=== PATIENT | male | born 1930 | race Caucasian/White ===

== ENCOUNTER 2016-07-24 13:15 | Emergency (ER) | payer MEDICARE, OTHER ==
--- NOTE | 2016-07-24 15:43 | EDM.PDOC ---
ED HISTORY OF PRESENT ILLNESS - General Chief Complaint: Genitourinary Problem Stated Complaint: UTI??? Time Seen by Provider: 07/24/16 15:24 Source: Reports: Patient, EMS notes reviewed, Family, Old records, RN notes reviewed History Limitations: Reports: No limitations - History of Present Illness INITIAL COMMENTS - FREE TEXT/NARRATIVE: 85-year-old gentleman presents emergency Department a complaint of weakness, he states he had some difficulty 3 days prior he had some pain into his neck he does have a known history of coronary artery disease he was at the grocery took 2 nitroglycerin and then walked from the car store felt lightheaded and had a near syncopal. He got home over the weekend he had a couple episodes where he felt palpitations he could not record his heart rate was going to pass. He presents today for just generalized weakness denies any nausea vomiting no shortness of breath no chest pain no other or GI symptoms - Related Data Allergies/ADRs: Allergies Allergy/AdvReac Type Severity Reaction Status Date / Time amlodipine Allergy Severe anaphylaxis Verified 09/29/13 15:55 dipyridamole Allergy Cannot Verified 09/29/13 15:56 Remember Iodinated Contrast Media - Allergy Rash Verified 10/01/13 09:19 Oral and [Iodinated Contrast Media - IV Dye] rosuvastatin calcium Allergy Muscle Verified 09/29/13 15:57 [From Crestor] Aches Home Meds: Home Meds Aspirin [Ecotrin] 81 mg PO DAILY 09/29/13 [History] Copper/Ginseng/Saw Palm/Zinc [Prostate Health Formula] 1 cap PO DAILY 09/29/13 [ History] Multivitamin with Minerals [Multiple Vitamin] 1 tab PO DAILY 09/29/13 [History] Omeprazole [Prilosec] 40 mg PO DAILY 09/29/13 [History] Clopidogrel [Plavix] 75 mg PO DAILY 07/14/14 [History] glipiZIDE [Glucotrol] 2.5 mg PO BID 07/14/14 [History] Cholecalciferol (Vitamin D3) [Vitamin D] 1 tab PO DAILY 09/10/14 [History] Nitroglycerin [IJP: Nitroglycerin] 07/24/16 [History] Past Medical History HEENT History: Reports: Cataract, Other (see below) Other HEENT History: optic neuropathy Cardiovascular History: Reports: Arrhythmia, Blood clots/VTE/DVT, CAD, [place], Pacemaker, Other (see below) Other Cardiovascular History: cardiomegaly, sinoatrial node disfunction, Respiratory History: Reports: PE, Other (see below) Other Respiratory History: pulm. valve disorder Gastrointestinal History: Reports: GERD Genitourinary History: Reports: BPH, Chronic renal insuffiency, Other (see below ) Other Genitourinary History: hx of urinary obstructions Musculoskeletal History: Reports: Back pain, chronic, Osteoarthritis Endocrine/Metabolic History: Reports: Diabetes, type II - Past Surgical History HEENT Surgical History: Reports: Cataract surgery Social & Family History - Tobacco Use Smoking Status *Q: Former Smoker Years of Tobacco use: 8 Month Tobacco Last Used: september Second Hand Smoke Exposure: No - Caffeine Use Caffeine Use: Reports: Coffee - Alcohol Use Days Per Week of Alcohol Use: 0 - Recreational Drug Use Recreational Drug Use: No ED ROS GENERAL - Review of Systems Review Of Systems: See Below Constitutional: Reports: weakness. Denies: fever, chills, diaphoresis HEENT: Reports: No symptoms Respiratory: Reports: no symptoms Cardiovascular: Reports: No symptoms GI/Abdominal: Reports: No symptoms : Reports: no symptoms Musculoskeletal: Reports: neck pain Skin: Reports: no symptoms Neurological: Reports: no symptoms ED EXAM, GENERAL - Physical Exam Exam: See Below Free Text/Narrative:: General: Male, not in any distress, alert and oriented x3 HEENT: head is atraumatic normocephalic, eyes pupils equal round reactive to light and accommodation sclera clear no conjunctivitis appreciated. Ears blocked by cerumen bilaterally. Nose no septal deviation, nares are clear, no blood present. Mouth mucosa is moist and pink no erythema or exudate noted in soft palate, tongue is midline uvula is midline, dentures in place. Neck: Supple no thyromegaly no tracheal deviation. Nodes: Cervical nodes subclavicular nodes nontender no palpable lymphadenopathy noted. Lungs: Clear with crackles in the bases bilaterally CV: Regular rate and rhythm S1 and S2 appreciated no murmurs rubs or gallops noted. Abdomen: Soft, nontender, no palpable masses or organomegaly appreciated, no distention no guarding bowel sounds are present, . Neuro: Cranial nerves II through XII grossly intact Skin: Warm and dry, intact Extremities: No lower extremity edema appreciated, Course - Vital Signs Last Recorded V/S: Last Vital Signs Temp 98.2 F 07/24/16 14:06 Pulse 102 H 07/24/16 15:46 Resp 18 07/24/16 15:06 BP 135/77 07/24/16 15:46 Pulse Ox 96 07/24/16 15:46 - Orders/Labs/Meds Orders: Active Orders 24 hr Category Date Time Status Cardiac Monitoring [RC] .As Directed Care 07/24/16 15:38 Active EKG Documentation Completion [RC] ASDIRECTED Care 07/24/16 15:39 Active Chest 2V [CR] Stat Exams 07/24/16 15:39 Taken EKG 12 Lead [EK] Stat Ther 07/24/16 15:39 Ordered Labs: Laboratory Tests 07/24/16 07/24/16 07/24/16 Range/Units 14:35 15:42 15:48 WBC 9.0 (4.5-11.0) K/uL RBC 5.10 (4.30-5.90) M/uL Hgb 15.6 H (12.0-15.0) g/dL Hct 45.5 (40.0-54.0) % MCV 89 (80-98) fL MCH 31 (27-31) pg MCHC 34 (32-36) % Plt Count 181 (150-400) K/uL Neut % (Auto) 69 H (36-66) % Lymph % (Auto) 20 L (24-44) % [place] % (Auto) 9 H (2-6) % Eos % (Auto) 2 (2-4) % Baso % (Auto) 1 (0-1) % D-Dimer, Quantitative 175 (0.0-400.0) ng/mL Sodium (140-148) mmol/L Potassium (3.6-5.2) mmol/L Chloride (100-108) mmol/L Carbon Dioxide (21-32) mmol/L Anion Gap (5.0-14.0) mmol/L BUN (7-18) mg/dL Creatinine (0.8-1.3) mg/dL Est Cr Clr Drug Dosing mL/min Estimated GFR (MDRD) (>60) Glucose (74-106) mg/dL Lactic Acid (0.4-2.0) mmol/L Calcium (8.5-10.1) mg/dL Total Bilirubin (0.2-1.0) mg/dL AST (15-37) U/L ALT (12-78) U/L Alkaline Phosphatase (46-116) U/L Troponin I (0.000-0.056) ng/mL Total Protein (6.4-8.2) g/dL Albumin (3.4-5.0) g/dL Globulin (2.3-3.5) g/dL Albumin/Globulin Ratio (1.2-2.2) Urine Color Yellow Urine Appearance Clear Urine pH 5.0 (4.5-8.0) Ur Specific [place] 1.020 (1.008-1.030) Urine Protein Negative (NEGATIVE) mg/dL Urine Glucose (UA) Normal (NEGATIVE) mg/dL Urine Ketones Negative (NEGATIVE) mg/dL Urine Occult Blood Negative (NEGATIVE) Urine Nitrite Negative (NEGAITVE) Urine Bilirubin Negative (NEGATIVE) Urine Urobilinogen Normal (NORMAL) mg/dL Ur Leukocyte Esterase Negative (NEGATIVE) Urine RBC 0-5 (0-5) Urine WBC 0-5 (0-5) Ur Epithelial Cells Moderate Amorphous Sediment Not seen Urine Bacteria Moderate Urine Mucus Many Urine Other 07/24/16 07/24/16 Range/Units 15:48 15:48 WBC (4.5-11.0) K/uL RBC (4.30-5.90) M/uL Hgb (12.0-15.0) g/dL Hct (40.0-54.0) % MCV (80-98) fL MCH (27-31) pg MCHC (32-36) % Plt Count (150-400) K/uL Neut % (Auto) (36-66) % Lymph % (Auto) (24-44) % [place] % (Auto) (2-6) % Eos % (Auto) (2-4) % Baso % (Auto) (0-1) % D-Dimer, Quantitative (0.0-400.0) ng/mL Sodium 144 (140-148) mmol/L Potassium 4.2 (3.6-5.2) mmol/L Chloride 105 (100-108) mmol/L Carbon Dioxide 29 (21-32) mmol/L Anion Gap 9.9 (5.0-14.0) mmol/L BUN 29 H D (7-18) mg/dL Creatinine 1.6 H (0.8-1.3) mg/dL Est Cr Clr Drug Dosing 38.40 mL/min Estimated GFR (MDRD) 41 L (>60) Glucose 141 H (74-106) mg/dL Lactic Acid 1.9 (0.4-2.0) mmol/L Calcium 8.2 L (8.5-10.1) mg/dL Total Bilirubin 0.4 D (0.2-1.0) mg/dL AST 21 (15-37) U/L ALT 52 (12-78) U/L Alkaline Phosphatase 52 (46-116) U/L Troponin I 0.018 (0.000-0.056) ng/mL Total Protein 6.4 (6.4-8.2) g/dL Albumin 3.3 L (3.4-5.0) g/dL Globulin 3.1 (2.3-3.5) g/dL Albumin/Globulin Ratio 1.1 L (1.2-2.2) Urine Color Urine Appearance Urine pH (4.5-8.0) Ur Specific [place] (1.008-1.030) Urine Protein (NEGATIVE) mg/dL Urine Glucose (UA) (NEGATIVE) mg/dL Urine Ketones (NEGATIVE) mg/dL Urine Occult Blood (NEGATIVE) Urine Nitrite (NEGAITVE) Urine Bilirubin (NEGATIVE) Urine Urobilinogen (NORMAL) mg/dL Ur Leukocyte Esterase (NEGATIVE) Urine RBC (0-5) Urine WBC (0-5) Ur Epithelial Cells Amorphous Sediment Urine Bacteria Urine Mucus Urine Other Departure - Departure Time of Disposition: 16:43 Disposition: Home, Self-Care 01 Condition: good Clinical Impression: Atrial flutter Qualifiers: Atrial flutter type: atypical Qualified Code(s): I48.4 - Atypical atrial flutter Forms: ED Department Discharge Additional Instructions: start metoprolol 6.25 mg twice a day followup with her primary care provider in the next 5-7 days for reevaluation, call or return to the ED with worsening of symptoms - My Orders Last 24 Hours: My Active Orders 07/24/16 15:38 Cardiac Monitoring [RC] .As Directed 07/24/16 15:39 EKG Documentation Completion [RC] ASDIRECTED Chest 2V [CR] Stat EKG 12 Lead [EK] Stat - Assessment/Plan Last 24 Hours: My Active Orders 07/24/16 15:38 Cardiac Monitoring [RC] .As Directed 07/24/16 15:39 EKG Documentation Completion [RC] ASDIRECTED Chest 2V [CR] Stat EKG 12 Lead [EK] Stat Plan: Assessment Acuity = acute Site and laterality = atrial flutter with variable conduction, inpatient with known history of coronary artery disease Etiology =unclear etiology Manifestations = palpitations Location of injury = home Lab values = creatinine elevated 1.6 consistent with the chronic renal failure stage GIII be lactic acid normal at 1.9 albumin low at 2.3 consistent hypoalbuminemia EKG demonstrates an atrial flutter variable conduction left bundle branch block, chest x-ray I did review films myself I cannot appreciate any acute process, the official read from radiology is pending Plan I did review with him his lab work and EKG results are elected to start a beta gera which he has been on in the past however it did drop his blood pressure significantly therefore we'll start a low dose and follow up with primary care in 3-5 days for reevaluation Patient was in agreement with the plan all questions were answered, they were instructed to return to the emergency department or call for worsening symptoms. This note was dictated using [employer] voice recognition software please call with any questions.
[2016-07-24 16:41] VITALS: BP 132/81
--- NOTE | 2016-07-25 08:39 | CR ---
Chest 2V HISTORY: Palpitations. COMPARISON: 09/10/2014. FINDINGS: Right-sided pacemaker. Prior median sternotomy. Stable mild cardiomegaly. No acute infiltr ates or effusions.
== END 2016-07-24 16:54 | disposition home or self-care (01) ==
LOC: JP.ED 13:15
DX: I48.4 Atypical atrial flutter (principal); I25.2 Old myocardial infarction; I25.10 Atherosclerotic heart disease of native coronary artery without angina pectoris; K21.9 Gastro-esophageal reflux disease without esophagitis; N18.9 Chronic kidney disease, unspecified; E11.9 Type 2 diabetes mellitus without complications; Z86.718 Personal history of other venous thrombosis and embolism; Z98.49 Cataract extraction status, unspecified eye; Z87.891 Personal history of nicotine dependence; Z79.82 Long term (current) use of aspirin; Z79.02 Long term (current) use of antithrombotics/antiplatelets; Z79.899 Other long term (current) drug therapy; Z88.8 Allergy status to other drugs, medicaments and biological substances; Z91.041 Radiographic dye allergy status
CPT/HCPCS: 36415; 71020; 71020-26; 80053; 81001; 83605; 84484; 85025; 85379; 93005; 93010; 99284; 99285-25

== ENCOUNTER 2016-08-18 11:50 | Emergency (ER) | payer MEDICARE, OTHER ==
[2016-08-18 15:18] VITALS: BP 154/80
--- NOTE | 2016-08-18 15:29 | EDM.PDOC ---
[id number]? EAR PAIN WELL Time Seen by Provider: 08/18/16 13:00 Source: Reports: Patient, Family History Limitations: Reports: No limitations - History of Present Illness INITIAL COMMENTS - FREE TEXT/NARRATIVE: 85-year-old male with right-sided visual problems, cerumen impaction and dyspnea at night. It started one week ago when he had his right ear washed in the clinic without success. That night he had a right-sided headache and since that time he feels like his vision is not normal in the right side. The headache is resolved. He is still having difficulty hearing. Recently had an increase in his metoprolol and at night he feels like he wakes up short of breath although the symptoms only last for a few minutes after sitting up. No chest pains, no nausea vomiting. Severity: mild Location: Reports: right Ear Associated symptoms: Reports: shortness of breath (Nocturnal dyspnea). Denies: cough, nausea/vomiting - Related Data Allergies/ADRs: Allergies Allergy/AdvReac Type Severity Reaction Status Date / Time amlodipine Allergy Severe anaphylaxis Verified 08/18/16 13:36 dipyridamole Allergy Cannot Verified 08/18/16 13:36 Remember Iodinated Contrast Media - Allergy Rash Verified 08/18/16 13:36 Oral and [Iodinated Contrast Media - IV Dye] rosuvastatin calcium Allergy Muscle Verified 08/18/16 13:36 [From Crestor] Aches Home Meds: Home Meds Aspirin [Ecotrin] 81 mg PO DAILY 09/29/13 [History] Copper/Ginseng/Saw Palm/Zinc [Prostate Health Formula] 1 cap PO DAILY 09/29/13 [ History] Multivitamin with Minerals [Multiple Vitamin] 1 tab PO DAILY 09/29/13 [History] Omeprazole [Prilosec] 40 mg PO DAILY 09/29/13 [History] Clopidogrel [Plavix] 75 mg PO DAILY 07/14/14 [History] glipiZIDE [Glucotrol] 2.5 mg PO BID 07/14/14 [History] Cholecalciferol (Vitamin D3) [Vitamin D] 1 tab PO DAILY 09/10/14 [History] Nitroglycerin [IJP: Nitroglycerin] 07/24/16 [History] Past Medical History HEENT History: Reports: Cataract, Other (see below) Other HEENT History: optic neuropathy Cardiovascular History: Reports: Arrhythmia, Blood clots/VTE/DVT, CAD, [place], Pacemaker, Other (see below) Other Cardiovascular History: cardiomegaly, sinoatrial node disfunction, Respiratory History: Reports: PE, Other (see below) Other Respiratory History: pulm. valve disorder Gastrointestinal History: Reports: GERD Genitourinary History: Reports: BPH, Chronic renal insuffiency, Other (see below ) Other Genitourinary History: hx of urinary obstructions Musculoskeletal History: Reports: Back pain, chronic, Osteoarthritis Endocrine/Metabolic History: Reports: Diabetes, type II - Past Surgical History HEENT Surgical History: Reports: Cataract surgery Social & Family History - Tobacco Use Smoking Status *Q: Former Smoker Years of Tobacco use: 8 Month Tobacco Last Used: september Second Hand Smoke Exposure: No - Caffeine Use Caffeine Use: Reports: Coffee - Alcohol Use Days Per Week of Alcohol Use: 0 - Recreational Drug Use Recreational Drug Use: No ED ROS ENT - Review of Systems Review Of Systems: See Below Constitutional: Denies: chills, malaise HEENT: Reports: Vision change (Right eye only) Respiratory: Reports: Shortness of Breath (At night while lying down) Cardiovascular: Denies: Chest pain Endocrine: Denies: fatigue GI/Abdominal: Denies: Abdominal pain, Nausea, Vomiting Skin: Reports: no symptoms Neurological: Reports: Headache (One week ago, has resolved) ED EXAM, ENT - Physical Exam Exam: See Below Exam Limited By: No limitations General Appearance: alert, no apparent distress Eye Exam: right eye: vision changes (Does have some blurriness to the vision of the right eye objectively), bilateral eye: EOMI Ears: other (Cerumen impaction of the right ear) Respiratory/Chest: no respiratory distress, lungs clear Cardiovascular: regular rate, rhythm Neurological: alert, oriented, no motor/sensory deficits (Other than his right eye vision) Skin: Warm, Dry Course - Vital Signs Last Recorded V/S: Last Vital Signs Temp 97.3 F 08/18/16 15:16 Pulse 98 08/18/16 15:16 Resp 16 08/18/16 15:16 BP 154/80 H 08/18/16 15:16 Pulse Ox 93 L 08/18/16 15:16 - Orders/Labs/Meds Orders: Active Orders 24 hr Category Date Time Status Head wo Cont [CT] Stat Exams 08/18/16 14:42 Taken - Re-Assessments/Exams Free Text/Narrative Re-Assessment/Exam: 08/19/16 07:59 Because of the intense headache and visual changes, a CT of his head was obtained. There was an unusual soft tissue abnormality commented on suggesting an MRI followup. His right ear was irrigated and the cerumen was removed in its entirety with good results, his hearing was much better. I did tell the patient that if you want to take a half of a dose of metoprolol at this time through the weekend and discuss this with his regular doctor next week it would be reasonable, I also asked him to get an eye exam early next week and then he is going to call me and we will try to set up his MRI. Departure - Departure Time of Disposition: 15:58 Disposition: Home, Self-Care 01 Condition: good Clinical Impression: Changes in vision, Impacted cerumen of right ear, Nocturnal dyspnea Instructions: Shortness of Breath, Lwgx-[id number], Earwax Buildup Referrals: Pedro Lnych MD [Primary Care Provider] - Forms: ED Department Discharge Care Plan Goals: Call me at [phone] next week evenings after Sunday with eye report. Take a half dose of metoprolol at night for the next few nights. - My Orders Last 24 Hours: My Active Orders 08/18/16 14:42 Head wo Cont [CT] Stat - Assessment/Plan Last 24 Hours: My Active Orders 08/18/16 14:42 Head wo Cont [CT] Stat
== END 2016-08-18 15:59 | disposition home or self-care (01) ==
LOC: JP.ED 11:50
DX: H61.21 Impacted cerumen, right ear (principal); H53.9 Unspecified visual disturbance; R06.00 Dyspnea, unspecified; K21.9 Gastro-esophageal reflux disease without esophagitis; E11.9 Type 2 diabetes mellitus without complications; I25.2 Old myocardial infarction; I25.10 Atherosclerotic heart disease of native coronary artery without angina pectoris; Z95.0 Presence of cardiac pacemaker; Z86.718 Personal history of other venous thrombosis and embolism; Z98.49 Cataract extraction status, unspecified eye; Z87.891 Personal history of nicotine dependence; Z79.82 Long term (current) use of aspirin; Z79.02 Long term (current) use of antithrombotics/antiplatelets; Z79.899 Other long term (current) drug therapy; Z88.8 Allergy status to other drugs, medicaments and biological substances; Z91.041 Radiographic dye allergy status
CPT/HCPCS: 69209; 70450; 99283-25; 99284-25

== ENCOUNTER 2016-08-24 21:04 | Observation (INO) | payer MEDICARE, OTHER ==
[2016-08-24] MEDS ORDERED: Furosemide 40 MG/4 ML VIAL IVPUSH ONE (22:00)
--- NOTE | 2016-08-24 22:04 | EDM.PDOC ---
ED HISTORY OF PRESENT ILLNESS - General Chief Complaint: Respiratory Problem Stated Complaint: SOB Time Seen by Provider: 08/24/16 21:30 Source: Reports: Patient, Family History Limitations: Reports: No limitations - History of Present Illness INITIAL COMMENTS - FREE TEXT/NARRATIVE: 85-year-old male who has developed increasing shortness of breath over the past 2 weeks, especially the last 2 days. His becoming intolerant of any activity at home, can't lay down, feels he's had increased lower extremity edema and can' t tolerate activity. He claims he has gained "10 pounds" in the last week, however to compare weights here at the ER he looks consistent over the past week. Has some chest tightness but no pain. Recently got started on Coumadin for atrial fibrillation. Denies any abdominal pain, nausea vomiting or fever. He is scheduled to have his pro time checked tomorrow and we are trying to get him scheduled for an MRI of his head to follow an abnormal finding on CT one week ago. When I saw him one week ago he was complaining of nighttime shortness or breath and he was going to try a half dose metoprolol at bedtime. He had an echocardiogram 3 days ago, the notes were found and showed severe ejection fraction. Severity: moderate Location, General: Reports: chest Associated Symptoms: Reports: malaise, shortness of breath, weakness. Denies: fever/chills, headaches - Related Data Allergies/ADRs: Allergies Allergy/AdvReac Type Severity Reaction Status Date / Time amlodipine Allergy Severe anaphylaxis Verified 08/24/16 21:26 dipyridamole Allergy Cannot Verified 08/24/16 21:26 Remember Iodinated Contrast Media - Allergy Rash Verified 08/24/16 21:26 Oral and [Iodinated Contrast Media - IV Dye] rosuvastatin calcium Allergy Muscle Verified 08/24/16 21:26 [From Crestor] Aches Home Meds: Home Meds Copper/Ginseng/Saw Palm/Zinc [Prostate Health Formula] 1 cap PO DAILY 09/29/13 [ History] Multivitamin with Minerals [Multiple Vitamin] 1 tab PO DAILY 09/29/13 [History] Omeprazole [Prilosec] 40 mg PO DAILY 09/29/13 [History] Clopidogrel [Plavix] 75 mg PO DAILY 07/14/14 [History] glipiZIDE [Glucotrol] 2.5 mg PO BID 07/14/14 [History] Cholecalciferol (Vitamin D3) [Vitamin D] 1 tab PO DAILY 09/10/14 [History] Nitroglycerin [IJP: Nitroglycerin] 0.4 mg PO ASDIRECTED PRN 07/24/16 [History] Cholecalciferol (Vitamin D3) [Vitamin D3] 1,000 unit PO DAILY 08/24/16 [History] Isosorbide Mononitrate [Isosorbide Mononitrate ER] 30 mg PO DAILY 08/24/16 [ History] Metoprolol Succinate/HCTZ [Metoprolol ER-Hctz 25-12.5 mg] 50 mg PO BID 08/24/16 [History] Multivitamin [Multivitamins] 1 each PO DAILY 08/24/16 [History] Warfarin [Coumadin] 5 mg PO ONETIME 08/24/16 [History] Past Medical History HEENT History: Reports: Cataract, Other (see below) Other HEENT History: optic neuropathy Cardiovascular History: Reports: Arrhythmia, Blood clots/VTE/DVT, CAD, VT, Pacemaker, Other (see below) Other Cardiovascular History: cardiomegaly, sinoatrial node disfunction, Respiratory History: Reports: PE, Other (see below) Other Respiratory History: pulm. valve disorder Gastrointestinal History: Reports: GERD Genitourinary History: Reports: BPH, Chronic renal insuffiency, Other (see below ) Other Genitourinary History: hx of urinary obstructions Musculoskeletal History: Reports: Back pain, chronic, Osteoarthritis Endocrine/Metabolic History: Reports: Diabetes, type II - Infectious Disease History Infectious Disease History: Reports: Chicken pox, Measles, Mumps, Rubella, Shingles - Past Surgical History HEENT Surgical History: Reports: Cataract surgery Social & Family History - Tobacco Use Smoking Status *Q: Never Smoker Years of Tobacco use: 8 Month Tobacco Last Used: september Second Hand Smoke Exposure: No - Caffeine Use Caffeine Use: Reports: Coffee - Alcohol Use Days Per Week of Alcohol Use: 0 - Recreational Drug Use Recreational Drug Use: No ED ROS GENERAL - Review of Systems Review Of Systems: See Below Constitutional: Denies: fever, chills Respiratory: Reports: Shortness of Breath, Wheezing, Cough Cardiovascular: Reports: Dyspnea on exertion. Denies: Chest pain Endocrine: Reports: fatigue GI/Abdominal: Denies: Abdominal pain : Reports: no symptoms Skin: Reports: no symptoms Neurological: Denies: Headache Psychiatric: Reports: No symptoms ED EXAM, GENERAL - Physical Exam Exam: See Below Exam Limited By: No limitations General Appearance: alert, mild distress (Appears to have some respiratory effort which was not present previously) Throat/Mouth: Normal inspection Respiratory/Chest: respiratory distress (Mild respiratory distress and effort, decreased breath sounds at the bases and diffuse scattered expiratory wheezes) Cardiovascular: tachycardia, irregularly irregular GI/Abdominal: soft, non tender Extremities: pedal edema (Symmetric 1+ pedal edema bilaterally) Neurological: alert, oriented Psychiatric: normal affect, normal mood Skin Exam: Warm, Dry EKG INTERPRETATION Rhythm: a-fib QRS: LBBB Comparison: no change (No change from one month ago.) Course - Vital Signs Last Recorded V/S: Last Vital Signs Temp 98.3 F 08/24/16 22:36 Pulse 110 H 08/24/16 22:36 Resp 20 08/24/16 22:36 BP 149/83 H 08/24/16 22:36 Pulse Ox 94 L 08/24/16 22:36 - Orders/Labs/Meds Orders: Active Orders 24 hr Category Date Time Status Chest 1V Frontal [CR] Stat Exams 08/24/16 21:59 Taken EKG 12 Lead [EK] Routine Ther 08/24/16 21:59 Ordered Medication Orders Albuterol/Ipratropium (Duoneb 3.0-0.5 Mg/3 Ml) 3 ml NEB QID PRN PRN Reason: Shortness Of Breath/wheezing Aspirin (Halfprin) 81 mg PO DAILY [facility] Cholecalciferol (Vitamin D3) 1,000 units PO DAILY [facility] Clopidogrel Bisulfate (Plavix) 75 mg PO DAILY [facility] Furosemide (Lasix) 40 mg IVPUSH ONETIME ONE Stop: 08/25/16 04:01 Glipizide (Glucotrol) 2.5 mg PO BID [facility] Hydrochlorothiazide (Hydrochlorothiazide) 25 mg PO BID [facility] Isosorbide Mononitrate (Imdur) 30 mg PO DAILY [facility] Metoprolol Succinate (Toprol Xl) 50 mg PO BID [facility] Multivitamins/Minerals (Prosight) 1 tab PO DAILY [facility] Nitroglycerin (Nitrostat) 0.4 mg SL Q5M PRN PRN Reason: Chest Pain Non-Formulary Medication (Omeprazole [Prilosec]) 40 mg PO DAILY [facility] Sodium Chloride (Saline Flush) 10 ml FLUSH ASDIRECTED PRN PRN Reason: Keep Vein Open Warfarin Sodium (Coumadin) 5 mg PO ONETIME [facility] Labs: Laboratory Tests 08/24/16 08/24/16 08/24/16 Range/Units 21:59 21:59 22:40 WBC 11.4 H (4.5-11.0) K/uL RBC 5.01 (4.30-5.90) M/uL Hgb 14.8 (12.0-15.0) g/dL Hct 45.4 (40.0-54.0) % MCV 91 (80-98) fL MCH 30 (27-31) pg MCHC 33 (32-36) % Plt Count 222 (150-400) K/uL Neut % (Auto) 74 H (36-66) % Lymph % (Auto) 15 L (24-44) % Treasure % (Auto) 9 H (2-6) % Eos % (Auto) 2 (2-4) % Baso % (Auto) 0 (0-1) % Sodium 145 (140-148) mmol/L Potassium 4.4 (3.6-5.2) mmol/L Chloride 106 (100-108) mmol/L Carbon Dioxide 31 (21-32) mmol/L Anion Gap 8.5 (5.0-14.0) mmol/L BUN 30 H (7-18) mg/dL Creatinine 1.6 H (0.8-1.3) mg/dL Est Cr Clr Drug Dosing 38.40 mL/min Estimated GFR (MDRD) 41 L (>60) Glucose 101 (74-106) mg/dL Calcium 8.3 L (8.5-10.1) mg/dL Total Bilirubin 0.7 D (0.2-1.0) mg/dL AST 19 (15-37) U/L ALT 44 (12-78) U/L Alkaline Phosphatase 82 (46-116) U/L Troponin I < 0.017 (0.000-0.056) ng/mL Total Protein 7.4 (6.4-8.2) g/dL Albumin 3.7 (3.4-5.0) g/dL Globulin 3.7 H (2.3-3.5) g/dL Albumin/Globulin Ratio 1.0 L (1.2-2.2) Urine Color Yellow Urine Appearance Clear Urine pH 5.0 (4.5-8.0) Ur Specific [place] 1.015 (1.008-1.030) Urine Protein Negative (NEGATIVE) mg/dL Urine Glucose (UA) Normal (NEGATIVE) mg/dL Urine Ketones Negative (NEGATIVE) mg/dL Urine Occult Blood Negative (NEGATIVE) Urine Nitrite Negative (NEGAITVE) Urine Bilirubin Negative (NEGATIVE) Urine Urobilinogen Normal (NORMAL) mg/dL Ur Leukocyte Esterase Negative (NEGATIVE) Urine RBC 0-5 (0-5) Urine WBC 0-5 (0-5) Ur Epithelial Cells Few Amorphous Sediment Not seen Urine Bacteria Few Urine Mucus Not seen Meds: Medications Generic Name Dose Route Start Last Admin Trade Name Freq PRN Reason Stop Dose Admin Albuterol/Ipratropium 3 ml 08/24/16 23:29 Duoneb 3.0-0.5 Mg/3 Ml NEB QID PRN Shortness Of Breath/wheezing Aspirin 81 mg 08/25/16 09:00 Halfprin PO DAILY [facility] Cholecalciferol 1,000 units 08/25/16 09:00 Vitamin D3 PO DAILY [facility] Clopidogrel Bisulfate 75 mg 08/25/16 09:00 Plavix PO DAILY [facility] Furosemide 40 mg 08/25/16 04:00 Lasix IVPUSH 08/25/16 04:01 ONETIME ONE Glipizide 2.5 mg 08/25/16 09:00 Glucotrol PO BID [facility] Hydrochlorothiazide 25 mg 08/25/16 09:00 Hydrochlorothiazide PO BID [facility] Isosorbide Mononitrate 30 mg 08/25/16 09:00 Imdur PO DAILY [facility] Metoprolol Succinate 50 mg 08/25/16 09:00 Toprol Xl PO BID [facility] Multivitamins/Minerals 1 tab 08/25/16 09:00 Prosight PO DAILY [facility] Nitroglycerin 0.4 mg 08/24/16 23:45 Nitrostat SL Q5M PRN Chest Pain Non-Formulary Medication 40 mg 08/25/16 09:00 Omeprazole [Prilosec] PO DAILY [facility] Sodium Chloride 10 ml 08/24/16 23:29 Saline Flush FLUSH ASDIRECTED PRN Keep Vein Open Warfarin Sodium 5 mg 08/24/16 23:45 Coumadin PO ONETIME [facility] Discontinued Medications Generic Name Dose Route Start Last Admin Trade Name Ugo PRN Reason Stop Dose Admin Albuterol/Ipratropium 3 ml 08/24/16 22:05 08/24/16 22:22 Duoneb 3.0-0.5 Mg/3 Ml NEB 08/24/16 22:06 3 ml ONETIME ONE Administration Furosemide 40 mg 08/24/16 22:00 08/24/16 22:09 Lasix IVPUSH 08/24/16 22:01 40 mg ONETIME ONE Administration - Re-Assessments/Exams Free Text/Narrative Re-Assessment/Exam: 08/24/16 23:08 EKG was done which shows an unchanged from from one month ago. He has a significant bundle branch block and appears to be in atrial fibrillation. An IV was started and he was given 40 mg of Lasix IV, a portable chest x-ray was done which confirmed bilateral pleural effusions and congestive heart failure. He was given a DuoNeb which did give him some objective improvement as well as subjective. His O2 saturation stayed at 95% with 2 L of O2, however it was difficult for him to lay down or sit up straight. His troponin returned 0. UA was negative. Hemoglobin was normal. Electrolytes were reassuring. 08/24/16 23:10 Dr. Rodriguez was called for admission, patient needs diuresis and further medical support. He'll need some medication adjustments to optimize therapy. 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
[2016-08-24] MEDS ORDERED: Albuterol/Ipratropium 3.0-0.5 MG/3 ML Neb Soln NEB ONE (22:05)
[2016-08-24] MEDS ORDERED: Albuterol/Ipratropium 3.0-0.5 MG/3 ML Neb Soln NEB PRN (23:29)
[2016-08-24] MEDS ORDERED: Sodium Chloride 0.9% 10 ML Syringe FLUSH PRN (23:29)
[2016-08-24] MEDS ORDERED: Nitroglycerin 0.4 MG Tab.SL SL PRN (23:45)
[2016-08-24] MEDS ORDERED: Warfarin 5 MG Tab PO SCH (23:45)
--- NOTE | 2016-08-25 01:49 | HP ---
CHIEF COMPLAINT: Shortness of breath. HISTORY OF PRESENT ILLNESS: An 85-year-old, recently diagnosed with atrial fibrillation because of racing heart, was started on metoprolol and warfarin. He has been getting worsening shortness of breath. Echocardiogram was obtained, which the official reading, I do not believe, is back yet, but from the tech notes, it looks like ejection fraction is around 20%. Which is a significant change from previous echocardiogram. He does, however, have a significant cardiac history with myocardial infarction in the past. He has had bypass surgery and also pacemaker. He has had increasing swelling in his legs, shortness of breath with orthopnea and he has been dealing with some head issues, they had slightly abnormal CAT scan and they are trying to get an MRI set up for him. He called the ER and came in for further evaluation and was noted to be in heart failure. I was asked to admit the patient for further evaluation and treatment. Patient states that there is some tightness in his chest, but no chest pain. PAST MEDICAL HISTORY: Coronary artery disease, previous bypass surgery, pacemaker placement, myocardial infarction in the past, recent diagnosis of atrial fibrillation with rapid ventricular response. Gastroesophageal reflux disease, BPH, peripheral vascular disease, chronic kidney disease, spinal stenosis L4-5, thrombocytopenia, type 2 diabetes mellitus. MEDICATIONS: Aspirin 81 mg daily, vitamin D, Plavix 75 mg daily, copper, ginseng, saw palmetto, multivitamins, minerals, nitroglycerin p.r.n., omeprazole 40 mg daily, glipizide 2.5 mg b.i.d., warfarin 5 mg daily. We will recheck and verify his dose based on [facility], metoprolol 50 mg b.i.d., glipizide 5 mg half a tablet b.i.d., gabapentin 100 mg t.i.d., isosorbide mononitrate 30 mg daily. ALLERGIES: AMLODIPINE, DIPYRIDAMOLE, AND IODINATED CONTRAST MATERIAL. SOCIAL HISTORY: Smoked a pack a day for 5 years. Quit in 1957. No alcohol use reported. FAMILY HISTORY: Unknown. REVIEW OF SYSTEMS: He has headaches, he has had recent vision workup with his abnormalities in his brain apparently was unremarkable, denies any upper respiratory symptoms. He has had a productive cough of greenish sputum, but he has done this for 5 years. He does have shortness of breath with orthopnea, chest tightness, but no pain. He states his abdomen has felt somewhat bloated, but having no pain there and no nausea, vomiting, diarrhea, or constipation. No urinary problems. He has been having problems with swelling in his legs. Denies any specific skin problems. No neurologic complaints reported. OBJECTIVE: VITAL SIGNS: Temperature 35.9, pulse 125, blood pressure 118/75, respirations 18, and O2 saturation 98% on room air, on 1 L it is at 94%. HEENT: Oropharynx is clear. NECK: Supple. No obvious thyromegaly, JVD, carotid bruits. LUNGS: Decreased at the bases. HEART: Irregularly irregular. ABDOMEN: Bloated, but not overly distended. No mass organomegaly palpated, nontender. EXTREMITIES: He did have pitting edema to the mid tibia bilaterally with some slight discomfort bilaterally. Skin was negative. NEURO: Cranial nerves 2-12 grossly intact. EKG shows atrial flutter with left bundle-branch block. LABORATORY DATA: White count 11.4, hemoglobin 14.8, platelets 222,000, sodium 145, potassium 4.4, chloride 106, BUN 30, creatinine 1.6. Liver functions were normal. Troponin less than 0.017. Urinalysis was negative. Chest x-ray did show fluid in the bases as well as pulmonary congestion throughout the lungs. ASSESSMENT: 1. Congestive heart failure. Shortness of breath. The patient is already given 40 mg IV Lasix in the emergency room, which we probably need to repeat. We will admit him under observation. Anticipate less than 2 nights stay. 2. Underlying coronary artery disease with previous bypass surgery and myocardial infarction and pacemaker placed in the past. 3. Recent diagnosis of atrial fibrillation, which we will continue with his beta-gera and anticoagulation. Recent abnormality on CT scan. Await MRI. Dontrell Rodriguez MD /[id number]
[2016-08-25] MEDS ORDERED: Furosemide 40 MG/4 ML VIAL IVPUSH ONE ×2 (04:00→13:00)
[2016-08-25] MEDS ORDERED: Pantoprazole 40 MG Tab.CR PO SCH (07:30)
[2016-08-25] MEDS ORDERED: Metoprolol Succinate 25 MG Tab.ER PO SCH (09:00)
[2016-08-25] MEDS ORDERED: Cholecalciferol (Vitamin D3) 1,000 Unit Tab PO SCH (09:00)
[2016-08-25] MEDS ORDERED: Hydrochlorothiazide 25 MG Tab PO SCH (09:00)
[2016-08-25] MEDS ORDERED: Beta-Carotene (Vitamin A) w/Vitamin C & E plus Minerals Tab PO SCH (09:00)
--- NOTE | 2016-08-25 10:01 | CR ---
Chest 1V Frontal HISTORY: Dyspnea COMPARISON: 07/24/2016. FINDINGS: Right-sided pacemaker. Mild cardiomegaly. Prior median sternotomy. Mild congestive change with small effusions. No dense infiltrate. Impression: CHF.
[2016-08-25] MEDS: OMEPRAZOLE 40MG (PTOM) PO SCH (11:20)
[2016-08-25] MEDS: GLIPIZIDE 5 MG PO SCH ×2 (11:21→16:53)
[2016-08-25] MEDS: CLOPIDOGREL 75 MG PO SCH (11:21)
[2016-08-25] MEDS: ISOSORBIDE MONONITRATE 30 MG PO SCH (11:23)
[2016-08-25] MEDS: Multivitamins with Iron/Calcium/Folic Acid/Minerals Tab PO SCH (11:24)
[2016-08-25] MEDS: Aspirin 81 MG Tab.EC PO SCH (11:24)
--- NOTE | 2016-08-25 12:10 | PCM.PN ---
- General Info Date of Service: 08/25/16 Functional Status: Reports: tolerating diet, ambulating - Review of Systems General: Reports: Weakness. Denies: Fever Pulmonary: Reports: shortness of breath Systems Review Comment:: No acute events since the time of admission. Shortness of breath has improved significantly and he is off supplemental oxygen as of this morning. No complaints of chest pain or chest tightness. Lower extremity edema has improved but not resolved. He does still feel short of breath with activity. No fevers. Kidney function stable. - Patient Data Vitals - most recent: Last Vital Signs Temp 36.4 C 08/25/16 10:33 Pulse 87 08/25/16 10:33 Resp 16 08/25/16 10:33 BP 129/72 08/25/16 10:33 Pulse Ox 94 L 08/25/16 10:33 Weight - most recent: 103.374 kg I&O - last 24 hours: Intake & Output 08/24/16 08/25/16 08/25/16 22:59 06:59 14:59 Intake Total 240 Output Total 2150 550 Balance -1910 -550 Lab Results last 24 hrs: Laboratory Results - last 24 hr 08/25/16 08/25/16 08/25/16 Range/Units 05:11 05:11 05:11 WBC 10.4 (4.5-11.0) K/uL RBC 4.85 (4.30-5.90) M/uL Hgb 14.2 (12.0-15.0) g/dL Hct 43.8 (40.0-54.0) % MCV 90 (80-98) fL MCH 29 (27-31) pg MCHC 32 (32-36) % Plt Count 190 (150-400) K/uL PT 21.7 H (9.5-12.0) sec INR 2.00 H (0.80-1.20) Sodium 145 (140-148) mmol/L Potassium 4.0 (3.6-5.2) mmol/L Chloride 106 (100-108) mmol/L Carbon Dioxide 32 (21-32) mmol/L Anion Gap 6.6 (5.0-14.0) mmol/L BUN 31 H (7-18) mg/dL Creatinine 1.6 H (0.8-1.3) mg/dL Est Cr Clr Drug Dosing 38.40 mL/min Estimated GFR (MDRD) 41 L (>60) Glucose 116 H (74-106) mg/dL Calcium 8.3 L (8.5-10.1) mg/dL Med Orders - Current: Current Medications Albuterol/Ipratropium (Duoneb 3.0-0.5 Mg/3 Ml) 3 ml NEB QID PRN PRN Reason: Shortness Of Breath/wheezing Aspirin (Halfprin) 81 mg PO DAILY [facility] Last Admin: 08/25/16 11:24 Dose: Not Given Cholecalciferol (Vitamin D3) 1,000 units PO DAILY [facility] Last Admin: 08/25/16 11:25 Dose: 1,000 units Clopidogrel Bisulfate (Plavix) 75 mg PO DAILY [facility] Last Admin: 08/25/16 11:21 Dose: 75 mg Glipizide (Glucotrol) 2.5 mg PO BIDAC [facility] Last Admin: 08/25/16 11:21 Dose: 2.5 mg Isosorbide Mononitrate (Imdur) 30 mg PO DAILY [facility] Last Admin: 08/25/16 11:23 Dose: 30 mg Multivitamins/Minerals (Thera M Plus) 1 tab PO DAILY [facility] Last Admin: 08/25/16 11:24 Dose: 1 tab Nitroglycerin (Nitrostat) 0.4 mg SL Q5M PRN PRN Reason: Chest Pain Omeprazole 40mg ( (Ptom)) 0 each PO DAILY@0730 [facility] Last Admin: 08/25/16 11:20 Dose: 1 each Sodium Chloride (Saline Flush) 10 ml FLUSH ASDIRECTED PRN PRN Reason: Keep Vein Open Warfarin Sodium (Coumadin) 5 mg PO ONETIME [facility] Discontinued Medications Albuterol/Ipratropium (Duoneb 3.0-0.5 Mg/3 Ml) 3 ml NEB ONETIME ONE Stop: 08/24/16 22:06 Last Admin: 08/24/16 22:22 Dose: 3 ml Furosemide (Lasix) 40 mg IVPUSH ONETIME ONE Stop: 08/24/16 22:01 Last Admin: 08/24/16 22:09 Dose: 40 mg Furosemide (Lasix) 40 mg IVPUSH ONETIME ONE Stop: 08/25/16 04:01 Last Admin: 08/25/16 05:09 Dose: 40 mg - Exam Quality Assessment: No: supplemental oxygen General: alert, oriented, cooperative, no acute distress Neck: supple Lungs: Clear to auscultation, Normal respiratory effort Cardiovascular: Regular Rhythm, Tachycardia. No: Murmurs Abdomen: soft, no distension Extremities: no cyanosis, edema (trace ankle edema) Skin: warm, dry Psy/Mental Status: alert, normal affect - Problem List Review Problem List Initiated/Reviewed/Updated: Yes - My Orders Last 24 Hours: My Active Orders 08/25/16 12:05 Furosemide [Lasix] 40 mg IVPUSH ONETIME ONE Metoprolol Succinate [Toprol XL] 25 mg PO ONETIME ONE 08/25/16 13:00 Warfarin [Coumadin] 10 mg PO DAILY@1300 08/26/16 05:00 BASIC METABOLIC PANEL,BMP [CHEM] Timed INR,PT,PROTHROMBIN TIME [COAG] Timed 08/26/16 09:00 Furosemide [Lasix] 40 mg PO DAILY Metoprolol Succinate [Toprol XL] 25 mg PO DAILY - Plan Plan:: Assessment and plan - Acute systolic congestive heart failure - no obvious trigger for the decline in cardiac functional status. Ejection fraction noted earlier this week to be in the mid-20 range with most recent comparison being normal just over 2 years ago. Responding the to diuresis. He is tachycardic as discussed below but I suspect this is related to beta gera deficiency. -Additional diuresis this afternoon -Close monitoring of intake and output -Restart beta gera -Anticipate transition to oral diuretics tomorrow Atrial fibrillation with rapid ventricular response - Probably more of a beta gera deficiency type issue no tachycardia could be mediating some of his decreased systolic function. Hemodynamically he is stable. He is chronically anticoagulated. -Continue beta gera -continue anticoagulation Coronary artery disease - history of CABG. No active symptoms. -Continue medical management Stage III chronic kidney disease - level is near baseline at this time. -Repeat labs in the morning Maintenance issues - - DVT prophylaxis - warfarin - GI prophylaxis - PPI - Nutrition - low sodium diet - Busch catheter - not indicated Disposition - anticipate discharge home after the hospital stay Sam Kenney M.D.
[2016-08-25] MEDS ORDERED: Metoprolol Succinate 25 MG Tab.ER PO ONE (13:00)
[2016-08-25] MEDS ORDERED: Warfarin 5 MG (PTOM) PO SCH (13:00)
[2016-08-25] MEDS ORDERED: Magnesium Hydroxide 400 MG/5 ML Susp 30 ML Cup PO ONE (19:48)
[2016-08-26 07:09] VITALS: BP 114/85
[2016-08-26] MEDS: GLIPIZIDE 5 MG PO SCH (07:27)
[2016-08-26] MEDS: OMEPRAZOLE 40MG (PTOM) PO SCH (07:28)
[2016-08-26] MEDS: Aspirin 81 MG Tab.EC PO SCH ×2 (08:10→08:26)
[2016-08-26] MEDS: ISOSORBIDE MONONITRATE 30 MG PO SCH (08:10)
[2016-08-26] MEDS: CLOPIDOGREL 75 MG PO SCH (08:11)
[2016-08-26] MEDS: Multivitamins with Iron/Calcium/Folic Acid/Minerals Tab PO SCH (08:11)
[2016-08-26] MEDS ORDERED: Metoprolol Succinate 25 MG Tab.ER PO SCH (09:00)
[2016-08-26] MEDS ORDERED: Furosemide 40 MG Tab PO SCH (09:00)
--- NOTE | 2016-08-26 11:33 | PCM.DCSUM1 ---
Discharge Summary - Hospital Course Brief History: 85-year-old male with history of coronary artery disease and atrial fibrillation who presented with worsening shortness of breath and lower extremity edema and was admitted for management of congestive heart failure - Discharge Data Discharge Date: 08/26/16 Discharge Disposition: Home, Self-Care 01 Condition: Good - Discharge Diagnosis/Problem(s) (1) Systolic CHF with reduced left ventricular function, NYHA class 2 SNOMED Code(s): 380327039, [id number], 737995817 ICD Code: I50.20 - UNSPECIFIED SYSTOLIC (CONGESTIVE) HEART FAILURE Status: Acute (2) Atrial fibrillation with rapid ventricular response SNOMED Code(s): 852096275306898 ICD Code: I48.91 - UNSPECIFIED ATRIAL FIBRILLATION Status: Acute (3) CAD (coronary artery disease), [place] coronary artery SNOMED Code(s): 9989980744636 ICD Code: I25.10 - ATHSCL HEART DISEASE OF [place] CORONARY ARTERY W/O ANG PCTRS Status: Acute Qualifiers: [place] vs. transplanted heart: [place] heart Associated angina: without angina Qualified Code(s): I25.10 - Atherosclerotic heart disease of [place] coronary artery without angina pectoris (4) Stage III chronic kidney disease SNOMED Code(s): 220287584 ICD Code: N18.3 - CHRONIC KIDNEY DISEASE, STAGE 3 (MODERATE) Status: Acute - Patient Summary/Data Hospital Course: Fredrick presented to the emergency room with progressive shortness of breath and increasing lower extremity edema. Workup in the emergency room was consistent with congestive heart failure based on examination, x-ray imaging and laboratory testing. He did have a recent echocardiogram that showed a decline in his systolic function of the left ventricle down to 20-25%. He was also noted to be in atrial fibrillation with a rapid ventricular response. He was provided with IV diuretics and admitted to the hospital. During the first day of hospitalization he showed progressive improvement in his lower extremity edema and respiratory status. Kidney function remained stable at stage III chronic kidney disease with the diuresis. His additional improvements throughout the second day of hospitalization. On the day of discharge his lower extremity edema has essentially resolved. He feels like his functional status has returned to baseline. He no longer has shortness of breath. Volume status based on examination appears to have normalized. His heart rate has normalized with restarting his beta gera which was recently switched to the long-acting version of metoprolol. Blood pressures have been in the normal range with systolic pressures in the 110 range. Heart rate has been in the 70s and 80s. He did report some dizziness which I suspect is medication related. He reports an increase in the dizziness after recently restarting his isosorbide so this was discontinued. He has not had recent difficulty with chest pain or significant dyspnea on exertion. The exact cause for the decline in his left ventricular function is not entirely clear. He is on appropriate medical management at this time and clinically and functionally is doing well. I believe that he is safe for outpatient management at this point. We did start him on a low-dose of furosemide to help manage his fluid. This may need some additional titration as an outpatient. He will be scheduled for followup within one week to ensure that his volume status remains appropriate and symptoms remain well-controlled. - Patient Instructions Diet: Heart Healthy Diet Activity: As Tolerated Driving: May Drive Today Showering/Bathing: May Shower Notify Provider of: Fever, Increased Pain, Nausea and/or Vomiting Other/Special Instructions: 1. You were in the hospital for management of congestive heart failure ( too much fluid for your heart ). We have used a combination of IV medications and pills to help reduce the fluid with good success. I would recommend that you continue to take a water pill called the furosemide (Lasix) once daily in the morning to help manage the extra fluid. Please continue to take the metoprolol as previously prescribed. You should be taking the metoprolol succinate, the long-acting version, rather than the old prescription that you had for metoprolol tartrate. 2. Regarding the dizziness, this may be caused by your medications with the isosorbide having a high potential to cause dizziness. I would recommend that you stop taking this medication. Please watch carefully to see if you start having difficulty with chest tightness or pain while you are exerting yourself. 3. Please seek medical attention if you develop fever greater than 101, have sudden onset of significant shortness of breath, significant tightness or pain in your chest or you have rapid reaccumulation of the swelling in your legs. 4. Please followup with Dr. Lynch this week to make sure that you continue to improve. I would also recommend that she followup with the Coumadin clinic this week. You should be taking 5 mg of Coumadin each day after hospital discharge. - Discharge Plan Prescriptions/Med Rec: Furosemide [Lasix] 20 mg PO DAILY #30 tablet Metoprolol Succinate 25 mg PO DAILY #30 tab.er.24h Home Medications: Home Meds Copper/Ginseng/Saw Palm/Zinc [Prostate Health Formula] 1 cap PO DAILY 09/29/13 [ History] Multivitamin with Minerals [Multiple Vitamin] 1 tab PO DAILY 09/29/13 [History] Omeprazole [Prilosec] 40 mg PO DAILY 09/29/13 [History] Clopidogrel [Plavix] 75 mg PO DAILY 07/14/14 [History] glipiZIDE [Glucotrol] 2.5 mg PO BID 07/14/14 [History] Nitroglycerin [IJP: Nitroglycerin] 0.4 mg PO ASDIRECTED PRN 07/24/16 [History] Cholecalciferol (Vitamin D3) [Vitamin D3] 1,000 unit PO DAILY 08/24/16 [History] Furosemide [Lasix] 20 mg PO DAILY #30 tablet 08/26/16 [Rx] Metoprolol Succinate 25 mg PO DAILY #30 tab.er.24h 08/26/16 [Rx] Metoprolol Succinate/HCTZ [Metoprolol ER-Hctz 25-12.5 mg] 1 each PO DAILY [History] Warfarin [Coumadin] 5 mg PO DAILY #0 08/26/16 [Rx] Patient Handouts: Furosemide tablets, Heart Failure Referrals: Pedro Lynch MD [Primary Care Provider] - (f/u in one week - followup hospital stay for congestive heart failure and medication adjustments) - Discharge Summary/Plan Comment DC Time >30 min.: No (25) - Patient Data Vitals - Most Recent: Last Vital Signs Temp 35.4 C 08/26/16 07:00 Pulse 70 08/26/16 08:12 Resp 18 08/26/16 07:00 BP 114/85 08/26/16 08:12 Pulse Ox 96 08/26/16 07:00 Weight - Most Recent: 101.559 kg I&O - Last 24 hours: Intake & Output 08/25/16 08/26/16 08/26/16 22:59 06:59 14:59 Intake Total 300 Balance 300 Lab Results - Last 24 hrs: Laboratory Results - last 24 hr 08/26/16 08/26/16 Range/Units 05:24 05:24 PT 27.4 H (9.5-12.0) sec INR 2.51 H (0.80-1.20) Sodium 147 (140-148) mmol/L Potassium 4.5 (3.6-5.2) mmol/L Chloride 106 (100-108) mmol/L Carbon Dioxide 38 H (21-32) mmol/L Anion Gap 7.5 (5.0-14.0) mmol/L BUN 34 H (7-18) mg/dL Creatinine 1.7 H (0.8-1.3) mg/dL Est Cr Clr Drug Dosing 36.14 mL/min Estimated GFR (MDRD) 39 L (>60) Glucose 120 H (74-106) mg/dL Calcium 8.5 (8.5-10.1) mg/dL Med Orders - Current: Current Medications Albuterol/Ipratropium (Duoneb 3.0-0.5 Mg/3 Ml) 3 ml NEB QID PRN PRN Reason: Shortness Of Breath/wheezing Aspirin (Halfprin) 81 mg PO DAILY [facility] Last Admin: 08/26/16 08:26 Dose: Not Given Cholecalciferol (Vitamin D3) 1,000 units PO DAILY [facility] Last Admin: 08/25/16 11:25 Dose: 1,000 units Clopidogrel Bisulfate (Plavix) 75 mg PO DAILY [facility] Last Admin: 08/26/16 08:11 Dose: 75 mg Furosemide (Lasix) 40 mg PO DAILY [facility] Last Admin: 08/26/16 08:11 Dose: 40 mg Glipizide (Glucotrol) 2.5 mg PO BIDAC [facility] Last Admin: 08/26/16 07:27 Dose: 2.5 mg Isosorbide Mononitrate (Imdur) 30 mg PO DAILY [facility] Last Admin: 08/26/16 08:10 Dose: 30 mg Metoprolol Succinate (Toprol Xl) 25 mg PO DAILY [facility] Last Admin: 08/26/16 08:12 Dose: 25 mg Multivitamins/Minerals (Thera M Plus) 1 tab PO DAILY [facility] Last Admin: 08/26/16 08:11 Dose: 1 tab Nitroglycerin (Nitrostat) 0.4 mg SL Q5M PRN PRN Reason: Chest Pain Omeprazole 40mg ( (Ptom)) 0 each PO DAILY@0730 [facility] Last Admin: 08/26/16 07:28 Dose: 1 each Sodium Chloride (Saline Flush) 10 ml FLUSH ASDIRECTED PRN PRN Reason: Keep Vein Open Discontinued Medications Albuterol/Ipratropium (Duoneb 3.0-0.5 Mg/3 Ml) 3 ml NEB ONETIME ONE Stop: 08/24/16 22:06 Last Admin: 08/24/16 22:22 Dose: 3 ml Furosemide (Lasix) 40 mg IVPUSH ONETIME ONE Stop: 08/24/16 22:01 Last Admin: 08/24/16 22:09 Dose: 40 mg Furosemide (Lasix) 40 mg IVPUSH ONETIME ONE Stop: 08/25/16 04:01 Last Admin: 08/25/16 05:09 Dose: 40 mg Furosemide (Lasix) 40 mg IVPUSH ONETIME ONE Stop: 08/25/16 13:01 Last Admin: 08/25/16 13:10 Dose: 40 mg Magnesium Hydroxide (Milk Of Magnesia) 30 ml PO ONETIME ONE Stop: 08/25/16 19:49 Last Admin: 08/25/16 19:58 Dose: 30 ml Metoprolol Succinate (Toprol Xl) 25 mg PO ONETIME ONE Stop: 08/25/16 13:01 Last Admin: 08/25/16 13:12 Dose: 25 mg Warfarin Sodium (Coumadin) 10 mg PO DAILY@1300 [facility] Stop: 08/25/16 13:01 Last Admin: 08/25/16 13:09 Dose: 10 mg *Q Meaningful Use (DIS) - VTE *Q VTE Criteria *Q: - Stroke *Q Stroke Criteria *Q: - AMI *Q AMI Criteria *Q:
== END 2016-08-26 12:25 | disposition home or self-care (01) ==
LOC: JP.ED 21:04 → JP.MS 23:29
PROVIDERS: ADMIT Family Medicine; ATTEND Internal Medicine
DX: I50.23 Acute on chronic systolic (congestive) heart failure (principal); I48.91 Unspecified atrial fibrillation; Z79.01 Long term (current) use of anticoagulants; I25.810 Atherosclerosis of coronary artery bypass graft(s) without angina pectoris; Z95.0 Presence of cardiac pacemaker; I25.2 Old myocardial infarction; K21.9 Gastro-esophageal reflux disease without esophagitis; N40.0 Benign prostatic hyperplasia without lower urinary tract symptoms; I73.9 Peripheral vascular disease, unspecified; N18.3 Chronic kidney disease, stage 3 (moderate); M48.06 Spinal stenosis, lumbar region; E11.9 Type 2 diabetes mellitus without complications; D69.6 Thrombocytopenia, unspecified; Z79.82 Long term (current) use of aspirin; Z79.899 Other long term (current) drug therapy; Z79.84 Long term (current) use of oral hypoglycemic drugs; Z91.041 Radiographic dye allergy status; Z88.8 Allergy status to other drugs, medicaments and biological substances; Z87.891 Personal history of nicotine dependence
CPT/HCPCS: 36415; 71010; 80048; 80053; 81001; 84484; 85025; 85027; 85610; 93005; 94640; 96374; 96376; 99285; A9270; G0378; J1940; J7620; 93010; 99217; 99225

== ENCOUNTER 2016-09-03 07:27 | Inpatient (IN) | payer MEDICARE, OTHER ==
[2016-09-03] MEDS ORDERED: Sodium Chloride 0.9% 10 ML Syringe FLUSH PRN ×2 (08:23→10:34)
[2016-09-03] MEDS ORDERED: Furosemide 40 MG/4 ML VIAL IVPUSH ONE (08:23)
--- NOTE | 2016-09-03 08:24 | EDM.PDOC ---
ED HISTORY OF PRESENT ILLNESS - General Chief Complaint: Respiratory Problem Stated Complaint: SHORTNESS OF BREATH Time Seen by Provider: 09/03/16 08:24 Source: Reports: Patient, Family History Limitations: Reports: No limitations - History of Present Illness INITIAL COMMENTS - FREE TEXT/NARRATIVE: Pt has had increased sob in the last 4-5 days. He has swelling in his ankles and his weight is up 8-10 lbs. Timing/Duration: Reports: Getting worse Severity: moderate Location, General: Reports: chest, lower extremity, left, lower extremity, right Associated Symptoms: Reports: shortness of breath, other (pt has not had chest pain during this time. ) - Related Data Allergies/ADRs: Allergies Allergy/AdvReac Type Severity Reaction Status Date / Time amlodipine Allergy Severe anaphylaxis Verified 09/03/16 07:49 dipyridamole Allergy Cannot Verified 09/03/16 07:49 Remember Iodinated Contrast Media - Allergy Rash Verified 09/03/16 07:49 Oral and [Iodinated Contrast Media - IV Dye] rosuvastatin calcium AdvReac Muscle Verified 09/03/16 07:49 [From Crestor] Aches Home Meds: Home Meds Multivitamin with Minerals [Multiple Vitamin] 1 tab PO DAILY 09/29/13 [History] Omeprazole [Prilosec] 40 mg PO DAILY 09/29/13 [History] Clopidogrel [Plavix] 75 mg PO DAILY 07/14/14 [History] glipiZIDE [Glucotrol] 2.5 mg PO BID 07/14/14 [History] Nitroglycerin [IJP: Nitroglycerin] 0.4 mg PO ASDIRECTED PRN 07/24/16 [History] Furosemide [Lasix] 20 mg PO DAILY #30 tablet 08/26/16 [Rx] Warfarin [Coumadin] 5 mg PO DAILY #0 08/26/16 [Rx] Metoprolol Succinate 25 mg PO BID 09/03/16 [History] Past Medical History HEENT History: Reports: Cataract, Other (see below) Other HEENT History: optic neuropathy Cardiovascular History: Reports: Arrhythmia, Blood clots/VTE/DVT, CAD, Heart Failure, [place], Pacemaker, Other (see below) Other Cardiovascular History: cardiomegaly, sinoatrial node disfunction, Respiratory History: Reports: PE Other Respiratory History: pulm. valve disorder Gastrointestinal History: Reports: GERD Genitourinary History: Reports: BPH, Chronic renal insuffiency, Other (see below ) Other Genitourinary History: hx of urinary obstructions Musculoskeletal History: Reports: Back pain, chronic, Osteoarthritis Endocrine/Metabolic History: Reports: Diabetes, type II - Infectious Disease History Infectious Disease History: Reports: Chicken pox, Measles, Mumps, Rubella, Shingles - Past Surgical History HEENT Surgical History: Reports: Cataract surgery Cardiovascular Surgical History: Reports: Pacer Social & Family History - Family History Cardiac: Reports: [place] - Tobacco Use Smoking Status *Q: Never Smoker Years of Tobacco use: 8 Packs/Tins Daily: 0.5 Used Tobacco, but Quit: Yes Month Tobacco Last Used: september Second Hand Smoke Exposure: No - Caffeine Use Caffeine Use: Reports: Coffee - Alcohol Use Days Per Week of Alcohol Use: 0 - Recreational Drug Use Recreational Drug Use: No ED ROS GENERAL - Review of Systems Review Of Systems: See Below Constitutional: Reports: weakness, fatigue, other (pt is not resting well at nite. ) HEENT: Reports: No symptoms Respiratory: Reports: Shortness of Breath, Cough Cardiovascular: Reports: Other (pt has a history of atrial fib. ) Endocrine: Reports: no symptoms GI/Abdominal: Reports: No symptoms : Reports: no symptoms Musculoskeletal: Reports: no symptoms Skin: Reports: no symptoms ED EXAM, GENERAL - Physical Exam Exam: See Below Free Text/Narrative:: Pt arrived with increased sob and notbeing able to sleep in bed. He has been sleeping upright in a chair. He has gained 8-10 lbs. Exam Limited By: No limitations General Appearance: alert, moderate distress Ears: normal TMs Nose: normal inspection Throat/Mouth: Normal inspection Head: atraumatic Neck: other ( neck veins are prominent) Respiratory/Chest: decreased breath sounds, crackles, rales Cardiovascular: irregularly irregular, other ( Pt has a long history of atrial fib. He is on coumadin. ) GI/Abdominal: soft, non tender (Male) Exam: Deferred Rectal (Males) Exam: Deferred Back Exam: normal inspection Extremities: pedal edema, other (Pt has bilateral swelling of both legs-- plus 2 pitting edema. ) Neurological: alert, oriented, normal cognition Psychiatric: anxious Course - Vital Signs Last Recorded V/S: Last Vital Signs Temp 36.5 C 09/03/16 07:46 Pulse 118 H 04/09/17 07:46 Resp 17 09/03/16 07:46 BP 123/80 09/03/16 08:38 Pulse Ox 88 L 09/03/16 07:46 - Orders/Labs/Meds Orders: Active Orders 24 hr Category Date Time Status Chest 2V [CR] Stat Exams 09/03/16 08:15 Taken UA W/MICROSCOPIC [URIN] Urgent Lab 09/03/16 08:15 Uncollected Sodium Chloride 0.9% [Saline Flush] Med 09/03/16 08:23 Active 10 ml FLUSH ASDIRECTED PRN Saline Lock Insert [OM.PC] Routine Oth 09/03/16 08:23 Ordered Medication Orders Sodium Chloride (Saline Flush) 10 ml FLUSH ASDIRECTED PRN PRN Reason: Keep Vein Open Last Admin: 09/03/16 08:39 Dose: 10 ml Labs: Laboratory Tests 09/03/16 09/03/16 09/03/16 Range/Units 08:29 08:29 08:29 WBC 11.3 H (4.5-11.0) K/uL RBC 4.94 (4.30-5.90) M/uL Hgb 14.4 (12.0-15.0) g/dL Hct 44.5 (40.0-54.0) % MCV 90 (80-98) fL MCH 29 (27-31) pg MCHC 32 (32-36) % Plt Count 199 (150-400) K/uL Neut % (Auto) 76 H (36-66) % Lymph % (Auto) 12 L (24-44) % [place] % (Auto) 10 H (2-6) % Eos % (Auto) 2 (2-4) % Baso % (Auto) 0 (0-1) % PT 27.5 H (9.5-12.0) sec INR 2.52 H (0.80-1.20) Sodium 140 (140-148) mmol/L Potassium 4.5 (3.6-5.2) mmol/L Chloride 102 (100-108) mmol/L Carbon Dioxide 32 (21-32) mmol/L Anion Gap 5.7 (5.0-14.0) mmol/L BUN 38 H (7-18) mg/dL Creatinine 1.6 H (0.8-1.3) mg/dL Est Cr Clr Drug Dosing 38.40 mL/min Estimated GFR (MDRD) 41 L (>60) Glucose 121 H (74-106) mg/dL Calcium 8.2 L (8.5-10.1) mg/dL Total Bilirubin 1.2 H D (0.2-1.0) mg/dL AST 22 (15-37) U/L ALT 45 (12-78) U/L Alkaline Phosphatase 75 (46-116) U/L Troponin I (0.000-0.056) ng/mL Ots-V-Nbmteetwwjv Pept 3116 H (5-450) pg/mL Total Protein 7.1 (6.4-8.2) g/dL Albumin 3.6 (3.4-5.0) g/dL Globulin 3.5 (2.3-3.5) g/dL Albumin/Globulin Ratio 1.0 L (1.2-2.2) 09/03/16 Range/Units 08:29 WBC (4.5-11.0) K/uL RBC (4.30-5.90) M/uL Hgb (12.0-15.0) g/dL Hct (40.0-54.0) % MCV (80-98) fL MCH (27-31) pg MCHC (32-36) % Plt Count (150-400) K/uL Neut % (Auto) (36-66) % Lymph % (Auto) (24-44) % [place] % (Auto) (2-6) % Eos % (Auto) (2-4) % Baso % (Auto) (0-1) % PT (9.5-12.0) sec INR (0.80-1.20) Sodium (140-148) mmol/L Potassium (3.6-5.2) mmol/L Chloride (100-108) mmol/L Carbon Dioxide (21-32) mmol/L Anion Gap (5.0-14.0) mmol/L BUN (7-18) mg/dL Creatinine (0.8-1.3) mg/dL Est Cr Clr Drug Dosing mL/min Estimated GFR (MDRD) (>60) Glucose (74-106) mg/dL Calcium (8.5-10.1) mg/dL Total Bilirubin (0.2-1.0) mg/dL AST (15-37) U/L ALT (12-78) U/L Alkaline Phosphatase (46-116) U/L Troponin I < 0.017 (0.000-0.056) ng/mL Wky-S-Zfojphfctal Pept (5-450) pg/mL Total Protein (6.4-8.2) g/dL Albumin (3.4-5.0) g/dL Globulin (2.3-3.5) g/dL Albumin/Globulin Ratio (1.2-2.2) Meds: Medications Generic Name Dose Route Start Last Admin Trade Name Freq PRN Reason Stop Dose Admin Sodium Chloride 10 ml 09/03/16 08:23 09/03/16 08:39 Saline Flush FLUSH 10 ml ASDIRECTED PRN Administration Keep Vein Open Discontinued Medications Generic Name Dose Route Start Last Admin Trade Name Freq PRN Reason Stop Dose Admin Furosemide 60 mg 09/03/16 08:23 09/03/16 08:38 Lasix IVPUSH 09/03/16 08:24 60 mg ONETIME ONE Administration - Re-Assessments/Exams Free Text/Narrative Re-Assessment/Exam: 09/03/16 09:13 bnp is elvated. His weight is up about 10 lbs. He has no chest pain. His creatnine is borderline at 1.6. His hest xray shows efusions and considerable congestion, Departure - Departure Time of Disposition: 09:14 Disposition: Admitted As Inpatient 68 Condition: fair Clinical Impression: Low O2 saturation CHF (congestive heart failure) Qualifiers: Congestive heart failure type: systolic Congestive heart failure chronicity: acute on chronic Qualified Code(s): I50.23 - Acute on chronic systolic ( congestive) heart failure Forms: ED Department Discharge Care Plan Goals: admit to Dr shine. - My Orders Last 24 Hours: My Active Orders 09/03/16 08:15 Chest 2V [CR] Stat UA W/MICROSCOPIC [URIN] Urgent 09/03/16 08:23 Sodium Chloride 0.9% [Saline Flush] 10 ml FLUSH ASDIRECTED PRN Saline Lock Insert [OM.PC] Routine - Assessment/Plan Last 24 Hours: My Active Orders 09/03/16 08:15 Chest 2V [CR] Stat UA W/MICROSCOPIC [URIN] Urgent 09/03/16 08:23 Sodium Chloride 0.9% [Saline Flush] 10 ml FLUSH ASDIRECTED PRN Saline Lock Insert [OM.PC] Routine
[2016-09-03] MEDS ORDERED: 50% Dextrose in Water 50 ML Syringe IV PRN (10:34)
[2016-09-03] MEDS ORDERED: Glucose Gel 15 GM in 37.5 GM Tube PO PRN (10:34)
[2016-09-03] MEDS ORDERED: oxyCODONE 5 MG Tab PO PRN (10:34)
[2016-09-03] MEDS ORDERED: Lisinopril 5 MG Tab PO SCH (10:34)
[2016-09-03] MEDS ORDERED: Polyethylene Glycol 3350 Powder 17 GM Packet PO PRN (10:34)
[2016-09-03] MEDS ORDERED: Ondansetron 4 MG/2 ML SDV IV PRN (10:34)
[2016-09-03] MEDS ORDERED: Docusate Sodium 100 MG Cap PO PRN (10:34)
[2016-09-03] MEDS ORDERED: Albuterol 0.083% 2.5 MG/3 ML Neb Soln NEB PRN (10:34)
[2016-09-03] MEDS ORDERED: Nitroglycerin 0.4 MG Tab.SL SL PRN (10:34)
[2016-09-03] MEDS ORDERED: Magnesium Hydroxide 400 MG/5 ML Susp 30 ML Cup PO PRN (10:34)
--- NOTE | 2016-09-03 12:33 | PCM.HP ---
H&P History of Present Illness - General Date of Service: 09/03/16 Admit Problem/Dx: Admission Diagnosis/Problem Admission Diagnosis/Problem Congestive heart failure Source of Information: Patient, Family, Old records, Provider, RN notes reviewed History Limitations: Reports: No limitations - History of Present Illness Initial Comments - Free Text/Narative: This patient is an 85-year-old gentleman who has a known history of congestive heart failure. He was hospitalized at this facility because of increased weakness and shortness of breath last week and was discharged to home approximately 6 days ago. Since discharge has developed increasing shortness of breath against the point where he is not able to sleep at night and also his developed increased peripheral edema. Recent echocardiogram has shown severe decrease in left ventricular function and he also has underlying chronic kidney disease stage III. He readily admits that he has not been following a strict 2 g sodium diet. Abdomen Pain Score (Numeric/FACES): 0 - Related Data Allergies/Adverse Reactions: Allergies Allergy/AdvReac Type Severity Reaction Status Date / Time amlodipine Allergy Severe anaphylaxis Verified 09/03/16 07:49 dipyridamole Allergy Cannot Verified 09/03/16 07:49 Remember Iodinated Contrast Media - Allergy Rash Verified 09/03/16 07:49 Oral and [Iodinated Contrast Media - IV Dye] rosuvastatin calcium AdvReac Muscle Verified 09/03/16 07:49 [From Crestor] Aches Home Medications: Home Meds Multivitamin with Minerals [Multiple Vitamin] 1 tab PO DAILY 09/29/13 [History] Omeprazole [Prilosec] 40 mg PO DAILY 09/29/13 [History] Clopidogrel [Plavix] 75 mg PO DAILY 07/14/14 [History] glipiZIDE [Glucotrol] 2.5 mg PO BID 07/14/14 [History] Nitroglycerin [IJP: Nitroglycerin] 0.4 mg PO ASDIRECTED PRN 07/24/16 [History] Furosemide [Lasix] 20 mg PO DAILY #30 tablet 08/26/16 [Rx] Warfarin [Coumadin] 5 mg PO DAILY #0 08/26/16 [Rx] Metoprolol Succinate 25 mg PO BID 09/03/16 [History] Past Medical History HEENT History: Reports: Cataract, Other (see below) Other HEENT History: optic neuropathy Cardiovascular History: Reports: Arrhythmia, Blood clots/VTE/DVT, CAD, Heart Failure, VA, Pacemaker, Other (see below) Other Cardiovascular History: cardiomegaly, sinoatrial node disfunction, Respiratory History: Reports: PE Other Respiratory History: pulm. valve disorder Gastrointestinal History: Reports: GERD Genitourinary History: Reports: BPH, Chronic renal insuffiency, Other (see below ) Other Genitourinary History: hx of urinary obstructions Musculoskeletal History: Reports: Back pain, chronic, Osteoarthritis Endocrine/Metabolic History: Reports: Diabetes, type II - Infectious Disease History Infectious Disease History: Reports: Chicken pox, Measles, Mumps, Rubella, Shingles - Past Surgical History HEENT Surgical History: Reports: Cataract surgery Cardiovascular Surgical History: Reports: Pacer Respiratory Surgical History: Reports: None Social & Family History - Family History Cardiac: Reports: VA - Tobacco Use Smoking Status *Q: Former Smoker Years of Tobacco use: 10 Packs/Tins Daily: 0.5 Used Tobacco, but Quit: Yes Month Tobacco Last Used: 04/1958 Tobacco Use Comment: pt quite 09/1957 Second Hand Smoke Exposure: No - Caffeine Use Caffeine Use: Reports: Coffee, Tea - Alcohol Use Days Per Week of Alcohol Use: 0 - Recreational Drug Use Recreational Drug Use: No H&P Review of Systems - Review of Systems: Review Of Systems: See Below General: Reports: weakness, decreased appetite. Denies: fever, chills, diaphoresis HEENT: Reports: no symptoms Pulmonary: Reports: Shortness of Breath. Denies: Wheezing, Pleuritic Chest Pain , Cough, Sputum, Hemoptysis Cardiovascular: Reports: dyspnea on exertion, orthopnea, PND, edema. Denies: chest pain, palpitations, lightheadedness, syncope Gastrointestinal: Reports: No symptoms Genitourinary: Reports: no symptoms Musculoskeletal: Reports: no symptoms Skin: Reports: no symptoms Psychiatric: Reports: no symptoms Neurological: Reports: No Symptoms Hematologic/Lymphatic: Reports: no symptoms Immunologic: Reports: no symptoms Exam - Exam Exam: See Below - Vital Signs Vital Signs: Last Vital Signs Temp 98.1 F 09/03/16 11:20 Pulse 117 H 09/03/16 11:20 Resp 18 09/03/16 11:20 BP 132/74 09/03/16 11:20 Pulse Ox 96 09/03/16 11:20 Weight: 227 lb - Exam Quality Assessment: supplemental oxygen, DVT prophylaxis General: alert, oriented, cooperative, mild distress HEENT: Conjunctiva clear, Hearing intact, Mucosa moist & pink, Nares patent, Normal nasal septum, Posterior pharynx clear, Pupils equal, Pupils reactive Neck: supple, trachea midline, +2 carotid pulse wo bruit Lungs: Normal respiratory effort, Decreased breath sounds, Rales. No: Crackles , Rhonchi, Rub, Stridor, Wheezing Cardiovascular: regular rate, normal S1, normal S2, irregular rhythm, systolic murmur. No: bradycardia, tachycardia, diastolic murmur Abdomen: normal bowel sounds, soft Back Exam: normal inspection, full range of motion, NT Extremities: edema Skin: warm, dry, intact Neurological: cranial nerves intact, strength equal bilateral, normal speech, normal tone, sensation intact. No: focal deficit Neuro Extensive - Mental Status: alert, oriented x3, normal mood/affect, normal cognition, memory intact - Patient Data Result Diagrams: 09/03/16 08:29 09/03/16 08:29 *Q Meaningful Use (ADM) - VTE *Q VTE Criteria *Q: VTE Pharmacological Contraindications *Q: High INR Value - VTE Risk Assess *Q Each Risk Factor Represents 1 Point: Swollen Legs, Current, Obesity (BMI greater than 30), Congestive Heart Failure, Less than 1 Month Total Score 1 Point Risk Factors: 3 Each Risk Factor Represents 2 Points: None Total Score 2 Point Risk Factors: 0 Each Risk Factor Represents 3 Points: Age 75 Years or Greater Total Score 3 Point Risk Factors: 3 Each Risk Factor Represents 5 Points: None Total Score 5 Point Risk Factors: 0 Venous Thromboembolism Risk Factor Score *Q: 6 - Stroke *Q Stroke Criteria *Q: - AMI *Q AMI Criteria *Q: Problem List Initiated/Reviewed/Updated: Yes Orders Last 24hrs: Active Orders 24 hr Category Date Time Status Patient Status [ADT] Routine ADT 09/03/16 10:34 Active Blood Glucose Check, Bedside [RC] QIDACANDBED Care 09/03/16 10:34 Active Communication Order [RC] ASDIRECTED Care 09/03/16 10:34 Active Diabetes Education [RC] Click to Edit Care 09/03/16 10:34 Active Height and Weight [RC] DAILY Care 09/03/16 10:34 Active Intake and Output [RC] QSHIFT Care 09/03/16 10:34 Active Notify Provider Vital Signs [RC] ASDIRECTED Care 09/03/16 10:34 Active Notify Provider [RC] PRN Care 09/03/16 10:34 Active Oxygen Therapy [RC] PRN Care 09/03/16 10:34 Active RT Aerosol Therapy [RC] ASDIRECTED Care 09/03/16 10:34 Active Up ad Kathy [RC] ASDIRECTED Care 09/03/16 10:34 Active VTE/DVT Education [RC] Per Unit Routine Care 09/03/16 10:34 Active Vital Signs [RC] Q4H Care 09/03/16 10:34 Active PT Evaluation and Treatment [CONS] Routine Cons 09/03/16 10:34 Active 2 Gram Sodium Diet [DIET] Diet 09/03/16 Lunch Active Consistent Carbohydrate Diet [DIET] Diet 09/03/16 Lunch Active BASIC METABOLIC PANEL,BMP [CHEM] AM Lab 09/04/16 05:11 Ordered CBC WITH AUTO DIFF [HEME] AM Lab 09/04/16 05:11 Ordered GLUCOSE POC LAB TO COLLECT [POC] QIDACANDBED Lab 09/03/16 16:30 Ordered GLUCOSE POC LAB TO COLLECT [POC] QIDACANDBED Lab 09/03/16 21:00 Ordered GLUCOSE POC LAB TO COLLECT [POC] QIDACANDBED Lab 09/04/16 07:30 Ordered GLUCOSE POC LAB TO COLLECT [POC] QIDACANDBED Lab 09/04/16 11:30 Ordered GLUCOSE POC LAB TO COLLECT [POC] QIDACANDBED Lab 09/04/16 16:30 Ordered GLUCOSE POC LAB TO COLLECT [POC] QIDACANDBED Lab 09/04/16 21:00 Ordered GLUCOSE POC LAB TO COLLECT [POC] QIDACANDBED Lab 09/05/16 07:30 Ordered GLUCOSE POC LAB TO COLLECT [POC] QIDACANDBED Lab 09/05/16 11:30 Ordered GLUCOSE POC LAB TO COLLECT [POC] QIDACANDBED Lab 09/05/16 16:30 Ordered GLUCOSE POC LAB TO COLLECT [POC] QIDACANDBED Lab 09/05/16 21:00 Ordered GLUCOSE POC LAB TO COLLECT [POC] QIDACANDBED Lab 09/06/16 07:30 Ordered GLUCOSE POC LAB TO COLLECT [POC] QIDACANDBED Lab 09/06/16 11:30 Ordered GLUCOSE POC LAB TO COLLECT [POC] QIDACANDBED Lab 09/06/16 16:30 Ordered GLUCOSE POC LAB TO COLLECT [POC] QIDACANDBED Lab 09/06/16 21:00 Ordered GLUCOSE POC LAB TO COLLECT [POC] QIDACANDBED Lab 09/07/16 07:30 Ordered GLUCOSE POC LAB TO COLLECT [POC] QIDACANDBED Lab 09/07/16 11:30 Ordered GLUCOSE POC LAB TO COLLECT [POC] QIDACANDBED Lab 09/07/16 16:30 Ordered GLUCOSE POC LAB TO COLLECT [POC] QIDACANDBED Lab 09/07/16 21:00 Ordered GLUCOSE POC LAB TO COLLECT [POC] QIDACANDBED Lab 09/08/16 07:30 Ordered GLUCOSE POC LAB TO COLLECT [POC] QIDACANDBED Lab 09/08/16 11:30 Ordered GLUCOSE POC LAB TO COLLECT [POC] QIDACANDBED Lab 09/08/16 16:30 Ordered GLUCOSE POC LAB TO COLLECT [POC] QIDACANDBED Lab 09/08/16 21:00 Ordered GLUCOSE POC LAB TO COLLECT [POC] QIDACANDBED Lab 09/09/16 07:30 Ordered GLUCOSE POC LAB TO COLLECT [POC] QIDACANDBED Lab 09/09/16 11:30 Ordered GLUCOSE POC LAB TO COLLECT [POC] QIDACANDBED Lab 09/09/16 16:30 Ordered GLUCOSE POC LAB TO COLLECT [POC] QIDACANDBED Lab 09/09/16 21:00 Ordered GLUCOSE POC LAB TO COLLECT [POC] QIDACANDBED Lab 09/10/16 07:30 Ordered GLUCOSE POC LAB TO COLLECT [POC] QIDACANDBED Lab 09/10/16 11:30 Ordered GLUCOSE POC LAB TO COLLECT [POC] QIDACANDBED Lab 09/10/16 16:30 Ordered GLUCOSE POC LAB TO COLLECT [POC] QIDACANDBED Lab 09/10/16 21:00 Ordered GLUCOSE POC LAB TO COLLECT [POC] QIDACANDBED Lab 09/11/16 07:30 Ordered GLUCOSE POC LAB TO COLLECT [POC] QIDACANDBED Lab 09/11/16 11:30 Ordered GLUCOSE POC LAB TO COLLECT [POC] QIDACANDBED Lab 09/11/16 16:30 Ordered GLUCOSE POC LAB TO COLLECT [POC] QIDACANDBED Lab 09/11/16 21:00 Ordered GLUCOSE POC LAB TO COLLECT [POC] QIDACANDBED Lab 09/12/16 07:30 Ordered GLUCOSE POC LAB TO COLLECT [POC] QIDACANDBED Lab 09/12/16 11:30 Ordered GLUCOSE POC LAB TO COLLECT [POC] QIDACANDBED Lab 09/12/16 16:30 Ordered GLUCOSE POC LAB TO COLLECT [POC] QIDACANDBED Lab 09/12/16 21:00 Ordered GLUCOSE POC LAB TO COLLECT [POC] QIDACANDBED Lab 09/13/16 07:30 Ordered GLUCOSE POC LAB TO COLLECT [POC] QIDACANDBED Lab 09/13/16 11:30 Ordered GLUCOSE POC LAB TO COLLECT [POC] QIDACANDBED Lab 09/13/16 16:30 Ordered GLUCOSE POC LAB TO COLLECT [POC] QIDACANDBED Lab 09/13/16 21:00 Ordered GLUCOSE POC LAB TO COLLECT [POC] QIDACANDBED Lab 09/14/16 07:30 Ordered INR,PT,PROTHROMBIN TIME [COAG] AM Lab 09/04/16 05:11 Ordered MAGNESIUM [CHEM] AM Lab 09/04/16 05:11 Ordered Acetaminophen [Tylenol] Med 09/03/16 10:34 Active 650 mg PO Q4H PRN Albuterol [Proventil Neb Soln] Med 09/03/16 10:34 Active 2.5 mg NEB Q4H PRN Dextrose 50% in Water Med 09/03/16 10:34 Active 50 ml IV ONETIME PRN Dextrose [Glutose 15] Med 09/03/16 10:34 Active 15 gm PO ONETIME PRN Docusate Sodium [Colace] Med 09/03/16 10:34 Active 100 mg PO BID PRN Furosemide [Lasix] Med 09/03/16 16:00 Active 40 mg IVPUSH Q8H Insulin Aspart [NovoLOG] Med 09/03/16 10:34 Active See Protocol SUBCUT ASDIRECTED Lisinopril [Prinivil] Med 09/03/16 10:34 Active 5 mg PO DAILY Magnesium Hydroxide [Milk of Magnesia] Med 09/03/16 10:34 Active 30 ml PO Q12H PRN Ondansetron [Zofran] Med 09/03/16 10:34 Active 4 mg IV Q4H PRN Polyethylene Glycol 3350 [MiraLAX] Med 09/03/16 10:34 Active 17 gm PO DAILY PRN Sodium Chloride 0.9% [Saline Flush] Med 09/03/16 10:34 Active 10 ml FLUSH ASDIRECTED PRN oxyCODONE Med 09/03/16 10:34 Active 5 mg PO Q4H PRN Saline Lock Insert [OM.PC] Routine Oth 09/03/16 10:34 Ordered VTE Pharmacological Contraindications [AST] Per Unit Oth 09/03/16 10:34 Ordered Routine Resuscitation Status Routine Resus Stat 09/03/16 10:10 Ordered Medication Orders Acetaminophen (Tylenol) 650 mg PO Q4H PRN PRN Reason: Pain (Mild 1-3)/fever Albuterol (Proventil Neb Soln) 2.5 mg NEB Q4H PRN PRN Reason: Shortness Of Breath/wheezing Clopidogrel Bisulfate (Plavix) 75 mg PO DAILY [facility] Dextrose (Glutose 15) 15 gm PO ONETIME PRN PRN Reason: Hypoglycemia Dextrose/Water (Dextrose 50% In Water) 50 ml IV ONETIME PRN PRN Reason: Hypoglycemia Docusate Sodium (Colace) 100 mg PO BID PRN PRN Reason: Constipation Furosemide (Lasix) 40 mg IVPUSH Q8H [facility] Insulin Aspart (Novolog) 0 unit SUBCUT ASDIRECTED [facility] PRN Reason: Protocol Lisinopril (Prinivil) 5 mg PO DAILY [facility] Magnesium Hydroxide (Milk Of Magnesia) 30 ml PO Q12H PRN PRN Reason: Constipation Metoprolol Succinate (Toprol Xl) 25 mg PO BID [facility] Nitroglycerin (Nitrostat) 0.4 mg SL ASDIRECTED PRN PRN Reason: Chest Pain Ondansetron HCl (Zofran) 4 mg IV Q4H PRN PRN Reason: Nausea/Vomiting Oxycodone HCl (Oxycodone) 5 mg PO Q4H PRN PRN Reason: Pain (moderate 4-6) Pantoprazole Sodium (Protonix) 40 mg PO ACBREAKFAST [facility] Polyethylene Glycol (Miralax) 17 gm PO DAILY PRN PRN Reason: Constipation Sodium Chloride (Saline Flush) 10 ml FLUSH ASDIRECTED PRN PRN Reason: Keep Vein Open Warfarin Sodium (Coumadin) 5 mg PO DAILY@1300 [facility] Assessment/Plan Comment:: ASSESSMENT AND PLAN CONGESTIVE HEART FAILURE-this most recent admission for decompensated heart failure, now requires readmission for similar symptoms. Recent echocardiogram has shown severely decreased left ventricular function. He has known underlying atrial fibrillation as well as chronic kidney disease stage III. He has not been following a strict 2 g sodium diet, but does report that he is been taking all of his medications. -2 g sodium diet -Furosemide 40 mg IV every 8 hours -Closely monitor intake and output -Continue metoprolol 25 mg by mouth twice a day -Initiate DISHA inhibitor therapy with lisinopril 5 mg by mouth daily -Consider addition of spironolactone to current medical regimen -Consider outpatient cardiology appointment to discuss possible defibrillator placement CHRONIC KIDNEY DISEASE STAGE III -Closely monitor urine output and renal function TYPE 2 DIABETES MELLITUS -4 times a day glucometers -Hold glipizide -Low-dose sliding scale NovoLog ATRIAL FIBRILLATION-controlled ventricular response, on long-term oral anticoagulation with warfarin -Continue outpatient dosing of warfarin -Repeat INR in a.m. MAINTENANCE ISSUES -DVT prophylaxis; current therapy with warfarin should provide adequate DVT prophylaxis -GI prophylaxis; continue outpatient PPI therapy -Busch catheter; not indicated -Nutrition; 2 g sodium consistent carb diet -Nicotine dependence; not required CODE STATUS-FULL CODE ADMISSION STATUS-patient will be admitted to inpatient status, expect at least a 2 night hospital stay for evaluation and management of problems as outlined above. At the time of this admission I do not reasonably expected evaluation and management of this problem will require more than a 96 hour hospital stay. DISPOSITION-anticipate discharge to home after the hospital stay. PRIMARY CARE PROVIDER-Dr. Lynch
[2016-09-03] MEDS: Clopidogrel 75 MG Tab PO SCH (13:15)
[2016-09-03] MEDS: Warfarin 5 MG Tab PO SCH (13:15)
[2016-09-03] MEDS: Metoprolol Succinate 25 MG Tab.ER PO SCH ×2 (13:53→22:11)
[2016-09-03] MEDS: Furosemide 40 MG/4 ML VIAL IVPUSH SCH (16:08)
[2016-09-03] MEDS: Acetaminophen 325 MG Tab PO PRN (19:31)
[2016-09-04] MEDS: Furosemide 40 MG/4 ML VIAL IVPUSH SCH ×2 (00:08→08:11)
[2016-09-04] MEDS: Acetaminophen 325 MG Tab PO PRN ×2 (00:13→21:33)
[2016-09-04] MEDS: Pantoprazole 40 MG Tab.CR PO SCH (08:10)
[2016-09-04] MEDS: Clopidogrel 75 MG Tab PO SCH (08:14)
[2016-09-04] MEDS: Metoprolol Succinate 25 MG Tab.ER PO SCH ×2 (08:41→21:33)
--- NOTE | 2016-09-04 09:02 | PCM.PN ---
- General Info Date of Service: 09/04/16 Functional Status: Reports: pain controlled, tolerating diet - Review of Systems General: Reports: Weakness Pulmonary: Reports: shortness of breath Cardiovascular: Reports: Edema. Denies: Orthopnea Gastrointestinal: Reports: Abdominal pain Systems Review Comment:: No acute events overnight. Orthopnea and shortness of breath seemed to have improved overnight. He does continue to require a small quantity of supplemental oxygen. He's not having any fevers. Lower tremor the edema has been improving. No chest pain. Blood pressure on the low side of normal this morning. - Patient Data Vitals - most recent: Last Vital Signs Temp 35.6 C 09/04/16 08:23 Pulse 79 09/04/16 08:41 Resp 16 09/04/16 08:23 BP 99/49 L 09/04/16 08:41 Pulse Ox 93 L 09/04/16 08:23 Weight - most recent: 102.228 kg I&O - last 24 hours: Intake & Output 09/03/16 09/04/16 09/04/16 22:59 06:59 14:59 Intake Total 240 490 400 Output Total 375 700 550 Balance -135 -210 -150 Lab Results last 24 hrs: Laboratory Results - last 24 hr 09/04/16 09/04/16 09/04/16 Range/Units 05:39 05:39 05:39 WBC 8.9 (4.5-11.0) K/uL RBC 4.69 (4.30-5.90) M/uL Hgb 13.5 (12.0-15.0) g/dL Hct 42.4 (40.0-54.0) % MCV 90 (80-98) fL MCH 29 (27-31) pg MCHC 32 (32-36) % Plt Count 173 (150-400) K/uL Neut % (Auto) 70 H (36-66) % Lymph % (Auto) 16 L (24-44) % Mobile % (Auto) 12 H (2-6) % Eos % (Auto) 3 (2-4) % Baso % (Auto) 1 (0-1) % PT 29.4 H (9.5-12.0) sec INR 2.69 H (0.80-1.20) Sodium 141 (140-148) mmol/L Potassium 3.8 (3.6-5.2) mmol/L Chloride 103 (100-108) mmol/L Carbon Dioxide 33 H (21-32) mmol/L Anion Gap 8.8 (5.0-14.0) mmol/L BUN 48 H (7-18) mg/dL Creatinine 1.8 H (0.8-1.3) mg/dL Est Cr Clr Drug Dosing 34.13 mL/min Estimated GFR (MDRD) 36 L (>60) Glucose 111 H (74-106) mg/dL Calcium 8.0 L (8.5-10.1) mg/dL Magnesium 1.9 (1.8-2.4) mg/dL Med Orders - Current: Current Medications Acetaminophen (Tylenol) 650 mg PO Q4H PRN PRN Reason: Pain (Mild 1-3)/fever Last Admin: 09/04/16 00:13 Dose: 650 mg Albuterol (Proventil Neb Soln) 2.5 mg NEB Q4H PRN PRN Reason: Shortness Of Breath/wheezing Clopidogrel Bisulfate (Plavix) 75 mg PO DAILY [facility] Last Admin: 09/04/16 08:14 Dose: 75 mg Dextrose (Glutose 15) 15 gm PO ONETIME PRN PRN Reason: Hypoglycemia Dextrose/Water (Dextrose 50% In Water) 50 ml IV ONETIME PRN PRN Reason: Hypoglycemia Docusate Sodium (Colace) 100 mg PO BID PRN PRN Reason: Constipation Insulin Aspart (Novolog) 0 unit SUBCUT ASDIRECTED [facility] PRN Reason: Protocol Magnesium Hydroxide (Milk Of Magnesia) 30 ml PO Q12H PRN PRN Reason: Constipation Metoprolol Succinate (Toprol Xl) 25 mg PO BID [facility] Last Admin: 09/04/16 08:41 Dose: 25 mg Nitroglycerin (Nitrostat) 0.4 mg SL ASDIRECTED PRN PRN Reason: Chest Pain Ondansetron HCl (Zofran) 4 mg IV Q4H PRN PRN Reason: Nausea/Vomiting Oxycodone HCl (Oxycodone) 5 mg PO Q4H PRN PRN Reason: Pain (moderate 4-6) Pantoprazole Sodium (Protonix) 40 mg PO ACBREAKFAST [facility] Last Admin: 09/04/16 08:10 Dose: 40 mg Polyethylene Glycol (Miralax) 17 gm PO DAILY PRN PRN Reason: Constipation Sodium Chloride (Saline Flush) 10 ml FLUSH ASDIRECTED PRN PRN Reason: Keep Vein Open Warfarin Sodium (Coumadin) 5 mg PO DAILY@1300 [facility] Last Admin: 09/03/16 13:15 Dose: 5 mg Discontinued Medications Furosemide (Lasix) 60 mg IVPUSH ONETIME ONE Stop: 09/03/16 08:24 Last Admin: 09/03/16 08:38 Dose: 60 mg Furosemide (Lasix) 40 mg IVPUSH Q8H [facility] Last Admin: 09/04/16 08:11 Dose: 40 mg Lisinopril (Prinivil) 5 mg PO DAILY [facility] Last Admin: 09/03/16 13:16 Dose: 5 mg Sodium Chloride (Saline Flush) 10 ml FLUSH ASDIRECTED PRN PRN Reason: Keep Vein Open Last Admin: 09/03/16 08:39 Dose: 10 ml - Exam Quality Assessment: supplemental oxygen. No: urine catheter General: alert, oriented, cooperative, no acute distress Neck: supple, JVD Lungs: Normal respiratory effort, Crackles (rare at bases, R>L) Cardiovascular: Regular Rate, Irregular Rhythm Abdomen: soft, no distension Extremities: no cyanosis, edema (mild pitting bilateral ankle edema) Skin: warm, dry Psy/Mental Status: alert, normal affect - Problem List Review Problem List Initiated/Reviewed/Updated: Yes - My Orders Last 24 Hours: My Active Orders 09/04/16 08:59 Discontinue Telemetry Monitoring [Cardiac Monitoring Discontinue] [RC] Click to Edit 09/04/16 16:00 Furosemide [Lasix] 40 mg IVPUSH ONETIME ONE 09/05/16 05:00 BASIC METABOLIC PANEL,BMP [CHEM] Timed INR,PT,PROTHROMBIN TIME [COAG] Timed 09/05/16 09:00 Furosemide [Lasix] 40 mg IVPUSH DAILY - Plan Plan:: ASSESSMENT AND PLAN ACUTE ON CHRONIC SYSTOLIC CONGESTIVE HEART FAILURE - recent echocardiogram has shown severely decreased left ventricular function. He has known underlying atrial fibrillation as well as chronic kidney disease stage III. clinically improving with diuresis her blood pressure on the low side of normal and creatinine has bumped slightly since admission. -2 g sodium diet -Furosemide 40 mg IV twice daily -Closely monitor intake and output -Continue metoprolol 25 mg by mouth twice a day -Discontinue DISHA inhibitor with rising creatinine and low blood pressure -Consider addition of spironolactone to current medical regimen -Consider outpatient cardiology appointment to discuss possible defibrillator placement CHRONIC KIDNEY DISEASE STAGE III - renal function stable to slightly worse since admission. -Closely monitor urine output and renal function TYPE 2 DIABETES MELLITUS - sugars well-controlled. -4 times a day glucometers -Hold glipizide -Low-dose sliding scale NovoLog ATRIAL FIBRILLATION - controlled ventricular response, on long-term oral anticoagulation with warfarin -Continue outpatient dosing of warfarin -Repeat INR in a.m. MAINTENANCE ISSUES -DVT prophylaxis; current therapy with warfarin should provide adequate DVT prophylaxis -GI prophylaxis; continue outpatient PPI therapy -Busch catheter; not indicated -Nutrition; 2 g sodium consistent carb diet DISPOSITION - anticipate discharge to home after the hospital stay. Sam Kenney M.D.
--- NOTE | 2016-09-04 09:16 | CR ---
Chest 2V INDICATION: sob FINDINGS: Comparison 08/24/2016. Sternotomy. Right-sided pacemaker in place. Stable cardiomegaly. Sli ght improvement of pulmonary venous hypertension and small bilateral pleural effusions. Findings rem ain consistent CHF.
[2016-09-04] MEDS: Warfarin 5 MG Tab PO SCH (13:52)
[2016-09-04] MEDS ORDERED: Furosemide 40 MG/4 ML VIAL IVPUSH ONE (16:00)
[2016-09-04] MEDS: Insulin Aspart 100 Units/ML 3 ML Pen SUBCUT SCH ×2 (16:40→21:35)
[2016-09-05] MEDS: Pantoprazole 40 MG Tab.CR PO SCH (07:45)
[2016-09-05] MEDS: Insulin Aspart 100 Units/ML 3 ML Pen SUBCUT SCH ×3 (08:47→18:08)
[2016-09-05] MEDS ORDERED: Furosemide 40 MG/4 ML VIAL IVPUSH SCH (09:00)
[2016-09-05] MEDS: Clopidogrel 75 MG Tab PO SCH (09:02)
[2016-09-05] MEDS: Metoprolol Succinate 25 MG Tab.ER PO SCH ×2 (09:02→21:18)
[2016-09-05] MEDS ORDERED: Bumetanide 1 MG/4 ML MDV IVPUSH ONE (10:00)
--- NOTE | 2016-09-05 10:07 | PCM.PN ---
- General Info Date of Service: 09/05/16 Functional Status: Reports: pain controlled, tolerating diet - Review of Systems General: Denies: Fever HEENT: Reports: visual changes Pulmonary: Reports: shortness of breath Cardiovascular: Reports: Orthopnea, Edema Systems Review Comment:: no acute events overnight. Orthopnea has improved but not completely resolved. Lower extremity edema is essentially stable compared to yesterday. Still feels short of breath and not much better than yesterday. Some difficulty with mild right eye visual changes that improve when he is able to fully open his eyelid. No complaints of headache. Two diarrhea stools yesterday but none today. No abdominal pain today. - Patient Data Vitals - most recent: Last Vital Signs Temp 35.4 C 09/05/16 07:11 Pulse 101 H 09/05/16 09:02 Resp 16 09/05/16 07:11 BP 135/52 L 09/05/16 09:02 Pulse Ox 100 09/05/16 07:11 Weight - most recent: 102.623 kg I&O - last 24 hours: Intake & Output 09/04/16 09/05/16 09/05/16 22:59 06:59 14:59 Intake Total 540 200 118 Output Total 500 400 140 Balance 40 -200 -22 Lab Results last 24 hrs: Laboratory Results - last 24 hr 09/05/16 09/05/16 Range/Units 04:50 04:50 PT 30.4 H (9.5-12.0) sec INR 2.78 H (0.80-1.20) Sodium 143 (140-148) mmol/L Potassium 4.0 (3.6-5.2) mmol/L Chloride 104 (100-108) mmol/L Carbon Dioxide 35 H (21-32) mmol/L Anion Gap 8.0 (5.0-14.0) mmol/L BUN 49 H (7-18) mg/dL Creatinine 1.7 H (0.8-1.3) mg/dL Est Cr Clr Drug Dosing 38.28 mL/min Estimated GFR (MDRD) 39 L (>60) Glucose 141 H (74-106) mg/dL Calcium 8.2 L (8.5-10.1) mg/dL Med Orders - Current: Current Medications Acetaminophen (Tylenol) 650 mg PO Q4H PRN PRN Reason: Pain (Mild 1-3)/fever Last Admin: 09/04/16 21:33 Dose: 650 mg Albuterol (Proventil Neb Soln) 2.5 mg NEB Q4H PRN PRN Reason: Shortness Of Breath/wheezing Clopidogrel Bisulfate (Plavix) 75 mg PO DAILY [facility] Last Admin: 09/05/16 09:02 Dose: 75 mg Dextrose (Glutose 15) 15 gm PO ONETIME PRN PRN Reason: Hypoglycemia Dextrose/Water (Dextrose 50% In Water) 50 ml IV ONETIME PRN PRN Reason: Hypoglycemia Docusate Sodium (Colace) 100 mg PO BID PRN PRN Reason: Constipation Insulin Aspart (Novolog) 0 unit SUBCUT ASDIRECTED [facility] PRN Reason: Protocol Last Admin: 09/05/16 08:47 Dose: 1 units Magnesium Hydroxide (Milk Of Magnesia) 30 ml PO Q12H PRN PRN Reason: Constipation Metoprolol Succinate (Toprol Xl) 25 mg PO BID [facility] Last Admin: 09/05/16 09:02 Dose: 25 mg Nitroglycerin (Nitrostat) 0.4 mg SL ASDIRECTED PRN PRN Reason: Chest Pain Ondansetron HCl (Zofran) 4 mg IV Q4H PRN PRN Reason: Nausea/Vomiting Oxycodone HCl (Oxycodone) 5 mg PO Q4H PRN PRN Reason: Pain (moderate 4-6) Pantoprazole Sodium (Protonix) 40 mg PO ACBREAKFAST [facility] Last Admin: 09/05/16 07:45 Dose: 40 mg Polyethylene Glycol (Miralax) 17 gm PO DAILY PRN PRN Reason: Constipation Sodium Chloride (Saline Flush) 10 ml FLUSH ASDIRECTED PRN PRN Reason: Keep Vein Open Warfarin Sodium (Coumadin) 5 mg PO DAILY@1300 [facility] Last Admin: 09/04/16 13:52 Dose: 5 mg Discontinued Medications Bumetanide (Bumex) 2 mg IVPUSH ONETIME ONE Stop: 09/05/16 10:01 Furosemide (Lasix) 60 mg IVPUSH ONETIME ONE Stop: 09/03/16 08:24 Last Admin: 09/03/16 08:38 Dose: 60 mg Furosemide (Lasix) 40 mg IVPUSH Q8H [facility] Last Admin: 09/04/16 08:11 Dose: 40 mg Furosemide (Lasix) 40 mg IVPUSH ONETIME ONE Stop: 09/04/16 16:01 Last Admin: 09/04/16 16:26 Dose: 40 mg Furosemide (Lasix) 40 mg IVPUSH DAILY [facility] Lisinopril (Prinivil) 5 mg PO DAILY [facility] Last Admin: 09/03/16 13:16 Dose: 5 mg Sodium Chloride (Saline Flush) 10 ml FLUSH ASDIRECTED PRN PRN Reason: Keep Vein Open Last Admin: 09/03/16 08:39 Dose: 10 ml - Exam Quality Assessment: supplemental oxygen General: alert, oriented, cooperative, no acute distress Neck: supple Lungs: Rales (both bases, left > right ) Cardiovascular: Irregular Rhythm, Tachycardia Abdomen: soft, no distension Extremities: no cyanosis, edema (pitting edema of both lower legs to mid goyal) Skin: warm, dry Neurological: no new focal deficit, other (very mild ptosis of right eye. no visual field deficits. left pupil slightly larger than right but both react to light equally ) Psy/Mental Status: alert, normal affect - Problem List Review Problem List Initiated/Reviewed/Updated: Yes - My Orders Last 24 Hours: My Active Orders 09/06/16 05:00 BASIC METABOLIC PANEL,BMP [CHEM] Timed INR,PT,PROTHROMBIN TIME [COAG] Timed - Plan Plan:: ASSESSMENT AND PLAN ACUTE ON CHRONIC SYSTOLIC CONGESTIVE HEART FAILURE - recent echocardiogram has shown severely decreased left ventricular function. He has known underlying atrial fibrillation as well as chronic kidney disease stage III. not much improvement from yesterday currently did back off on his diuresis due to rising creatinine level. Clinically he feels a little bit better. he still has a fair amount of edema and JVD as well as some crackles in his lungs. -2 g sodium diet -bumetanide 2 mg times one and reassess -Closely monitor intake and output -Continue metoprolol 25 mg by mouth twice a day -Discontinue DISHA inhibitor with rising creatinine and low blood pressure -Consider addition of spironolactone to current medical regimen -Consider outpatient cardiology appointment to discuss possible defibrillator placement CHRONIC KIDNEY DISEASE STAGE III - renal function stable. -Closely monitor urine output and renal function TYPE 2 DIABETES MELLITUS - sugars well-controlled. -4 times a day glucometers -restart glipizide -Low-dose sliding scale NovoLog CHRONIC ATRIAL FIBRILLATION - controlled ventricular response, on long-term oral anticoagulation with warfarin -Continue outpatient dosing of warfarin -Repeat INR in a.m. SOFT TISSUE THICKENING OF SELLA - abnormal CT finding discussed with Dr. Huynh at [facility] today. Could B. calcified aneurysm versus craniopharyngioma versus asymmetric pituitary adenoma/tumor. He has a pacemaker so we cannot complete an MRI. His kidney function is low enough that it is not safe to use IV contrast. Planning to workup for pituitary abnormality and monitor symptoms. Clinically his only symptom at this time is mild ptosis and his neurological examination is normal. he would be a very poor surgical candidate even if that was indicated. -TSH, ACTH, prolactin in the morning -Monitor symptoms, outpatient followup MAINTENANCE ISSUES -DVT prophylaxis; current therapy with warfarin should provide adequate DVT prophylaxis -GI prophylaxis; continue outpatient PPI therapy -Busch catheter; not indicated -Nutrition; 2 g sodium consistent carb diet DISPOSITION - anticipate discharge to home after the hospital stay. Sam Kenney M.D.
[2016-09-05] MEDS: Warfarin 5 MG Tab PO SCH (13:29)
[2016-09-05] MEDS: Acetaminophen 325 MG Tab PO PRN ×2 (13:30→21:18)
[2016-09-05] MEDS: glipiZIDE 5 MG Tab PO SCH (18:08)
[2016-09-06] MEDS: glipiZIDE 5 MG Tab PO SCH ×3 (08:11→16:44)
[2016-09-06] MEDS: Pantoprazole 40 MG Tab.CR PO SCH (08:11)
[2016-09-06] MEDS: Bumetanide 1 MG/4 ML MDV IVPUSH SCH (09:57)
[2016-09-06] MEDS: Clopidogrel 75 MG Tab PO SCH (09:58)
[2016-09-06] MEDS: Metoprolol Succinate 25 MG Tab.ER PO SCH ×2 (09:58→20:58)
--- NOTE | 2016-09-06 10:10 | PCM.PN ---
- General Info Date of Service: 09/06/16 Functional Status: Reports: pain controlled, tolerating diet, ambulating - Review of Systems Pulmonary: Reports: shortness of breath Cardiovascular: Reports: Orthopnea. Denies: Chest Pain Systems Review Comment:: No acute events overnight. Pt reports he did not sleep well due to congestion. No orthopnea. No shortness of breath. Feeling a bit better today. No cough or chest pain. Edema slowly improving. No headaches or vision issues. No fevers. - Patient Data Vitals - most recent: Last Vital Signs Temp 35.9 C 09/06/16 07:46 Pulse 97 09/06/16 09:58 Resp 18 09/06/16 07:46 BP 136/82 09/06/16 09:58 Pulse Ox 90 L 09/06/16 03:00 Weight - most recent: 102.17 kg I&O - last 24 hours: Intake & Output 09/05/16 09/06/16 09/06/16 22:59 06:59 14:59 Intake Total 240 480 Output Total 1300 300 Balance -1060 180 Lab Results last 24 hrs: Laboratory Results - last 24 hr 09/06/16 09/06/16 Range/Units 05:00 05:00 PT 28.1 H (9.5-12.0) sec INR 2.57 H (0.80-1.20) Sodium 147 (140-148) mmol/L Potassium 3.7 (3.6-5.2) mmol/L Chloride 106 (100-108) mmol/L Carbon Dioxide 33 H (21-32) mmol/L Anion Gap 11.7 (5.0-14.0) mmol/L BUN 44 H (7-18) mg/dL Creatinine 1.6 H (0.8-1.3) mg/dL Est Cr Clr Drug Dosing 40.67 mL/min Estimated GFR (MDRD) 41 L (>60) Glucose 139 H (74-106) mg/dL Calcium 8.2 L (8.5-10.1) mg/dL TSH, Ultra Sensitive 2.591 (0.358-3.740) uIU/mL Med Orders - Current: Current Medications Acetaminophen (Tylenol) 650 mg PO Q4H PRN PRN Reason: Pain (Mild 1-3)/fever Last Admin: 09/05/16 21:18 Dose: 650 mg Albuterol (Proventil Neb Soln) 2.5 mg NEB Q4H PRN PRN Reason: Shortness Of Breath/wheezing Bumetanide (Bumex) 2 mg IVPUSH DAILY [facility] Last Admin: 09/06/16 09:57 Dose: 2 mg Clopidogrel Bisulfate (Plavix) 75 mg PO DAILY [facility] Last Admin: 09/06/16 09:58 Dose: 75 mg Dextrose (Glutose 15) 15 gm PO ONETIME PRN PRN Reason: Hypoglycemia Dextrose/Water (Dextrose 50% In Water) 50 ml IV ONETIME PRN PRN Reason: Hypoglycemia Docusate Sodium (Colace) 100 mg PO BID PRN PRN Reason: Constipation [facility] Last Admin: 09/06/16 10:00 Dose: Not Given Insulin Aspart (Novolog) 0 unit SUBCUT ASDIRECTED [facility] PRN Reason: Protocol Last Admin: 09/05/16 18:08 Dose: 1 units Magnesium Hydroxide (Milk Of Magnesia) 30 ml PO Q12H PRN PRN Reason: Constipation Metoprolol Succinate (Toprol Xl) 25 mg PO BID [facility] Last Admin: 09/06/16 09:58 Dose: 25 mg Nitroglycerin (Nitrostat) 0.4 mg SL ASDIRECTED PRN PRN Reason: Chest Pain Ondansetron HCl (Zofran) 4 mg IV Q4H PRN PRN Reason: Nausea/Vomiting Oxycodone HCl (Oxycodone) 5 mg PO Q4H PRN PRN Reason: Pain (moderate 4-6) Pantoprazole Sodium (Protonix) 40 mg PO ACBREAKFAST [facility] Last Admin: 09/06/16 08:11 Dose: 40 mg Polyethylene Glycol (Miralax) 17 gm PO DAILY PRN PRN Reason: Constipation Sodium Chloride (Saline Flush) 10 ml FLUSH ASDIRECTED PRN PRN Reason: Keep Vein Open Warfarin Sodium (Coumadin) 5 mg PO DAILY@1300 [facility] Last Admin: 09/05/16 13:29 Dose: 5 mg Discontinued Medications Bumetanide (Bumex) 2 mg IVPUSH ONETIME ONE Stop: 09/05/16 10:01 Last Admin: 09/05/16 11:47 Dose: 2 mg Furosemide (Lasix) 60 mg IVPUSH ONETIME ONE Stop: 09/03/16 08:24 Last Admin: 09/03/16 08:38 Dose: 60 mg Furosemide (Lasix) 40 mg IVPUSH Q8H [facility] Last Admin: 09/04/16 08:11 Dose: 40 mg Furosemide (Lasix) 40 mg IVPUSH ONETIME ONE Stop: 09/04/16 16:01 Last Admin: 09/04/16 16:26 Dose: 40 mg Furosemide (Lasix) 40 mg IVPUSH DAILY [facility] Last Admin: 09/05/16 10:14 Dose: Not Given Glipizide (Glucotrol) 5 mg PO BIDAC [facility] Last Admin: 09/06/16 08:11 Dose: 5 mg Lisinopril (Prinivil) 5 mg PO DAILY [facility] Last Admin: 09/03/16 13:16 Dose: 5 mg Sodium Chloride (Saline Flush) 10 ml FLUSH ASDIRECTED PRN PRN Reason: Keep Vein Open Last Admin: 09/03/16 08:39 Dose: 10 ml - Exam Quality Assessment: No: supplemental oxygen General: alert, oriented, cooperative, no acute distress Neck: supple Lungs: Clear to auscultation, Normal respiratory effort, Crackles (rare at both bases). No: Wheezing Cardiovascular: Regular Rate, Irregular Rhythm, Murmurs Abdomen: soft, no distension Extremities: no cyanosis, edema (mild bilateral pitting edema of both ankles) Skin: warm, dry Psy/Mental Status: alert, normal affect - Problem List Review Problem List Initiated/Reviewed/Updated: Yes - My Orders Last 24 Hours: My Active Orders 09/06/16 05:00 ACTH [REF] Timed PROLACTIN [REF] Timed 09/06/16 09:00 Bumetanide [Bumex] 2 mg IVPUSH DAILY 09/06/16 09:30 glipiZIDE [Glucotrol] 2.5 mg PO BIDAC 09/06/16 10:08 Potassium Chloride [Klor-Con M20] 40 meq PO ONETIME ONE 09/07/16 05:00 BASIC METABOLIC PANEL,BMP [CHEM] Timed INR,PT,PROTHROMBIN TIME [COAG] Timed - Plan Plan:: ASSESSMENT AND PLAN ACUTE ON CHRONIC SYSTOLIC CONGESTIVE HEART FAILURE - recent echocardiogram has shown severely decreased left ventricular function complicated by chronic kidney disease and chronic atrial fibrillation. Good response to be midnight yesterday. Edema is improving as are his symptoms of shortness of breath and orthopnea. Kidney function tolerating diuresis so far. -2 g sodium diet -bumetanide 2 mg this morning and reassess after lunch -Closely monitor intake and output -Continue metoprolol 25 mg by mouth twice a day -Did not tolerate DISHA inhibitor because of low blood pressure -Consider addition of spironolactone to current medical regimen -Consider outpatient cardiology appointment to discuss possible defibrillator placement CHRONIC KIDNEY DISEASE STAGE III - renal function stable despite diuresis. -Closely monitor urine output and renal function TYPE 2 DIABETES MELLITUS - sugars well-controlled. -4 times a day glucometers -Continue glipizide -Low-dose sliding scale NovoLog CHRONIC ATRIAL FIBRILLATION - controlled ventricular response, on long-term oral anticoagulation with warfarin -Continue outpatient dosing of warfarin -Repeat INR in a.m. SOFT TISSUE THICKENING OF SELLA - abnormal CT finding discussed with Dr. Huynh at [facility] in [place] today. Could B. calcified aneurysm versus craniopharyngioma versus asymmetric pituitary adenoma/tumor. He has a pacemaker so we cannot complete an MRI. His kidney function is low enough that it is not safe to use IV contrast. Planning to workup for pituitary abnormality and monitor symptoms. Clinically his only symptom at this time is mild ptosis and his neurological examination is normal. He would be a very poor surgical candidate even if that was indicated. -ACTH, prolactin levels are pending -Monitor symptoms, outpatient followup MAINTENANCE ISSUES -DVT prophylaxis; current therapy with warfarin should provide adequate DVT prophylaxis -GI prophylaxis; continue outpatient PPI therapy -Busch catheter; not indicated -Nutrition; 2 g sodium consistent carb diet DISPOSITION - anticipate discharge to home after the hospital stay, hopefully in the next day or 2 Sam Kenney M.D.
[2016-09-06] MEDS ORDERED: Potassium Chloride 20 MEQ Tab.ER PO ONE (10:30)
[2016-09-06] MEDS: Warfarin 5 MG Tab PO SCH (13:46)
[2016-09-06] MEDS ORDERED: Bumetanide 1 MG/4 ML MDV IVPUSH ONE (16:28)
[2016-09-06] MEDS: Acetaminophen 325 MG Tab PO PRN (20:59)
[2016-09-07] MEDS: glipiZIDE 5 MG Tab PO SCH ×2 (07:43→18:03)
[2016-09-07] MEDS: Pantoprazole 40 MG Tab.CR PO SCH (07:43)
[2016-09-07] MEDS: Metoprolol Succinate 25 MG Tab.ER PO SCH ×2 (09:14→20:40)
[2016-09-07] MEDS: Clopidogrel 75 MG Tab PO SCH (09:14)
[2016-09-07] MEDS ORDERED: Bumetanide 1 MG Tab PO ONE (10:45)
[2016-09-07] MEDS ORDERED: Warfarin 5 MG Tab PO SCH (13:00)
[2016-09-07] MEDS: Warfarin 2.5 MG Tab PO SCH (13:42)
--- NOTE | 2016-09-07 13:55 | PCM.PN ---
- General Info Date of Service: 09/07/16 Functional Status: Reports: pain controlled, tolerating diet, ambulating - Review of Systems General: Reports: Weakness HEENT: Denies: headaches Cardiovascular: Reports: Orthopnea Systems Review Comment:: No acute events overnight. Good response to diuresis again yesterday. Edema continues to improve. Still has some orthopnea but this has improved as well. No complaints of chest pain or headache. Appetite has been good. He has not required supplemental oxygen. He has been up and walking around. Kidney function has remained stable. - Patient Data Vitals - most recent: Last Vital Signs Temp 36.3 C 09/07/16 11:11 Pulse 112 H 09/07/16 11:11 Resp 16 09/07/16 11:11 BP 111/59 L 09/07/16 11:11 Pulse Ox 95 09/07/16 11:11 Weight - most recent: 99.79 kg I&O - last 24 hours: Intake & Output 09/06/16 09/07/16 09/07/16 22:59 06:59 14:59 Intake Total 300 360 Output Total 1050 200 250 Balance -750 -200 110 Lab Results last 24 hrs: Laboratory Results - last 24 hr 09/06/16 09/07/16 09/07/16 Range/Units 16:32 05:00 05:00 PT 32.5 H (9.5-12.0) sec INR 2.96 H (0.80-1.20) Sodium 150 H (140-148) mmol/L Potassium 3.8 (3.6-5.2) mmol/L Chloride 108 (100-108) mmol/L Carbon Dioxide 36 H (21-32) mmol/L Anion Gap 9.8 (5.0-14.0) mmol/L BUN 38 H (7-18) mg/dL Creatinine 1.5 H (0.8-1.3) mg/dL Est Cr Clr Drug Dosing 43.38 mL/min Estimated GFR (MDRD) 45 L (>60) Glucose 111 H (74-106) mg/dL Calcium 8.1 L (8.5-10.1) mg/dL Urine Color Yellow Urine Appearance Clear Urine pH 6.5 (4.5-8.0) Ur Specific Gooding 1.010 (1.008-1.030) Urine Protein Negative (NEGATIVE) mg/dL Urine Glucose (UA) Normal (NEGATIVE) mg/dL Urine Ketones Negative (NEGATIVE) mg/dL Urine Occult Blood Negative (NEGATIVE) Urine Nitrite Negative (NEGAITVE) Urine Bilirubin Negative (NEGATIVE) Urine Urobilinogen Normal (NORMAL) mg/dL Ur Leukocyte Esterase Negative (NEGATIVE) Urine RBC 0-5 (0-5) Urine WBC Not seen (0-5) Ur Epithelial Cells Not seen Amorphous Sediment Not seen Urine Bacteria Not seen Urine Mucus Not seen Med Orders - Current: Current Medications Acetaminophen (Tylenol) 650 mg PO Q4H PRN PRN Reason: Pain (Mild 1-3)/fever Last Admin: 09/06/16 20:59 Dose: 650 mg Albuterol (Proventil Neb Soln) 2.5 mg NEB Q4H PRN PRN Reason: Shortness Of Breath/wheezing Clopidogrel Bisulfate (Plavix) 75 mg PO DAILY [facility] Last Admin: 09/07/16 09:14 Dose: 75 mg Dextrose (Glutose 15) 15 gm PO ONETIME PRN PRN Reason: Hypoglycemia Dextrose/Water (Dextrose 50% In Water) 50 ml IV ONETIME PRN PRN Reason: Hypoglycemia Docusate Sodium (Colace) 100 mg PO BID PRN PRN Reason: Constipation Glipizide (Glucotrol) 2.5 mg PO BIDAC [facility]S [facility]CLUDE 234 BEDS AT [facility] Last Admin: 09/07/16 07:43 Dose: 2.5 mg Insulin Aspart (Novolog) 0 unit SUBCUT ASDIRECTED [facility] 234 BEDS [facility] PRN Reason: Protocol Last Admin: 09/05/16 18:08 Dose: 1 units Magnesium Hydroxide (Milk Of Magnesia) 30 ml PO Q12H PRN PRN Reason: Constipation Metoprolol Succinate (Toprol Xl) 25 mg PO BID [facility] 234 B[facility]S AT [facility] Last Admin: 09/07/16 09:14 Dose: 25 mg Nitroglycerin (Nitrostat) 0.4 mg SL ASDIRECTED PRN PRN Reason: Chest Pain Ondansetron HCl (Zofran) 4 mg IV Q4H PRN PRN Reason: Nausea/Vomiting Oxycodone HCl (Oxycodone) 5 mg PO Q4H PRN PRN Reason: Pain (moderate 4-6) Pantoprazole Sodium (Protonix) 40 mg PO ACBREAKFAST [facility]S [facility] Last Admin: 09/07/16 07:43 Dose: 40 mg Polyethylene Glycol (Miralax) 17 gm PO DAILY PRN PRN Reason: Constipation Sodium Chloride (Saline Flush) 10 ml FLUSH ASDIRECTED PRN PRN Reason: Keep Vein Open Warfarin Sodium (Coumadin) 2.5 mg PO DAILY@1300 [facility] 234 BEDS [facility] Last Admin: 09/07/16 13:42 Dose: 2.5 mg Discontinued Medications Bumetanide (Bumex) 2 mg IVPUSH ONETIME ONE Stop: 09/05/16 10:01 Last Admin: 09/05/16 11:47 Dose: 2 mg Bumetanide (Bumex) 2 mg IVPUSH DAILY [facility] 234 BEDS AT [facility] Last Admin: 09/06/16 09:57 Dose: 2 mg Bumetanide (Bumex) 2 mg IVPUSH ONETIME ONE Stop: 09/06/16 16:29 Last Admin: 09/06/16 16:44 Dose: 2 mg Bumetanide (Bumex) 2 mg PO ONETIME ONE Stop: 09/07/16 10:46 Last Admin: 09/07/16 11:05 Dose: 2 mg Furosemide (Lasix) 60 mg IVPUSH ONETIME ONE Stop: 09/03/16 08:24 Last Admin: 09/03/16 08:38 Dose: 60 mg Furosemide (Lasix) 40 mg IVPUSH Q8H [facility]S [facility]CLUDE 234 BEDS AT [facility] Last Admin: 09/04/16 08:11 Dose: 40 mg Furosemide (Lasix) 40 mg IVPUSH ONETIME ONE Stop: 09/04/16 16:01 Last Admin: 09/04/16 16:26 Dose: 40 mg Furosemide (Lasix) 40 mg IVPUSH DAILY [facility] 234 BEDS AT [facility] Last Admin: 09/05/16 10:14 Dose: Not Given [facility] Last Admin: 09/06/16 08:11 Dose: 5 mg Lisinopril (Prinivil) 5 mg PO DAILY [facility] 234 B[facility]S [facility] Last Admin: 09/03/16 13:16 Dose: 5 mg Potassium Chloride (Klor-Con M20) 40 meq PO ONETIME ONE Stop: 09/06/16 10:31 Last Admin: 09/06/16 12:09 Dose: 40 meq Sodium Chloride (Saline Flush) 10 ml FLUSH ASDIRECTED PRN PRN Reason: Keep Vein Open Last Admin: 09/03/16 08:39 Dose: 10 ml Warfarin Sodium (Coumadin) 5 mg PO DAILY@1300 [facility] Last Admin: 09/06/16 13:46 Dose: 5 mg - Exam Quality Assessment: No: supplemental oxygen General: alert, oriented, cooperative, no acute distress Neck: supple Lungs: Clear to auscultation, Normal respiratory effort. No: Rales, Wheezing Cardiovascular: Regular Rate, Irregular Rhythm, Murmurs Abdomen: soft, no distension Extremities: no cyanosis, edema (mild pitting edema of both ankles) Skin: warm, dry Psy/Mental Status: alert, normal affect - Problem List Review Problem List Initiated/Reviewed/Updated: Yes - My Orders Last 24 Hours: My Active Orders 09/07/16 13:00 Warfarin [Coumadin] 2.5 mg PO DAILY@1300 09/07/16 17:00 GLUCOSE POC LAB TO COLLECT [POC] BIDAC 09/08/16 05:00 BASIC METABOLIC PANEL,BMP [CHEM] Timed INR,PT,PROTHROMBIN TIME [COAG] Timed 09/08/16 08:00 GLUCOSE POC LAB TO COLLECT [POC] BIDAC 09/08/16 17:00 GLUCOSE POC LAB TO COLLECT [POC] BIDAC 09/09/16 08:00 GLUCOSE POC LAB TO COLLECT [POC] BIDAC 09/09/16 17:00 GLUCOSE POC LAB TO COLLECT [POC] BIDAC 09/10/16 08:00 GLUCOSE POC LAB TO COLLECT [POC] BIDAC 09/10/16 17:00 GLUCOSE POC LAB TO COLLECT [POC] BIDAC 09/11/16 08:00 GLUCOSE POC LAB TO COLLECT [POC] BIDAC 09/11/16 17:00 GLUCOSE POC LAB TO COLLECT [POC] BIDAC 09/12/16 08:00 GLUCOSE POC LAB TO COLLECT [POC] BIDAC - Plan Plan:: ASSESSMENT AND PLAN ACUTE ON CHRONIC SYSTOLIC CONGESTIVE HEART FAILURE - recent echocardiogram has shown severely decreased left ventricular function complicated by chronic kidney disease and chronic atrial fibrillation. Good response to diuresis yesterday. Edema and symptoms continue to improve. His IV has infiltrated so we will give him a trial of oral medications today. -2 g sodium diet -bumetanide 2 mg this morning and reassess after lunch -Closely monitor intake and output -Continue metoprolol 25 mg by mouth twice a day -Did not tolerate DISHA inhibitor because of low blood pressure -Consider addition of spironolactone to current medical regimen -Consider outpatient cardiology appointment to discuss possible defibrillator placement CHRONIC KIDNEY DISEASE STAGE III - renal function stable despite diuresis. -Closely monitor urine output and renal function TYPE 2 DIABETES MELLITUS - sugars well-controlled. -2 times a day glucometers -Continue glipizide -Low-dose sliding scale NovoLog CHRONIC ATRIAL FIBRILLATION - controlled ventricular response, on long-term oral anticoagulation with warfarin -Continue warfarin with slight dose decrease today -Repeat INR in a.m. SOFT TISSUE THICKENING OF SELLA - abnormal CT finding discussed with Dr. Huynh at [facility] today. Could B. calcified aneurysm versus craniopharyngioma versus asymmetric pituitary adenoma/tumor. He has a pacemaker so we cannot complete an MRI. His kidney function is low enough that it is not safe to use IV contrast. Planning to workup for pituitary abnormality and monitor symptoms. Clinically his only symptom at this time is mild ptosis and his neurological examination is normal. He would be a very poor surgical candidate even if that was indicated. -ACTH, prolactin levels are pending -Monitor symptoms, outpatient followup MAINTENANCE ISSUES -DVT prophylaxis; current therapy with warfarin should provide adequate DVT prophylaxis -GI prophylaxis; continue outpatient PPI therapy -Busch catheter; not indicated -Nutrition; 2 g sodium consistent carb diet DISPOSITION - anticipate discharge to home after the hospital stay, hopefully in the next day or 2 Sam Kenney M.D.
[2016-09-07] MEDS: Bumetanide 1 MG/4 ML MDV IVPUSH SCH (16:42)
[2016-09-07] MEDS: Acetaminophen 325 MG Tab PO PRN (22:42)
[2016-09-08] MEDS: glipiZIDE 5 MG Tab PO SCH ×2 (07:56→16:57)
[2016-09-08] MEDS: Pantoprazole 40 MG Tab.CR PO SCH (07:56)
[2016-09-08] MEDS: Metoprolol Succinate 25 MG Tab.ER PO SCH ×2 (08:00→21:12)
[2016-09-08] MEDS: Clopidogrel 75 MG Tab PO SCH (08:00)
[2016-09-08] MEDS: Bumetanide 1 MG Tab PO SCH ×2 (09:38→14:44)
--- NOTE | 2016-09-08 11:24 | PCM.PN ---
- General Info Date of Service: 09/08/16 Functional Status: Reports: pain controlled, tolerating diet, ambulating - Review of Systems Cardiovascular: Reports: Orthopnea Neurological: Denies: Headache Systems Review Comment:: no acute events overnight. He was mildly hypoxic last night and required supplemental oxygen during the night. Edema continues to improve but has not resolved. He only has mild orthopnea that essentially resolved with supplemental oxygen. No complaints of chest pain or cough. In general he's feeling better. Good diuresis yesterday but his weight is stable today. - Patient Data Vitals - most recent: Last Vital Signs Temp 35.8 C 09/08/16 07:52 Pulse 88 09/08/16 08:00 Resp 18 09/08/16 07:52 BP 123/66 09/08/16 08:00 Pulse Ox 97 09/08/16 07:52 Weight - most recent: 100.062 kg I&O - last 24 hours: Intake & Output 09/07/16 09/08/16 09/08/16 22:59 06:59 14:59 Intake Total 1120 Output Total 1500 150 300 Balance -380 -150 -300 Lab Results last 24 hrs: Laboratory Results - last 24 hr 09/06/16 09/08/16 09/08/16 Range/Units 05:00 04:45 04:45 PT 31.5 H (9.5-12.0) sec INR 2.88 H (0.80-1.20) Sodium 151 H (140-148) mmol/L Potassium 4.4 (3.6-5.2) mmol/L Chloride 109 H (100-108) mmol/L Carbon Dioxide 37 H (21-32) mmol/L Anion Gap 9.4 (5.0-14.0) mmol/L BUN 40 H (7-18) mg/dL Creatinine 1.7 H (0.8-1.3) mg/dL Est Cr Clr Drug Dosing 38.28 mL/min Estimated GFR (MDRD) 39 L (>60) Glucose 103 (74-106) mg/dL Calcium 8.4 L (8.5-10.1) mg/dL Prolactin 13.8 (4.0-15.2) ng/mL ACTH 35 (0-46) pg/mL Med Orders - Current: Current Medications Acetaminophen (Tylenol) 650 mg PO Q4H PRN PRN Reason: Pain (Mild 1-3)/fever Last Admin: 09/07/16 22:42 Dose: 650 mg Albuterol (Proventil Neb Soln) 2.5 mg NEB Q4H PRN PRN Reason: Shortness Of Breath/wheezing Bumetanide (Bumex) 2 mg PO BIDDIURETIC [facility] Last Admin: 09/08/16 09:38 Dose: 2 mg Clopidogrel Bisulfate (Plavix) 75 mg PO DAILY [facility] Last Admin: 09/08/16 08:00 Dose: 75 mg Dextrose (Glutose 15) 15 gm PO ONETIME PRN PRN Reason: Hypoglycemia Dextrose/Water (Dextrose 50% In Water) 50 ml IV ONETIME PRN PRN Reason: Hypoglycemia Docusate Sodium (Colace) 100 mg PO BID PRN PRN Reason: Constipation Glipizide (Glucotrol) 2.5 mg PO BIDAC [facility] Last Admin: 09/08/16 07:56 Dose: 2.5 mg Insulin Aspart (Novolog) 0 unit SUBCUT ASDIRECTED [facility] PRN Reason: Protocol Last Admin: 09/05/16 18:08 Dose: 1 units Magnesium Hydroxide (Milk Of Magnesia) 30 ml PO Q12H PRN PRN Reason: Constipation Metoprolol Succinate (Toprol Xl) 25 mg PO BID [facility] Last Admin: 09/08/16 08:00 Dose: 25 mg Nitroglycerin (Nitrostat) 0.4 mg SL ASDIRECTED PRN PRN Reason: Chest Pain Ondansetron HCl (Zofran) 4 mg IV Q4H PRN PRN Reason: Nausea/Vomiting Oxycodone HCl (Oxycodone) 5 mg PO Q4H PRN PRN Reason: Pain (moderate 4-6) Pantoprazole Sodium (Protonix) 40 mg PO ACBREAKFAST [facility] Last Admin: 09/08/16 07:56 Dose: 40 mg Polyethylene Glycol (Miralax) 17 gm PO DAILY PRN PRN Reason: Constipation Sodium Chloride (Saline Flush) 10 ml FLUSH ASDIRECTED PRN PRN Reason: Keep Vein Open Warfarin Sodium (Coumadin) 2.5 mg PO DAILY@1300 [facility] Last Admin: 09/07/16 13:42 Dose: 2.5 mg Discontinued Medications Bumetanide (Bumex) 2 mg IVPUSH ONETIME ONE Stop: 09/05/16 10:01 Last Admin: 09/05/16 11:47 Dose: 2 mg Bumetanide (Bumex) 2 mg IVPUSH DAILY [facility] Last Admin: 09/07/16 16:42 Dose: Not Given Bumetanide (Bumex) 2 mg IVPUSH ONETIME ONE Stop: 09/06/16 16:29 Last Admin: 09/06/16 16:44 Dose: 2 mg Bumetanide (Bumex) 2 mg PO ONETIME ONE Stop: 09/07/16 10:46 Last Admin: 09/07/16 11:05 Dose: 2 mg Furosemide (Lasix) 60 mg IVPUSH ONETIME ONE Stop: 09/03/16 08:24 Last Admin: 09/03/16 08:38 Dose: 60 mg Furosemide (Lasix) 40 mg IVPUSH Q8H [facility] Last Admin: 09/04/16 08:11 Dose: 40 mg Furosemide (Lasix) 40 mg IVPUSH ONETIME ONE Stop: 09/04/16 16:01 Last Admin: 09/04/16 16:26 Dose: 40 mg Furosemide (Lasix) 40 mg IVPUSH DAILY [facility] Last Admin: 09/05/16 10:14 Dose: Not Given Glipizide (Glucotrol) 5 mg PO BIDAC [facility] Last Admin: 09/06/16 08:11 Dose: 5 mg Lisinopril (Prinivil) 5 mg PO DAILY [facility] Last Admin: 09/03/16 13:16 Dose: 5 mg Potassium Chloride (Klor-Con M20) 40 meq PO ONETIME ONE Stop: 09/06/16 10:31 Last Admin: 09/06/16 12:09 Dose: 40 meq Sodium Chloride (Saline Flush) 10 ml FLUSH ASDIRECTED PRN PRN Reason: Keep Vein Open Last Admin: 09/03/16 08:39 Dose: 10 ml Warfarin Sodium (Coumadin) 5 mg PO DAILY@1300 [facility] Last Admin: 09/06/16 13:46 Dose: 5 mg - Exam Quality Assessment: No: supplemental oxygen General: alert, oriented, cooperative, no acute distress Neck: supple Lungs: Clear to auscultation, Normal respiratory effort. No: Wheezing Cardiovascular: Regular Rate, Irregular Rhythm. No: Murmurs Abdomen: bowel sounds present, soft, no distension Extremities: no cyanosis, edema (mild bilateral ankle edema) Skin: warm, dry Psy/Mental Status: alert, normal affect - Problem List Review Problem List Initiated/Reviewed/Updated: Yes - My Orders Last 24 Hours: My Active Orders 09/07/16 13:00 Warfarin [Coumadin] 2.5 mg PO DAILY@1300 09/08/16 08:00 Bumetanide [Bumex] 2 mg PO BIDDIURETIC 09/08/16 17:00 GLUCOSE POC LAB TO COLLECT [POC] BIDAC 09/09/16 05:00 BASIC METABOLIC PANEL,BMP [CHEM] Timed INR,PT,PROTHROMBIN TIME [COAG] Timed 09/09/16 08:00 GLUCOSE POC LAB TO COLLECT [POC] BIDAC 09/09/16 17:00 GLUCOSE POC LAB TO COLLECT [POC] BIDAC 09/10/16 08:00 GLUCOSE POC LAB TO COLLECT [POC] BIDAC 09/10/16 17:00 GLUCOSE POC LAB TO COLLECT [POC] BIDAC 09/11/16 08:00 GLUCOSE POC LAB TO COLLECT [POC] BIDAC 09/11/16 17:00 GLUCOSE POC LAB TO COLLECT [POC] BIDAC 09/12/16 08:00 GLUCOSE POC LAB TO COLLECT [POC] BIDAC - Plan Plan:: ASSESSMENT AND PLAN ACUTE ON CHRONIC SYSTOLIC CONGESTIVE HEART FAILURE - recent echocardiogram has shown severely decreased left ventricular function complicated by chronic kidney disease and chronic atrial fibrillation. he continues to respond well to diuresis with stable kidney function. I think we're reaching the end of his acute diuresis and should be able to back off after today. He does have some hypoxia at night. blood pressures have been stable. -2 g sodium diet -bumetanide 2 mg BIDD -Closely monitor intake and output -Continue metoprolol 25 mg by mouth twice a day -Did not tolerate DISHA inhibitor because of low blood pressure -Consider outpatient cardiology appointment to discuss possible defibrillator placement CHRONIC KIDNEY DISEASE STAGE III - renal function stable throat his current diuresis. -Closely monitor urine output and renal function TYPE 2 DIABETES MELLITUS - sugars well-controlled. -2 times a day glucometers -Continue glipizide -Low-dose sliding scale NovoLog CHRONIC ATRIAL FIBRILLATION - controlled ventricular response, on long-term oral anticoagulation with warfarin -Continue warfarin with slight dose decrease today -Repeat INR in a.m. SOFT TISSUE THICKENING OF SELLA - abnormal CT finding discussed with Dr. Huynh at [facility] today. Could B. calcified aneurysm versus craniopharyngioma versus asymmetric pituitary adenoma/tumor. He has a pacemaker so we cannot complete an MRI. His kidney function is low enough that it is not safe to use IV contrast. Planning to workup for pituitary abnormality and monitor symptoms. Clinically his only symptom at this time is mild ptosis and his neurological examination is normal. He would be a very poor surgical candidate even if that was indicated. -ACTH, prolactin levels are normal -Monitor symptoms, outpatient followup MAINTENANCE ISSUES -DVT prophylaxis; current therapy with warfarin should provide adequate DVT prophylaxis -GI prophylaxis; continue outpatient PPI therapy -Busch catheter; not indicated -Nutrition; 2 g sodium consistent carb diet DISPOSITION - anticipate discharge to home after the hospital stay, hopefully tomorrow Sam Kenney M.D.
[2016-09-08] MEDS: Warfarin 2.5 MG Tab PO SCH (13:41)
[2016-09-08] MEDS: Acetaminophen 325 MG Tab PO PRN (21:11)
[2016-09-09] MEDS: Clopidogrel 75 MG Tab PO SCH (08:01)
[2016-09-09] MEDS: Pantoprazole 40 MG Tab.CR PO SCH (08:01)
[2016-09-09] MEDS: glipiZIDE 5 MG Tab PO SCH (08:02)
[2016-09-09] MEDS: Bumetanide 1 MG Tab PO SCH (08:03)
[2016-09-09] MEDS: Metoprolol Succinate 25 MG Tab.ER PO SCH (08:03)
[2016-09-09 08:04] VITALS: BP 129/73
--- NOTE | 2016-09-09 10:23 | PCM.DCSUM1 ---
Discharge Summary - Hospital Course Brief History: 85-year-old gentleman with history of NYHA class 2/3 systolic congestive heart failure, chronic atrial fibrillation and stage III chronic kidney disease who presented with worsening edema and shortness of breath and was admitted for management of decompensated congestive heart failure. - Discharge Data Discharge Date: 09/09/16 Discharge Disposition: Home, Self-Care 01 Condition: Good - Discharge Diagnosis/Problem(s) (1) Systolic CHF with reduced left ventricular function, NYHA class 2 SNOMED Code(s): 232020684, 911429731, 730522915 ICD Code: I50.20 - UNSPECIFIED SYSTOLIC (CONGESTIVE) HEART FAILURE Status: Acute (2) Chronic atrial fibrillation SNOMED Code(s): 733204184 ICD Code: I48.2 - CHRONIC ATRIAL FIBRILLATION Status: Chronic (3) Stage III chronic kidney disease SNOMED Code(s): 857868424 ICD Code: N18.3 - CHRONIC KIDNEY DISEASE, STAGE 3 (MODERATE) Status: Chronic (4) CAD (coronary artery disease), [place] coronary artery SNOMED Code(s): 4878223593865 ICD Code: I25.10 - ATHSCL HEART DISEASE OF [place] CORONARY ARTERY W/O ANG PCTRS Status: Chronic Qualifiers: [place] vs. transplanted heart: [place] heart Associated angina: without angina Qualified Code(s): I25.10 - Atherosclerotic heart disease of [place] coronary artery without angina pectoris - Patient Summary/Data Consults: Consultations 09/03/16 10:34 PT Evaluation and Treatment [CONS] Routine Please Evaluate and Treat. PT Reason for Consult: Strengthening This query below is only for informational purposes and is not editable. Hospital Course: Fredrick presented to the emergency room on September 03 with progressive lower extremity edema and increasing shortness of breath and orthopnea. Workup in the emergency room was suggestive of acute decompensated systolic congestive heart failure complicated by chronic atrial fibrillation and chronic kidney disease. He was given IV diuretics and admitted to the hospital for further management. He was started on lisinopril in the emergency room to help reduce the afterload but unfortunately his blood pressures were too low the following morning to continue to use this medication. over the next 2 days we did not have much improvement in the way of diuresis and bumped his creatinine slightly despite not getting much fluid off. Symptomatically he did not feel much better with the small diuresis using furosemide. I elected to transition him to bumetanide. Initially utilizing the intravenous route we had good success with diuresis. We were only able to diuresis twice daily given borderline low blood pressures throughout much of the hospital stay. He did have slow but steady improvement in his respiratory symptoms with decreasing shortness of breath as well as decreasing lower extremity edema. He also noted a decrease in his abdominal fullness with diuresis. We have been able to have a net negative fluid balance of approximately 1 L each day for much of the week. He is unable to walk almost the entire length of the hospital and back without significant shortness of breath. His kidney function has remained relatively stable with a creatinine level bouncing between 1.5 and 1.7. His rate control has been acceptable with heart rates in the 80-100 range and his rhythm has been atrial fibrillation the entire time. Warfarin dosing has been stable and INRs have been in the 2-3 range. At this point I believe he is safe for outpatient management. The plan is for discharge to home with the patient taking 2 mg of Bumex each morning. He was advised to weigh himself each day and if his weight rises he should take a second dose. He may benefit from a referral to the congestive heart failure clinic and would definitely benefit from close followup with his primary care physician. Also of note, we did qualify him for home oxygen. He had an episode greater than 5 minutes in length with his oxygen saturations at 88% or below. These were documented the night before hospital discharge. I think that he would benefit from 2 L per minute of supplemental oxygen use while he was sleeping. This should help give his heart a chance to rest with improved oxygenation at nighttime. Also of note during hospital stay we had some discussions about the abnormal head CT noted from a couple weeks ago. In particular, he has a thickening of the right side of the sella. I did call over and talk to Dr. Huynh, the neurosurgeon at [facility]. He reviewed the images and the case with me. He felt that most likely this is either a calcified aneurysm or potentially a craniopharyngioma. Also in the differential was an atypical pituitary tumor. We did check thyroid, ACTH as well as prolactin levels and these were all acceptable. He does not have much in the way of symptoms from this thickening/mass. We cannot do a CT scan with contrast because of his suboptimal kidney function and we cannot complete an MRI because of his pacemaker. This thickening/mass is a tumor that needs surgery is an extremely poor surgical candidate and likely would not survive that type of surgery. Because he has minimal symptoms at this point we decided that we would monitor the situation and if he has additional symptoms a repeat CT scan could be considered. He thinks that he has had some mild difficulties with his right eye for some time and this is likely a chronic issue rather than an acute finding. - Patient Instructions Diet: Low Sodium Activity: As Tolerated Driving: May Drive Today Showering/Bathing: May Shower Notify Provider of: Fever, Increased Pain, Nausea and/or Vomiting Other/Special Instructions: 1. You were in the hospital for management of acute systolic congestive heart failure. We have used a combination of IV and by mouth medications to help get rid of extra fluid. -Take bumetanide 2 mg once daily in the morning. This is a water pill that while continue to balance your fluid intake and output. -Please weigh yourself each day - if your weight rises by 2 pounds in one day or 3 pounds over 2 days you should take an extra dose of your bumetanide. If you have rapid progression of swelling or shortness of breath please contact your primary care provider or seek treatment in the emergency room. -Try to limit your sodium to 2000 mg each day. 2. During your hospital stay we discussed the area of thickening near your pituitary gland deep inside your brain. I suspect that this is either a calcified aneurysm or possibly a very slow-growing tumor called a craniopharyngioma. Unfortunately we are not able to workup this abnormality further because a CT scan with IV contrast could damage your kidneys and we cannot complete an MRI because of your pacemaker. As long as you do not have further symptoms we do not need to do anything at this time. Sudden onset of visual difficulties may prompt additional discussion with a neurosurgeon. 3. I recommend that you decrease your dose of warfarin to 2.5 mg daily and followup with the Coumadin clinic this week to have your level rechecked. 4. Please seek medical attention if you develop fever greater than 101, sudden onset of shortness of breath. Rapid worsening of your lower extremity edema or chest pain. 5. You did qualify for home oxygen and this will be set up through [facility]. They will be delivering the oxygen to you this afternoon. You should use 2 L per minute while you're sleeping at night. - Discharge Plan Prescriptions/Med Rec: Bumetanide [Bumex] 2 mg PO DAILY #30 tablet Potassium Chloride [Klor-Con M20] 20 meq PO DAILY #30 tab.er Warfarin [Coumadin] 2.5 mg PO DAILY #15 tablet Home Medications: Home Meds Multivitamin with Minerals [Multiple Vitamin] 1 tab PO DAILY 09/29/13 [History] Omeprazole [Prilosec] 40 mg PO DAILY 09/29/13 [History] Clopidogrel [Plavix] 75 mg PO DAILY 07/14/14 [History] glipiZIDE [Glucotrol] 2.5 mg PO BID 07/14/14 [History] Nitroglycerin [IJP: Nitroglycerin] 0.4 mg PO ASDIRECTED PRN 07/24/16 [History] Metoprolol Succinate 25 mg PO BID 09/03/16 [History] Bumetanide [Bumex] 2 mg PO DAILY #30 tablet 09/09/16 [Rx] Potassium Chloride [Klor-Con M20] 20 meq PO DAILY #30 tab.er 09/09/16 [Rx] Warfarin [Coumadin] 2.5 mg PO DAILY #15 tablet 09/09/16 [Rx] Patient Handouts: Low-Sodium Eating Plan, Bumetanide tablets, Heart Failure Referrals: Pedro Lynch MD [Primary Care Provider] - (1 week - followup hospital stay for congestive heart failure) - Discharge Summary/Plan Comment DC Time >30 min.: Yes (40 - complex d/c with home O2) - Patient Data Vitals - Most Recent: Last Vital Signs Temp 35.3 C 09/09/16 07:00 Pulse 96 09/09/16 08:03 Resp 16 09/09/16 07:00 BP 129/73 09/09/16 08:03 Pulse Ox 96 09/09/16 07:00 Weight - Most Recent: 99.745 kg I&O - Last 24 hours: Intake & Output 09/08/16 09/09/16 09/09/16 22:59 06:59 14:59 Intake Total 640 240 Output Total 975 500 350 Balance -335 -260 -350 Lab Results - Last 24 hrs: Laboratory Results - last 24 hr 09/09/16 09/09/16 Range/Units 05:30 05:30 PT 28.6 H (9.5-12.0) sec INR 2.62 H (0.80-1.20) Sodium 149 H (140-148) mmol/L Potassium 3.5 L (3.6-5.2) mmol/L Chloride 107 (100-108) mmol/L Carbon Dioxide 36 H (21-32) mmol/L Anion Gap 9.5 (5.0-14.0) mmol/L BUN 42 H (7-18) mg/dL Creatinine 1.8 H (0.8-1.3) mg/dL Est Cr Clr Drug Dosing 36.15 mL/min Estimated GFR (MDRD) 36 L (>60) Glucose 104 (74-106) mg/dL Calcium 8.0 L (8.5-10.1) mg/dL Med Orders - Current: Current Medications Acetaminophen (Tylenol) 650 mg PO Q4H PRN PRN Reason: Pain (Mild 1-3)/fever Last Admin: 09/08/16 21:11 Dose: 650 mg Albuterol (Proventil Neb Soln) 2.5 mg NEB Q4H PRN PRN Reason: Shortness Of Breath/wheezing Bumetanide (Bumex) 2 mg PO BIDDIURETIC [facility] Last Admin: 09/09/16 08:03 Dose: 2 mg Clopidogrel Bisulfate (Plavix) 75 mg PO DAILY [facility] Last Admin: 09/09/16 08:01 Dose: 75 mg Dextrose (Glutose 15) 15 gm PO ONETIME PRN PRN Reason: Hypoglycemia Dextrose/Water (Dextrose 50% In Water) 50 ml IV ONETIME PRN PRN Reason: Hypoglycemia Docusate Sodium (Colace) 100 mg PO BID PRN PRN Reason: Constipation Glipizide (Glucotrol) 2.5 mg PO BIDAC [facility] Last Admin: 09/09/16 08:02 Dose: 2.5 mg Insulin Aspart (Novolog) 0 unit SUBCUT ASDIRECTED [facility] PRN Reason: Protocol Last Admin: 09/05/16 18:08 Dose: 1 units Magnesium Hydroxide (Milk Of Magnesia) 30 ml PO Q12H PRN PRN Reason: Constipation Metoprolol Succinate (Toprol Xl) 25 mg PO BID [facility] Last Admin: 09/09/16 08:03 Dose: 25 mg Nitroglycerin (Nitrostat) 0.4 mg SL ASDIRECTED PRN PRN Reason: Chest Pain Ondansetron HCl (Zofran) 4 mg IV Q4H PRN PRN Reason: Nausea/Vomiting Oxycodone HCl (Oxycodone) 5 mg PO Q4H PRN PRN Reason: Pain (moderate 4-6) Pantoprazole Sodium (Protonix) 40 mg PO ACBREAKFAST [facility] Last Admin: 09/09/16 08:01 Dose: 40 mg Polyethylene Glycol (Miralax) 17 gm PO DAILY PRN PRN Reason: Constipation Sodium Chloride (Saline Flush) 10 ml FLUSH ASDIRECTED PRN PRN Reason: Keep Vein Open Warfarin Sodium (Coumadin) 2.5 mg PO DAILY@1300 [facility] Last Admin: 09/08/16 13:41 Dose: 2.5 mg Discontinued Medications Bumetanide (Bumex) 2 mg IVPUSH ONETIME ONE Stop: 09/05/16 10:01 Last Admin: 09/05/16 11:47 Dose: 2 mg Bumetanide (Bumex) 2 mg IVPUSH DAILY [facility] Last Admin: 09/07/16 16:42 Dose: Not Given Bumetanide (Bumex) 2 mg IVPUSH ONETIME ONE Stop: 09/06/16 16:29 Last Admin: 09/06/16 16:44 Dose: 2 mg Bumetanide (Bumex) 2 mg PO ONETIME ONE Stop: 09/07/16 10:46 Last Admin: 09/07/16 11:05 Dose: 2 mg Furosemide (Lasix) 60 mg IVPUSH ONETIME ONE Stop: 09/03/16 08:24 Last Admin: 09/03/16 08:38 Dose: 60 mg Furosemide (Lasix) 40 mg IVPUSH Q8H [facility] Last Admin: 09/04/16 08:11 Dose: 40 mg Furosemide (Lasix) 40 mg IVPUSH ONETIME ONE Stop: 09/04/16 16:01 Last Admin: 09/04/16 16:26 Dose: 40 mg Furosemide (Lasix) 40 mg IVPUSH DAILY [facility] Last Admin: 09/05/16 10:14 Dose: Not Given [facility]) [facility] Last Admin: 09/06/16 08:11 Dose: 5 mg Lisinopril (Prinivil) 5 mg PO DAILY [facility] Last Admin: 09/03/16 13:16 Dose: 5 mg Potassium Chloride (Klor-Con M20) 40 meq PO ONETIME ONE Stop: 09/06/16 10:31 Last Admin: 09/06/16 12:09 Dose: 40 meq Sodium Chloride (Saline Flush) 10 ml FLUSH ASDIRECTED PRN PRN Reason: Keep Vein Open Last Admin: 09/03/16 08:39 Dose: 10 ml Warfarin Sodium (Coumadin) 5 mg PO DAILY@1300 [facility] Last Admin: 09/06/16 13:46 Dose: 5 mg *Q Meaningful Use (DIS) - VTE *Q VTE Criteria *Q: VTE Pharmacological Contraindications *Q: High INR Value - Stroke *Q Stroke Criteria *Q: - AMI *Q AMI Criteria *Q:
== END 2016-09-09 12:40 | disposition home or self-care (01) | DRG 293 ==
LOC: JP.ED 07:27 → JP.2SS 10:08
PROVIDERS: ADMIT Hospitalist; ATTEND Internal Medicine
DX: I50.23 Acute on chronic systolic (congestive) heart failure (principal); I48.2 Chronic atrial fibrillation; N18.3 Chronic kidney disease, stage 3 (moderate); I25.10 Atherosclerotic heart disease of native coronary artery without angina pectoris; K21.9 Gastro-esophageal reflux disease without esophagitis; Z79.01 Long term (current) use of anticoagulants; Z86.718 Personal history of other venous thrombosis and embolism; I25.2 Old myocardial infarction; Z95.0 Presence of cardiac pacemaker; M19.90 Unspecified osteoarthritis, unspecified site; M54.9 Dorsalgia, unspecified; G89.29 Other chronic pain; N40.0 Benign prostatic hyperplasia without lower urinary tract symptoms; Z87.891 Personal history of nicotine dependence; R09.02 Hypoxemia
CPT/HCPCS: 36415; 71020 ×2; 80053; 81001; 83880; 84484; 85025; 85610; 96374; 99285 ×2; J1940; J7050; 80048; 82024; 82962; 83735; 84146; 84443; 94762; 97110-GP; 97116-GP; 97162-GP; 97530-GP; A9270-GY; S0171

== ENCOUNTER 2016-10-10 14:01 | Emergency (ER) | payer MEDICARE, OTHER ==
[2016-10-10] MEDS ORDERED: Furosemide 40 MG/4 ML VIAL IM ONE (16:30)
--- NOTE | 2016-10-10 16:33 | EDM.PDOC ---
[id number] [id number] Time Seen by Provider: 10/10/16 14:55 Source of Information: Reports: Patient, Family History Limitations: Reports: No Limitations - History of Present Illness INITIAL COMMENTS - FREE TEXT/NARRATIVE: Pt states he does not feel well. He is slightly sob. He has had pain in the rt ankle area and this is persistent today. He thinks this is gout. Onset: Gradual Duration: Day(s):, Other ( worse today. ) Location: Reports: Chest, Generalized Associated Symptoms: Reports: Cough, Other ( pt coughed up bood. ) - Related Data Allergies Allergy/AdvReac Type Severity Reaction Status Date / Time amlodipine Allergy Severe anaphylaxis Verified 09/03/16 07:49 dipyridamole Allergy Cannot Verified 09/03/16 07:49 Remember Iodinated Contrast Media - Allergy Rash Verified 09/03/16 07:49 Oral and [Iodinated Contrast Media - IV Dye] rosuvastatin calcium AdvReac Muscle Verified 09/03/16 07:49 [From Crestor] Aches Home Meds: Home Meds Multivitamin with Minerals [Multiple Vitamin] 1 tab PO DAILY 09/29/13 [History] Omeprazole [Prilosec] 40 mg PO DAILY 09/29/13 [History] Clopidogrel [Plavix] 75 mg PO DAILY 07/14/14 [History] glipiZIDE [Glucotrol] 2.5 mg PO BID 07/14/14 [History] Nitroglycerin [IJP: Nitroglycerin] 0.4 mg PO ASDIRECTED PRN 07/24/16 [History] Metoprolol Succinate 75 mg PO ACBREAKFAST 09/03/16 [History] Warfarin [Coumadin] 2.5 mg PO DAILY #15 tablet 09/09/16 [Rx] Bumetanide [Bumex] 0.5 mg PO BID 10/10/16 [History] Past Medical History HEENT History: Reports: Cataract, Other (See Below) Other HEENT History: optic neuropathy Cardiovascular History: Reports: Arrhythmia, Blood Clots/VTE/DVT, CAD, Heart Failure, [place], Pacemaker, Other (See Below) Other Cardiovascular History: cardiomegaly, sinoatrial node disfunction, Respiratory History: Reports: PE Other Respiratory History: pulm. valve disorder Gastrointestinal History: Reports: GERD Genitourinary History: Reports: BPH, Chronic Renal Insuffiency, Other (See Below ) Other Genitourinary History: hx of urinary obstructions Musculoskeletal History: Reports: Back Pain, Chronic, Osteoarthritis Endocrine/Metabolic History: Reports: Diabetes, Type II - Infectious Disease History Infectious Disease History: Reports: Chicken Pox, Measles, Mumps, Rubella, Shingles - Past Surgical History HEENT Surgical History: Reports: Cataract Surgery Respiratory Surgical History: Reports: None Social & Family History - Family History Cardiac: Reports: [place] - Tobacco Use Smoking Status *Q: Never Smoker Years of Tobacco use: 10 Packs/Tins Daily: 0.5 Used Tobacco, but Quit: Yes Month Tobacco Last Used: 04/1958 Second Hand Smoke Exposure: No - Caffeine Use Caffeine Use: Reports: Coffee, Tea - Alcohol Use Days Per Week of Alcohol Use: 0 - Recreational Drug Use Recreational Drug Use: No ED ROS GENERAL - Review of Systems Review Of Systems: See Below Constitutional: Reports: No Symptoms HEENT: Reports: No Symptoms Respiratory: Reports: Shortness of Breath, Hemoptysis Cardiovascular: Reports: No Symptoms Endocrine: Reports: No Symptoms GI/Abdominal: Reports: No Symptoms : Reports: No Symptoms Musculoskeletal: Reports: No Symptoms ED EXAM, GENERAL - Physical Exam Exam: See Below Free Text/Narrative:: pt has not felt well and has had some rt ankle pain. That was severe yesterday but is better today, The ankle is still red and is somewhat hot. Exam Limited By: No Limitations General Appearance: Alert, Anxious, Mild Distress Ears: Normal External Exam Nose: Normal Inspection Throat/Mouth: Normal Inspection Head: Atraumatic Neck: Normal Inspection Respiratory/Chest: No Respiratory Distress Cardiovascular: Regular Rate, Rhythm, Other (pt is wearing a life vest) GI/Abdominal: Soft, No Mass (Male) Exam: Normal Inspection Rectal (Males) Exam: Normal Exam Extremities: Normal Inspection Neurological: Alert, Oriented, Normal Cognition Psychiatric: Anxious Course - Vital Signs Last Recorded V/S: Last Vital Signs Temp 37.0 C 10/10/16 17:52 Pulse 116 H 10/10/16 17:52 Resp 14 10/10/16 17:52 BP 126/71 10/10/16 17:52 Pulse Ox 96 10/10/16 17:52 - Orders/Labs/Meds Labs: Laboratory Tests 05/16/17 05/16/17 05/16/17 Range/Units 15:10 15:10 15:57 WBC 17.2 H (4.5-11.0) K/uL RBC 5.11 (4.30-5.90) M/uL Hgb 14.7 (12.0-15.0) g/dL Hct 45.1 (40.0-54.0) % MCV 88 (80-98) fL MCH 29 (27-31) pg MCHC 33 (32-36) % Plt Count 174 (150-400) K/uL Neut % (Auto) 82 H (36-66) % Lymph % (Auto) 8 L (24-44) % [place] % (Auto) 9 H (2-6) % Eos % (Auto) 1 L (2-4) % Baso % (Auto) 0 (0-1) % Sodium 140 (140-148) mmol/L Potassium 3.9 (3.6-5.2) mmol/L Chloride 98 L (100-108) mmol/L Carbon Dioxide 36 H (21-32) mmol/L Anion Gap 9.9 (5.0-14.0) mmol/L BUN 33 H (7-18) mg/dL Creatinine 1.9 H (0.8-1.3) mg/dL Est Cr Clr Drug Dosing 31.77 mL/min Estimated GFR (MDRD) 34 L (>60) Glucose 137 H (74-106) mg/dL Uric Acid (3.5-7.2) mg/dL Calcium 8.3 L (8.5-10.1) mg/dL Total Bilirubin 1.4 H (0.2-1.0) mg/dL AST 21 (15-37) U/L ALT 39 (12-78) U/L Alkaline Phosphatase 85 (46-116) U/L [id number]-[id number] Pept 8573 H (5-450) pg/mL Total Protein 7.3 (6.4-8.2) g/dL Albumin 3.2 L (3.4-5.0) g/dL Globulin 4.1 H (2.3-3.5) g/dL Albumin/Globulin Ratio 0.8 L (1.2-2.2) Urine Color [place] Urine Appearance Clear Urine pH 6.0 (4.5-8.0) Ur Specific [place] 1.010 (1.008-1.030) Urine Protein Negative (NEGATIVE) mg/dL Urine Glucose (UA) Normal (NEGATIVE) mg/dL Urine Ketones Negative (NEGATIVE) mg/dL Urine Occult Blood Moderate (NEGATIVE) Urine Nitrite Negative (NEGAITVE) Urine Bilirubin Negative (NEGATIVE) Urine Urobilinogen Normal (NORMAL) mg/dL Ur Leukocyte Esterase Negative (NEGATIVE) Urine RBC 0-5 (0-5) Urine WBC 0-5 (0-5) Ur Epithelial Cells Moderate Amorphous Sediment Few Urine Bacteria Rare Urine Mucus Few Urine Other See note 10/10/16 Range/Units 16:04 WBC (4.5-11.0) K/uL RBC (4.30-5.90) M/uL Hgb (12.0-15.0) g/dL Hct (40.0-54.0) % MCV (80-98) fL MCH (27-31) pg MCHC (32-36) % Plt Count (150-400) K/uL Neut % (Auto) (36-66) % Lymph % (Auto) (24-44) % [place] % (Auto) (2-6) % Eos % (Auto) (2-4) % Baso % (Auto) (0-1) % Sodium (140-148) mmol/L Potassium (3.6-5.2) mmol/L Chloride (100-108) mmol/L Carbon Dioxide (21-32) mmol/L Anion Gap (5.0-14.0) mmol/L BUN (7-18) mg/dL Creatinine (0.8-1.3) mg/dL Est Cr Clr Drug Dosing mL/min Estimated GFR (MDRD) (>60) Glucose (74-106) mg/dL Uric Acid 9.6 H (3.5-7.2) mg/dL Calcium (8.5-10.1) mg/dL Total Bilirubin (0.2-1.0) mg/dL AST (15-37) U/L ALT (12-78) U/L Alkaline Phosphatase (46-116) U/L Cks-O-Veiffshgbdd Pept (5-450) pg/mL Total Protein (6.4-8.2) g/dL Albumin (3.4-5.0) g/dL Globulin (2.3-3.5) g/dL Albumin/Globulin Ratio (1.2-2.2) Urine Color Urine Appearance Urine pH (4.5-8.0) Ur Specific [place] (1.008-1.030) Urine Protein (NEGATIVE) mg/dL Urine Glucose (UA) (NEGATIVE) mg/dL Urine Ketones (NEGATIVE) mg/dL Urine Occult Blood (NEGATIVE) Urine Nitrite (NEGAITVE) Urine Bilirubin (NEGATIVE) Urine Urobilinogen (NORMAL) mg/dL Ur Leukocyte Esterase (NEGATIVE) Urine RBC (0-5) Urine WBC (0-5) Ur Epithelial Cells Amorphous Sediment Urine Bacteria Urine Mucus Urine Other Meds: Medications Discontinued Medications Generic Name Dose Route Start Last Admin Trade Name Bertramq PRN Reason Stop Dose Admin Furosemide 60 mg 10/10/16 16:30 10/10/16 16:58 Lasix IM 10/10/16 16:31 60 mg ONETIME ONE Administration - Re-Assessments/Exams Free Text/Narrative Re-Assessment/Exam: 10/10/16 16:35 uric acid is high and because he has to use the diuretics he may need a med to keep the uric acid down. 10/10/16 17:31 pt had a INR greater than 4 and this was rechecked today and it was down to 3.36. Pt has slight sob but this has not been real high., He has a hot red ankle that is quite tender, He does have a history of gout. His uric acid is 9.6. He has a fair amount of swelling in the ankle. His wbc is elevated a17, ooo. His chest xray did not reveal acute changes. He did have a high bnp. He was given lasix 60mg im. to unload him ome. He had a recent decrease in his bumex to 1 mg twice daily. His creatnine is 1.5. Departure - Departure Time of Disposition: 17:36 Disposition: Home, Self-Care 01 Condition: fair Clinical Impression: Cellulitis of right ankle, Gout of right ankle, Fluid overload - Discharge Information Instructions: Cellulitis, Adult, Gout, [id number], Edema Referrals: Pedro Lynch MD [Primary Care Provider] - Forms: ED Department Discharge Care Plan Goals: appt sunday with Dr Lynch or his assistant to the director, cont meds the same, predisone 10mg daily for the next 5 days. Keflex 500mg tid for 1 week.
[2016-10-10 17:11] VITALS: BP 126/71
--- NOTE | 2016-10-11 08:43 | CR ---
Chest 2V HISTORY: sob COMPARISON: 09/03/2016 FINDINGS: Mild cardiomegaly is stable. Old median sternotomy changes are noted. Atherosclerotic aort a is redemonstrated. Right-sided pacemaker is redemonstrated. Atrial and ventricular lead wires appe ar intact and stable. No acute infiltrate is identified. Pleural fluid and mild interstitial edema s een on the prior exam have resolved. Remainder the chest is stable. IMPRESSION: Mild cardiomegaly without evidence for decompensation. Mild interstitial edema and pleur al fluid seen on the prior exam have resolved. Stable pacemaker and lead wires. Old median sternotom y changes. No other acute chest abnormality or significant interval change is identified.
== END 2016-10-10 18:34 | disposition home or self-care (01) ==
LOC: JP.ED 14:01
DX: L03.115 Cellulitis of right lower limb (principal); M10.9 Gout, unspecified; E87.70 Fluid overload, unspecified; I50.9 Heart failure, unspecified; E11.22 Type 2 diabetes mellitus with diabetic chronic kidney disease; N18.9 Chronic kidney disease, unspecified; I25.10 Atherosclerotic heart disease of native coronary artery without angina pectoris; I25.2 Old myocardial infarction; K21.9 Gastro-esophageal reflux disease without esophagitis; M19.90 Unspecified osteoarthritis, unspecified site; Z88.8 Allergy status to other drugs, medicaments and biological substances; Z79.01 Long term (current) use of anticoagulants; Z79.899 Other long term (current) drug therapy; Z98.49 Cataract extraction status, unspecified eye; Z91.041 Radiographic dye allergy status
CPT/HCPCS: 36415; 71020; 80053; 81001; 83880; 84550; 85025; 96372; 99284; J1940

== ENCOUNTER 2016-11-02 17:07 | Inpatient (IN) | payer MEDICARE, OTHER ==
[2016-11-02] MEDS ORDERED: Acetaminophen 325 MG Tab PO ONE (18:17)
--- NOTE | 2016-11-02 18:18 | EDM.PDOC ---
ED HPI GENERAL MEDICAL PROBLEM - General Chief Complaint: General Stated Complaint: DIZZY SHAKING Time Seen by Provider: 11/02/16 18:14 Source of Information: Reports: Patient, Family History Limitations: Reports: No Limitations - History of Present Illness INITIAL COMMENTS - FREE TEXT/NARRATIVE: pt took a nap and he woke up with shaking chills. He has not had a cough or specific symptoms. He has no burning when he passes his urine. Onset: Sudden Duration: Hour(s): Associated Symptoms: Reports: Fever/Chills, Malaise, Other (pt has no known tick exposure. ) denies Pain Score (Numeric/FACES): 0 - Related Data Allergies Allergy/AdvReac Type Severity Reaction Status Date / Time amlodipine Allergy Severe anaphylaxis Verified 11/02/16 17:24 dipyridamole Allergy Cannot Verified 11/02/16 17:24 Remember Iodinated Contrast Media - Allergy Rash Verified 11/02/16 17:24 Oral and [Iodinated Contrast Media - IV Dye] rosuvastatin calcium AdvReac Muscle Verified 11/02/16 17:24 [From Crestor] Aches Home Meds: Home Meds Multivitamin with Minerals [Multiple Vitamin] 1 tab PO DAILY 09/29/13 [History] Omeprazole [Prilosec] 40 mg PO DAILY 09/29/13 [History] Clopidogrel [Plavix] 75 mg PO DAILY 07/14/14 [History] glipiZIDE [Glucotrol] 2.5 mg PO BID 07/14/14 [History] Nitroglycerin [IJP: Nitroglycerin] 0.4 mg PO ASDIRECTED PRN 07/24/16 [History] Metoprolol Succinate 75 mg PO ACBREAKFAST 09/03/16 [History] Warfarin [Coumadin] 2.5 mg PO DAILY #15 tablet 09/09/16 [Rx] Bumetanide [Bumex] 0.5 mg PO BID 10/10/16 [History] Past Medical History HEENT History: Reports: Cataract, Other (See Below) Other HEENT History: optic neuropathy Cardiovascular History: Reports: Afib, Arrhythmia, Blood Clots/VTE/DVT, CAD, Heart Failure, [place], Pacemaker, Stents, Other (See Below) Other Cardiovascular History: cardiomegaly, sinoatrial node disfunction, wearing "lifevest"past 6 weeks. Planning to replace pacer with pacer/defib end of November Respiratory History: Reports: PE Other Respiratory History: pulm. valve disorder Gastrointestinal History: Reports: GERD Genitourinary History: Reports: BPH, Chronic Renal Insuffiency, Other (See Below ) Other Genitourinary History: hx of urinary obstructions Musculoskeletal History: Reports: Back Pain, Chronic, Osteoarthritis Endocrine/Metabolic History: Reports: Diabetes, Type II - Infectious Disease History Infectious Disease History: Reports: Chicken Pox, Measles, Mumps, Rubella, Shingles - Past Surgical History HEENT Surgical History: Reports: Cataract Surgery Cardiovascular Surgical History: Reports: Cardiac Ablation, Coronary Artery Stent Respiratory Surgical History: Reports: None GI Surgical History: Reports: None Social & Family History - Family History Cardiac: Reports: [place] - Tobacco Use Smoking Status *Q: Never Smoker Years of Tobacco use: 10 Packs/Tins Daily: 0.5 Used Tobacco, but Quit: Yes Month Tobacco Last Used: 04/1958 Second Hand Smoke Exposure: No - Caffeine Use Caffeine Use: Reports: Coffee, Tea - Alcohol Use Days Per Week of Alcohol Use: 0 - Recreational Drug Use Recreational Drug Use: No ED ROS GENERAL - Review of Systems Review Of Systems: See Below Constitutional: Reports: Fever, Chills, Malaise, Weakness HEENT: Reports: No Symptoms Respiratory: Reports: No Symptoms Cardiovascular: Reports: No Symptoms Endocrine: Reports: No Symptoms GI/Abdominal: Reports: No Symptoms : Reports: No Symptoms Musculoskeletal: Reports: Other ( chills and muscle pain. ) ED EXAM, GENERAL - Physical Exam Exam: See Below Free Text/Narrative:: pt arrived with shaking chills and a high fever. He states this started very suddenly. Exam Limited By: No Limitations General Appearance: Alert, Anxious, Mild Distress Ears: Normal TMs Nose: Normal Inspection Throat/Mouth: Normal Inspection Head: Atraumatic Neck: Normal Inspection Respiratory/Chest: No Respiratory Distress, Other (pt feels like his breathing has been doing good. ) Cardiovascular: Irregularly Irregular, Other ( pt has a history of chronic a fib. ) GI/Abdominal: Soft, Non-Tender (Male) Exam: Deferred Rectal (Males) Exam: Deferred Back Exam: Normal Inspection Extremities: Other (no sig edema in the ankles. ) Neurological: Alert, Oriented, Normal Cognition Psychiatric: Normal Affect Course - Vital Signs Last Recorded V/S: Last Vital Signs Temp 38.2 C H 11/02/16 18:40 Pulse 85 11/02/16 17:22 Resp 16 11/02/16 18:40 BP 135/63 11/02/16 18:40 Pulse Ox 92 L 11/02/16 18:40 - Orders/Labs/Meds Orders: Active Orders 24 hr Category Date Time Status Chest 1V Frontal [CR] Stat Exams 11/02/16 18:13 Taken AMYLASE [CHEM] Urgent Lab 11/02/16 19:03 Ordered CULTURE BLOOD [BC] Urgent Lab 11/02/16 06:05 Received CULTURE BLOOD [BC] Urgent Lab 11/02/16 06:10 Received CULTURE URINE [RM] Stat Lab 11/02/16 19:16 Uncollected LACTIC ACID [CHEM] Stat Lab 11/02/16 19:03 Ordered LIPASE [CHEM] Urgent Lab 11/02/16 19:03 Ordered Sodium Chloride 0.9% [Normal Saline] 1,000 ml Med 11/02/16 18:15 Active IV ASDIRECTED Blood Culture x2 Reflex Set [OM.PC] Urgent Oth 11/02/16 18:06 Ordered Medication Orders Sodium Chloride (Normal Saline) 1,000 mls @ 100 mls/hr IV ASDIRECTED DURGA Last Admin: 11/02/16 18:49 Dose: 100 mls/hr Labs: Laboratory Tests 11/02/16 11/02/16 11/02/16 Range/Units 06:05 06:05 18:20 WBC 13.4 H (4.5-11.0) K/uL RBC 4.68 (4.30-5.90) M/uL Hgb 13.5 (12.0-15.0) g/dL Hct 41.1 (40.0-54.0) % MCV 88 (80-98) fL MCH 29 (27-31) pg MCHC 33 (32-36) % Plt Count 127 L (150-400) K/uL Neut % (Auto) 91 H (36-66) % Lymph % (Auto) 3 L (24-44) % [place] % (Auto) 5 (2-6) % Eos % (Auto) 1 L (2-4) % Baso % (Auto) 0 (0-1) % PT 18.9 H (9.5-12.0) sec INR 1.73 H (0.80-1.20) Sodium 138 L (140-148) mmol/L Potassium 3.4 L (3.6-5.2) mmol/L Chloride 101 (100-108) mmol/L Carbon Dioxide 31 (21-32) mmol/L Anion Gap 9.4 (5.0-14.0) mmol/L BUN 30 H (7-18) mg/dL Creatinine 1.8 H (0.8-1.3) mg/dL Est Cr Clr Drug Dosing TNP Estimated GFR (MDRD) 36 L (>60) Glucose 162 H (74-106) mg/dL Calcium 8.1 L (8.5-10.1) mg/dL Total Bilirubin 0.8 (0.2-1.0) mg/dL AST 23 (15-37) U/L ALT 35 (12-78) U/L Alkaline Phosphatase 85 (46-116) U/L Total Protein 6.3 L (6.4-8.2) g/dL Albumin 3.0 L (3.4-5.0) g/dL Globulin 3.3 (2.3-3.5) g/dL Albumin/Globulin Ratio 0.9 L (1.2-2.2) Urine Color Urine Appearance Urine pH (4.5-8.0) Ur Specific [place] (1.008-1.030) Urine Protein (NEGATIVE) mg/dL Urine Glucose (UA) (NEGATIVE) mg/dL Urine Ketones (NEGATIVE) mg/dL Urine Occult Blood (NEGATIVE) Urine Nitrite (NEGAITVE) Urine Bilirubin (NEGATIVE) Urine Urobilinogen (NORMAL) mg/dL Ur Leukocyte Esterase (NEGATIVE) Urine RBC (0-5) Urine WBC (0-5) Ur Epithelial Cells Amorphous Sediment Urine Bacteria Urine Mucus 11/02/16 Range/Units 19:06 WBC (4.5-11.0) K/uL RBC (4.30-5.90) M/uL Hgb (12.0-15.0) g/dL Hct (40.0-54.0) % MCV (80-98) fL MCH (27-31) pg MCHC (32-36) % Plt Count (150-400) K/uL Neut % (Auto) (36-66) % Lymph % (Auto) (24-44) % [place] % (Auto) (2-6) % Eos % (Auto) (2-4) % Baso % (Auto) (0-1) % PT (9.5-12.0) sec INR (0.80-1.20) Sodium (140-148) mmol/L Potassium (3.6-5.2) mmol/L Chloride (100-108) mmol/L Carbon Dioxide (21-32) mmol/L Anion Gap (5.0-14.0) mmol/L BUN (7-18) mg/dL Creatinine (0.8-1.3) mg/dL Est Cr Clr Drug Dosing Estimated GFR (MDRD) (>60) Glucose (74-106) mg/dL Calcium (8.5-10.1) mg/dL Total Bilirubin (0.2-1.0) mg/dL AST (15-37) U/L ALT (12-78) U/L Alkaline Phosphatase (46-116) U/L Total Protein (6.4-8.2) g/dL Albumin (3.4-5.0) g/dL Globulin (2.3-3.5) g/dL Albumin/Globulin Ratio (1.2-2.2) Urine Color Yellow Urine Appearance Cloudy Urine pH 5.0 (4.5-8.0) Ur Specific [place] 1.015 (1.008-1.030) Urine Protein Trace (NEGATIVE) mg/dL Urine Glucose (UA) Normal (NEGATIVE) mg/dL Urine Ketones Negative (NEGATIVE) mg/dL Urine Occult Blood Large (NEGATIVE) Urine Nitrite Negative (NEGAITVE) Urine Bilirubin Negative (NEGATIVE) Urine Urobilinogen Normal (NORMAL) mg/dL Ur Leukocyte Esterase Large (NEGATIVE) Urine RBC 5-10 H (0-5) Urine WBC 10-20 H (0-5) Ur Epithelial Cells Few Amorphous Sediment Not seen Urine Bacteria Many Urine Mucus Few Meds: Medications Generic Name Dose Route Start Last Admin Trade Name Freq PRN Reason Stop Dose Admin Sodium Chloride 1,000 mls @ 100 mls/hr 11/02/16 18:15 11/02/16 18:49 Normal Saline IV 100 mls/hr ASDIRECTED DURGA Administration Discontinued Medications Generic Name Dose Route Start Last Admin Trade Name Freq PRN Reason Stop Dose Admin Acetaminophen 650 mg 11/02/16 18:17 11/02/16 18:40 Tylenol PO 11/02/16 18:18 650 mg NOW ONE Administration - Re-Assessments/Exams Free Text/Narrative Re-Assessment/Exam: 11/02/16 19:22 wbc is elevated. His urine looks quite infected. Departure - Departure Time of Disposition: 19:23 Disposition: Admitted As Inpatient 68 Condition: fair Clinical Impression: UTI (urinary tract infection), Sepsis - Discharge Information Forms: ED Department Discharge Care Plan Goals: admit to [facility]. - My Orders Last 24 Hours: My Active Orders 11/02/16 06:05 CULTURE BLOOD [BC] Urgent 11/02/16 06:10 CULTURE BLOOD [BC] Urgent 11/02/16 18:06 Blood Culture x2 Reflex Set [OM.PC] Urgent 11/02/16 18:13 Chest 1V Frontal [CR] Stat 11/02/16 18:15 Sodium Chloride 0.9% [Normal Saline] 1,000 ml IV ASDIRECTED 11/02/16 19:16 CULTURE URINE [RM] Stat - Assessment/Plan Last 24 Hours: My Active Orders 11/02/16 06:05 CULTURE BLOOD [BC] Urgent 11/02/16 06:10 CULTURE BLOOD [BC] Urgent 11/02/16 18:06 Blood Culture x2 Reflex Set [OM.PC] Urgent 11/02/16 18:13 Chest 1V Frontal [CR] Stat 11/02/16 18:15 Sodium Chloride 0.9% [Normal Saline] 1,000 ml IV ASDIRECTED 11/02/16 19:16 CULTURE URINE [RM] Stat
[2016-11-02] MEDS: Sodium Chloride 0.9% 1,000 ML IV SCH (18:49)
[2016-11-02] MEDS ORDERED: cefTRIAXone 1 GM in Sodium Chloride 0.9% 50 ML IV ONE (19:29)
--- NOTE | 2016-11-02 20:14 | PCM.HP ---
H&P History of Present Illness - General Date of Service: 11/02/16 Admit Problem/Dx: Admission Diagnosis/Problem Admission Diagnosis/Problem Urosepsis Source of Information: Patient, Provider, RN Notes Reviewed History Limitations: Reports: No Limitations - History of Present Illness Initial Comments - Free Text/Narative: Urosepsis; this is a 86 year old male present to ER with concerns of sudden onset of fever, shaking chills, body ache after waking up from afternoon nap. He reports felt tired all day. Yesterday was doing well. denies any chest pain, shortness of breath, abdominal pain, rash, nausea, vomiting or diarrhea, no other family members are ill. Onset of Symptoms: Reports: Today, Sudden Duration of Symptoms: Reports: Hour(s): Location: Reports: Generalized Quality: Reports: Same as Previous Episode (past hx of urosepsis) Severity: Severe Improves with: Reports: Medication (tylenol 650mg po given for fever.) Worsens with: Reports: None Associated Symptoms: Reports: Fever/Chills denies Pain Score (Numeric/FACES): 0 - Related Data Allergies/Adverse Reactions: Allergies Allergy/AdvReac Type Severity Reaction Status Date / Time amlodipine Allergy Severe anaphylaxis Verified 11/02/16 17:24 dipyridamole Allergy Cannot Verified 11/02/16 17:24 Remember Iodinated Contrast Media - Allergy Rash Verified 11/02/16 17:24 Oral and [Iodinated Contrast Media - IV Dye] rosuvastatin calcium AdvReac Muscle Verified 11/02/16 17:24 [From Crestor] Aches Home Medications: Home Meds Multivitamin with Minerals [Multiple Vitamin] 1 tab PO DAILY 09/29/13 [History] Omeprazole [Prilosec] 40 mg PO DAILY 09/29/13 [History] Clopidogrel [Plavix] 75 mg PO DAILY 07/14/14 [History] glipiZIDE [Glucotrol] 2.5 mg PO BID 07/14/14 [History] Nitroglycerin [IJP: Nitroglycerin] 0.4 mg PO ASDIRECTED PRN 07/24/16 [History] Metoprolol Succinate 75 mg PO ACBREAKFAST 09/03/16 [History] Warfarin [Coumadin] 2.5 mg PO DAILY #15 tablet 09/09/16 [Rx] Bumetanide [Bumex] 0.5 mg PO BID 10/10/16 [History] Past Medical History HEENT History: Reports: Cataract, Other (See Below) Other HEENT History: optic neuropathy Cardiovascular History: Reports: Afib, Arrhythmia, Blood Clots/VTE/DVT, CAD, Heart Failure, DC, Pacemaker, Stents, Other (See Below) Other Cardiovascular History: cardiomegaly, sinoatrial node disfunction, wearing "lifevest"past 6 weeks. Planning to replace pacer with pacer/defib end of November Respiratory History: Reports: PE Other Respiratory History: pulm. valve disorder Gastrointestinal History: Reports: GERD Genitourinary History: Reports: BPH, Chronic Renal Insuffiency, Other (See Below ) Other Genitourinary History: hx of urinary obstructions Musculoskeletal History: Reports: Back Pain, Chronic, Osteoarthritis Endocrine/Metabolic History: Reports: Diabetes, Type II - Infectious Disease History Infectious Disease History: Reports: Chicken Pox, Measles, Mumps, Rubella, Shingles - Past Surgical History HEENT Surgical History: Reports: Cataract Surgery Cardiovascular Surgical History: Reports: Cardiac Ablation, Coronary Artery Stent Respiratory Surgical History: Reports: None GI Surgical History: Reports: None Social & Family History - Family History Cardiac: Reports: DC - Tobacco Use Smoking Status *Q: Never Smoker Years of Tobacco use: 10 Packs/Tins Daily: 0.5 Used Tobacco, but Quit: Yes Month Tobacco Last Used: 04/1958 Second Hand Smoke Exposure: No - Caffeine Use Caffeine Use: Reports: Coffee, Tea - Alcohol Use Days Per Week of Alcohol Use: 0 - Recreational Drug Use Recreational Drug Use: No - Living Situation & Occupation Living situation: Reports: , with Family Occupation: Retired (lives with his , [address] [place], [place].) H&P Review of Systems - Review of Systems: Review Of Systems: See Below General: Reports: Fever, Chills, Fatigue HEENT: Reports: No Symptoms Pulmonary: Reports: No Symptoms Cardiovascular: Reports: No Symptoms Gastrointestinal: Reports: No Symptoms Genitourinary: Reports: No Symptoms Musculoskeletal: Reports: No Symptoms Skin: Reports: No Symptoms Psychiatric: Reports: No Symptoms Neurological: Reports: No Symptoms Hematologic/Lymphatic: Reports: No Symptoms Immunologic: Reports: No Symptoms Exam - Exam Exam: See Below - Vital Signs Vital Signs: Last Vital Signs Temp 38.0 C 11/02/16 19:46 Pulse 69 11/02/16 19:46 Resp 18 11/02/16 19:46 BP 117/48 L 11/02/16 19:46 Pulse Ox 95 11/02/16 19:46 Weight: 95.254 kg - Exam General: Alert, Oriented, 4 HEENT: PERRLA, Hearing Intact, Mucosa Moist & [place], Nares Patent, Normal Nasal Septum, Posterior Pharynx Clear, Conjunctiva Clear, EOMI, EACs Clear, TMs Clear Neck: Supple, Trachea Midline, 2 Lungs: Clear to Auscultation, Normal Respiratory Effort Cardiovascular: Regular Rate, Regular Rhythm, Other (Life vest noted, internal pacemaker noted to right upper chest) Abdomen: Normal Bowel Sounds, Soft (Male) Exam: Normal Inspection Rectal (Males) Exam: Deferred Back Exam: Normal Inspection, Full Range of Motion Extremities: Normal Inspection Skin: Warm, Dry, Intact - Patient Data Lab Results last 24 hrs: Laboratory Results - last 24 hr 11/02/16 11/02/16 11/02/16 Range/Units 06:05 06:05 18:20 WBC 13.4 H (4.5-11.0) K/uL RBC 4.68 (4.30-5.90) M/uL Hgb 13.5 (12.0-15.0) g/dL Hct 41.1 (40.0-54.0) % MCV 88 (80-98) fL MCH 29 (27-31) pg MCHC 33 (32-36) % Plt Count 127 L (150-400) K/uL Neut % (Auto) 91 H (36-66) % Lymph % (Auto) 3 L (24-44) % [place] % (Auto) 5 (2-6) % Eos % (Auto) 1 L (2-4) % Baso % (Auto) 0 (0-1) % PT 18.9 H (9.5-12.0) sec INR 1.73 H (0.80-1.20) Sodium 138 L (140-148) mmol/L Potassium 3.4 L (3.6-5.2) mmol/L Chloride 101 (100-108) mmol/L Carbon Dioxide 31 (21-32) mmol/L Anion Gap 9.4 (5.0-14.0) mmol/L BUN 30 H (7-18) mg/dL Creatinine 1.8 H (0.8-1.3) mg/dL Est Cr Clr Drug Dosing TNP Estimated GFR (MDRD) 36 L (>60) Glucose 162 H (74-106) mg/dL Lactic Acid (0.4-2.0) mmol/L Calcium 8.1 L (8.5-10.1) mg/dL Total Bilirubin 0.8 (0.2-1.0) mg/dL AST 23 (15-37) U/L ALT 35 (12-78) U/L Alkaline Phosphatase 85 (46-116) U/L Total Protein 6.3 L (6.4-8.2) g/dL Albumin 3.0 L (3.4-5.0) g/dL Globulin 3.3 (2.3-3.5) g/dL Albumin/Globulin Ratio 0.9 L (1.2-2.2) Amylase (25-115) U/L Lipase (73-393) U/L Urine Color Urine Appearance Urine pH (4.5-8.0) Ur Specific [place] (1.008-1.030) Urine Protein (NEGATIVE) mg/dL Urine Glucose (UA) (NEGATIVE) mg/dL Urine Ketones (NEGATIVE) mg/dL Urine Occult Blood (NEGATIVE) Urine Nitrite (NEGAITVE) Urine Bilirubin (NEGATIVE) Urine Urobilinogen (NORMAL) mg/dL Ur Leukocyte Esterase (NEGATIVE) Urine RBC (0-5) Urine WBC (0-5) Ur Epithelial Cells Amorphous Sediment Urine Bacteria Urine Mucus 11/02/16 11/02/16 11/02/16 Range/Units 19:03 19:03 19:06 WBC (4.5-11.0) K/uL RBC (4.30-5.90) M/uL Hgb (12.0-15.0) g/dL Hct (40.0-54.0) % MCV (80-98) fL MCH (27-31) pg MCHC (32-36) % Plt Count (150-400) K/uL Neut % (Auto) (36-66) % Lymph % (Auto) (24-44) % [place] % (Auto) (2-6) % Eos % (Auto) (2-4) % Baso % (Auto) (0-1) % PT (9.5-12.0) sec INR (0.80-1.20) Sodium (140-148) mmol/L Potassium (3.6-5.2) mmol/L Chloride (100-108) mmol/L Carbon Dioxide (21-32) mmol/L Anion Gap (5.0-14.0) mmol/L BUN (7-18) mg/dL Creatinine (0.8-1.3) mg/dL Est Cr Clr Drug Dosing Estimated GFR (MDRD) (>60) Glucose (74-106) mg/dL Lactic Acid 4.2 H (0.4-2.0) mmol/L Calcium (8.5-10.1) mg/dL Total Bilirubin (0.2-1.0) mg/dL AST (15-37) U/L ALT (12-78) U/L Alkaline Phosphatase (46-116) U/L Total Protein (6.4-8.2) g/dL Albumin (3.4-5.0) g/dL Globulin (2.3-3.5) g/dL Albumin/Globulin Ratio (1.2-2.2) Amylase 43 (25-115) U/L Lipase 103 (73-393) U/L Urine Color Yellow Urine Appearance Cloudy Urine pH 5.0 (4.5-8.0) Ur Specific [place] 1.015 (1.008-1.030) Urine Protein Trace (NEGATIVE) mg/dL Urine Glucose (UA) Normal (NEGATIVE) mg/dL Urine Ketones Negative (NEGATIVE) mg/dL Urine Occult Blood Large (NEGATIVE) Urine Nitrite Negative (NEGAITVE) Urine Bilirubin Negative (NEGATIVE) Urine Urobilinogen Normal (NORMAL) mg/dL Ur Leukocyte Esterase Large (NEGATIVE) Urine RBC 5-10 H (0-5) Urine WBC 10-20 H (0-5) Ur Epithelial Cells Few Amorphous Sediment Not seen Urine Bacteria Many Urine Mucus Few Result Diagrams: 11/02/16 06:05 11/02/16 06:05 *Q Meaningful Use (ADM) - VTE *Q VTE Criteria *Q: - Stroke *Q Stroke Criteria *Q: - AMI *Q AMI Criteria *Q: - Problem List (1) Sepsis SNOMED Code(s): 83402440 ICD Code: A41.9 - SEPSIS, UNSPECIFIED ORGANISM Status: Acute Priority: High Current Visit: Yes Qualifiers: Sepsis type: sepsis due to unspecified organism Qualified Code(s): A41.9 - Sepsis, unspecified organism (2) Chronic kidney disease SNOMED Code(s): 853603138 ICD Code: N18.9 - CHRONIC KIDNEY DISEASE, UNSPECIFIED Status: Acute Priority: High Current Visit: Yes Qualifiers: Chronic kidney disease stage: stage 3 (moderate) Qualified Code(s): N18.3 - Chronic kidney disease, stage 3 (moderate) (3) Diabetes type 2, controlled SNOMED Code(s): 93944249 ICD Code: E11.9 - TYPE 2 DIABETES MELLITUS WITHOUT COMPLICATIONS Status: Acute Priority: High Current Visit: Yes Qualifiers: Diabetes mellitus complication status: with unspecified complications Diabetes mellitus shelter insulin use: without last sorter use Qualified Code( s): E11.8 - Type 2 diabetes mellitus with unspecified complications (4) CHF (congestive heart failure) SNOMED Code(s): 84632393 ICD Code: I50.9 - HEART FAILURE, UNSPECIFIED Status: Acute Priority: High Current Visit: No Qualifiers: Congestive heart failure type: systolic Congestive heart failure chronicity : chronic Qualified Code(s): I50.22 - Chronic systolic (congestive) heart failure (5) Atrial fibrillation SNOMED Code(s): 40770893 ICD Code: I48.91 - UNSPECIFIED ATRIAL FIBRILLATION Status: Acute Current Visit: Yes Qualifiers: Atrial fibrillation type: chronic Qualified Code(s): I48.2 - Chronic atrial fibrillation Problem List Initiated/Reviewed/Updated: Yes Orders Last 24hrs: Active Orders 24 hr Category Date Time Status Patient Status Manage Transfer [TRANSFER] Routine ADT 11/02/16 20:00 Ordered Cardiac Monitoring [RC] .As Directed Care 11/02/16 20:00 Ordered Chest 1V Frontal [CR] Stat Exams 11/02/16 18:13 Taken CULTURE BLOOD [BC] Urgent Lab 11/02/16 06:05 Received CULTURE BLOOD [BC] Urgent Lab 11/02/16 06:10 Received CULTURE URINE [RM] Stat Lab 11/02/16 19:18 Received Sodium Chloride 0.9% [Normal Saline] 1,000 ml Med 11/02/16 18:15 Active IV ASDIRECTED Blood Culture x2 Reflex Set [OM.PC] Urgent Oth 11/02/16 18:06 Ordered Resuscitation Status Routine Resus Stat 11/02/16 20:01 Ordered Medication Orders Sodium Chloride (Normal Saline) 1,000 mls @ 100 mls/hr IV ASDIRECTED [facility] Last Admin: 11/02/16 18:49 Dose: 100 mls/hr Assessment/Plan Comment:: ASSESSMENT AND PLAN: Urosepis This is a 86 year old male presents to ER with his family, he reports was feeling fatigue, laid down for a nap this afternoon, woke up with fever, shaking chills, body aches. Had fever of 103. denies any recent illness, no family member are ill. denies chest pain, shortness of breath. In ER had chest xray which did not show any infiltrate, Labs elevated WBC and lactic acid, urine positive WBC, blood, bacteria plan; admit to hospital for further care. Urosepsis -blood cultures x 2 pending -IV antibiotic; Rocephin 1 gram IV every 24 hours, first dose given in ER -IV fluids; Normal Saline at 75 ml per hour/ -repeat CBC.BMP and Lactic acid in am Congestive heart failure; chronic -2 gram sodium diet -bumex 0.5mg po bid -monitor I and O Chronic kidney disease stage III -closely monitor urine output and renal function Diabetes type 2 -PCOC blood glucose before meal and hs -Glipizide 2.5 mg po bid (hold) -low dose sliding scale Novolog Atrial Fibrillation; controlled ventricular response -last sorter oral anticoagulation with warfarin. -continue warfarin 5mg po daily -INR order in am Noctural dyspnea -Oxygen 2 liter per NC while sleeping at night. Maintenance issues -DVT prophylaxis; current therapy with warfarin -GI Prophylaxis; continue PPI therapy, Prilosec 40mg daily -Busch catheter; not indicated -Nutrition; 2 g sodium , consistent carb diet -Nicotine dependence; not required Code Status; FULL CODE ADMISSION STATUS: Patient will be admitted to inpatient status, expect at least a 2 night hospital stay for evaluation and management of problems as outlined above. At the time of this admission, I do not reasonably expect evaluation and management of this problem will require more than a 96 hour hospital stay. DISPOSITION: Anticipate discharge to home after the hospital stay. PRIMARY CARE PROVIDER: Dr. Lynhc Hospitalist: Dr. Kenney.
[2016-11-02] MEDS ORDERED: Acetaminophen 325 MG Tab PO PRN (21:17)
[2016-11-02] MEDS ORDERED: Docusate Sodium 100 MG Cap PO PRN (21:17)
[2016-11-02] MEDS ORDERED: Ondansetron 4 MG Tab.DIS PO PRN (21:17)
[2016-11-02] MEDS ORDERED: Insulin Aspart 100 Units/ML 3 ML Pen SUBCUT SCH (21:17)
[2016-11-02] MEDS ORDERED: LORazepam 2 MG/ML MDV IV PRN (21:17)
[2016-11-02] MEDS ORDERED: Morphine 2 MG/ML Syringe IVPUSH PRN (21:17)
[2016-11-02] MEDS ORDERED: oxyCODONE 5 MG Tab PO PRN (21:17)
[2016-11-02] MEDS ORDERED: Nitroglycerin 0.4 MG Tab.SL SL PRN (21:17)
[2016-11-02] MEDS ORDERED: Sodium Chloride 0.9% 1,000 ML IV SCH (21:17)
[2016-11-02] MEDS ORDERED: Ondansetron 4 MG/2 ML SDV IV PRN (21:17)
[2016-11-02] MEDS ORDERED: Albuterol 0.083% 2.5 MG/3 ML Neb Soln NEB PRN (21:17)
[2016-11-02] MEDS ORDERED: Warfarin 2.5 MG Tab PO ONE (21:45)
[2016-11-02] MEDS: Bumetanide 1 MG Tab PO SCH (21:58)
[2016-11-03] MEDS: Sodium Chloride 0.9% 1,000 ML IV SCH (03:47)
[2016-11-03] MEDS ORDERED: Nitroglycerin 0.4 MG Tab.SL SL PRN (07:37)
[2016-11-03] MEDS: Metoprolol Succinate 25 MG Tab.ER PO SCH (08:43)
[2016-11-03] MEDS: Pantoprazole 40 MG Tab.CR PO SCH (08:43)
[2016-11-03] MEDS: Clopidogrel 75 MG Tab PO SCH (08:44)
[2016-11-03] MEDS: Bumetanide 1 MG Tab PO SCH ×2 (08:44→13:02)
[2016-11-03] MEDS: Multivitamins with Iron/Calcium/Folic Acid/Minerals Tab PO SCH (08:44)
--- NOTE | 2016-11-03 09:49 | CR ---
Portable chest There is mild cardiac enlargement. The vascular structures are within normal limits. There are no in filtrates or effusions. There is a cardiac pacemaker on the right with 2 intact leads. Impression: 1. No acute findings.
--- NOTE | 2016-11-03 11:02 | PCM.PN ---
- General Info Date of Service: 11/03/16 Functional Status: Reports: pain controlled, tolerating diet, ambulating - Review of Systems General: Reports: Fever, Weakness Pulmonary: Denies: shortness of breath Gastrointestinal: Denies: Abdominal pain Systems Review Comment:: No acute event since the time of admission. He continues to be weak and fatigued. He has not had fevers overnight. Blood sugars have been acceptable. Appetite is okay. No evidence for congestive heart failure. Urine culture is pending at this time. - Patient Data Vitals - most recent: Last Vital Signs Temp 35.6 C 11/03/16 08:41 Pulse 62 11/03/16 08:43 Resp 16 11/03/16 08:41 BP 124/65 11/03/16 08:43 Pulse Ox 96 11/03/16 08:41 Weight - most recent: 99.798 kg I&O - last 24 hours: Intake & Output 11/02/16 11/03/16 11/03/16 22:59 06:59 14:59 Intake Total 1307 240 Output Total 550 150 Balance 757 90 Lab Results last 24 hrs: Laboratory Results - last 24 hr 11/03/16 11/03/16 11/03/16 Range/Units 05:38 05:38 05:38 WBC 13.5 H (4.5-11.0) K/uL RBC 4.29 L (4.30-5.90) M/uL Hgb 12.3 (12.0-15.0) g/dL Hct 38.1 L (40.0-54.0) % MCV 89 (80-98) fL MCH 29 (27-31) pg MCHC 32 (32-36) % Plt Count 125 L (150-400) K/uL Neut % (Auto) 78 H (36-66) % Lymph % (Auto) 12 L (24-44) % [place] % (Auto) 9 H (2-6) % Eos % (Auto) 2 (2-4) % Baso % (Auto) 0 (0-1) % PT 18.1 H (9.5-12.0) sec INR 1.66 H (0.80-1.20) Sodium 142 (140-148) mmol/L Potassium 3.4 L (3.6-5.2) mmol/L Chloride 105 (100-108) mmol/L Carbon Dioxide 32 (21-32) mmol/L Anion Gap 8.4 (5.0-14.0) mmol/L BUN 28 H (7-18) mg/dL Creatinine 1.5 H (0.8-1.3) mg/dL Est Cr Clr Drug Dosing 40.24 mL/min Estimated GFR (MDRD) 45 L (>60) Glucose 145 H (74-106) mg/dL Calcium 8.0 L (8.5-10.1) mg/dL Med Orders - Current: Current Medications Acetaminophen (Tylenol) 650 mg PO Q4H PRN PRN Reason: Pain (Mild 1-3)/fever Albuterol (Proventil Neb Soln) 2.5 mg NEB Q4H PRN PRN Reason: Shortness Of Breath/wheezing Bumetanide (Bumex) 0.5 mg PO BIDDIURETIC [facility] Last Admin: 11/03/16 08:44 Dose: 0.5 mg Clopidogrel Bisulfate (Plavix) 75 mg PO DAILY [facility] Last Admin: 11/03/16 08:44 Dose: 75 mg Docusate Sodium (Colace) 100 mg PO BID PRN PRN Reason: Constipation Ceftriaxone Sodium 1 gm/ (Sodium Chloride) 50 mls @ 100 mls/hr IV Q24H [facility] Insulin Aspart (Novolog) 0 unit SUBCUT ASDIRECTED [facility] PRN Reason: Protocol Lorazepam (Ativan) 1 mg IV Q6H PRN PRN Reason: Nausea/Vomiting Metoprolol Succinate (Toprol Xl) 75 mg PO ACBREAKFAST [facility] Last Admin: 11/03/16 08:43 Dose: 75 mg Morphine Sulfate (Morphine) 2 mg IVPUSH Q2H PRN PRN Reason: Pain (severe 7-10) Multivitamins/Minerals (Thera M Plus) 1 tab PO DAILY [facility] Last Admin: 11/03/16 08:44 Dose: 1 tab Nitroglycerin (Nitrostat) 0.4 mg SL Q5M PRN PRN Reason: Chest Pain Ondansetron HCl (Zofran Odt) 4 mg PO Q6H PRN PRN Reason: Nausea able to take PO Ondansetron HCl (Zofran) 4 mg IV Q4H PRN PRN Reason: Nausea/Vomiting Oxycodone HCl (Oxycodone) 5 mg PO Q4H PRN PRN Reason: Pain (moderate 4-6) Pantoprazole Sodium (Protonix) 40 mg PO ACBREAKFAST [facility] Last Admin: 11/03/16 08:43 Dose: 40 mg Potassium Chloride (Klor-Con M20) 40 meq PO ONETIME ONE Stop: 11/03/16 11:00 Warfarin Sodium (Coumadin) 5 mg PO ONETIME ONE Stop: 11/03/16 13:01 Warfarin Sodium (Coumadin) 2.5 mg PO SuWeFr@1300 [facility] Warfarin Sodium (Coumadin) 5 mg PO MoTuThSa@1300 [facility] Discontinued Medications Acetaminophen (Tylenol) 650 mg PO NOW ONE Stop: 11/02/16 18:18 Last Admin: 11/02/16 18:40 Dose: 650 mg Sodium Chloride (Normal Saline) 1,000 mls @ 100 mls/hr IV ASDIRECTED [facility] Last Admin: 11/03/16 03:47 Dose: 100 mls/hr Ceftriaxone Sodium 1 gm/ (Sodium Chloride) 50 mls @ 100 mls/hr IV ONETIME ONE Stop: 11/02/16 19:58 Last Admin: 11/02/16 19:50 Dose: 100 mls/hr Sodium Chloride (Normal Saline) 1,000 mls @ 75 mls/hr IV ASDIRECTED [facility] Nitroglycerin (Nitrostat) 0.4 mg SL ASDIRECTED PRN PRN Reason: Chest Pain Warfarin Sodium (Coumadin) 2.5 mg PO NOW ONE Stop: 11/02/16 21:46 Last Admin: 11/02/16 21:57 Dose: 2.5 mg Warfarin Sodium (Coumadin Sliding Scale) 0 each PO 1300 [facility] - Exam Quality Assessment: No: supplemental oxygen General: alert, oriented, cooperative, no acute distress HEENT: Pupils equal Neck: supple Lungs: Clear to auscultation, Normal respiratory effort Cardiovascular: Regular Rate, Regular Rhythm Abdomen: soft, no tenderness, no distension Extremities: no edema, no cyanosis Skin: warm, dry Psy/Mental Status: alert, normal affect - Problem List Review Problem List Initiated/Reviewed/Updated: Yes - My Orders Last 24 Hours: My Active Orders 11/03/16 10:59 Potassium Chloride [Klor-Con M20] 40 meq PO ONETIME ONE 11/03/16 11:00 Discontinue Telemetry Monitoring [Cardiac Monitoring Discontinue] [RC] Click to Edit 11/03/16 13:00 Warfarin [Coumadin] 5 mg PO ONETIME ONE 11/04/16 05:00 BASIC METABOLIC PANEL,BMP [CHEM] Timed CBC W/O DIFF,HEMOGRAM [HEME] Timed (1) INR,PT,PROTHROMBIN TIME [COAG] Timed 11/04/16 13:00 Warfarin [Coumadin] 5 mg PO MoTuThSa@1300 11/05/16 13:00 Warfarin [Coumadin] 2.5 mg PO SuWeFr@1300 - Plan Plan:: ASSESSMENT AND PLAN: Acute cystitis with sepsis - vital signs have been stable. Lactic acid was elevated at the time of admission. Clinically improving but still remains weak. -blood cultures x 2 pending -Continue ceftriaxone -Saline lock IV -Follow-up cultures Congestive heart failure; chronic - stable with no evidence for decompensation at this time. -2 gram sodium diet -Continue medical management -monitor I and O Chronic kidney disease stage III - kidney function stable at this time. -closely monitor urine output and renal function Diabetes type 2 - blood sugars have been acceptable. -Glipizide 2.5 mg po bid Atrial Fibrillation; controlled ventricular response - rate is stable at this time. Tolerating anticoagulation. 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 -continue warfarin per home dosing with exception of 5 mg dose today -INR daily Noctural dyspnea -Oxygen 2 liter per NC while sleeping at night. Maintenance issues -DVT prophylaxis; current therapy with warfarin -GI Prophylaxis; continue PPI therapy, Prilosec 40mg daily -Busch catheter; not indicated -Nutrition; 2 g sodium , consistent carb diet DISPOSITION: Anticipate discharge to home after the hospital stay. Sam Kenney M.D.
[2016-11-03] MEDS ORDERED: Potassium Chloride 20 MEQ Tab.ER PO ONE (12:00)
[2016-11-03] MEDS ORDERED: Warfarin Sliding Scale PO SCH (13:00)
[2016-11-03] MEDS ORDERED: Warfarin 5 MG Tab PO ONE (13:00)
[2016-11-03] MEDS: glipiZIDE 5 MG Tab PO SCH (17:50)
[2016-11-03] MEDS ORDERED: cefTRIAXone 1 GM in Sodium Chloride 0.9% 50 ML IV SCH (20:15)
[2016-11-04] MEDS: Metoprolol Succinate 25 MG Tab.ER PO SCH (07:57)
[2016-11-04] MEDS: Pantoprazole 40 MG Tab.CR PO SCH (07:57)
[2016-11-04] MEDS: glipiZIDE 5 MG Tab PO SCH (07:57)
[2016-11-04] MEDS: Clopidogrel 75 MG Tab PO SCH ×2 (07:58→10:27)
[2016-11-04] MEDS: Multivitamins with Iron/Calcium/Folic Acid/Minerals Tab PO SCH ×2 (07:58→10:28)
[2016-11-04] MEDS: Bumetanide 1 MG Tab PO SCH (07:58)
--- NOTE | 2016-11-04 11:32 | PCM.DCSUM1 ---
Discharge Summary - Hospital Course Brief History: 86-year-old male with history of ischemic cardiomyopathy, stage III kidney disease and diabetes who presented with shaking chills and was admitted for management of acute cystitis and sepsis. - Discharge Data Discharge Date: 11/04/16 Discharge Disposition: Home, Self-Care 01 Condition: Stable - Discharge Diagnosis/Problem(s) (1) Acute cystitis with positive culture SNOMED Code(s): 861483582 ICD Code: N30.00 - ACUTE CYSTITIS WITHOUT HEMATURIA Status: Acute (2) Sepsis SNOMED Code(s): 52212551 ICD Code: A41.9 - SEPSIS, UNSPECIFIED ORGANISM Status: Acute Priority: High Qualifiers: Sepsis type: Escherichia coli Qualified Code(s): A41.51 - Sepsis due to Escherichia coli [E. coli] (3) Diabetes type 2, controlled SNOMED Code(s): 86980739 ICD Code: E11.9 - TYPE 2 DIABETES MELLITUS WITHOUT COMPLICATIONS Status: Chronic Priority: High Qualifiers: Diabetes mellitus complication status: with unspecified complications Diabetes mellitus long chain beamer insulin use: without long chain beamer use Qualified Code( s): E11.8 - Type 2 diabetes mellitus with unspecified complications (4) Systolic CHF with reduced left ventricular function, NYHA class 2 SNOMED Code(s): 765052450, 069900886, 639304849 ICD Code: I50.20 - UNSPECIFIED SYSTOLIC (CONGESTIVE) HEART FAILURE Status: Acute (5) Stage III chronic kidney disease SNOMED Code(s): 441944661 ICD Code: N18.3 - CHRONIC KIDNEY DISEASE, STAGE 3 (MODERATE) Status: Chronic - Patient Summary/Data Consults: Consultations 11/02/16 21:17 Consult to Spiritual Care [CONS] Routine Special Instructions: daily prayers OT Evaluation and Treatment [CONS] Routine Please Evaluate and Treat. OT Reason for Consult: Discharge Planning This query below is only for informational purposes and is not editable. Hospital Course: Fredrick presented to the emergency room with fever and shaking chills. Workup in the emergency room suggested acute cystitis with sepsis. Evidence for sepsis included an elevated lactic acid level with a high fever. Vital signs were relatively stable though he is on beta blockers that could blunt his tachycardic response. He was started on IV antibiotics and fluids and admitted to the hospital for further management. Over the next 48 hours he did have significant clinical improvement. He has been afebrile for more than 24 hours. Vital signs have all been stable. He does not have abdominal pain. He does have some residual urinary frequency but this is improving. Clinically he is doing well with a good appetite and he has been up and walking around. His urine culture did return with a pansensitive Escherichia coli. I believe he is safe for outpatient management at this time. The patient is comfortable going home with oral antibiotics at this time as well. He'll be discharged home with the plan to continue Keflex for 1 additional week. He has not had any positive blood cultures. He will be discharged home with his family today. - Patient Instructions Diet: Heart Healthy Diet Activity: As Tolerated Driving: May Drive Today Showering/Bathing: May Shower Notify Provider of: Fever, Increased Pain, Nausea and/or Vomiting Other/Special Instructions: 1. You were in the hospital for management of acute cystitis with mild sepsis. This infection has been improving with current antibiotic treatment. The urine culture did grow out Escherichia coli which was sensitive to all of the antibiotics we tested. I recommend 15 additional doses of cephalexin (Keflex) 500 mg taken twice daily with food. Your first dose is due tonight. 2. Please continue your usual home medications as previously prescribed. 3. I would recommend that you have your INR checked next week because sometimes the antibiotics raise your INR levels slightly. 4. Please seek medical attention if you develop fever greater than 101, have return of the shaking chills, you develop severe abdominal pain or severe diarrhea. - Discharge Plan Prescriptions/Med Rec: Cephalexin 500 mg PO BID #15 capsule Home Medications: Home Meds Multivitamin with Minerals [Multiple Vitamin] 1 tab PO DAILY 09/29/13 [History] Omeprazole [Prilosec] 40 mg PO DAILY 09/29/13 [History] Clopidogrel [Plavix] 75 mg PO DAILY 07/14/14 [History] glipiZIDE [Glucotrol] 2.5 mg PO BID 07/14/14 [History] Nitroglycerin [IJP: Nitroglycerin] 0.4 mg PO ASDIRECTED PRN 07/24/16 [History] Metoprolol Succinate 75 mg PO ACBREAKFAST 09/03/16 [History] Warfarin [Coumadin] 2.5 mg PO DAILY #15 tablet 09/09/16 [Rx] Bumetanide [Bumex] 0.5 mg PO BID 10/10/16 [History] Cephalexin 500 mg PO BID #15 capsule 11/04/16 [Rx] Patient Handouts: Cephalexin tablets or capsules, Urinary Tract Infection, Adult Referrals: Pedro Lynch MD [Primary Care Provider] - (followup visit scheduled next week - please bring along her discharge packet because this will have all the lab values that we obtained during the hospital stay) - Discharge Summary/Plan Comment DC Time >30 min.: No (25) - Patient Data Vitals - Most Recent: Last Vital Signs Temp 35.6 C 11/04/16 07:31 Pulse 65 11/04/16 07:57 Resp 20 11/04/16 07:31 BP 138/68 11/04/16 07:57 Pulse Ox 97 11/04/16 07:31 Weight - Most Recent: 99.798 kg I&O - Last 24 hours: Intake & Output 11/03/16 11/04/16 11/04/16 22:59 06:59 14:59 Intake Total 50 240 1050 Output Total 1250 250 350 Balance -1200 -10 700 Lab Results - Last 24 hrs: Laboratory Results - last 24 hr 11/04/16 11/04/16 11/04/16 Range/Units 05:00 06:05 06:05 WBC 9.3 (4.5-11.0) K/uL RBC 4.41 (4.30-5.90) M/uL Hgb 12.7 (12.0-15.0) g/dL Hct 39.5 L (40.0-54.0) % MCV 90 (80-98) fL MCH 29 (27-31) pg MCHC 32 (32-36) % Plt Count 127 L (150-400) K/uL PT 15.9 H (9.5-12.0) sec INR 1.46 H (0.80-1.20) Sodium 145 (140-148) mmol/L Potassium 3.9 (3.6-5.2) mmol/L Chloride 106 (100-108) mmol/L Carbon Dioxide 33 H (21-32) mmol/L Anion Gap 9.9 (5.0-14.0) mmol/L BUN 21 H (7-18) mg/dL Creatinine 1.3 (0.8-1.3) mg/dL Est Cr Clr Drug Dosing 46.49 mL/min Estimated GFR (MDRD) 53 L (>60) Glucose 110 H (74-106) mg/dL Calcium 8.0 L (8.5-10.1) mg/dL Med Orders - Current: Current Medications Acetaminophen (Tylenol) 650 mg PO Q4H PRN PRN Reason: Pain (Mild 1-3)/fever Last Admin: 11/03/16 20:27 Dose: 650 mg Albuterol (Proventil Neb Soln) 2.5 mg NEB Q4H PRN PRN Reason: Shortness Of Breath/wheezing Bumetanide (Bumex) 0.5 mg PO BIDDIURETIC [facility] Last Admin: 11/04/16 07:58 Dose: 0.5 mg Clopidogrel Bisulfate (Plavix) 75 mg PO DAILY [facility] Last Admin: 11/04/16 10:27 Dose: Not Given Docusate Sodium (Colace) 100 mg PO BID PRN PRN Reason: Constipation Glipizide (Glucotrol) 2.5 mg PO BIDAC [facility] Last Admin: 11/04/16 07:57 Dose: 2.5 mg Ceftriaxone Sodium 1 gm/ (Sodium Chloride) 50 mls @ 100 mls/hr IV Q24H [facility] Last Admin: 11/03/16 20:26 Dose: 100 mls/hr Lorazepam (Ativan) 1 mg IV Q6H PRN PRN Reason: Nausea/Vomiting Metoprolol Succinate (Toprol Xl) 75 mg PO ACBREAKFAST [facility] Last Admin: 11/04/16 07:57 Dose: 75 mg Morphine Sulfate (Morphine) 2 mg IVPUSH Q2H PRN PRN Reason: Pain (severe 7-10) Multivitamins/Minerals (Thera M Plus) 1 tab PO DAILY [facility] Last Admin: 11/04/16 10:28 Dose: Not Given Nitroglycerin (Nitrostat) 0.4 mg SL Q5M PRN PRN Reason: Chest Pain Ondansetron HCl (Zofran Odt) 4 mg PO Q6H PRN PRN Reason: Nausea able to take PO Ondansetron HCl (Zofran) 4 mg IV Q4H PRN PRN Reason: Nausea/Vomiting Oxycodone HCl (Oxycodone) 5 mg PO Q4H PRN PRN Reason: Pain (moderate 4-6) Pantoprazole Sodium (Protonix) 40 mg PO ACBREAKFAST [facility] Last Admin: 11/04/16 07:57 Dose: 40 mg Warfarin Sodium (Coumadin) 7.5 mg PO ONETIME ONE Stop: 11/04/16 13:01 Discontinued Medications Acetaminophen (Tylenol) 650 mg PO NOW ONE Stop: 11/02/16 18:18 Last Admin: 11/02/16 18:40 Dose: 650 mg Sodium Chloride (Normal Saline) 1,000 mls @ 100 mls/hr IV ASDIRECTED [facility] Last Admin: 11/03/16 03:47 Dose: 100 mls/hr Ceftriaxone Sodium 1 gm/ (Sodium Chloride) 50 mls @ 100 mls/hr IV ONETIME ONE Stop: 11/02/16 19:58 Last Admin: 11/02/16 19:50 Dose: 100 mls/hr Sodium Chloride (Normal Saline) 1,000 mls @ 75 mls/hr IV ASDIRECTED [facility] Insulin Aspart (Novolog) 0 unit SUBCUT ASDIRECTED [facility] PRN Reason: Protocol Nitroglycerin (Nitrostat) 0.4 mg SL ASDIRECTED PRN PRN Reason: Chest Pain Potassium Chloride (Klor-Con M20) 40 meq PO ONETIME ONE Stop: 11/03/16 12:01 Last Admin: 11/03/16 13:03 Dose: 40 meq Warfarin Sodium (Coumadin) 2.5 mg PO NOW ONE Stop: 11/02/16 21:46 Last Admin: 11/02/16 21:57 Dose: 2.5 mg Warfarin Sodium (Coumadin Sliding Scale) 0 each PO 1300 [facility] Warfarin Sodium (Coumadin) 5 mg PO ONETIME ONE Stop: 11/03/16 13:01 Last Admin: 11/03/16 13:03 Dose: 5 mg Warfarin Sodium (Coumadin) 2.5 mg PO SuWeFr@1300 [facility] Warfarin Sodium (Coumadin) 5 mg PO MoTuThSa@1300 [place] *Q Meaningful Use (DIS) - VTE *Q VTE Criteria *Q: - Stroke *Q Stroke Criteria *Q: - AMI *Q AMI Criteria *Q:
[2016-11-04] MEDS ORDERED: Warfarin 2.5 MG Tab PO ONE (13:00)
[2016-11-04] MEDS ORDERED: Warfarin 5 MG Tab PO SCH (13:00)
[2016-11-04 13:05] VITALS: BP 129/64
[2016-11-05] MEDS ORDERED: Warfarin 2.5 MG Tab PO SCH (13:00)
== END 2016-11-04 13:30 | disposition home or self-care (01) | DRG 872 ==
LOC: JP.ED 17:07 → JP.MS 20:00 → UNDOADMIN 20:00 → JP.MS 21:17 → UNDODISIN 11-04 13:30
PROVIDERS: ADMIT Internal Medicine; ATTEND Internal Medicine
DX: A41.9 Sepsis, unspecified organism (principal); N30.90 Cystitis, unspecified without hematuria; I50.22 Chronic systolic (congestive) heart failure; N30.00 Acute cystitis without hematuria; E11.40 Type 2 diabetes mellitus with diabetic neuropathy, unspecified; I48.2 Chronic atrial fibrillation; Z79.01 Long term (current) use of anticoagulants; Z86.718 Personal history of other venous thrombosis and embolism; I25.10 Atherosclerotic heart disease of native coronary artery without angina pectoris; Z86.711 Personal history of pulmonary embolism; I25.5 Ischemic cardiomyopathy; Z87.891 Personal history of nicotine dependence; R53.1 Weakness; R50.9 Fever, unspecified; N18.3 Chronic kidney disease, stage 3 (moderate); R74.0 Nonspecific elevation of levels of transaminase and lactic acid dehydrogenase [LDH]; B96.20 Unspecified Escherichia coli [E. coli] as the cause of diseases classified elsewhere; K21.9 Gastro-esophageal reflux disease without esophagitis; I25.2 Old myocardial infarction; Z95.0 Presence of cardiac pacemaker; Z95.5 Presence of coronary angioplasty implant and graft; M19.90 Unspecified osteoarthritis, unspecified site; Z91.041 Radiographic dye allergy status; Z88.8 Allergy status to other drugs, medicaments and biological substances
CPT/HCPCS: 36415; 71010 ×2; 80053; 81001; 82150; 83605; 83690; 85025; 85610; 87040 ×2; 87086; 87088; 87186; 96361; 96365; 99285; A9270; J0696; J7040; J7050; 80048; 82962; 85027; 97165-GO; 99284

== ENCOUNTER 2017-03-12 12:30 | Emergency (ER) | payer MEDICARE, OTHER ==
[2017-03-12 12:51] VITALS: BP 142/90
--- NOTE | 2017-03-12 13:21 | EDM.PDOC ---
ED HPI GENERAL MEDICAL PROBLEM - General Chief Complaint: Genitourinary Problem Stated Complaint: URINARY FREQUENCY,BURNING Time Seen by Provider: 03/12/17 13:00 Source of Information: Reports: Patient, Family History Limitations: Reports: No Limitations - History of Present Illness INITIAL COMMENTS - FREE TEXT/NARRATIVE: 86-year-old male who has had problems with urinary tract infections in the past , has developed dysuria and increased urinary frequency along with some mild to moderate incontinence over the past 48-72 hours. No fever or chills, no nausea or vomiting, denies back pain. Onset: Gradual (Over the past 3 days) - Related Data Allergies Allergy/AdvReac Type Severity Reaction Status Date / Time amlodipine Allergy Severe anaphylaxis Verified 03/12/17 12:51 dipyridamole Allergy Cannot Verified 03/12/17 12:51 Remember Iodinated Contrast- Oral and Allergy Rash Verified 03/12/17 12:51 IV Dye [Iodinated Contrast Media - IV Dye] rosuvastatin calcium AdvReac Muscle Verified 03/12/17 12:51 [From Crestor] Aches Home Meds: Home Meds Multivitamin with Minerals [Multiple Vitamin] 1 tab PO DAILY 09/29/13 [History] Omeprazole [Prilosec] 40 mg PO DAILY 09/29/13 [History] Clopidogrel [Plavix] 75 mg PO DAILY 07/14/14 [History] glipiZIDE [Glucotrol] 2.5 mg PO BID 07/14/14 [History] Nitroglycerin [IJP: Nitroglycerin] 0.4 mg PO ASDIRECTED PRN 07/24/16 [History] Metoprolol Succinate 50 mg PO ACBREAKFAST 09/03/16 [History] Warfarin [Coumadin] 2.5 mg PO DAILY #15 tablet 09/09/16 [Rx] Bumetanide [Bumex] 0.5 mg PO BID 10/10/16 [History] Past Medical History HEENT History: Reports: Cataract, Other (See Below) Other HEENT History: optic neuropathy Cardiovascular History: Reports: Afib, Arrhythmia, Blood Clots/VTE/DVT, CAD, Heart Failure, [place], Pacemaker, Stents, Other (See Below) Other Cardiovascular History: cardiomegaly, sinoatrial node disfunction. Respiratory History: Reports: PE Other Respiratory History: pulm. valve disorder Gastrointestinal History: Reports: GERD Genitourinary History: Reports: BPH, Chronic Renal Insuffiency, UTI, Recurrent Other Genitourinary History: hx of urinary obstructions Musculoskeletal History: Reports: Back Pain, Chronic, Osteoarthritis Neurological History: Reports: CVA Endocrine/Metabolic History: Reports: Diabetes, Type II - Infectious Disease History Infectious Disease History: Reports: Chicken Pox, Measles, Mumps, Rubella, Shingles - Past Surgical History HEENT Surgical History: Reports: Cataract Surgery Cardiovascular Surgical History: Reports: Cardiac Ablation, Coronary Artery Stent Social & Family History - Family History Cardiac: Reports: OK - Tobacco Use Smoking Status *Q: Never Smoker Years of Tobacco use: 10 Packs/Tins Daily: 0.5 Used Tobacco, but Quit: Yes Month Tobacco Last Used: 04/1958 Second Hand Smoke Exposure: No - Caffeine Use Caffeine Use: Reports: Coffee - Alcohol Use Days Per Week of Alcohol Use: 0 - Recreational Drug Use Recreational Drug Use: No - Living Situation & Occupation Living situation: Reports: , with Family Occupation: Retired (lives with his , [address] [place], [place] ED ROS GENERAL - Review of Systems Review Of Systems: See Below Constitutional: Denies: Fever, Chills Respiratory: Denies: Shortness of Breath Cardiovascular: Denies: Chest Pain GI/Abdominal: Denies: Abdominal Pain, Nausea, Vomiting Neurological: Denies: Dizziness, Headache Psychiatric: Reports: No Symptoms ED EXAM, RENAL/ - Physical Exam Exam: See Below Exam Limited By: No Limitations General Appearance: Alert, No Apparent Distress Respiratory/Chest: No Respiratory Distress GI/Abdominal: Normal Bowel Sounds, Soft, Non-Tender, Other (Abdomen is soft, no bladder distention) Neurological: Alert, Oriented Course - Vital Signs Last Recorded V/S: Last Vital Signs Temp 95.9 F 03/12/17 12:48 Pulse 80 03/12/17 12:48 Resp 14 03/12/17 12:48 BP 142/90 H 03/12/17 12:48 Pulse Ox 98 03/12/17 12:48 - Orders/Labs/Meds Orders: Active Orders 24 hr Category Date Time Status CULTURE URINE [RM] Stat Lab 03/12/17 13:12 Received Labs: Laboratory Tests 03/12/17 Range/Units 12:45 Urine Color Yellow Urine Appearance Cloudy Urine pH 6.0 (4.5-8.0) Ur Specific [place] 1.010 (1.008-1.030) Urine Protein Negative (NEGATIVE) mg/dL Urine Glucose (UA) Normal (NEGATIVE) mg/dL Urine Ketones Negative (NEGATIVE) mg/dL Urine Occult Blood Trace (NEGATIVE) Urine Nitrite Negative (NEGAITVE) Urine Bilirubin Negative (NEGATIVE) Urine Urobilinogen Normal (NORMAL) mg/dL Ur Leukocyte Esterase Large (NEGATIVE) Urine RBC 0-5 (0-5) Urine WBC 10-20 H (0-5) Ur Epithelial Cells Not seen Amorphous Sediment Not seen Urine Bacteria Moderate Urine Mucus Not seen - Re-Assessments/Exams Free Text/Narrative Re-Assessment/Exam: 03/12/17 13:20 UA was obtained that showed 10-20 WBCs and moderate bacteria. A urine culture was initiated. His culture from his urine from October of this year when he had a UTI was reviewed, it was Escherichia coli sensitive to all antibiotics. He responded to cephalexin at that time, that will be repeated at 500 mg 3 times a day. He will return if not improving satisfactorily over the course of the next several days. He can always return sooner if worsening. Departure - Departure Time of Disposition: 13:32 Disposition: Home, Self-Care 01 Condition: Good Clinical Impression: UTI, Urinary tract infectious disease UTI (urinary tract infection) Qualifiers: Urinary tract infection type: acute cystitis Hematuria presence: without hematuria Qualified Code(s): N30.00 - Acute cystitis without hematuria - Discharge Information Instructions: Urinary Tract Infection, Adult, [id number] Referrals: Pedro Lynch MD [Primary Care Provider] - Forms: ED Department Discharge Care Plan Goals: Take antibiotic 3 times a day for 5 days as prescribed. Increase activity as tolerated, return anytime if worsening or concerns. Consider rechecking in 2-3 days if not improving satisfactorily. - My Orders Last 24 Hours: My Active Orders 03/12/17 13:12 CULTURE URINE [RM] Stat - Assessment/Plan Last 24 Hours: My Active Orders 03/12/17 13:12 CULTURE URINE [RM] Stat
== END 2017-03-12 13:32 | disposition home or self-care (01) ==
LOC: JP.ED 12:30
DX: N30.00 Acute cystitis without hematuria (principal); E11.22 Type 2 diabetes mellitus with diabetic chronic kidney disease; N18.9 Chronic kidney disease, unspecified; Z87.891 Personal history of nicotine dependence; I48.91 Unspecified atrial fibrillation; I50.9 Heart failure, unspecified; Z79.899 Other long term (current) drug therapy; Z88.8 Allergy status to other drugs, medicaments and biological substances; Z91.041 Radiographic dye allergy status; Z79.84 Long term (current) use of oral hypoglycemic drugs; Z79.01 Long term (current) use of anticoagulants
CPT/HCPCS: 81001; 87086; 87088; 87186; 99283; 99284

== ENCOUNTER 2017-08-09 13:49 | Emergency (ER) | payer MEDICARE, OTHER ==
[2017-08-09 14:01] VITALS: BP 177/71
--- NOTE | 2017-08-09 14:27 | EDM.PDOC ---
ED HPI GENERAL MEDICAL PROBLEM - General Chief Complaint: Genitourinary Problem Stated Complaint: UTI SYMPTOMS Time Seen by Provider: 08/09/17 14:19 Source of Information: Reports: Patient, Family, Old Records, RN Notes Reviewed History Limitations: Reports: No Limitations - History of Present Illness INITIAL COMMENTS - FREE TEXT/NARRATIVE: 86-year-old gentleman presents emergency department today with complaint of shortness of breath, he states he's been getting progressively worse over the last 3 days he noticed he's very short of breath with exertion he states it feels like a urinary tract infection and last year. He does admit to urinary frequency - Related Data Allergies Allergy/AdvReac Type Severity Reaction Status Date / Time amlodipine Allergy Severe anaphylaxis Verified 08/09/17 14:01 dipyridamole Allergy Cannot Verified 08/09/17 14:01 Remember Iodinated Contrast- Oral and Allergy Rash Verified 08/09/17 14:01 IV Dye [Iodinated Contrast Media - IV Dye] rosuvastatin calcium AdvReac Muscle Verified 08/09/17 14:01 [From Crestor] Aches Home Meds: Home Meds Multivitamin with Minerals [Multiple Vitamin] 1 tab PO DAILY 09/29/13 [History] Omeprazole [Prilosec] 40 mg PO DAILY 09/29/13 [History] Clopidogrel [Plavix] 75 mg PO DAILY 07/14/14 [History] glipiZIDE [Glucotrol] 2.5 mg PO BID 07/14/14 [History] Nitroglycerin [IJP: Nitroglycerin] 0.4 mg PO ASDIRECTED PRN 07/24/16 [History] Metoprolol Succinate 50 mg PO ACBREAKFAST 09/03/16 [History] Bumetanide [Bumex] 2 mg PO DAILY 10/10/16 [History] Aspirin [Aspirin] 81 mg PO DAILY 08/09/17 [History] Bumetanide [Bumetanide] 1 mg PO DAILY 08/09/17 [History] Warfarin [Coumadin] 5 mg PO DAILY 08/09/17 [History] Past Medical History HEENT History: Reports: Cataract, Other (See Below) Other HEENT History: optic neuropathy Cardiovascular History: Reports: Afib, Arrhythmia, Blood Clots/VTE/DVT, CAD, Heart Failure, [place], Pacemaker, Stents, Other (See Below) Other Cardiovascular History: cardiomegaly, sinoatrial node disfunction. Respiratory History: Reports: PE Other Respiratory History: pulm. valve disorder Gastrointestinal History: Reports: GERD Genitourinary History: Reports: BPH, Chronic Renal Insuffiency, UTI, Recurrent Other Genitourinary History: hx of urinary obstructions Musculoskeletal History: Reports: Back Pain, Chronic, Osteoarthritis Neurological History: Reports: CVA Endocrine/Metabolic History: Reports: Diabetes, Type II - Infectious Disease History Infectious Disease History: Reports: Chicken Pox, Measles, Mumps, Rubella, Shingles - Past Surgical History HEENT Surgical History: Reports: Cataract Surgery Cardiovascular Surgical History: Reports: Cardiac Ablation, Coronary Artery Stent Social & Family History - Family History Cardiac: Reports: [place] - Tobacco Use Smoking Status *Q: Never Smoker Years of Tobacco use: 10 Packs/Tins Daily: 0.5 Used Tobacco, but Quit: Yes Month/Year Tobacco Last Used: 04/1958 Second Hand Smoke Exposure: No - Caffeine Use Caffeine Use: Reports: Coffee - Alcohol Use Days Per Week of Alcohol Use: 0 - Recreational Drug Use Recreational Drug Use: No - Living Situation & Occupation Living situation: Reports: , with Family Occupation: Retired (lives with his , [address] [place] of [place], [place].) ED ROS GENERAL - Review of Systems Review Of Systems: See Below Constitutional: Reports: Fever (Feverish), Weakness HEENT: Reports: No Symptoms Respiratory: Reports: Shortness of Breath Cardiovascular: Reports: Dyspnea on Exertion. Denies: Chest Pain GI/Abdominal: Reports: No Symptoms : Reports: Frequency Musculoskeletal: Reports: No Symptoms Skin: Reports: No Symptoms ED EXAM, GENERAL - Physical Exam Exam: See Below Exam Limited By: No Limitations General Appearance: Alert, WD/WN, No Apparent Distress Head: Atraumatic, Normocephalic Neck: Normal Inspection, Supple, Non-Tender, Full Range of Motion Respiratory/Chest: No Respiratory Distress, Lungs Clear, Normal Breath Sounds, No Accessory Muscle Use Cardiovascular: Regular Rate, Rhythm, No Murmur GI/Abdominal: Soft, Non-Tender Back Exam: Normal Inspection, Full Range of Motion. No: CVA Tenderness (R), CVA Tenderness (L) Course - Vital Signs Last Recorded V/S: Last Vital Signs Temp 94.5 F L 08/09/17 13:59 Pulse 81 08/09/17 13:59 Resp 22 H 08/09/17 13:59 BP 177/71 H 08/09/17 13:59 Pulse Ox 95 08/09/17 13:59 - Orders/Labs/Meds Orders: Active Orders 24 hr Category Date Time Status Cardiac Monitoring [RC] .As Directed Care 08/09/17 14:24 Active EKG Documentation Completion [RC] ASDIRECTED Care 08/09/17 14:24 Active Chest 2V [CR] Stat Exams 08/09/17 14:24 Taken CULTURE URINE [RM] Urgent Lab 08/09/17 15:18 Ordered EKG 12 Lead [EK] Stat Ther 08/09/17 14:24 Ordered Labs: Laboratory Tests 08/09/17 08/09/17 08/09/17 Range/Units 13:53 14:23 14:23 WBC 8.5 (4.5-11.0) K/uL RBC 4.78 (4.30-5.90) M/uL Hgb 14.2 (12.0-15.0) g/dL Hct 43.3 (40.0-54.0) % MCV 91 (80-98) fL MCH 30 (27-31) pg MCHC 33 (32-36) % Plt Count 185 (150-400) K/uL Neut % (Auto) 70 H (36-66) % Lymph % (Auto) 17 L (24-44) % [place] % (Auto) 9 H (2-6) % Eos % (Auto) 3 (2-4) % Baso % (Auto) 1 (0-1) % Sodium 145 (140-148) mmol/L Potassium 4.0 (3.6-5.2) mmol/L Chloride 106 (100-108) mmol/L Carbon Dioxide 29 (21-32) mmol/L Anion Gap 9.7 (5.0-14.0) mmol/L BUN 29 H (7-18) mg/dL Creatinine 1.9 H (0.8-1.3) mg/dL Est Cr Clr Drug Dosing 31.77 mL/min Estimated GFR (MDRD) 34 L (>60) Glucose 158 H (74-106) mg/dL Lactic Acid (0.4-2.0) mmol/L Calcium 8.1 L (8.5-10.1) mg/dL Total Bilirubin 0.4 (0.2-1.0) mg/dL AST 32 (15-37) U/L ALT 60 (12-78) U/L Alkaline Phosphatase 92 (46-116) U/L Troponin I < 0.017 (0.000-0.056) ng/mL NT-Pro-B Natriuret Pep 579 H (5-450) pg/mL Total Protein 6.9 (6.4-8.2) g/dL Albumin 3.5 (3.4-5.0) g/dL Globulin 3.4 (2.3-3.5) g/dL Albumin/Globulin Ratio 1.0 L (1.2-2.2) Urine Color Yellow Urine Appearance Slightly cloudy Urine pH 5.0 (4.5-8.0) Ur Specific [place] 1.010 (1.008-1.030) Urine Protein Negative (NEGATIVE) mg/dL Urine Glucose (UA) Normal (NEGATIVE) mg/dL Urine Ketones Negative (NEGATIVE) mg/dL Urine Occult Blood Moderate (NEGATIVE) Urine Nitrite Negative (NEGAITVE) Urine Bilirubin Negative (NEGATIVE) Urine Urobilinogen Normal (NORMAL) mg/dL Ur Leukocyte Esterase Negative (NEGATIVE) Urine RBC 5-10 H (0-5) Urine WBC Not seen (0-5) Ur Epithelial Cells Few Amorphous Sediment Rare Urine Bacteria Not seen Urine Mucus Moderate Urine Other See note 08/09/17 Range/Units 14:23 WBC (4.5-11.0) K/uL RBC (4.30-5.90) M/uL Hgb (12.0-15.0) g/dL Hct (40.0-54.0) % MCV (80-98) fL MCH (27-31) pg MCHC (32-36) % Plt Count (150-400) K/uL Neut % (Auto) (36-66) % Lymph % (Auto) (24-44) % [place] % (Auto) (2-6) % Eos % (Auto) (2-4) % Baso % (Auto) (0-1) % Sodium (140-148) mmol/L Potassium (3.6-5.2) mmol/L Chloride (100-108) mmol/L Carbon Dioxide (21-32) mmol/L Anion Gap (5.0-14.0) mmol/L BUN (7-18) mg/dL Creatinine (0.8-1.3) mg/dL Est Cr Clr Drug Dosing mL/min Estimated GFR (MDRD) (>60) Glucose (74-106) mg/dL Lactic Acid 2.4 H (0.4-2.0) mmol/L Calcium (8.5-10.1) mg/dL Total Bilirubin (0.2-1.0) mg/dL AST (15-37) U/L ALT (12-78) U/L Alkaline Phosphatase (46-116) U/L Troponin I (0.000-0.056) ng/mL NT-Pro-B Natriuret Pep (5-450) pg/mL Total Protein (6.4-8.2) g/dL Albumin (3.4-5.0) g/dL Globulin (2.3-3.5) g/dL Albumin/Globulin Ratio (1.2-2.2) Urine Color Urine Appearance Urine pH (4.5-8.0) Ur Specific [place] (1.008-1.030) Urine Protein (NEGATIVE) mg/dL Urine Glucose (UA) (NEGATIVE) mg/dL Urine Ketones (NEGATIVE) mg/dL Urine Occult Blood (NEGATIVE) Urine Nitrite (NEGAITVE) Urine Bilirubin (NEGATIVE) Urine Urobilinogen (NORMAL) mg/dL Ur Leukocyte Esterase (NEGATIVE) Urine RBC (0-5) Urine WBC (0-5) Ur Epithelial Cells Amorphous Sediment Urine Bacteria Urine Mucus Urine Other Departure - Departure Time of Disposition: 15:29 Disposition: Home, Self-Care 01 Condition: Fair Clinical Impression: Frequency of urination - Discharge Information Referrals: Pedro Lynch MD [Primary Care Provider] - Forms: ED Department Discharge Additional Instructions: Start antibiotics please keep your follow-up appointment with your primary care provider, the urine culture should be available in 4-5 days - My Orders Last 24 Hours: My Active Orders 08/09/17 14:24 Cardiac Monitoring [RC] .As Directed EKG Documentation Completion [RC] ASDIRECTED Chest 2V [CR] Stat EKG 12 Lead [EK] Stat 08/09/17 15:18 CULTURE URINE [RM] Urgent - Assessment/Plan Last 24 Hours: My Active Orders 08/09/17 14:24 Cardiac Monitoring [RC] .As Directed EKG Documentation Completion [RC] ASDIRECTED Chest 2V [CR] Stat EKG 12 Lead [EK] Stat 08/09/17 15:18 CULTURE URINE [RM] Urgent Plan: Assessment Acuity = acute Site and laterality = fatigue and urinary frequency Etiology = unclear etiology Manifestations = none Location of injury = Home Lab values = CBC unremarkable creatinine elevated 1.9 consistent chronic renal failure stage G IIIB lactic acid slightly elevated at 2.4 BNP slightly elevated at 579 probably related to chronic heart failure troponin was negative urinalysis reveals 5-10 rbc's consists with hematuria, chest x-ray I did review films myself I cannot appreciate any acute process, the official read from radiology is pending, EKG demonstrates ST depressions chest leads V4 through V6 sinus rhythm T wave inversions 12 V45 and 6 Plan I did review lab work chest x-ray EKG results with him because he complains of urinary tract symptomology states this feels similar to urinary tract symptoms placed him on Bactrim DS 1 tab by mouth twice a day 10 days he does have a follow-up appointment with his primary care provider in 5 days culture is pending This note was dictated using [employer] voice recognition software please call with any questions on syntax or jackie.
--- NOTE | 2017-08-10 08:51 | CR ---
Chest 2V HISTORY: Shortness of breath. COMPARISON: 11/02/2016 FINDINGS: Right-sided pacemaker. Prior median sternotomy. Cardiac size is stable. No acute congestive change or infiltrate seen. No effusions. Impression: Stable chest no acute pulmonary disease.
== END 2017-08-09 15:41 | disposition home or self-care (01) ==
LOC: JP.ED 13:49
DX: R35.0 Frequency of micturition (principal); E11.22 Type 2 diabetes mellitus with diabetic chronic kidney disease; N18.9 Chronic kidney disease, unspecified; I50.9 Heart failure, unspecified; Z88.8 Allergy status to other drugs, medicaments and biological substances; Z91.041 Radiographic dye allergy status; Z79.899 Other long term (current) drug therapy; Z79.82 Long term (current) use of aspirin; Z79.01 Long term (current) use of anticoagulants; Z87.891 Personal history of nicotine dependence
CPT/HCPCS: 36415; 71046; 71046-26; 80053; 81001; 83605; 83880; 84484; 85025; 87086; 93005; 99284-25

== ENCOUNTER 2018-06-14 14:38 | Emergency (ER) | payer MEDICARE, OTHER ==
[2018-06-14 15:12] VITALS: BP 146/76
--- NOTE | 2018-06-14 15:46 | EDM.PDOC ---
<Marla Antonio N - Last Filed: 06/14/18 15:38> ED HPI GENERAL MEDICAL PROBLEM - General Chief Complaint: Genitourinary Problem Stated Complaint: POSSIBLE UTI Time Seen by Provider: 06/14/18 16:00 - History of Present Illness INITIAL COMMENTS - FREE TEXT/NARRATIVE: Zachary is an 87-year-old male who presents to the ER with complaints of urinary incontinence, frequency, urgency, weakness, and fatigue for the past 2 days. He has had multiple UTIs in the past, and was hospitalized on one occasion with urosepsis. Denies hematuria, nausea, vomiting, fevers, chills, or abdominal pain. Patient is alert, oriented x3, and converses appropriately. - Related Data Allergies Allergy/AdvReac Type Severity Reaction Status Date / Time amlodipine Allergy Severe anaphylaxis Verified 06/14/18 15:13 dipyridamole Allergy Cannot Verified 06/14/18 15:13 Remember Iodinated Contrast- Oral and Allergy Rash Verified 06/14/18 15:13 IV Dye [Iodinated Contrast Media - IV Dye] rosuvastatin calcium AdvReac Muscle Verified 06/14/18 15:13 [From Crestor] Aches Home Meds: Home Meds Multivitamin with Minerals [Multiple Vitamin] 1 tab PO DAILY 09/29/13 [History] Omeprazole [Prilosec] 40 mg PO DAILY 09/29/13 [History] Clopidogrel [Plavix] 75 mg PO DAILY 07/14/14 [History] glipiZIDE [Glucotrol] 2.5 mg PO BID 07/14/14 [History] Nitroglycerin [IJP: Nitroglycerin] 0.4 mg PO ASDIRECTED PRN 07/24/16 [History] Metoprolol Succinate 50 mg PO ACBREAKFAST 09/03/16 [History] Bumetanide [Bumex] 2 mg PO DAILY 10/10/16 [History] Aspirin 81 mg PO DAILY 08/09/17 [History] Bumetanide 1 mg PO DAILY 08/09/17 [History] Warfarin [Coumadin] 5 mg PO DAILY 08/09/17 [History] Sulfamethoxazole/Trimethoprim [Bactrim Ds Tablet] 1 each PO BID #10 tablet 06/14 [Rx] Past Medical History HEENT History: Reports: Cataract, Other (See Below) Other HEENT History: optic neuropathy Cardiovascular History: Reports: Afib, Arrhythmia, Blood Clots/VTE/DVT, CAD, Heart Failure, [place], Pacemaker, Stents, Other (See Below) Other Cardiovascular History: cardiomegaly, sinoatrial node disfunction. Respiratory History: Reports: PE Other Respiratory History: pulm. valve disorder Gastrointestinal History: Reports: GERD Genitourinary History: Reports: BPH, Chronic Renal Insuffiency, UTI, Recurrent Other Genitourinary History: hx of urinary obstructions Musculoskeletal History: Reports: Back Pain, Chronic, Osteoarthritis Neurological History: Reports: CVA Endocrine/Metabolic History: Reports: Diabetes, Type II - Infectious Disease History Infectious Disease History: Reports: Chicken Pox, Measles, Mumps - Past Surgical History HEENT Surgical History: Reports: Cataract Surgery Cardiovascular Surgical History: Reports: Cardiac Ablation, Coronary Artery Stent Social & Family History - Family History Cardiac: Reports: [place] - Tobacco Use Smoking Status *Q: Never Smoker - Caffeine Use Caffeine Use: Reports: Coffee - Living Situation & Occupation Living situation: Reports: , with Family Occupation: Retired (lives with his , [address] miles [place] of [place], [place].) ED ROS GENERAL - Review of Systems Review Of Systems: See Below Constitutional: Reports: Weakness, Fatigue. Denies: Fever, Chills, Malaise, Decreased Appetite HEENT: Reports: No Symptoms Respiratory: Reports: No Symptoms Cardiovascular: Reports: No Symptoms Endocrine: Reports: Fatigue GI/Abdominal: Reports: No Symptoms. Denies: Abdominal Pain, Constipation, Diarrhea, Nausea, Vomiting : Reports: Dysuria, Frequency, Incontinence, Urgency. Denies: Flank Pain, Hematuria Musculoskeletal: Reports: No Symptoms Neurological: Reports: Weakness. Denies: Confusion Psychiatric: Reports: No Symptoms ED EXAM, RENAL/ - Physical Exam Exam Limited By: No Limitations General Appearance: Alert, WD/WN, No Apparent Distress Respiratory/Chest: No Respiratory Distress, Crackles (Fine crackles lower lobes bilaterally) Cardiovascular: Regular Rate, Rhythm, No Edema, Systolic Murmur. No: Gallop/S3 , Gallop/S4 GI/Abdominal: Normal Bowel Sounds (Semi-firm), Non-Tender, No Mass (Male) Exam: Deferred Rectal (Males) Exam: Deferred Neurological: Alert, Oriented, Normal Cognition, No Motor/Sensory Deficits Psychiatric: Normal Mood Course - Vital Signs Last Recorded V/S: Last Vital Signs Temp 95.6 F 06/14/18 15:17 Pulse 84 06/14/18 15:17 Resp 11 L 06/14/18 15:17 BP 146/76 H 06/14/18 15:17 Pulse Ox 96 06/14/18 15:17 - Orders/Labs/Meds Orders: Active Orders 24 hr Category Date Time Status CULTURE URINE [RM] Urgent Lab 06/14/18 15:37 Received Labs: Laboratory Tests 06/14/18 06/14/18 06/14/18 Range/Units 14:40 15:37 15:37 WBC 11.4 H (4.5-11.0) K/uL RBC 5.18 (4.30-5.90) M/uL Hgb 14.8 (12.0-15.0) g/dL Hct 45.7 (40.0-54.0) % MCV 88 (80-98) fL MCH 29 (27-31) pg MCHC 32 (32-36) % Plt Count 172 (150-400) K/uL Neut % (Auto) 75 H (36-66) % Lymph % (Auto) 14 L (24-44) % [place] % (Auto) 9 H (2-6) % Eos % (Auto) 2 (2-4) % Baso % (Auto) 0 (0-1) % Sodium 142 (140-148) mmol/L Potassium 4.3 (3.6-5.2) mmol/L Chloride 102 (100-108) mmol/L Carbon Dioxide 31 (21-32) mmol/L Anion Gap 9.0 (5.0-14.0) mmol/L BUN 37 H (7-18) mg/dL Creatinine 1.9 H (0.8-1.3) mg/dL Est Cr Clr Drug Dosing 31.20 mL/min Estimated GFR (MDRD) 34 L (>60) Glucose 172 H (74-106) mg/dL Lactic Acid (0.4-2.0) mmol/L Calcium 8.9 (8.5-10.1) mg/dL Urine Color Yellow Urine Appearance Turbid Urine pH 5.0 (4.5-8.0) Ur Specific [place] 1.015 (1.008-1.030) Urine Protein 30 H (NEGATIVE) mg/dL Urine Glucose (UA) 50 H (NEGATIVE) mg/dL Urine Ketones Negative (NEGATIVE) mg/dL Urine Occult Blood Large (NEGATIVE) Urine Nitrite Positive H (NEGAITVE) Urine Bilirubin Negative (NEGATIVE) Urine Urobilinogen Normal (NORMAL) mg/dL Ur Leukocyte Esterase Large (NEGATIVE) Urine RBC 5-10 H (0-5) Urine WBC Packed H (0-5) Ur Epithelial Cells Rare Amorphous Sediment Not seen Urine Bacteria Rare Urine Mucus Not seen 06/14/18 Range/Units 15:37 WBC (4.5-11.0) K/uL RBC (4.30-5.90) M/uL Hgb (12.0-15.0) g/dL Hct (40.0-54.0) % MCV (80-98) fL MCH (27-31) pg MCHC (32-36) % Plt Count (150-400) K/uL Neut % (Auto) (36-66) % Lymph % (Auto) (24-44) % [place] % (Auto) (2-6) % Eos % (Auto) (2-4) % Baso % (Auto) (0-1) % Sodium (140-148) mmol/L Potassium (3.6-5.2) mmol/L Chloride (100-108) mmol/L Carbon Dioxide (21-32) mmol/L Anion Gap (5.0-14.0) mmol/L BUN (7-18) mg/dL Creatinine (0.8-1.3) mg/dL Est Cr Clr Drug Dosing mL/min Estimated GFR (MDRD) (>60) Glucose (74-106) mg/dL Lactic Acid 1.9 (0.4-2.0) mmol/L Calcium (8.5-10.1) mg/dL Urine Color Urine Appearance Urine pH (4.5-8.0) Ur Specific [place] (1.008-1.030) Urine Protein (NEGATIVE) mg/dL Urine Glucose (UA) (NEGATIVE) mg/dL Urine Ketones (NEGATIVE) mg/dL Urine Occult Blood (NEGATIVE) Urine Nitrite (NEGAITVE) Urine Bilirubin (NEGATIVE) Urine Urobilinogen (NORMAL) mg/dL Ur Leukocyte Esterase (NEGATIVE) Urine RBC (0-5) Urine WBC (0-5) Ur Epithelial Cells Amorphous Sediment Urine Bacteria Urine Mucus Departure - Departure Disposition: Home, Self-Care 01 Clinical Impression: UTI, Urinary tract infectious disease - Discharge Information Prescriptions: Sulfamethoxazole/Trimethoprim [Bactrim Ds Tablet] 1 each PO BID #10 tablet Referrals: Pedro Lynch MD [Primary Care Provider] - Forms: ED Department Discharge Additional Instructions: Take full course of antibiotics, Please followup with your primary care provider in 3-5 days if not better, please call return to the emergency department with worsening of symptoms. - My Orders Last 24 Hours: My Active Orders 06/14/18 15:37 CULTURE URINE [RM] Urgent - Assessment/Plan Last 24 Hours: My Active Orders 06/14/18 15:37 CULTURE URINE [RM] Urgent <OfficerGreyson - Last Filed: 06/14/18 16:38> ED HPI GENERAL MEDICAL PROBLEM - General Source of Information: Reports: Patient, Family, RN Notes Reviewed History Limitations: Reports: No Limitations ED EXAM, RENAL/ - Physical Exam Exam: See Below Text/Narrative:: Agree with exam below Departure - Departure Time of Disposition: 16:38 Condition: Fair - Assessment/Plan Plan: Assessment Acuity = acute Site and laterality = urinary tract infection Etiology = probable bacterial cause Manifestations = dysuria Location of injury = Home Lab values = CBC unremarkable, creatinine elevated 1.9 consistent chronic renal failure stage G IIIB, urinalysis positive for nitrates, 5-10 rbc's consistent hematuria and packed WBCs consistent pyuria cultures pending Plan Elected treat empirically with Bactrim DS 1 tab by mouth twice a day 10 days him follow-up with primary care in 3-5 days if no improvement This note was dictated using [email or web address] voice recognition software please call with any questions on syntax or grammar. Cachorro Fischer Dr. was personally available for consultation in the ED. I have reviewed the chart and agree with the documentation as recorded by the [employer] student, including the assessment, treatment plan and disposition. Cachorro Fischer Dr. personally saw and examined the patient. I have reviewed and agree with the [employer] student's findings.
== END 2018-06-14 16:58 | disposition home or self-care (01) ==
LOC: JP.ED 14:38
DX: N39.0 Urinary tract infection, site not specified (principal); Z88.8 Allergy status to other drugs, medicaments and biological substances; Z91.041 Radiographic dye allergy status; Z79.82 Long term (current) use of aspirin; Z79.899 Other long term (current) drug therapy
CPT/HCPCS: 36415; 80048; 81001; 83605; 85025; 87086; 99284

== ENCOUNTER 2018-10-02 18:24 | Emergency (ER) | payer MEDICARE, OTHER ==
[2018-10-02 19:01] VITALS: BP 125/63
--- NOTE | 2018-10-02 20:39 | EDM.PDOC ---
ED HPI GENERAL MEDICAL PROBLEM - General Chief Complaint: General Stated Complaint: DIZZY WHEN STANDING UP Time Seen by Provider: 10/02/18 19:10 Source of Information: Reports: Patient History Limitations: Reports: No Limitations - History of Present Illness INITIAL COMMENTS - FREE TEXT/NARRATIVE: 88-year-old male brought in by family because of increasing unsteadiness when walking, lightheaded feelings when standing and concerned about his blood pressure. Over the past several months he's had increased episodes of unsteadiness with standing and walking but it's much worse over the past 1-2 weeks. He has chronic back pain but no other new pains, he has some shortness of breath with activity but no chest pain, significant palpitations, weight loss , his diet is normal and he has no urinary symptoms. Denies peripheral edema. He has a walker and cane but does not use them. He has appointments coming up with cardiology, his primary provider and nephrology. Onset: Unknown/Unsure (Symptoms have been ongoing for months, seemed to be worsening steadily) Associated Symptoms: Reports: Shortness of Breath (Some shortness of breath with activity), Weakness. Denies: Confusion, Chest Pain, Cough, Diaphoresis, Loss of Appetite, Nausea/Vomiting - Related Data Allergies Allergy/AdvReac Type Severity Reaction Status Date / Time amlodipine Allergy Severe anaphylaxis Verified 10/02/18 19:00 dipyridamole Allergy Cannot Verified 10/02/18 19:00 Remember Iodinated Contrast- Oral and Allergy Rash Verified 10/02/18 19:00 IV Dye [Iodinated Contrast Media - IV Dye] rosuvastatin calcium AdvReac Muscle Verified 10/02/18 19:00 [From Crestor] Aches Home Meds: Home Meds Multivitamin with Minerals [Multiple Vitamin] 1 tab PO DAILY 09/29/13 [History] Omeprazole [Prilosec] 40 mg PO DAILY 09/29/13 [History] glipiZIDE [Glucotrol] 2.5 mg PO BID 07/14/14 [History] Nitroglycerin [IJP: Nitroglycerin] 0.4 mg PO ASDIRECTED PRN 07/24/16 [History] Metoprolol Succinate 25 mg PO ACBREAKFAST 09/03/16 [History] Bumetanide [Bumex] 2 mg PO DAILY 10/10/16 [History] Aspirin 81 mg PO DAILY 08/09/17 [History] Bumetanide 1 mg PO DAILY 08/09/17 [History] Warfarin [Coumadin] 5 mg PO DAILY 08/09/17 [History] Past Medical History HEENT History: Reports: Cataract, Impaired Vision, Other (See Below) Other HEENT History: optic neuropathy Cardiovascular History: Reports: Afib, Arrhythmia, Blood Clots/VTE/DVT, CAD, Heart Failure, HI, Pacemaker, Stents, Other (See Below) Other Cardiovascular History: cardiomegaly, sinoatrial node disfunction. Respiratory History: Reports: PE Other Respiratory History: pulm. valve disorder Gastrointestinal History: Reports: GERD Genitourinary History: Reports: BPH, Chronic Renal Insuffiency, UTI, Recurrent Other Genitourinary History: hx of urinary obstructions Musculoskeletal History: Reports: Back Pain, Chronic, Osteoarthritis Neurological History: Reports: CVA Psychiatric History: Reports: Anxiety Endocrine/Metabolic History: Reports: Diabetes, Type II Hematologic History: Reports: Blood Transfusion(s) - Infectious Disease History Infectious Disease History: Reports: Chicken Pox, Measles, Mumps - Past Surgical History HEENT Surgical History: Reports: Cataract Surgery Cardiovascular Surgical History: Reports: Cardiac Ablation, Coronary Artery Stent Respiratory Surgical History: Reports: None GI Surgical History: Reports: None Male Surgical History: Reports: None Neurological Surgical History: Reports: None Musculoskeletal Surgical History: Reports: None Social & Family History - Family History Cardiac: Reports: HI - Tobacco Use Smoking Status *Q: Never Smoker Second Hand Smoke Exposure: No - Caffeine Use Caffeine Use: Reports: Coffee - Recreational Drug Use Recreational Drug Use: No - Living Situation & Occupation Living situation: Reports: , with Family Occupation: Retired (lives with his , [address] [place] of [place], [place].) ED ROS GENERAL - Review of Systems Review Of Systems: See Below Constitutional: Reports: Malaise. Denies: Fever, Chills, Decreased Appetite HEENT: Reports: No Symptoms Respiratory: Reports: Shortness of Breath. Denies: Cough Cardiovascular: Denies: Chest Pain (With activity), Palpitations GI/Abdominal: Denies: Abdominal Pain, Nausea, Vomiting Musculoskeletal: Reports: Back Pain (Chronic) Skin: Reports: No Symptoms Neurological: Reports: Tremors, Weakness, Gait Disturbance ED EXAM, GENERAL - Physical Exam Exam: See Below Free Text/Narrative:: Orthostatic blood pressures were obtained which were generally normal, there was some drop in diastolic pressure with standing Exam Limited By: No Limitations General Appearance: Alert, No Apparent Distress Throat/Mouth: Normal Inspection Head: Atraumatic Respiratory/Chest: No Respiratory Distress, Lungs Clear Cardiovascular: Regular Rate, Rhythm GI/Abdominal: Soft, Non-Tender Extremities: Normal Inspection. No: Pedal Edema Neurological: Alert, Oriented, No Motor/Sensory Deficits, Other (Romberg was negative although the patient was unsteady with standing with significant tremor ) Psychiatric: Normal Affect, Normal Mood Course - Vital Signs Last Recorded V/S: Last Vital Signs Temp 95.8 F 10/02/18 19:03 Pulse 77 10/02/18 19:03 Resp 20 10/02/18 19:03 BP 125/63 10/02/18 19:03 Pulse Ox 96 10/02/18 19:03 - Orders/Labs/Meds Labs: Laboratory Tests 10/02/18 10/02/18 10/02/18 Range/Units 19:30 19:30 19:58 WBC 11.0 (4.5-11.0) K/uL RBC 5.30 (4.30-5.90) M/uL Hgb 15.2 H (12.0-15.0) g/dL Hct 48.1 (40.0-54.0) % MCV 91 (80-98) fL MCH 29 (27-31) pg MCHC 32 (32-36) % Plt Count 205 (150-400) K/uL Neut % (Auto) 69 H (36-66) % Lymph % (Auto) 19 L (24-44) % [place] % (Auto) 9 H (2-6) % Eos % (Auto) 3 (2-4) % Baso % (Auto) 0 (0-1) % Sodium 144 (140-148) mmol/L Potassium 4.1 (3.6-5.2) mmol/L Chloride 102 (100-108) mmol/L Carbon Dioxide 32 (21-32) mmol/L Anion Gap 10.3 (5.0-14.0) mmol/L BUN 30 H (7-18) mg/dL Creatinine 1.7 H (0.8-1.3) mg/dL Est Cr Clr Drug Dosing 34.24 mL/min Estimated GFR (MDRD) 38 L (>60) Glucose 159 H (74-106) mg/dL Calcium 9.3 (8.5-10.1) mg/dL Total Bilirubin 0.4 (0.2-1.0) mg/dL AST 38 H (15-37) U/L ALT 69 (12-78) U/L Alkaline Phosphatase 103 (46-116) U/L Total Protein 7.7 (6.4-8.2) g/dL Albumin 3.6 (3.4-5.0) g/dL Globulin 4.1 H (2.3-3.5) g/dL Albumin/Globulin Ratio 0.9 L (1.2-2.2) TSH, Ultra Sensitive 3.058 (0.358-3.740) uIU/mL Urine Color Yellow Urine Appearance Clear Urine pH 5.0 (4.5-8.0) Ur Specific [place] 1.020 (1.008-1.030) Urine Protein Negative (NEGATIVE) mg/dL Urine Glucose (UA) Normal (NEGATIVE) mg/dL Urine Ketones Negative (NEGATIVE) mg/dL Urine Occult Blood Negative (NEGATIVE) Urine Nitrite Negative (NEGAITVE) Urine Bilirubin Negative (NEGATIVE) Urine Urobilinogen Normal (NORMAL) mg/dL Ur Leukocyte Esterase Negative (NEGATIVE) Urine RBC Not seen (0-5) Urine WBC 0-5 (0-5) Ur Epithelial Cells Few Amorphous Sediment Not seen Urine Bacteria Few Urine Mucus Moderate Urine Other - Re-Assessments/Exams Free Text/Narrative Re-Assessment/Exam: 10/02/18 23:05 CBC, CMP and TSH were obtained which were all reassuring. His kidney function is stable with past 2-3 years levels. UA was clear of infection. We discussed his medications at length, I think it would be reasonable to decrease his Bumex to 1 mg twice daily instead of 2 mg in the morning. He is only taking 25 mg of extended release metoprolol daily, I don't think a reduction will give much benefit. He'll try to decrease Bumex for the next few weeks while awaiting his appointments and return if worsening despite the change in medication. Departure - Departure Time of Disposition: 20:49 Disposition: Home, Self-Care 01 Clinical Impression: Syncope, near - Discharge Information Instructions: Near-Syncope Referrals: Leadbetter,Pedro, MD [Primary Care Provider] - Forms: ED Department Discharge Care Plan Goals: Try one half dose of Bumex in the morning for the next several days to see if it helps her symptoms. Recheck with cardiology and nephrology as scheduled. Return anytime if worsening or you develop concerns.
== END 2018-10-02 20:49 | disposition home or self-care (01) ==
LOC: JP.ED 18:24
DX: R55 Syncope and collapse (principal); I48.91 Unspecified atrial fibrillation; E11.22 Type 2 diabetes mellitus with diabetic chronic kidney disease; N28.9 Disorder of kidney and ureter, unspecified; I50.9 Heart failure, unspecified; I25.10 Atherosclerotic heart disease of native coronary artery without angina pectoris; K21.9 Gastro-esophageal reflux disease without esophagitis; I25.2 Old myocardial infarction; Z79.01 Long term (current) use of anticoagulants; Z79.899 Other long term (current) drug therapy; Z88.8 Allergy status to other drugs, medicaments and biological substances; Z91.041 Radiographic dye allergy status
CPT/HCPCS: 36415; 80053; 81001; 84443; 85025; 99284

== ENCOUNTER 2018-11-29 14:41 | Inpatient (IN) | payer MEDICARE, OTHER ==
--- NOTE | 2018-11-29 17:19 | EDM.PDOC ---
ED HPI GENERAL MEDICAL PROBLEM - General Chief Complaint: General Stated Complaint: MEDICAL VIA [facility] Time Seen by Provider: 11/29/18 16:07 Source of Information: Reports: Patient History Limitations: Reports: No Limitations - History of Present Illness INITIAL COMMENTS - FREE TEXT/NARRATIVE: 88 yo male presents to the ER via EMS with c/o weakness. Over the last 5 days has been feeling very weak was seen in UC 3 days ago dx cellulitis of left elbow and had bursa drained started on antibiotics. since Sunday he has been unable to get out of bed independently. afebrile. he does have HX of CKD and heart failure. denies SOB. present today with his and son Bilateral Foot Pain Score (Numeric/FACES): 10 - Related Data Allergies Allergy/AdvReac Type Severity Reaction Status Date / Time amlodipine Allergy Severe anaphylaxis Verified 11/29/18 16:48 dipyridamole Allergy Cannot Verified 11/29/18 16:48 Remember Iodinated Contrast- Oral and Allergy Rash Verified 11/29/18 16:48 IV Dye [Iodinated Contrast Media - IV Dye] rosuvastatin calcium AdvReac Muscle Verified 11/29/18 16:48 [From Crestor] Aches Home Meds: Home Meds Multivitamin with Minerals [Multiple Vitamin] 1 tab PO DAILY 09/29/13 [History] Omeprazole [Prilosec] 40 mg PO DAILY 09/29/13 [History] glipiZIDE [Glucotrol] 2.5 mg PO BID 07/14/14 [History] Nitroglycerin [IJP: Nitroglycerin] 0.4 mg PO ASDIRECTED PRN 07/24/16 [History] Metoprolol Succinate 25 mg PO ACBREAKFAST 09/03/16 [History] Bumetanide [Bumex] 2 mg PO DAILY 10/10/16 [History] Aspirin 81 mg PO DAILY 08/09/17 [History] Bumetanide 1 mg PO DAILY 08/09/17 [History] Warfarin [Coumadin] 5 mg PO DAILY 08/09/17 [History] Past Medical History HEENT History: Reports: Cataract, Impaired Vision, Other (See Below) Other HEENT History: optic neuropathy Cardiovascular History: Reports: Afib, Arrhythmia, Blood Clots/VTE/DVT, CAD, Heart Failure, VT, Pacemaker, Stents, Other (See Below) Other Cardiovascular History: cardiomegaly, sinoatrial node disfunction. Respiratory History: Reports: PE Other Respiratory History: pulm. valve disorder Gastrointestinal History: Reports: GERD Genitourinary History: Reports: BPH, Chronic Renal Insuffiency, UTI, Recurrent Other Genitourinary History: hx of urinary obstructions Musculoskeletal History: Reports: Back Pain, Chronic, Osteoarthritis Neurological History: Reports: CVA Psychiatric History: Reports: Anxiety Endocrine/Metabolic History: Reports: Diabetes, Type II Hematologic History: Reports: Blood Transfusion(s) - Infectious Disease History Infectious Disease History: Reports: Chicken Pox, Measles, Mumps - Past Surgical History HEENT Surgical History: Reports: Cataract Surgery Cardiovascular Surgical History: Reports: Cardiac Ablation, Coronary Artery Stent Social & Family History - Family History Cardiac: Reports: VT - Tobacco Use Smoking Status *Q: Never Smoker - Caffeine Use Caffeine Use: Reports: Coffee - Recreational Drug Use Recreational Drug Use: No - Living Situation & Occupation Living situation: Reports: , with Family Occupation: Retired (lives with his , [address] [place] of [place], [place].) ED ROS GENERAL - Review of Systems Review Of Systems: See Below Constitutional: Reports: Malaise, Fatigue. Denies: Fever, Chills Respiratory: Denies: Shortness of Breath, Wheezing Cardiovascular: Denies: Chest Pain GI/Abdominal: Reports: Distension. Denies: Abdominal Pain ED EXAM, GENERAL - Physical Exam Exam: See Below Exam Limited By: No Limitations General Appearance: Alert, WD/WN, No Apparent Distress Head: Atraumatic, Normocephalic Respiratory/Chest: No Respiratory Distress, Lungs Clear, Normal Breath Sounds, No Accessory Muscle Use, Chest Non-Tender, Decreased Breath Sounds Cardiovascular: Regular Rate, Rhythm, Systolic Murmur, Other (2+ edema right foot and nonpitting to bilateral hands) Course - Vital Signs Last Recorded V/S: Last Vital Signs Temp 36.7 C 11/29/18 16:44 Pulse 74 11/29/18 17:06 Resp 24 H 11/29/18 16:44 BP 148/63 H 11/29/18 17:06 Pulse Ox 97 11/29/18 17:06 - Orders/Labs/Meds Labs: Laboratory Tests 11/29/18 11/29/18 11/29/18 Range/Units 16:40 16:50 16:53 WBC 13.4 H (4.5-11.0) K/uL RBC 4.96 (4.30-5.90) M/uL Hgb 14.1 (12.0-15.0) g/dL Hct 43.3 (40.0-54.0) % MCV 87 (80-98) fL MCH 28 (27-31) pg MCHC 33 (32-36) % Plt Count 159 (150-400) K/uL Neut % (Auto) 79 H (36-66) % Lymph % (Auto) 10 L (24-44) % [place] % (Auto) 11 H (2-6) % Eos % (Auto) 1 L (2-4) % Baso % (Auto) 0 (0-1) % PT (9.5-12.0) sec INR (0.80-1.20) Sodium (140-148) mmol/L Potassium (3.6-5.2) mmol/L Chloride (100-108) mmol/L Carbon Dioxide (21-32) mmol/L Anion Gap (5.0-14.0) mmol/L BUN (7-18) mg/dL Creatinine (0.8-1.3) mg/dL Est Cr Clr Drug Dosing mL/min Estimated GFR (MDRD) (>60) Glucose (74-106) mg/dL Lactic Acid 1.7 (0.4-2.0) mmol/L Calcium (8.5-10.1) mg/dL Total Bilirubin (0.2-1.0) mg/dL AST (15-37) U/L ALT (12-78) U/L Alkaline Phosphatase (46-116) U/L NT-Pro-B Natriuret Pep (5-450) pg/mL Total Protein (6.4-8.2) g/dL Albumin (3.4-5.0) g/dL Globulin (2.3-3.5) g/dL Albumin/Globulin Ratio (1.2-2.2) Urine Color Yellow Urine Appearance Slightly cloudy Urine pH 5.0 (4.5-8.0) Ur Specific [place] 1.020 (1.008-1.030) Urine Protein Trace (NEGATIVE) mg/dL Urine Glucose (UA) Normal (NEGATIVE) mg/dL Urine Ketones Negative (NEGATIVE) mg/dL Urine Occult Blood Large (NEGATIVE) Urine Nitrite Negative (NEGAITVE) Urine Bilirubin Negative (NEGATIVE) Urine Urobilinogen Normal (NORMAL) mg/dL Ur Leukocyte Esterase Negative (NEGATIVE) Urine RBC 10-20 H (0-5) Urine WBC 0-5 (0-5) Ur Epithelial Cells Few Amorphous Sediment Not seen Urine Bacteria Few Urine Mucus Few Urine Other 11/29/18 11/29/18 Range/Units 16:53 17:04 WBC (4.5-11.0) K/uL RBC (4.30-5.90) M/uL Hgb (12.0-15.0) g/dL Hct (40.0-54.0) % MCV (80-98) fL MCH (27-31) pg MCHC (32-36) % Plt Count (150-400) K/uL Neut % (Auto) (36-66) % Lymph % (Auto) (24-44) % [place] % (Auto) (2-6) % Eos % (Auto) (2-4) % Baso % (Auto) (0-1) % PT 27.8 H (9.5-12.0) sec INR 2.67 H D (0.80-1.20) Sodium 140 (140-148) mmol/L Potassium 3.7 (3.6-5.2) mmol/L Chloride 100 (100-108) mmol/L Carbon Dioxide 30 (21-32) mmol/L Anion Gap 10.0 (5.0-14.0) mmol/L BUN 27 H (7-18) mg/dL Creatinine 1.7 H (0.8-1.3) mg/dL Est Cr Clr Drug Dosing 34.24 mL/min Estimated GFR (MDRD) 38 L (>60) Glucose 107 H (74-106) mg/dL Lactic Acid (0.4-2.0) mmol/L Calcium 8.5 (8.5-10.1) mg/dL Total Bilirubin 0.9 D (0.2-1.0) mg/dL AST 24 (15-37) U/L ALT 46 (12-78) U/L Alkaline Phosphatase 80 (46-116) U/L NT-Pro-B Natriuret Pep 2834 H (5-450) pg/mL Total Protein 7.1 (6.4-8.2) g/dL Albumin 3.0 L (3.4-5.0) g/dL Globulin 4.1 H (2.3-3.5) g/dL Albumin/Globulin Ratio 0.7 L (1.2-2.2) Urine Color Urine Appearance Urine pH (4.5-8.0) Ur Specific [place] (1.008-1.030) Urine Protein (NEGATIVE) mg/dL Urine Glucose (UA) (NEGATIVE) mg/dL Urine Ketones (NEGATIVE) mg/dL Urine Occult Blood (NEGATIVE) Urine Nitrite (NEGAITVE) Urine Bilirubin (NEGATIVE) Urine Urobilinogen (NORMAL) mg/dL Ur Leukocyte Esterase (NEGATIVE) Urine RBC (0-5) Urine WBC (0-5) Ur Epithelial Cells Amorphous Sediment Urine Bacteria Urine Mucus Urine Other Meds: Medications Discontinued Medications Generic Name Dose Route Start Last Admin Trade Name Freq PRN Reason Stop Dose Admin Furosemide 40 mg 11/29/18 17:54 Lasix IVPUSH 11/29/18 17:55 ONETIME ONE - Re-Assessments/Exams Free Text/Narrative Re-Assessment/Exam: 11/29/18 18:12 pt will be admitted general medical, Dr. Kenney accepted pt Departure - Departure Time of Disposition: 18:13 Disposition: Admitted As Inpatient 66 Condition: Good Clinical Impression: CHF (congestive heart failure) Qualifiers: Qualified Code(s): I50.22 - Chronic systolic (congestive) heart failure - Discharge Information *PRESCRIPTION DRUG MONITORING PROGRAM REVIEWED*: Not Applicable *COPY OF PRESCRIPTION DRUG MONITORING REPORT IN PATIENT EDIL: Not Applicable Referrals: PCP,None [Primary Care Provider] - Forms: ED Department Discharge
[2018-11-29] MEDS ORDERED: Furosemide 40 MG/4 ML VIAL IVPUSH ONE (17:54)
--- NOTE | 2018-11-29 18:59 | PCM.HP ---
H&P History of Present Illness - General Date of Service: 11/29/18 Admit Problem/Dx: Admission Diagnosis/Problem Admission Diagnosis/Problem Inflammatory polyarthropathy Source of Information: Patient, Family, Provider History Limitations: Reports: No Limitations - History of Present Illness Initial Comments - Free Text/Narative: CC: I'm so fricken weak I can't sit up HPI: Fredrick presents to the emergency room today with concerns about weakness. 2 days ago he was taking a bath and he was so weak that she could not get out of the bathtub. He was seen later that day in the walk-in clinic because of concerns of left elbow pain and swelling. He reports they drained a small amount of fluid and started him on Augmentin for possible cellulitis/bursitis. his elbow remains tender to touch and still has some swelling and warmth as well as mild redness. He reports 3 days of moderately severe pain which is sharp with a persistent achy component in the right knee. pain is worse trying to put any weight on it. He hasn't taken anything at home to make it feel better. He has chronic pain in the right knee but this is dramatically different. The knee has also been swollen and warm to touch. He did not have a fall or injury to the knee. He is not aware of any fevers or chills at home. He does feel like he gets winded a little bit quicker than usual. He does have orthopnea but it is not different than usual. No lower extremity edema. He does not check his weight regularly. No complaints of cough. He does report an episode of chest pain a couple weeks ago but has not had any since then. He also reports swelling, warmth and pain in the right dorsum of the hand and wrist. Workup in the emergency room revealed polyarthritis with the right knee, right wrist and left elbow involved. Uric acid level is greater than 10. I don't find any strong evidence for infection other than possibly a localized infection in the left elbow with bursitis the most likely diagnosis. Kidney function is stable. No evidence for heart failure exacerbation. He is extremely weak and unable to bear any weight at this time. He will be admitted for further management. Bilateral Foot Pain Score (Numeric/FACES): 10 - Related Data Allergies/Adverse Reactions: Allergies Allergy/AdvReac Type Severity Reaction Status Date / Time amlodipine Allergy Severe anaphylaxis Verified 11/29/18 16:48 dipyridamole Allergy Cannot Verified 11/29/18 16:48 Remember Iodinated Contrast- Oral and Allergy Rash Verified 11/29/18 16:48 IV Dye [Iodinated Contrast Media - IV Dye] rosuvastatin calcium AdvReac Muscle Verified 11/29/18 16:48 [From Crestor] Aches Home Medications: Home Meds Multivitamin with Minerals [Multiple Vitamin] 1 tab PO DAILY 09/29/13 [History] Omeprazole [Prilosec] 40 mg PO DAILY PRN 09/29/13 [History] glipiZIDE [Glucotrol] 2.5 mg PO BIDAC 07/14/14 [History] Nitroglycerin [IJP: Nitroglycerin] 0.4 mg PO ASDIRECTED PRN 07/24/16 [History] Bumetanide [Bumex] 2 mg PO DAILY 10/10/16 [History] Warfarin [Coumadin] 2.5 mg PO DAILY 08/09/17 [History] Past Medical History HEENT History: Reports: Cataract, Impaired Vision, Other (See Below) Other HEENT History: optic neuropathy Cardiovascular History: Reports: Afib, Arrhythmia, Blood Clots/VTE/DVT, CAD, Heart Failure, [place], Pacemaker, Stents, Other (See Below) Other Cardiovascular History: cardiomegaly, sinoatrial node disfunction. Respiratory History: Reports: PE Other Respiratory History: pulm. valve disorder Gastrointestinal History: Reports: GERD Genitourinary History: Reports: BPH, Chronic Renal Insuffiency, UTI, Recurrent Other Genitourinary History: hx of urinary obstructions Musculoskeletal History: Reports: Back Pain, Chronic, Osteoarthritis Neurological History: Reports: CVA Psychiatric History: Reports: Anxiety Endocrine/Metabolic History: Reports: Diabetes, Type II Hematologic History: Reports: Blood Transfusion(s) - Infectious Disease History Infectious Disease History: Reports: Chicken Pox, Measles, Mumps - Past Surgical History HEENT Surgical History: Reports: Cataract Surgery Cardiovascular Surgical History: Reports: Cardiac Ablation, Coronary Artery Stent Social & Family History - Family History Cardiac: Reports: IN - Tobacco Use Smoking Status *Q: Never Smoker - Caffeine Use Caffeine Use: Reports: Coffee - Alcohol Use Alcohol Use History: No - Recreational Drug Use Recreational Drug Use: No - Living Situation & Occupation Living situation: Reports: , with Family Occupation: Retired (lives with his , [address] [place], [place].) H&P Review of Systems - Review of Systems: Review Of Systems: See Below Free Text/Narrative: A complete 12 point review of systems was obtained. Pertinent positives and negatives are noted in the history of present illness. All other systems were reviewed and were negative except as noted. Exam - Exam Exam: See Below - Vital Signs Vital Signs: Last Vital Signs Temp 36.7 C 11/29/18 16:44 Pulse 74 11/29/18 17:06 Resp 24 H 11/29/18 16:44 BP 148/63 H 11/29/18 17:06 Pulse Ox 97 11/29/18 17:06 Weight: 220 kg - Exam Quality Assessment: No: Supplemental Oxygen General: Alert, Oriented, Cooperative. No: Mild Distress HEENT: Conjunctiva Clear, Mucosa Moist & [place]. No: Scleral Icterus Neck: Supple, Trachea Midline. No: Lymphadenopathy Lungs: Clear to Auscultation, Normal Respiratory Effort Cardiovascular: Regular Rate, Irregular Rhythm, Systolic Murmur GI/Abdominal Exam: Normal Bowel Sounds, Soft, Non-Tender, No Distention Extremities: No Pedal Edema, Joint Swelling (Right knee and left elbow), Increased Warmth (right knee, right hand luanne over MCP's and left elbow. ) Peripheral Pulses: 2+: Dorsalis Pedis (L), Dorsalis Pedis (R) Skin: Warm, Dry. No: Rash Neuro Extensive - Mental Status: Alert, Oriented x3, Nl Response to Commands Neuro Extensive - Motor, Sensory, Reflexes: No: Dysarthria, Abnormal Motor, Tremor Psychiatric: Alert, Normal Affect - Patient Data Lab Results Last 24 hrs: Laboratory Results - last 24 hr 11/29/18 11/29/18 11/29/18 Range/Units 16:40 16:50 16:53 WBC 13.4 H (4.5-11.0) K/uL RBC 4.96 (4.30-5.90) M/uL Hgb 14.1 (12.0-15.0) g/dL Hct 43.3 (40.0-54.0) % MCV 87 (80-98) fL MCH 28 (27-31) pg MCHC 33 (32-36) % Plt Count 159 (150-400) K/uL Neut % (Auto) 79 H (36-66) % Lymph % (Auto) 10 L (24-44) % [place] % (Auto) 11 H (2-6) % Eos % (Auto) 1 L (2-4) % Baso % (Auto) 0 (0-1) % PT (9.5-12.0) sec INR (0.80-1.20) Sodium (140-148) mmol/L Potassium (3.6-5.2) mmol/L Chloride (100-108) mmol/L Carbon Dioxide (21-32) mmol/L Anion Gap (5.0-14.0) mmol/L BUN (7-18) mg/dL Creatinine (0.8-1.3) mg/dL Est Cr Clr Drug Dosing mL/min Estimated GFR (MDRD) (>60) Glucose (74-106) mg/dL Lactic Acid 1.7 (0.4-2.0) mmol/L Calcium (8.5-10.1) mg/dL Total Bilirubin (0.2-1.0) mg/dL AST (15-37) U/L ALT (12-78) U/L Alkaline Phosphatase (46-116) U/L NT-Pro-B Natriuret Pep (5-450) pg/mL Total Protein (6.4-8.2) g/dL Albumin (3.4-5.0) g/dL Globulin (2.3-3.5) g/dL Albumin/Globulin Ratio (1.2-2.2) Urine Color Yellow Urine Appearance Slightly cloudy Urine pH 5.0 (4.5-8.0) Ur Specific [place] 1.020 (1.008-1.030) Urine Protein Trace (NEGATIVE) mg/dL Urine Glucose (UA) Normal (NEGATIVE) mg/dL Urine Ketones Negative (NEGATIVE) mg/dL Urine Occult Blood Large (NEGATIVE) Urine Nitrite Negative (NEGAITVE) Urine Bilirubin Negative (NEGATIVE) Urine Urobilinogen Normal (NORMAL) mg/dL Ur Leukocyte Esterase Negative (NEGATIVE) Urine RBC 10-20 H (0-5) Urine WBC 0-5 (0-5) Ur Epithelial Cells Few Amorphous Sediment Not seen Urine Bacteria Few Urine Mucus Few Urine Other 11/29/18 11/29/18 Range/Units 16:53 17:04 WBC (4.5-11.0) K/uL RBC (4.30-5.90) M/uL Hgb (12.0-15.0) g/dL Hct (40.0-54.0) % MCV (80-98) fL MCH (27-31) pg MCHC (32-36) % Plt Count (150-400) K/uL Neut % (Auto) (36-66) % Lymph % (Auto) (24-44) % [place] % (Auto) (2-6) % Eos % (Auto) (2-4) % Baso % (Auto) (0-1) % PT 27.8 H (9.5-12.0) sec INR 2.67 H D (0.80-1.20) Sodium 140 (140-148) mmol/L Potassium 3.7 (3.6-5.2) mmol/L Chloride 100 (100-108) mmol/L Carbon Dioxide 30 (21-32) mmol/L Anion Gap 10.0 (5.0-14.0) mmol/L BUN 27 H (7-18) mg/dL Creatinine 1.7 H (0.8-1.3) mg/dL Est Cr Clr Drug Dosing 34.24 mL/min Estimated GFR (MDRD) 38 L (>60) Glucose 107 H (74-106) mg/dL Lactic Acid (0.4-2.0) mmol/L Calcium 8.5 (8.5-10.1) mg/dL Total Bilirubin 0.9 D (0.2-1.0) mg/dL AST 24 (15-37) U/L ALT 46 (12-78) U/L Alkaline Phosphatase 80 (46-116) U/L NT-Pro-B Natriuret Pep 2834 H (5-450) pg/mL Total Protein 7.1 (6.4-8.2) g/dL Albumin 3.0 L (3.4-5.0) g/dL Globulin 4.1 H (2.3-3.5) g/dL Albumin/Globulin Ratio 0.7 L (1.2-2.2) Urine Color Urine Appearance Urine pH (4.5-8.0) Ur Specific [place] (1.008-1.030) Urine Protein (NEGATIVE) mg/dL Urine Glucose (UA) (NEGATIVE) mg/dL Urine Ketones (NEGATIVE) mg/dL Urine Occult Blood (NEGATIVE) Urine Nitrite (NEGAITVE) Urine Bilirubin (NEGATIVE) Urine Urobilinogen (NORMAL) mg/dL Ur Leukocyte Esterase (NEGATIVE) Urine RBC (0-5) Urine WBC (0-5) Ur Epithelial Cells Amorphous Sediment Urine Bacteria Urine Mucus Urine Other Result Diagrams: 11/29/18 16:53 11/29/18 16:53 Imaging Impressions Last 24 hrs: CXR - images personally reviewed - lungs are clear with no mass, infiltrate or effusion. Heart size is normal. Evidence for previous sternotomy and pacemaker. Right knee x-ray - images personally reviewed - there is severe medial compartment arthritis as well as a moderate joint effusion. No evidence for fracture or dislocation. *Q Meaningful Use (ADM) - VTE Risk Assess *Q Each Risk Factor Represents 1 Point: Obesity ( BMI > 25 kg/m2), Congestive heart failure (CHF) Total Score 1 Point Risk Factors: 2 Each Risk Factor Represents 2 Points: None Total Score 2 Point Risk Factors: 0 Each Risk Factor Represents 3 Points: Age 75 Years or Greater, History of DVT/PE Total Score 3 Point Risk Factors: 6 Each Risk Factor Represents 5 Points: None Total Score 5 Point Risk Factors: 0 Venous Thromboembolism Risk Factor Score *Q: 8 - Problem List (1) Inflammatory polyarthropathy SNOMED Code(s): 087850197 ICD Code: M06.4 - INFLAMMATORY POLYARTHROPATHY Status: Acute Current Visit: Yes (2) Generalized weakness SNOMED Code(s): 40972725 ICD Code: R53.1 - WEAKNESS Status: Acute Current Visit: Yes (3) Diabetes type 2, controlled SNOMED Code(s): 88474780, 812237174 ICD Code: E11.9 - TYPE 2 DIABETES MELLITUS WITHOUT COMPLICATIONS Status: Chronic Priority: High Current Visit: No Qualifiers: Diabetes mellitus [facility] insulin use: without long term care phlebotomist use Diabetes mellitus complication status: with unspecified complications Qualified Code(s) : E11.8 - Type 2 diabetes mellitus with unspecified complications (4) Systolic CHF with reduced left ventricular function, NYHA class 2 SNOMED Code(s): 939710418, 625456088, 016752512 ICD Code: I50.20 - UNSPECIFIED SYSTOLIC (CONGESTIVE) HEART FAILURE Status: Chronic Current Visit: No (5) Stage III chronic kidney disease SNOMED Code(s): 379778983 ICD Code: N18.3 - CHRONIC KIDNEY DISEASE, STAGE 3 (MODERATE) Status: Chronic Current Visit: No Problem List Initiated/Reviewed/Updated: Yes Orders Last 24hrs: Active Orders 24 hr Category Date Time Status Patient Status Manage Transfer [TRANSFER] Routine ADT 11/29/18 18:42 Ordered Chest 1V Frontal [CR] Stat Exams 11/29/18 18:34 Ordered Knee 3V Rt [CR] Stat Exams 11/29/18 18:34 Ordered PROCALCITONIN [CHEM] Stat Lab 11/29/18 18:34 Ordered URIC ACID [CHEM] Stat Lab 11/29/18 18:34 Ordered Resuscitation Status Routine Resus Stat 11/29/18 18:46 Ordered Assessment/Plan Comment:: ASSESSMENT AND PLAN - Inflammatory polyarthropathy, suspect gout - no history of gout but uric acid level is greater than 10.left elbow, right wrist and right knee are involved at this time. With his chronic kidney disease he is not a great candidate for nonsteroidal drugs. -Prednisone 20 mg daily 3 days -consider allopurinol once flare has resolved -Physical therapy for strengthening tomorrow Possible left elbow bursitis - vision test swelling, warmth and some erythema and did have recent aspiration of bursa fluid. Cultures pending at this time. -Cefazolin -Follow-up cultures Chronic systolic congestive heart failure - appears well compensated at this time. He is no longer on a beta gera because of hypotension and dizziness. -Consider restarting diuretic in the morning Chronic atrial fibrillation - rate control is excellent at this time. He is chronically anticoagulated. -Hold warfarin and repeat INR in the morning Type 2 diabetes mellitus - blood sugar normal at this time. He is on twice daily oral medications. -Hold oral medications -Low-dose sliding scale insulin if needed -A1c in the morning Stage IIIb chronic kidney disease - creatinine near baseline at this time. Maintenance issues - - DVT prophylaxis - warfarin - GI prophylaxis - not indicated - Nutrition - low sodium - Busch catheter - not indicated CODE STATUS - full code Admission justification - This patient will be admitted for inpatient services and is medically appropriate meeting medical necessity for inpatient admission as outlined in my documentation. I reasonably expect the patient will require inpatient services that span a period time over 2 midnights. I reasonably expect this patient to be discharged or transferred within 96 hours [facility]. Disposition - I would anticipate discharge home versus possibly the halfway after the hospital stay Primary care physician - Dr. Syed Kenney M.D.
[2018-11-29] MEDS ORDERED: predniSONE 20 MG Tab PO ONE (19:21)
[2018-11-29] MEDS ORDERED: Albuterol 0.083% 2.5 MG/3 ML Neb Soln NEB PRN (19:21)
[2018-11-29] MEDS ORDERED: Ondansetron 4 MG/2 ML SDV IV PRN (19:21)
[2018-11-29] MEDS ORDERED: Magnesium Hydroxide 400 MG/5 ML Susp 30 ML Cup PO PRN (19:21)
[2018-11-29] MEDS ORDERED: Acetaminophen 325 MG Tab PO PRN (19:21)
[2018-11-29] MEDS ORDERED: Ondansetron 4 MG Tab.DIS PO PRN (19:21)
[2018-11-29] MEDS ORDERED: oxyCODONE 5 MG Tab PO PRN (19:21)
--- NOTE | 2018-11-29 19:39 | CRLCR ---
INDICATION: Shortness of breath TECHNIQUE: Chest 1 view. COMPARISON: None FINDINGS: Cardiovascular and mediastinum: Heart size and vasculature are normal in caliber and appearance. Mediastinum is within normal limits. Sternotomy wires and right-sided transvenous pacer device. Lungs and pleural space: Lungs are clear. No sign of infiltrate or mass. No sign of pleural effusion. No pneumothorax. Bones and soft tissues: No significant findings. IMPRESSION: Unremarkable chest. Dictated by Dontrell Paredes MD @ 11/29/2018 7:38:11 PM Dictated by: Dontrell Paredes MD @ 11/29/2018 19:38:17 (Electronically Signed)
[2018-11-29] MEDS: ceFAZolin 1 GM in Sodium Chloride 0.9% 50 ML IV SCH (20:57)
[2018-11-29] MEDS: Melatonin 3 MG Tab PO SCH (21:05)
[2018-11-29] MEDS: Lactobacillus Rhamnosus GG (Probiotic) Cap PO SCH (21:05)
[2018-11-29] MEDS: Insulin Lispro 100 Unit/ML 3 ML KwikPen SUBCUT SCH (21:06)
[2018-11-30] MEDS: ceFAZolin 1 GM in Sodium Chloride 0.9% 50 ML IV SCH (03:02)
[2018-11-30] MEDS: Insulin Lispro 100 Unit/ML 3 ML KwikPen SUBCUT SCH ×4 (08:13→21:25)
[2018-11-30] MEDS: predniSONE 20 MG Tab PO SCH (08:25)
[2018-11-30] MEDS: Bumetanide 1 MG Tab PO SCH (09:36)
[2018-11-30] MEDS: Lactobacillus Rhamnosus GG (Probiotic) Cap PO SCH ×2 (09:36→20:28)
[2018-11-30] MEDS: ceFAZolin 1 GM in Premix Bag 1 BAG IV SCH ×2 (11:27→20:27)
--- NOTE | 2018-11-30 12:02 | PCM.PN ---
- General Info Date of Service: 11/30/18 Subjective Update: There were no acute events overnight. Patient reports he did not sleep very well. Right hand and right knee pain have improved. Right hand and right knee swelling have improved. Left elbow swelling and warmth have improved but the outlook for non-bursa remains tender. It is not as swollen as yesterday. Right foot swelling and tenderness are stable to slightly improved compared to yesterday. Blood sugars have risen moderately with the steroids. Kidney function is stable. He remains extremely weak and required heavy assistance from 2 people to get from the bed to the chair. Functional Status: Reports: Pain Controlled, Tolerating Diet - Review of Systems General: Reports: Weakness Musculoskeletal: Reports: Foot Pain, Joint Pain - Patient Data Vitals - Most Recent: Last Vital Signs Temp 35.3 C 11/30/18 10:32 Pulse 63 11/30/18 10:32 Resp 16 11/30/18 10:32 BP 120/44 L 11/30/18 10:32 Pulse Ox 95 11/30/18 10:32 Weight - Most Recent: 99.564 kg I&O - Last 24 Hours: Intake & Output 11/29/18 11/30/18 11/30/18 22:59 06:59 14:59 Intake Total 240 550 350 Output Total 150 75 Balance 90 475 350 Lab Results Last 24 Hours: Laboratory Results - last 24 hr 11/29/18 11/29/18 11/29/18 Range/Units 16:40 16:50 16:53 WBC 13.4 H (4.5-11.0) K/uL RBC 4.96 (4.30-5.90) M/uL Hgb 14.1 (12.0-15.0) g/dL Hct 43.3 (40.0-54.0) % MCV 87 (80-98) fL MCH 28 (27-31) pg MCHC 33 (32-36) % Plt Count 159 (150-400) K/uL Neut % (Auto) 79 H (36-66) % Lymph % (Auto) 10 L (24-44) % [facility] % (Auto) 11 H (2-6) % Eos % (Auto) 1 L (2-4) % Baso % (Auto) 0 (0-1) % PT (9.5-12.0) sec INR (0.80-1.20) Sodium (140-148) mmol/L Potassium (3.6-5.2) mmol/L Chloride (100-108) mmol/L Carbon Dioxide (21-32) mmol/L Anion Gap (5.0-14.0) mmol/L BUN (7-18) mg/dL Creatinine (0.8-1.3) mg/dL Est Cr Clr Drug Dosing mL/min Estimated GFR (MDRD) (>60) Glucose (74-106) mg/dL Lactic Acid 1.7 (0.4-2.0) mmol/L Uric Acid (3.5-7.2) mg/dL Calcium (8.5-10.1) mg/dL Total Bilirubin (0.2-1.0) mg/dL AST (15-37) U/L ALT (12-78) U/L Alkaline Phosphatase (46-116) U/L NT-Pro-B Natriuret Pep (5-450) pg/mL Total Protein (6.4-8.2) g/dL Albumin (3.4-5.0) g/dL Globulin (2.3-3.5) g/dL Albumin/Globulin Ratio (1.2-2.2) Procalcitonin ng/mL Urine Color Yellow Urine Appearance Slightly cloudy Urine pH 5.0 (4.5-8.0) Ur Specific Hanson 1.020 (1.008-1.030) Urine Protein Trace (NEGATIVE) mg/dL Urine Glucose (UA) Normal (NEGATIVE) mg/dL Urine Ketones Negative (NEGATIVE) mg/dL Urine Occult Blood Large (NEGATIVE) Urine Nitrite Negative (NEGAITVE) Urine Bilirubin Negative (NEGATIVE) Urine Urobilinogen Normal (NORMAL) mg/dL Ur Leukocyte Esterase Negative (NEGATIVE) Urine RBC 10-20 H (0-5) Urine WBC 0-5 (0-5) Ur Epithelial Cells Few Amorphous Sediment Not seen Urine Bacteria Few Urine Mucus Few Urine Other 11/29/18 11/29/18 11/29/18 Range/Units 16:53 17:04 18:34 WBC (4.5-11.0) K/uL RBC (4.30-5.90) M/uL Hgb (12.0-15.0) g/dL Hct (40.0-54.0) % MCV (80-98) fL MCH (27-31) pg MCHC (32-36) % Plt Count (150-400) K/uL Neut % (Auto) (36-66) % Lymph % (Auto) (24-44) % [facility] % (Auto) (2-6) % Eos % (Auto) (2-4) % Baso % (Auto) (0-1) % PT 27.8 H (9.5-12.0) sec INR 2.67 H D (0.80-1.20) Sodium 140 (140-148) mmol/L Potassium 3.7 (3.6-5.2) mmol/L Chloride 100 (100-108) mmol/L Carbon Dioxide 30 (21-32) mmol/L Anion Gap 10.0 (5.0-14.0) mmol/L BUN 27 H (7-18) mg/dL Creatinine 1.7 H (0.8-1.3) mg/dL Est Cr Clr Drug Dosing 34.24 mL/min Estimated GFR (MDRD) 38 L (>60) Glucose 107 H (74-106) mg/dL Lactic Acid (0.4-2.0) mmol/L Uric Acid 10.5 H (3.5-7.2) mg/dL Calcium 8.5 (8.5-10.1) mg/dL Total Bilirubin 0.9 D (0.2-1.0) mg/dL AST 24 (15-37) U/L ALT 46 (12-78) U/L Alkaline Phosphatase 80 (46-116) U/L NT-Pro-B Natriuret Pep 2834 H (5-450) pg/mL Total Protein 7.1 (6.4-8.2) g/dL Albumin 3.0 L (3.4-5.0) g/dL Globulin 4.1 H (2.3-3.5) g/dL Albumin/Globulin Ratio 0.7 L (1.2-2.2) Procalcitonin 0.25 ng/mL Urine Color Urine Appearance Urine pH (4.5-8.0) Ur Specific Hanson (1.008-1.030) Urine Protein (NEGATIVE) mg/dL Urine Glucose (UA) (NEGATIVE) mg/dL Urine Ketones (NEGATIVE) mg/dL Urine Occult Blood (NEGATIVE) Urine Nitrite (NEGAITVE) Urine Bilirubin (NEGATIVE) Urine Urobilinogen (NORMAL) mg/dL Ur Leukocyte Esterase (NEGATIVE) Urine RBC (0-5) Urine WBC (0-5) Ur Epithelial Cells Amorphous Sediment Urine Bacteria Urine Mucus Urine Other 11/30/18 11/30/18 11/30/18 Range/Units 05:04 05:04 05:04 WBC 12.9 H (4.5-11.0) K/uL RBC 4.49 (4.30-5.90) M/uL Hgb 12.8 (12.0-15.0) g/dL Hct 39.5 L (40.0-54.0) % MCV 88 (80-98) fL MCH 29 (27-31) pg MCHC 32 (32-36) % Plt Count 151 (150-400) K/uL Neut % (Auto) (36-66) % Lymph % (Auto) (24-44) % [facility] % (Auto) (2-6) % Eos % (Auto) (2-4) % Baso % (Auto) (0-1) % PT 29.0 H (9.5-12.0) sec INR 2.79 H (0.80-1.20) Sodium 139 L (140-148) mmol/L Potassium 4.0 (3.6-5.2) mmol/L Chloride 102 (100-108) mmol/L Carbon Dioxide 28 (21-32) mmol/L Anion Gap 13.0 (5.0-14.0) mmol/L BUN 30 H (7-18) mg/dL Creatinine 1.7 H (0.8-1.3) mg/dL Est Cr Clr Drug Dosing 34.24 mL/min Estimated GFR (MDRD) 38 L (>60) Glucose 222 H (74-106) mg/dL Lactic Acid (0.4-2.0) mmol/L Uric Acid (3.5-7.2) mg/dL Calcium 8.2 L (8.5-10.1) mg/dL Total Bilirubin (0.2-1.0) mg/dL AST (15-37) U/L ALT (12-78) U/L Alkaline Phosphatase (46-116) U/L NT-Pro-B Natriuret Pep (5-450) pg/mL Total Protein (6.4-8.2) g/dL Albumin (3.4-5.0) g/dL Globulin (2.3-3.5) g/dL Albumin/Globulin Ratio (1.2-2.2) Procalcitonin ng/mL Urine Color Urine Appearance Urine pH (4.5-8.0) Ur Specific Hanson (1.008-1.030) Urine Protein (NEGATIVE) mg/dL Urine Glucose (UA) (NEGATIVE) mg/dL Urine Ketones (NEGATIVE) mg/dL Urine Occult Blood (NEGATIVE) Urine Nitrite (NEGAITVE) Urine Bilirubin (NEGATIVE) Urine Urobilinogen (NORMAL) mg/dL Ur Leukocyte Esterase (NEGATIVE) Urine RBC (0-5) Urine WBC (0-5) Ur Epithelial Cells Amorphous Sediment Urine Bacteria Urine Mucus Urine Other Med Orders - Current: Current Medications Acetaminophen (Tylenol) 650 mg PO Q4H PRN PRN Reason: Pain (Mild 1-3)/fever Last Admin: 11/30/18 08:24 Dose: 650 mg Albuterol (Proventil Neb Soln) 2.5 mg NEB Q4H PRN PRN Reason: Shortness Of Breath/wheezing Bumetanide (Bumex) 2 mg PO DAILY [facility] Last Admin: 11/30/18 09:36 Dose: 2 mg Cefazolin Sodium/Dextrose 1 gm (/ Premix) 50 mls @ 100 mls/hr IV Q8H [facility] Last Admin: 11/30/18 11:27 Dose: 100 mls/hr Insulin Human Lispro (Humalog) 0 unit SUBCUT QIDACANDBED [facility]; Protocol Last Admin: 11/30/18 11:29 Dose: 4 units Lactobacillus Rhamnosus (Culturelle) 1 cap PO BID [facility] Last Admin: 11/30/18 09:36 Dose: 1 cap Magnesium Hydroxide (Milk Of Magnesia) 30 ml PO Q12H PRN PRN Reason: Constipation Melatonin (Melatonin) 9 mg PO BEDTIME [facility] Last Admin: 11/29/18 21:05 Dose: 9 mg Ondansetron HCl (Zofran Odt) 4 mg PO Q6H PRN PRN Reason: Nausea able to take PO Ondansetron HCl (Zofran) 4 mg IV Q6H PRN PRN Reason: Nausea/Vomiting Oxycodone HCl (Oxycodone) 5 mg PO Q4H PRN PRN Reason: Pain Last Admin: 11/29/18 23:42 Dose: 5 mg Prednisone (Prednisone) 20 mg PO WITHBREAKFAST DURGA Stop: 12/01/18 08:01 Last Admin: 11/30/18 08:25 Dose: 20 mg Senna/Docusate Sodium (Senna Plus) 1 tab PO BID PRN PRN Reason: Constipation Last Admin: 11/30/18 08:42 Dose: 1 tab Discontinued Medications Furosemide (Lasix) 40 mg IVPUSH ONETIME ONE Stop: 11/29/18 17:55 Last Admin: 11/29/18 19:30 Dose: Not Given Cefazolin Sodium 1 gm/ Sodium (Chloride) 50 mls @ 200 mls/hr IV Q8H DURGA Last Admin: 11/30/18 03:02 Dose: 200 mls/hr Prednisone (Prednisone) 20 mg PO ONETIME ONE Stop: 11/29/18 19:22 Last Admin: 11/29/18 20:18 Dose: 20 mg - Exam Quality Assessment: No: Supplemental Oxygen General: Alert, Oriented, Cooperative, No Acute Distress Lungs: Normal Respiratory Effort GI/Abdominal Exam: Soft, No Distention Extremities: Pedal Edema, Increased Warmth (right foot, right knee, right hand, left elbow) Skin: Warm, Dry Psy/Mental Status: Alert, Normal Affect - Problem List & Annotations (1) 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 SNOMED Code(s): 172094183049575 Code(s): M10.39 - GOUT DUE TO RENAL IMPAIRMENT, MULTIPLE SITES Status: Acute Current Visit: Yes Qualifiers: Chronicity: acute Qualified Code(s): M10.39 - Gout due to renal impairment , multiple sites (2) Inflammatory polyarthropathy SNOMED Code(s): 371018937 Code(s): M06.4 - INFLAMMATORY POLYARTHROPATHY Status: Acute Current Visit : Yes (3) Generalized weakness SNOMED Code(s): 56581799 Code(s): R53.1 - WEAKNESS Status: Acute Current Visit: Yes (4) Diabetes type 2, controlled SNOMED Code(s): 00992380, 467865094 Code(s): E11.9 - TYPE 2 DIABETES MELLITUS WITHOUT COMPLICATIONS Status: Chronic Priority: High Current Visit: No Qualifiers: Diabetes mellitus long-term insulin use: without long-term use Diabetes mellitus complication status: with unspecified complications Qualified Code(s) : E11.8 - Type 2 diabetes mellitus with unspecified complications (5) Systolic CHF with reduced left ventricular function, NYHA class 2 SNOMED Code(s): 573097690, 857475792, 337030340 Code(s): I50.20 - UNSPECIFIED SYSTOLIC (CONGESTIVE) HEART FAILURE Status: Chronic Current Visit: No (6) Stage III chronic kidney disease SNOMED Code(s): 362767800 Code(s): N18.3 - CHRONIC KIDNEY DISEASE, STAGE 3 (MODERATE) Status: Chronic Current Visit: No - Problem List Review Problem List Initiated/Reviewed/Updated: Yes - My Orders Last 24 Hours: My Active Orders 11/29/18 18:34 Knee 3V Rt [CR] Stat 11/29/18 18:46 Resuscitation Status Routine 11/29/18 19:21 Patient Status [ADT] Routine Bedrest Bedside Commode [RC] ASDIRECTED Communication Order [RC] PRN Communication Order [RC] PRN Diabetes Education [RC] Click to Edit Height and Weight [RC] DAILY Intake and Output [RC] QSHIFT Notify Provider Vital Signs [RC] ASDIRECTED Notify Provider [RC] PRN Oxygen Therapy [RC] PRN RT Aerosol Therapy [RC] ASDIRECTED Up With Assistance [RC] ASDIRECTED VTE/DVT Education [RC] Per Unit Routine Vital Signs [RC] Q4H Acetaminophen [Tylenol] 650 mg PO Q4H PRN Albuterol [Proventil Neb Soln] 2.5 mg NEB Q4H PRN Docusate Sodium/Sennosides [Senna Plus] 1 tab PO BID PRN Magnesium Hydroxide [Milk of Magnesia] 30 ml PO Q12H PRN Ondansetron [Zofran ODT] 4 mg PO Q6H PRN Ondansetron [Zofran] 4 mg IV Q6H PRN oxyCODONE 5 mg PO Q4H PRN 11/29/18 20:00 Insulin Lispro [HumaLOG] See Protocol SUBCUT QIDACANDBED 11/29/18 21:00 Lactobacillus Rhamnosus GG [Culturelle] 1 cap PO BID Melatonin 9 mg PO BEDTIME 11/30/18 07:00 PT Evaluation and Treatment [CONS] Routine 11/30/18 08:00 predniSONE 20 mg PO WITHBREAKFAST 11/30/18 09:00 Bumetanide [Bumex] 2 mg PO DAILY 11/30/18 12:00 Sodium Chloride 0.9% [Normal Saline] 1,000 ml IV ASDIRECTED ceFAZolin [Ancef] 1 gm Premix Bag 1 bag IV Q8H 11/30/18 16:30 GLUCOSE POC LAB TO COLLECT [POC] QIDACANDBED glipiZIDE [Glucotrol] 2.5 mg PO BIDAC 11/30/18 21:00 GLUCOSE POC LAB TO COLLECT [POC] QIDACANDBED 12/01/18 05:00 BASIC METABOLIC PANEL,BMP [CHEM] Timed CBC W/O DIFF,HEMOGRAM [HEME] Timed (1) INR,PT,PROTHROMBIN TIME [COAG] Timed 12/01/18 05:11 GLYCOSYLATED HEMOGLOBIN,HGBA1C [CHEM] AM URIC ACID [CHEM] AM 12/01/18 07:30 GLUCOSE POC LAB TO COLLECT [POC] QIDACANDBED 12/01/18 11:30 GLUCOSE POC LAB TO COLLECT [POC] QIDACANDBED 12/01/18 16:30 GLUCOSE POC LAB TO COLLECT [POC] QIDACANDBED 12/01/18 21:00 GLUCOSE POC LAB TO COLLECT [POC] QIDACANDBED 12/02/18 07:30 GLUCOSE POC LAB TO COLLECT [POC] QIDACANDBED 12/02/18 11:30 GLUCOSE POC LAB TO COLLECT [POC] QIDACANDBED 12/02/18 16:30 GLUCOSE POC LAB TO COLLECT [POC] QIDACANDBED 12/02/18 21:00 GLUCOSE POC LAB TO COLLECT [POC] QIDACANDBED 12/03/18 07:30 GLUCOSE POC LAB TO COLLECT [POC] QIDACANDBED 12/03/18 11:30 GLUCOSE POC LAB TO COLLECT [POC] QIDACANDBED 12/03/18 16:30 GLUCOSE POC LAB TO COLLECT [POC] QIDACANDBED 12/03/18 21:00 GLUCOSE POC LAB TO COLLECT [POC] QIDACANDBED 12/04/18 07:30 GLUCOSE POC LAB TO COLLECT [POC] QIDACANDBED 12/04/18 11:30 GLUCOSE POC LAB TO COLLECT [POC] QIDACANDBED 12/04/18 16:30 GLUCOSE POC LAB TO COLLECT [POC] QIDACANDBED 12/04/18 21:00 GLUCOSE POC LAB TO COLLECT [POC] QIDACANDBED 12/05/18 07:30 GLUCOSE POC LAB TO COLLECT [POC] QIDACANDBED - Plan Plan:: ASSESSMENT AND PLAN - 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 Multiple sites involved including left elbow, right wrist, right knee and right foot. Clinically doing better today but still has a fair amount of pain, warmth and swelling in the involved joints. He remains extremely weak. -Gentle fluids through the day today -Prednisone 20 mg daily 5 days -consider allopurinol once flare has resolved -Physical therapy for strengthening Possible left elbow bursitis - swelling, warmth and some erythema and did have recent aspiration of bursa fluid. Cultures from clinic were pending. Seems a little better today. -Cefazolin today with transition to cephalexin tomorrow -Follow-up cultures Chronic systolic congestive heart failure - appears well compensated at this time. He is no longer on a beta gera because of hypotension and dizziness. -Continue diuretic Chronic atrial fibrillation - rate control is excellent at this time. He is chronically anticoagulated and his INR is therapeutic. -Hold warfarin and repeat INR in the morning Type 2 diabetes mellitus - blood sugar have risen with initiation of steroids. -Restart home medication -Low-dose sliding scale insulin if needed -A1c in the morning Stage IIIb chronic kidney disease - creatinine near baseline at this time. Maintenance issues - - DVT prophylaxis - warfarin - GI prophylaxis - not indicated - Nutrition - low sodium Disposition - I would anticipate discharge home versus more likely the group home for subacute rehabilitation after the hospital stay Primary care physician - Dr. Syed Kenney M.D.
[2018-11-30] MEDS: Sodium Chloride 0.9% 1,000 ML IV SCH (16:29)
[2018-11-30] MEDS: glipiZIDE 5 MG Tab PO SCH (16:32)
[2018-11-30] MEDS: traMADol 50 MG Tab PO PRN (16:54)
[2018-11-30] MEDS: Melatonin 3 MG Tab PO SCH (20:28)
--- NOTE | 2018-12-01 01:22 | CRLCR ---
Indication: Pain and swelling Technique: Frontal and oblique views of the right knee. A true lateral view was not obtained. Comparison: July 14, 2014 Findings: No acute fracture or subluxation. Degenerative changes in the medial compartment have progressed. The patellofemoral compartment is difficult to assess due to patient positioning. Minimal degenerative changes in the lateral compartment. There is chondrocalcinosis. No suspicious osseous lesion. No significant effusion. Impression: Interval increase in degenerative changes in the medial compartment. Chondrocalcinosis. Dictated by Linnea Llanes MD @ Dec 01 2018 1:18AM Signed by Dr. Linnea Llanes @ Dec 01 2018 1:20AM
[2018-12-01] MEDS: ceFAZolin 1 GM in Premix Bag 1 BAG IV SCH (03:58)
[2018-12-01] MEDS: Sodium Chloride 0.9% 1,000 ML IV SCH (06:09)
[2018-12-01] MEDS: Insulin Lispro 100 Unit/ML 3 ML KwikPen SUBCUT SCH ×4 (09:18→21:24)
[2018-12-01] MEDS: glipiZIDE 5 MG Tab PO SCH ×2 (09:19→17:06)
[2018-12-01] MEDS: predniSONE 20 MG Tab PO SCH (09:19)
[2018-12-01] MEDS: Bumetanide 1 MG Tab PO SCH (09:19)
[2018-12-01] MEDS: Lactobacillus Rhamnosus GG (Probiotic) Cap PO SCH ×2 (09:20→21:26)
[2018-12-01] MEDS ORDERED: Potassium Chloride 20 MEQ Tab.ER PO ONE (09:30)
[2018-12-01] MEDS ORDERED: Colchicine 0.6 MG Tab PO ONE ×2 (10:00→11:00)
--- NOTE | 2018-12-01 10:05 | PCM.PN ---
- General Info Date of Service: 12/01/18 Subjective Update: There were no acute events overnight. Strength is a little better today and he was able to shuffle from the bed to the chair. Joint pain including left elbow, right wrist, right knee and right foot are better today. Swelling and warmth of all of these joints has improved since yesterday. Kidney function is a little better today. No complaints of shortness of breath or abdominal pain. Warfarin level is therapeutic. Functional Status: Reports: Pain Controlled, Tolerating Diet - Review of Systems General: Reports: Weakness Musculoskeletal: Reports: Joint Pain - Patient Data Vitals - Most Recent: Last Vital Signs Temp 35.5 C 12/01/18 09:15 Pulse 6 L 12/01/18 09:15 Resp 16 12/01/18 09:15 BP 147/59 H 12/01/18 09:15 Pulse Ox 95 12/01/18 09:15 Weight - Most Recent: 99.564 kg I&O - Last 24 Hours: Intake & Output 11/30/18 12/01/18 12/01/18 22:59 06:59 14:59 Intake Total 110 1208 Balance 110 1208 Lab Results Last 24 Hours: Laboratory Results - last 24 hr 12/01/18 12/01/18 12/01/18 Range/Units 04:30 04:30 04:30 WBC 12.0 H (4.5-11.0) K/uL RBC 4.31 (4.30-5.90) M/uL Hgb 12.3 (12.0-15.0) g/dL Hct 38.1 L (40.0-54.0) % MCV 88 (80-98) fL MCH 29 (27-31) pg MCHC 32 (32-36) % Plt Count 165 (150-400) K/uL PT 26.1 H (9.5-12.0) sec INR 2.50 H (0.80-1.20) Sodium 141 (140-148) mmol/L Potassium 3.5 L (3.6-5.2) mmol/L Chloride 104 (100-108) mmol/L Carbon Dioxide 29 (21-32) mmol/L Anion Gap 11.5 (5.0-14.0) mmol/L BUN 32 H (7-18) mg/dL Creatinine 1.5 H (0.8-1.3) mg/dL Est Cr Clr Drug Dosing 38.80 mL/min Estimated GFR (MDRD) 44 L (>60) Glucose 120 H (74-106) mg/dL Uric Acid (3.5-7.2) mg/dL Calcium 7.9 L (8.5-10.1) mg/dL 12/01/18 Range/Units 04:30 WBC (4.5-11.0) K/uL RBC (4.30-5.90) M/uL Hgb (12.0-15.0) g/dL Hct (40.0-54.0) % MCV (80-98) fL MCH (27-31) pg MCHC (32-36) % Plt Count (150-400) K/uL PT (9.5-12.0) sec INR (0.80-1.20) Sodium (140-148) mmol/L Potassium (3.6-5.2) mmol/L Chloride (100-108) mmol/L Carbon Dioxide (21-32) mmol/L Anion Gap (5.0-14.0) mmol/L BUN (7-18) mg/dL Creatinine (0.8-1.3) mg/dL Est Cr Clr Drug Dosing mL/min Estimated GFR (MDRD) (>60) Glucose (74-106) mg/dL Uric Acid 8.8 H (3.5-7.2) mg/dL Calcium (8.5-10.1) mg/dL Med Orders - Current: Current Medications Acetaminophen (Tylenol) 650 mg PO Q4H PRN PRN Reason: Pain (Mild 1-3)/fever Last Admin: 11/30/18 08:24 Dose: 650 mg Albuterol (Proventil Neb Soln) 2.5 mg NEB Q4H PRN PRN Reason: Shortness Of Breath/wheezing Bumetanide (Bumex) 2 mg PO DAILY [facility] Last Admin: 12/01/18 09:19 Dose: 2 mg Colchicine (Colcrys) 0.6 mg PO ONETIME ONE Stop: 12/01/18 11:01 Glipizide (Glucotrol) 2.5 mg PO BIDAC [facility] Last Admin: 12/01/18 09:19 Dose: 2.5 mg Cefazolin Sodium/Dextrose 1 gm (/ Premix) 50 mls @ 100 mls/hr IV Q8H [facility] Last Admin: 12/01/18 03:58 Dose: 100 mls/hr Sodium Chloride (Normal Saline) 1,000 mls @ 75 mls/hr IV ASDIRECTED [facility] Last Admin: 12/01/18 06:09 Dose: 75 mls/hr Insulin Human Lispro (Humalog) 0 unit SUBCUT QIDACANDBED [facility]; Protocol Last Admin: 12/01/18 09:18 Dose: Not Given Lactobacillus Rhamnosus (Culturelle) 1 cap PO BID [facility] Last Admin: 12/01/18 09:20 Dose: 1 cap Magnesium Hydroxide (Milk Of Magnesia) 30 ml PO Q12H PRN PRN Reason: Constipation Melatonin (Melatonin) 9 mg PO BEDTIME [facility] Last Admin: 11/30/18 20:28 Dose: 9 mg Ondansetron HCl (Zofran Odt) 4 mg PO Q6H PRN PRN Reason: Nausea able to take PO Ondansetron HCl (Zofran) 4 mg IV Q6H PRN PRN Reason: Nausea/Vomiting Prednisone (Prednisone) 20 mg PO WITHBREAKFAST [facility] Stop: 12/03/18 08:01 Last Admin: 12/01/18 09:19 Dose: 20 mg Senna/Docusate Sodium (Senna Plus) 1 tab PO BID PRN PRN Reason: Constipation Last Admin: 11/30/18 08:42 Dose: 1 tab Tramadol HCl (Ultram) 50 mg PO Q6H PRN PRN Reason: Pain Last Admin: 11/30/18 16:54 Dose: 50 mg Discontinued Medications Colchicine (Colcrys) 1.2 mg PO ONETIME ONE Stop: 12/01/18 10:01 Last Admin: 12/01/18 09:39 Dose: 1.2 mg Furosemide (Lasix) 40 mg IVPUSH ONETIME ONE Stop: 11/29/18 17:55 Last Admin: 11/29/18 19:30 Dose: Not Given Cefazolin Sodium 1 gm/ Sodium (Chloride) 50 mls @ 200 mls/hr IV Q8H [facility] Last Admin: 11/30/18 03:02 Dose: 200 mls/hr Oxycodone HCl (Oxycodone) 5 mg PO Q4H PRN PRN Reason: Pain Last Admin: 11/29/18 23:42 Dose: 5 mg Potassium Chloride (Klor-Con M20) 40 meq PO ONETIME ONE Stop: 12/01/18 09:31 Last Admin: 12/01/18 09:38 Dose: 40 meq Prednisone (Prednisone) 20 mg PO ONETIME ONE Stop: 11/29/18 19:22 Last Admin: 11/29/18 20:18 Dose: 20 mg - Exam Quality Assessment: No: Supplemental Oxygen General: Alert, Oriented, Cooperative, No Acute Distress Lungs: Normal Respiratory Effort GI/Abdominal Exam: Soft, No Distention Extremities: Pedal Edema, Other (moderate right foot swelling, mild right knee swelling, no right wrist swelling, minimal left elbow swelling. No warmth of any of the joints). 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 SNOMED Code(s): 724008591982699 Code(s): M10.39 - GOUT DUE TO RENAL IMPAIRMENT, MULTIPLE SITES Status: Acute Current Visit: Yes Qualifiers: Chronicity: acute Qualified Code(s): M10.39 - Gout due to renal impairment , multiple sites (2) Inflammatory polyarthropathy SNOMED Code(s): 702392490 Code(s): M06.4 - INFLAMMATORY POLYARTHROPATHY Status: Acute Current Visit : Yes (3) Generalized weakness SNOMED Code(s): 09744848 Code(s): R53.1 - WEAKNESS Status: Acute Current Visit: Yes (4) Diabetes type 2, controlled SNOMED Code(s): 37552258, 578780423 Code(s): E11.9 - TYPE 2 DIABETES MELLITUS WITHOUT COMPLICATIONS Status: Chronic Priority: High Current Visit: No Qualifiers: Diabetes mellitus care home insulin use: without care home use Diabetes mellitus complication status: with unspecified complications Qualified Code(s) : E11.8 - Type 2 diabetes mellitus with unspecified complications (5) Systolic CHF with reduced left ventricular function, NYHA class 2 SNOMED Code(s): 656303645, 313959730, 937971284 Code(s): I50.20 - UNSPECIFIED SYSTOLIC (CONGESTIVE) HEART FAILURE Status: Chronic Current Visit: No (6) Stage III chronic kidney disease SNOMED Code(s): 260343562 Code(s): N18.3 - CHRONIC KIDNEY DISEASE, STAGE 3 (MODERATE) Status: Chronic Current Visit: No - Problem List Review Problem List Initiated/Reviewed/Updated: Yes - My Orders Last 24 Hours: My Active Orders 11/30/18 12:00 Sodium Chloride 0.9% [Normal Saline] 1,000 ml IV ASDIRECTED ceFAZolin [Ancef] 1 gm Premix Bag 1 bag IV Q8H 11/30/18 16:30 glipiZIDE [Glucotrol] 2.5 mg PO BIDAC 11/30/18 16:44 traMADol [Ultram] 50 mg PO Q6H PRN 12/01/18 04:30 GLYCOSYLATED HEMOGLOBIN,HGBA1C [CHEM] AM 12/01/18 07:09 Accu Check [Blood Glucose Check, Bedside] [RC] QIDACANDBED 12/01/18 11:00 Colchicine [Colcrys] 0.6 mg PO ONETIME ONE 12/01/18 11:30 GLUCOSE POC LAB TO COLLECT [POC] QIDACANDBED 12/01/18 13:00 Warfarin [Coumadin] 2.5 mg PO DAILY@1300 12/01/18 16:30 GLUCOSE POC LAB TO COLLECT [POC] QIDACANDBED 12/01/18 21:00 GLUCOSE POC LAB TO COLLECT [POC] QIDACANDBED 12/02/18 05:00 BASIC METABOLIC PANEL,BMP [CHEM] Timed INR,PT,PROTHROMBIN TIME [COAG] Timed 12/02/18 07:30 GLUCOSE POC LAB TO COLLECT [POC] QIDACANDBED 12/02/18 11:30 GLUCOSE POC LAB TO COLLECT [POC] QIDACANDBED 12/02/18 16:30 GLUCOSE POC LAB TO COLLECT [POC] QIDACANDBED 12/02/18 21:00 GLUCOSE POC LAB TO COLLECT [POC] QIDACANDBED 12/03/18 07:30 GLUCOSE POC LAB TO COLLECT [POC] QIDACANDBED 12/03/18 11:30 GLUCOSE POC LAB TO COLLECT [POC] QIDACANDBED 12/03/18 16:30 GLUCOSE POC LAB TO COLLECT [POC] QIDACANDBED 12/03/18 21:00 GLUCOSE POC LAB TO COLLECT [POC] QIDACANDBED 12/04/18 07:30 GLUCOSE POC LAB TO COLLECT [POC] QIDACANDBED 12/04/18 11:30 GLUCOSE POC LAB TO COLLECT [POC] QIDACANDBED 12/04/18 16:30 GLUCOSE POC LAB TO COLLECT [POC] QIDACANDBED 12/04/18 21:00 GLUCOSE POC LAB TO COLLECT [POC] QIDACANDBED 12/05/18 07:30 GLUCOSE POC LAB TO COLLECT [POC] QIDACANDBED - Plan Plan:: ASSESSMENT AND PLAN - 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 Multiple sites involved including left elbow, right wrist, right knee and right foot. Ongoing clinical improvement but uric acid remain significantly elevated. Patient remains very weak but is a little stronger today. -Saline lock IV -Colchicine 1.2 mg 1 and then 0.6 mg one hour later -Prednisone 20 mg daily 5 days -consider allopurinol once flare has resolved -Physical therapy for strengthening Possible left elbow bursitis - swelling, warmth and some erythema and did have recent aspiration of bursa fluid. Swelling in the elbow probably related to gout rather than infection. Pro-calcitonin level was very low. -Discontinue antibiotics -Follow-up cultures Chronic systolic congestive heart failure - appears well compensated at this time. He is no longer on a beta gera because of hypotension and dizziness. -Continue diuretic Chronic atrial fibrillation - rate control is excellent at this time. He is chronically anticoagulated and his INR is therapeutic. -Restart warfarin today and recheck INR in the morning Type 2 diabetes mellitus - blood sugars well-controlled at this time. -Continue home medication -Low-dose sliding scale insulin if needed Stage IIIb chronic kidney disease - creatinine stable and at baseline. Maintenance issues - - DVT prophylaxis - warfarin - GI prophylaxis - not indicated - Nutrition - low sodium Disposition - I would anticipate discharge to the [facility] for subacute rehabilitation after the hospital stay Primary care physician - Dr. Syed Kenney M.D.
[2018-12-01] MEDS: traMADol 50 MG Tab PO PRN (10:26)
[2018-12-01] MEDS: Warfarin 2.5 MG Tab PO SCH (14:15)
[2018-12-01] MEDS: Melatonin 3 MG Tab PO SCH (21:27)
[2018-12-02] MEDS: Lactobacillus Rhamnosus GG (Probiotic) Cap PO SCH ×3 (08:22→22:29)
[2018-12-02] MEDS: Bumetanide 1 MG Tab PO SCH (08:22)
[2018-12-02] MEDS: glipiZIDE 5 MG Tab PO SCH ×2 (08:22→16:57)
[2018-12-02] MEDS: predniSONE 20 MG Tab PO SCH (08:25)
[2018-12-02] MEDS: Insulin Lispro 100 Unit/ML 3 ML KwikPen SUBCUT SCH ×4 (08:26→22:25)
[2018-12-02 08:54] LABS: HEMOGLOBIN A1C 6.8 % (4.5-6.2)
--- NOTE | 2018-12-02 10:40 | PCM.PN ---
- General Info Date of Service: 12/02/18 Subjective Update: Mr. Dalal has been stable since yesterday and noted further improvement in his knee elbow and wrist pain. He remains very weak and unable to stand or ambulate without the assistance of 2. Functional Status: Reports: Pain Controlled, Tolerating Diet, Urinating - Review of Systems General: Reports: Weakness. Denies: Fever, Chills Pulmonary: Reports: No Symptoms Cardiovascular: Reports: No Symptoms Gastrointestinal: Reports: No Symptoms - Patient Data Vitals - Most Recent: Last Vital Signs Temp 95.7 F 12/02/18 07:29 Pulse 61 12/02/18 07:29 Resp 18 12/02/18 07:29 BP 135/55 L 12/02/18 07:29 Pulse Ox 94 L 12/02/18 07:29 Weight - Most Recent: 219 lb 8.017 oz I&O - Last 24 Hours: Intake & Output 12/01/18 12/02/18 12/02/18 22:59 06:59 14:59 Intake Total 1233 500 Balance 1233 500 Lab Results Last 24 Hours: Laboratory Results - last 24 hr 12/01/18 12/02/18 12/02/18 Range/Units 04:30 04:52 04:52 PT 21.4 H (9.5-12.0) sec INR 2.06 H (0.80-1.20) Sodium 140 (140-148) mmol/L Potassium 5.3 H (3.6-5.2) mmol/L Chloride 105 (100-108) mmol/L Carbon Dioxide 27 (21-32) mmol/L Anion Gap 13.3 (5.0-14.0) mmol/L BUN 34 H (7-18) mg/dL Creatinine 1.2 (0.8-1.3) mg/dL Est Cr Clr Drug Dosing 48.50 mL/min Estimated GFR (MDRD) 57 L (>60) Glucose 103 (74-106) mg/dL Hemoglobin A1c 6.8 H (4.5-6.2) % Calcium 8.5 (8.5-10.1) mg/dL Med Orders - Current: Current Medications Acetaminophen (Tylenol) 650 mg PO Q4H PRN PRN Reason: Pain (Mild 1-3)/fever Last Admin: 11/30/18 08:24 Dose: 650 mg Albuterol (Proventil Neb Soln) 2.5 mg NEB Q4H PRN PRN Reason: Shortness Of Breath/wheezing Bumetanide (Bumex) 2 mg PO DAILY [facility] Last Admin: 12/02/18 08:22 Dose: 2 mg [facility] Last Admin: 12/02/18 08:22 Dose: 2.5 mg Insulin Human Lispro (Humalog) 0 unit SUBCUT QIDACANDBED [facility]; Protocol Last Admin: 12/02/18 08:26 Dose: Not Given Lactobacillus Rhamnosus (Culturelle) 1 cap PO BID [facility] Last Admin: 12/02/18 08:22 Dose: 1 cap Magnesium Hydroxide (Milk Of Magnesia) 30 ml PO Q12H PRN PRN Reason: Constipation Last Admin: 12/01/18 10:24 Dose: 30 ml Melatonin (Melatonin) 9 mg PO BEDTIME [facility] Last Admin: 12/01/18 21:27 Dose: 9 mg Ondansetron HCl (Zofran Odt) 4 mg PO Q6H PRN PRN Reason: Nausea able to take PO Ondansetron HCl (Zofran) 4 mg IV Q6H PRN PRN Reason: Nausea/Vomiting Prednisone (Prednisone) 20 mg PO WITHBREAKFAST [facility] Stop: 12/03/18 08:01 Last Admin: 12/02/18 08:25 Dose: 20 mg Senna/Docusate Sodium (Senna Plus) 1 tab PO BID PRN PRN Reason: Constipation Last Admin: 11/30/18 08:42 Dose: 1 tab Tramadol HCl (Ultram) 50 mg PO Q6H PRN PRN Reason: Pain Last Admin: 12/01/18 10:26 Dose: 50 mg Warfarin Sodium (Coumadin) 2.5 mg PO DAILY@1300 [facility] Last Admin: 12/01/18 14:15 Dose: 2.5 mg Discontinued Medications Colchicine (Colcrys) 1.2 mg PO ONETIME ONE Stop: 12/01/18 10:01 Last Admin: 12/01/18 09:39 Dose: 1.2 mg Colchicine (Colcrys) 0.6 mg PO ONETIME ONE Stop: 12/01/18 11:01 Last Admin: 12/01/18 12:00 Dose: 0.6 mg Furosemide (Lasix) 40 mg IVPUSH ONETIME ONE Stop: 11/29/18 17:55 Last Admin: 11/29/18 19:30 Dose: Not Given Cefazolin Sodium 1 gm/ Sodium (Chloride) 50 mls @ 200 mls/hr IV Q8H [facility] Last Admin: 11/30/18 03:02 Dose: 200 mls/hr Cefazolin Sodium/Dextrose 1 gm (/ Premix) 50 mls @ 100 mls/hr IV Q8H [facility] Last Admin: 12/01/18 03:58 Dose: 100 mls/hr Sodium Chloride (Normal Saline) 1,000 mls @ 75 mls/hr IV ASDIRECTED [facility] Last Admin: 12/01/18 06:09 Dose: 75 mls/hr Oxycodone HCl (Oxycodone) 5 mg PO Q4H PRN PRN Reason: Pain Last Admin: 11/29/18 23:42 Dose: 5 mg Potassium Chloride (Klor-Con M20) 40 meq PO ONETIME ONE Stop: 12/01/18 09:31 Last Admin: 12/01/18 09:38 Dose: 40 meq Prednisone (Prednisone) 20 mg PO ONETIME ONE Stop: 11/29/18 19:22 Last Admin: 11/29/18 20:18 Dose: 20 mg - Exam Quality Assessment: DVT Prophylaxis General: Alert, Oriented, Cooperative, Mild Distress Lungs: Clear to Auscultation, Normal Respiratory Effort Cardiovascular: Regular Rate, Regular Rhythm, No Murmurs GI/Abdominal Exam: Soft, Non-Tender, No Organomegaly, No Distention Extremities: Other (Joint pain and swelling of the right knee right wrist and left elbow improved from admission) - Problem List Review Problem List Initiated/Reviewed/Updated: Yes - My Orders Last 24 Hours: My Active Orders 12/03/18 05:00 BASIC METABOLIC PANEL,BMP [CHEM] Timed INR,PT,PROTHROMBIN TIME [COAG] Timed - Plan Plan:: ASSESSMENT AND PLAN - 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 Multiple sites involved including left elbow, right wrist, right knee and right foot. Continues to have fairly mild residual symptoms in the involved joints. Remains very weak. -Saline lock IV -Colchicine 1.2 mg 1 and then 0.6 mg one hour later -Prednisone 20 mg daily 5 days -consider allopurinol once flare has resolved -Physical therapy for strengthening Possible left elbow bursitis - swelling, warmth and some erythema and did have recent aspiration of bursa fluid. Swelling in the elbow probably related to gout rather than infection. Pro-calcitonin level was very low. -Follow-up cultures Chronic systolic congestive heart failure - appears well compensated at this time. He is no longer on a beta gera because of hypotension and dizziness. -Continue diuretic Chronic atrial fibrillation - rate control is excellent at this time. He is chronically anticoagulated and his INR is therapeutic. -Restart warfarin today and recheck INR in the morning Type 2 diabetes mellitus - blood sugars well-controlled at this time. -Continue home medication -Low-dose sliding scale insulin if needed Stage IIIb chronic kidney disease - creatinine stable and at baseline. Maintenance issues - - DVT prophylaxis - warfarin - GI prophylaxis - not indicated - Nutrition - low sodium Disposition - I would anticipate discharge to the retirement tomorrow Primary care physician - Dr. Lynch
[2018-12-02] MEDS: Warfarin 2.5 MG Tab PO SCH (14:43)
[2018-12-02] MEDS: Melatonin 3 MG Tab PO SCH ×2 (22:24→22:29)
[2018-12-03 07:54] VITALS: BP 154/49; PULSE 71
[2018-12-03] MEDS ORDERED: Warfarin 5 MG Tab PO SCH ×2 (09:18→13:00)
[2018-12-03] MEDS: glipiZIDE 5 MG Tab PO SCH (09:22)
[2018-12-03] MEDS: Lactobacillus Rhamnosus GG (Probiotic) Cap PO SCH (09:22)
[2018-12-03] MEDS: predniSONE 20 MG Tab PO SCH (09:23)
[2018-12-03] MEDS: Insulin Lispro 100 Unit/ML 3 ML KwikPen SUBCUT SCH ×2 (09:24→11:26)
[2018-12-03] MEDS: Bumetanide 1 MG Tab PO SCH (09:25)
--- NOTE | 2018-12-03 09:37 | PCM.DCSUM1 ---
Discharge Summary - Hospital Course Brief History: Mr. Dalal is an 88-year-old gentleman who was admitted through the emergency department with inflammatory arthritis involving several joints. 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 SNOMED Code(s): 769233929150280 ICD Code: M10.39 - GOUT DUE TO RENAL IMPAIRMENT, MULTIPLE SITES Status: Acute Current Visit: Yes Qualifiers: Chronicity: acute Qualified Code(s): M10.39 - Gout due to renal impairment , multiple sites (2) Diabetes type 2, controlled SNOMED Code(s): 82595927, 241646726 ICD Code: E11.9 - TYPE 2 DIABETES MELLITUS WITHOUT COMPLICATIONS Status: Chronic Priority: High Current Visit: No Qualifiers: Diabetes 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 insulin use: without long-term use Diabetes mellitus complication status: with unspecified complications Qualified Code(s) : E11.8 - Type 2 diabetes mellitus with unspecified complications (3) Chronic atrial fibrillation SNOMED Code(s): 720063118 ICD Code: I48.2 - CHRONIC ATRIAL FIBRILLATION Status: Chronic Current Visit: No (4) CHF (congestive heart failure) SNOMED Code(s): 08432590 ICD Code: I50.9 - HEART FAILURE, UNSPECIFIED Status: Chronic Priority: High Current Visit: Yes Qualifiers: Qualified Code(s): I50.22 - Chronic systolic (congestive) heart failure (5) Stage III chronic kidney disease SNOMED Code(s): 141831509 ICD Code: N18.3 - CHRONIC KIDNEY DISEASE, STAGE 3 (MODERATE) Status: Chronic Current Visit: No - Patient Summary/Data Consults: Consultations 11/30/18 07:00 PT Evaluation and Treatment [CONS] Routine Please Evaluate and Treat. PT Reason for Consult: Strengthening This query below is only for informational purposes and is not editable. Hospital Course: Fredrick presented to the emergency room with concerns about weakness. 2 days ago he was taking a bath and he was so weak that she could not get out of the bathtub. He was seen later that day in the walk-in clinic because of concerns of left elbow pain and swelling. He reports they drained a small amount of fluid and started him on Augmentin for possible cellulitis/bursitis. His elbow remains tender to touch and still has some swelling and warmth as well as mild redness. He reports 3 days of moderately severe pain which is sharp with a persistent achy component in the right knee. pain is worse trying to put any weight on it. He hasn't taken anything at home to make it feel better. He has chronic pain in the right knee but this is dramatically different. The knee has also been swollen and warm to touch. He did not have a fall or injury to the knee. He is not aware of any fevers or chills at home. He does feel like he gets winded a little bit quicker than usual. He does have orthopnea but it is not different than usual. No lower extremity edema. He does not check his weight regularly. No complaints of cough. He does report an episode of chest pain a couple weeks ago but has not had any since then. He also reports swelling, warmth and pain in the right dorsum of the hand and wrist. Workup in the emergency room revealed polyarthritis with the right knee, right wrist and left elbow involved. Uric acid level is greater than 10. I don't find any strong evidence for infection other than possibly a localized infection in the left elbow with bursitis the most likely diagnosis. Kidney function is stable. No evidence for heart failure exacerbation. He is extremely weak and unable to bear any weight at this time. He will be admitted for further management. On admission he was felt to have a probable diagnosis of acute gout involving several joints as documented above. He was started on a course of oral prednisone and after a few days hospitalization also received 2 doses of colchicine. With these interventions his joint symptoms improved significantly and had essentially resolved by the time of discharge. He will be started on allopurinol 100 mg by mouth daily, activity will be as tolerated. He is profoundly weak and not felt to be safe for discharge to home. [facility] and occupational therapy. Activity will be as tolerated and he will resume his usual diet. He is on long-term oral anticoagulation because of underlying atrial fibrillation. INR was monitored daily during the hospital stay, initially it was supratherapeutic and by the time of discharge had dropped slightly below therapeutic range. He will be given a 5 mg dose of warfarin today and then placed back on his usual dose of 2.5 mg daily. Follow-up INR level will be obtained on December 05. - Patient Instructions Diet: Heart Healthy Diet Activity: As Tolerated - Discharge Plan *PRESCRIPTION DRUG MONITORING PROGRAM REVIEWED*: Not Applicable *COPY OF PRESCRIPTION DRUG MONITORING REPORT IN PATIENT EDIL: Not Applicable Prescriptions/Med Rec: Allopurinol [Zyloprim] 100 mg PO DAILY #30 tab Home Medications: Home Meds Multivitamin with Minerals [Multiple Vitamin] 1 tab PO DAILY 09/29/13 [History] Omeprazole [Prilosec] 40 mg PO DAILY PRN 09/29/13 [History] glipiZIDE [Glucotrol] 2.5 mg PO BIDAC 07/14/14 [History] Nitroglycerin [IJP: Nitroglycerin] 0.4 mg PO ASDIRECTED PRN 07/24/16 [History] Bumetanide [Bumex] 2 mg PO DAILY 10/10/16 [History] Warfarin [Coumadin] 2.5 mg PO DAILY 08/09/17 [History] Allopurinol [Zyloprim] 100 mg PO DAILY #30 tab 12/03/18 [Rx] - Discharge Summary/Plan Comment DC Time >30 min.: No - Patient Data Vitals - Most Recent: Last Vital Signs Temp 95 F L 12/03/18 07:41 Pulse 71 12/03/18 07:41 Resp 16 12/03/18 07:41 BP 154/49 H 12/03/18 07:41 Pulse Ox 94 L 12/03/18 07:41 Weight - Most Recent: 219 lb 8.017 oz I&O - Last 24 hours: Intake & Output 12/02/18 12/03/18 12/03/18 22:59 06:59 14:59 Intake Total 980 Output Total 150 Balance 980 -150 Lab Results - Last 24 hrs: Laboratory Results - last 24 hr 12/03/18 12/03/18 Range/Units 04:50 04:50 PT 19.7 H (9.5-12.0) sec INR 1.89 H (0.80-1.20) Sodium 145 (140-148) mmol/L Potassium 4.0 (3.6-5.2) mmol/L Chloride 107 (100-108) mmol/L Carbon Dioxide 29 (21-32) mmol/L Anion Gap 9.1 (5.0-14.0) mmol/L BUN 32 H (7-18) mg/dL Creatinine 1.2 (0.8-1.3) mg/dL Est Cr Clr Drug Dosing 48.57 mL/min Estimated GFR (MDRD) 57 L (>60) Glucose 83 (74-106) mg/dL Calcium 8.8 (8.5-10.1) mg/dL Med Orders - Current: Current Medications Acetaminophen (Tylenol) 650 mg PO Q4H PRN PRN Reason: Pain (Mild 1-3)/fever Last Admin: 11/30/18 08:24 Dose: 650 mg Albuterol (Proventil Neb Soln) 2.5 mg NEB Q4H PRN PRN Reason: Shortness Of Breath/wheezing Bumetanide (Bumex) 2 mg PO DAILY [facility] Last Admin: 12/03/18 09:25 Dose: 2 mg [facility]ip[facility] ([facility]) [facility] Last Admin: 12/03/18 09:22 Dose: 2.5 mg Insulin Human Lispro (Humalog) 0 unit SUBCUT QIDACANDBED [facility]; Protocol Last Admin: 12/03/18 09:24 Dose: Not Given Lactobacillus Rhamnosus (Culturelle) 1 cap PO BID [facility] Last Admin: 12/03/18 09:22 Dose: 1 cap Magnesium Hydroxide (Milk Of Magnesia) 30 ml PO Q12H PRN PRN Reason: Constipation Last Admin: 12/01/18 10:24 Dose: 30 ml Melatonin (Melatonin) 9 mg PO BEDTIME [facility] Last Admin: 12/02/18 22:29 Dose: Not Given Ondansetron HCl (Zofran Odt) 4 mg PO Q6H PRN PRN Reason: Nausea able to take PO Ondansetron HCl (Zofran) 4 mg IV Q6H PRN PRN Reason: Nausea/Vomiting Senna/Docusate Sodium (Senna Plus) 1 tab PO BID PRN PRN Reason: Constipation Last Admin: 11/30/18 08:42 Dose: 1 tab Tramadol HCl (Ultram) 50 mg PO Q6H PRN PRN Reason: Pain Last Admin: 12/01/18 10:26 Dose: 50 mg Warfarin Sodium (Coumadin) 5 mg PO DAILY@1300 [facility] Discontinued Medications Colchicine (Colcrys) 1.2 mg PO ONETIME ONE Stop: 12/01/18 10:01 Last Admin: 12/01/18 09:39 Dose: 1.2 mg Colchicine (Colcrys) 0.6 mg PO ONETIME ONE Stop: 12/01/18 11:01 Last Admin: 12/01/18 12:00 Dose: 0.6 mg Furosemide (Lasix) 40 mg IVPUSH ONETIME ONE Stop: 11/29/18 17:55 Last Admin: 11/29/18 19:30 Dose: Not Given Cefazolin Sodium 1 gm/ Sodium (Chloride) 50 mls @ 200 mls/hr IV Q8H [facility] Last Admin: 11/30/18 03:02 Dose: 200 mls/hr Cefazolin Sodium/Dextrose 1 gm (/ Premix) 50 mls @ 100 mls/hr IV Q8H [facility] Last Admin: 12/01/18 03:58 Dose: 100 mls/hr Sodium Chloride (Normal Saline) 1,000 mls @ 75 mls/hr IV ASDIRECTED [facility] Last Admin: 12/01/18 06:09 Dose: 75 mls/hr Oxycodone HCl (Oxycodone) 5 mg PO Q4H PRN PRN Reason: Pain Last Admin: 11/29/18 23:42 Dose: 5 mg Potassium Chloride (Klor-Con M20) 40 meq PO ONETIME ONE Stop: 12/01/18 09:31 Last Admin: 12/01/18 09:38 Dose: 40 meq Prednisone (Prednisone) 20 mg PO ONETIME ONE Stop: 11/29/18 19:22 Last Admin: 11/29/18 20:18 Dose: 20 mg Prednisone (Prednisone) 20 mg PO WITHBREAKFAST [facility] Stop: 12/03/18 08:01 Last Admin: 12/03/18 09:23 Dose: 20 mg Warfarin Sodium (Coumadin) 2.5 mg PO DAILY@1300 [facility] Last Admin: 12/02/18 14:43 Dose: 2.5 mg Warfarin Sodium (Coumadin) 5 mg PO DAILY@1300 [facility] - Exam Quality Assessment: Reports: DVT Prophylaxis General: Reports: Alert, Oriented, Cooperative, No Acute Distress Lungs: Reports: Clear to Auscultation, Normal Respiratory Effort Cardiovascular: Reports: Regular Rate, No Murmurs, Irregular Rhythm GI/Abdominal Exam: Soft, Non-Tender, No Organomegaly, No Distention
[2018-12-04] MEDS ORDERED: Warfarin 5 MG Tab PO SCH (13:00)
== END 2018-12-03 11:00 | DRG 699 ==
LOC: JP.ED 14:41 → JP.MS 18:42
PROVIDERS: ADMIT Internal Medicine; ATTEND Hospitalist
DX: N18.9 Chronic kidney disease, unspecified (principal); E11.22 Type 2 diabetes mellitus with diabetic chronic kidney disease; I48.91 Unspecified atrial fibrillation; M19.90 Unspecified osteoarthritis, unspecified site; I50.22 Chronic systolic (congestive) heart failure; M10.39 Gout due to renal impairment, multiple sites; M06.4 Inflammatory polyarthropathy; M70.32 Other bursitis of elbow, left elbow; N18.3 Chronic kidney disease, stage 3 (moderate); G89.29 Other chronic pain; I48.2 Chronic atrial fibrillation; I25.10 Atherosclerotic heart disease of native coronary artery without angina pectoris; K21.9 Gastro-esophageal reflux disease without esophagitis; F41.9 Anxiety disorder, unspecified; M54.9 Dorsalgia, unspecified; H54.7 Unspecified visual loss; I25.2 Old myocardial infarction; R79.1 Abnormal coagulation profile; Z88.8 Allergy status to other drugs, medicaments and biological substances; Z91.041 Radiographic dye allergy status; Z79.01 Long term (current) use of anticoagulants; Z79.84 Long term (current) use of oral hypoglycemic drugs; R53.81 Other malaise; R53.83 Other fatigue; R14.0 Abdominal distension (gaseous); R53.1 Weakness; Z79.82 Long term (current) use of aspirin; Z79.899 Other long term (current) drug therapy; Z86.718 Personal history of other venous thrombosis and embolism; Z95.0 Presence of cardiac pacemaker; Z95.5 Presence of coronary angioplasty implant and graft; Z86.711 Personal history of pulmonary embolism; Z87.440 Personal history of urinary (tract) infections; Z86.73 Personal history of transient ischemic attack (TIA), and cerebral infarction without residual deficits
CPT/HCPCS: 36415; 71045; 73560-RT; 73562-RT; 80048; 80053; 81001; 82962; 83036; 83605; 83880; 84145; 84550; 85025; 85027; 85610; 97110-GP; 97161-GP; 97530-GP; 99284; 99285-25; A9270-GY; J0690; J1815; J7030; J7050

== ENCOUNTER 2018-12-15 18:03 | Inpatient (IN) | payer MEDICARE, OTHER ==
[2018-12-15] MEDS ORDERED: Sodium Chloride 0.9% 10 ML Syringe FLUSH PRN (18:49)
[2018-12-15] MEDS ORDERED: Sodium Chloride 0.9% 1,000 ML IV ONE (18:51)
--- NOTE | 2018-12-15 19:25 | CRLCR ---
TECHNIQUE: Portable AP chest. INDICATION: Weakness. COMPARISON: 11/29/2018 chest x-ray. FINDINGS: New consolidation in the left lower lobe behind the heart, pneumonia versus atelectasis. Right lung clear. Sternotomy. Right-sided AICD. Left atrial enlargement. IMPRESSION: Left lower lobe atelectasis versus pneumonia. Dictated by Sam Whitten MD @ 12/15/2018 7:24:51 PM Dictated by: Sam Whitten MD @ 12/15/2018 19:24:54 (Electronically Signed)
[2018-12-15] MEDS ORDERED: LORazepam 2 MG/ML SDV IVPUSH PRN (19:58)
--- NOTE | 2018-12-15 20:14 | PCM.HP ---
<Eliezer Seay - Last Filed: 12/15/18 20:50> H&P History of Present Illness - General Date of Service: 12/15/18 Admit Problem/Dx: Admission Diagnosis/Problem Admission Diagnosis/Problem Pneumonia Source of Information: Patient, Family History Limitations: Reports: Altered Mental Status - History of Present Illness Initial Comments - Free Text/Narative: This gentleman is here because of weakness and lethargy and swelling/redness of his right wrist and hand. He has been in the residential for the past 12 days recuperating after hospitalization for gout. His said he had it in his right foot and ankle left elbow right hand and right knee. She said his left olecranon bursa was aspirated for crystals. For the past few days he's had very little oral intake and has become more and more week. Today his right wrist and hand or red swollen and very tender. He's felt hot and cold - Related Data Allergies/Adverse Reactions: Allergies Allergy/AdvReac Type Severity Reaction Status Date / Time amlodipine Allergy Severe anaphylaxis Verified 11/29/18 16:48 dipyridamole Allergy Cannot Verified 11/29/18 16:48 Remember Iodinated Contrast- Oral and Allergy Rash Verified 11/29/18 16:48 IV Dye [Iodinated Contrast Media - IV Dye] rosuvastatin calcium AdvReac Muscle Verified 11/29/18 16:48 [From Crestor] Aches Home Medications: Home Meds Multivitamin with Minerals [Multiple Vitamin] 1 tab PO DAILY 09/29/13 [History] Omeprazole [Prilosec] 40 mg PO DAILY PRN 09/29/13 [History] glipiZIDE [Glucotrol] 2.5 mg PO BIDAC 07/14/14 [History] Nitroglycerin [IJP: Nitroglycerin] 0.4 mg PO ASDIRECTED PRN 07/24/16 [History] Bumetanide [Bumex] 2 mg PO DAILY 10/10/16 [History] Warfarin [Coumadin] 2.5 mg PO DAILY 08/09/17 [History] Allopurinol [Zyloprim] 100 mg PO DAILY #30 tab 12/03/18 [Rx] Carboxymethylcellulose Sodium [Refresh Tears 0.5%] 1 drop EARBOTH BID 12/15/18 [ History] H&P Review of Systems - Review of Systems: Review Of Systems: See Below General: Reports: Malaise, Weakness, Decreased Appetite HEENT: Reports: No Symptoms Pulmonary: Reports: No Symptoms Cardiovascular: Reports: No Symptoms Gastrointestinal: Reports: No Symptoms Genitourinary: Reports: No Symptoms Musculoskeletal: Reports: Other (See history of present illness) Skin: Reports: Other (See history of present illness) Psychiatric: Reports: No Symptoms Neurological: Reports: No Symptoms Hematologic/Lymphatic: Reports: No Symptoms Exam - Exam Exam: See Below - Vital Signs Vital Signs: Last Vital Signs Temp 36.9 C 12/15/18 19:07 Pulse 83 12/15/18 19:07 Resp 16 12/15/18 19:07 BP 144/64 H 12/15/18 19:07 Pulse Ox 96 12/15/18 19:07 - Exam General: Lethargic HEENT: PERRLA, Mucosa Moist & [place] (Just slightly on the dry side), Posterior Pharynx Clear Neck: Supple Lungs: Clear to Auscultation Cardiovascular: Regular Rhythm GI/Abdominal Exam: Normal Bowel Sounds, Soft, Non-Tender Back Exam: Other (Not seen) Extremities: Other (There is erythema of the right hand and wrist up to about the distal third of the forearm. There is moderate swelling to the hand and wrist. The entire hand and wrist are tender to palpation anywhere neurovascular tendon all intact) Neurological: Cranial Nerves Intact Neuro Extensive - Mental Status: Oriented x3, Normal Mood/Affect, Normal Cognition - Patient Data Lab Results Last 24 hrs: Laboratory Results - last 24 hr 12/15/18 12/15/18 12/15/18 Range/Units 18:55 18:55 18:55 WBC 15.9 H (4.5-11.0) K/uL RBC 4.94 (4.30-5.90) M/uL Hgb 14.0 (12.0-15.0) g/dL Hct 44.4 (40.0-54.0) % MCV 90 (80-98) fL MCH 28 (27-31) pg MCHC 32 (32-36) % Plt Count 165 (150-400) K/uL Neut % (Auto) 80 H (36-66) % Lymph % (Auto) 9 L (24-44) % Hartley % (Auto) 10 H (2-6) % Eos % (Auto) 1 L (2-4) % Baso % (Auto) 0 (0-1) % PT 12.0 (9.5-12.0) sec INR 1.12 (0.80-1.20) Sodium 141 (140-148) mmol/L Potassium 3.9 (3.6-5.2) mmol/L Chloride 99 L (100-108) mmol/L Carbon Dioxide 35 H (21-32) mmol/L Anion Gap 10.9 (5.0-14.0) mmol/L BUN 28 H (7-18) mg/dL Creatinine 1.7 H (0.8-1.3) mg/dL Est Cr Clr Drug Dosing 34.24 mL/min Estimated GFR (MDRD) 38 L (>60) Glucose 165 H (74-106) mg/dL Lactic Acid (0.4-2.0) mmol/L Calcium 9.4 (8.5-10.1) mg/dL Total Bilirubin 0.9 (0.2-1.0) mg/dL AST 23 (15-37) U/L ALT 45 (12-78) U/L Alkaline Phosphatase 81 (46-116) U/L Total Protein 7.2 (6.4-8.2) g/dL Albumin 2.7 L (3.4-5.0) g/dL Globulin 4.5 H (2.3-3.5) g/dL Albumin/Globulin Ratio 0.6 L (1.2-2.2) 12/15/18 Range/Units 18:55 WBC (4.5-11.0) K/uL RBC (4.30-5.90) M/uL Hgb (12.0-15.0) g/dL Hct (40.0-54.0) % MCV (80-98) fL MCH (27-31) pg MCHC (32-36) % Plt Count (150-400) K/uL Neut % (Auto) (36-66) % Lymph % (Auto) (24-44) % Hartley % (Auto) (2-6) % Eos % (Auto) (2-4) % Baso % (Auto) (0-1) % PT (9.5-12.0) sec INR (0.80-1.20) Sodium (140-148) mmol/L Potassium (3.6-5.2) mmol/L Chloride (100-108) mmol/L Carbon Dioxide (21-32) mmol/L Anion Gap (5.0-14.0) mmol/L BUN (7-18) mg/dL Creatinine (0.8-1.3) mg/dL Est Cr Clr Drug Dosing mL/min Estimated GFR (MDRD) (>60) Glucose (74-106) mg/dL Lactic Acid 2.4 H (0.4-2.0) mmol/L Calcium (8.5-10.1) mg/dL Total Bilirubin (0.2-1.0) mg/dL AST (15-37) U/L ALT (12-78) U/L Alkaline Phosphatase (46-116) U/L Total Protein (6.4-8.2) g/dL Albumin (3.4-5.0) g/dL Globulin (2.3-3.5) g/dL Albumin/Globulin Ratio (1.2-2.2) Result Diagrams: 12/15/18 18:55 12/15/18 18:55 Problem List Initiated/Reviewed/Updated: Yes Orders Last 24hrs: Active Orders 24 hr Category Date Time Status Patient Status Manage Transfer [TRANSFER] Routine ADT 12/15/18 20:00 Active CULTURE BLOOD [BC] Urgent Lab 12/15/18 18:55 Received CULTURE BLOOD [BC] Urgent Lab 12/15/18 19:08 Received UA W/MICROSCOPIC [URIN] Urgent Lab 12/15/18 18:47 Ordered URIC ACID [CHEM] Routine Lab 12/15/18 20:50 Ordered LORazepam [Ativan] Med 12/15/18 19:58 Active 1 mg IVPUSH Q4H PRN Sodium Chloride 0.9% [Saline Flush] Med 12/15/18 18:49 Active 10 ml FLUSH ASDIRECTED PRN Blood Culture x2 Reflex Set [OM.PC] Urgent Oth 12/15/18 18:49 Ordered Saline Lock Insert [OM.PC] Urgent Oth 12/15/18 18:48 Ordered Resuscitation Status Routine Resus Stat 12/15/18 20:02 Ordered Medication Orders Lorazepam (Ativan) 1 mg IVPUSH Q4H PRN PRN Reason: Anxiety Sodium Chloride (Saline Flush) 10 ml FLUSH ASDIRECTED PRN PRN Reason: Keep Vein Open Last Admin: 12/15/18 19:29 Dose: 10 ml <Jes Oliveira F - Last Filed: 12/15/18 21:51> H&P History of Present Illness - General Admit Problem/Dx: Admission Diagnosis/Problem Admission Diagnosis/Problem Pneumonia Source of Information: Family (Daughter at bedside) History Limitations: Reports: Altered Mental Status - History of Present Illness Onset of Symptoms: Reports: Gradual Duration of Symptoms: Reports: Day(s): (3), Getting Worse Location: Reports: Generalized Quality: Reports: Ache, Burning, Throbbing Severity: Severe Improves with: Reports: Immobilization (right arm) Worsens with: Reports: Movement (right arm) Associated Symptoms: Reports: Fever/Chills, Loss of Appetite (family reports eating very little in the past 2-3 days), Weakness Past Medical History HEENT History: Reports: Cataract, Impaired Vision, Other (See Below) Other HEENT History: optic neuropathy Cardiovascular History: Reports: Afib, Arrhythmia, Blood Clots/VTE/DVT, CAD, Heart Failure, PA, Pacemaker, Stents, Other (See Below) Other Cardiovascular History: cardiomegaly, sinoatrial node disfunction. Respiratory History: Reports: PE Other Respiratory History: pulm. valve disorder Gastrointestinal History: Reports: GERD Genitourinary History: Reports: BPH, Chronic Renal Insuffiency, UTI, Recurrent Other Genitourinary History: hx of urinary obstructions Musculoskeletal History: Reports: Back Pain, Chronic, Osteoarthritis Neurological History: Reports: CVA Psychiatric History: Reports: Anxiety Endocrine/Metabolic History: Reports: Diabetes, Type II Hematologic History: Reports: Blood Transfusion(s) - Infectious Disease History Infectious Disease History: Reports: Chicken Pox, Measles, Mumps - Past Surgical History HEENT Surgical History: Reports: Cataract Surgery Cardiovascular Surgical History: Reports: Cardiac Ablation, Coronary Artery Stent Social & Family History - Family History Family Medical History: Noncontributory Cardiac: Reports: PA - Tobacco Use Smoking Status *Q: Never Smoker - Caffeine Use Caffeine Use: Reports: Coffee - Living Situation & Occupation Living situation: Reports: , with Family Occupation: Retired (lives with his , [address] [place] of [place], [place].) H&P Review of Systems - Review of Systems: Review Of Systems: See Below General: Reports: Malaise, Weakness, Decreased Appetite HEENT: Reports: No Symptoms Pulmonary: Reports: No Symptoms Cardiovascular: Reports: No Symptoms Gastrointestinal: Reports: No Symptoms Genitourinary: Reports: No Symptoms Musculoskeletal: Reports: Other Psychiatric: Reports: Confusion, Anxiety Neurological: Reports: No Symptoms Hematologic/Lymphatic: Reports: No Symptoms Immunologic: Reports: No Symptoms Exam - Exam Exam: See Below - Vital Signs Vital Signs: Last Vital Signs Temp 36.9 C 12/15/18 19:07 Pulse 83 12/15/18 19:07 Resp 16 12/15/18 19:07 BP 144/64 H 12/15/18 19:07 Pulse Ox 96 12/15/18 19:07 Weight: 102.058 kg - Exam General: Lethargic HEENT: PERRLA, Mucosa Moist & [place], Posterior Pharynx Clear Neck: Supple, Trachea Midline Lungs: Clear to Auscultation, Normal Respiratory Effort Cardiovascular: Regular Rhythm GI/Abdominal Exam: Normal Bowel Sounds, Soft, Non-Tender (Male) Exam: No Hernia, Normal Inspection Back Exam: Other Extremities: Other Skin: Warm, Rash (right arm with redness, tiny blisters noted hand and thumb) Neurological: Cranial Nerves Intact Neuro Extensive - Mental Status: Inattentive Psychiatric: Anxious - Patient Data Lab Results Last 24 hrs: Laboratory Results - last 24 hr 12/15/18 12/15/18 12/15/18 Range/Units 18:55 18:55 18:55 WBC 15.9 H (4.5-11.0) K/uL RBC 4.94 (4.30-5.90) M/uL Hgb 14.0 (12.0-15.0) g/dL Hct 44.4 (40.0-54.0) % MCV 90 (80-98) fL MCH 28 (27-31) pg MCHC 32 (32-36) % Plt Count 165 (150-400) K/uL Neut % (Auto) 80 H (36-66) % Lymph % (Auto) 9 L (24-44) % [place] % (Auto) 10 H (2-6) % Eos % (Auto) 1 L (2-4) % Baso % (Auto) 0 (0-1) % PT 12.0 (9.5-12.0) sec INR 1.12 (0.80-1.20) Sodium 141 (140-148) mmol/L Potassium 3.9 (3.6-5.2) mmol/L Chloride 99 L (100-108) mmol/L Carbon Dioxide 35 H (21-32) mmol/L Anion Gap 10.9 (5.0-14.0) mmol/L BUN 28 H (7-18) mg/dL Creatinine 1.7 H (0.8-1.3) mg/dL Est Cr Clr Drug Dosing 34.24 mL/min Estimated GFR (MDRD) 38 L (>60) Glucose 165 H (74-106) mg/dL Lactic Acid (0.4-2.0) mmol/L Calcium 9.4 (8.5-10.1) mg/dL Total Bilirubin 0.9 (0.2-1.0) mg/dL AST 23 (15-37) U/L ALT 45 (12-78) U/L Alkaline Phosphatase 81 (46-116) U/L Total Protein 7.2 (6.4-8.2) g/dL Albumin 2.7 L (3.4-5.0) g/dL Globulin 4.5 H (2.3-3.5) g/dL Albumin/Globulin Ratio 0.6 L (1.2-2.2) 12/15/18 Range/Units 18:55 WBC (4.5-11.0) K/uL RBC (4.30-5.90) M/uL Hgb (12.0-15.0) g/dL Hct (40.0-54.0) % MCV (80-98) fL MCH (27-31) pg MCHC (32-36) % Plt Count (150-400) K/uL Neut % (Auto) (36-66) % Lymph % (Auto) (24-44) % [place] % (Auto) (2-6) % Eos % (Auto) (2-4) % Baso % (Auto) (0-1) % PT (9.5-12.0) sec INR (0.80-1.20) Sodium (140-148) mmol/L Potassium (3.6-5.2) mmol/L Chloride (100-108) mmol/L Carbon Dioxide (21-32) mmol/L Anion Gap (5.0-14.0) mmol/L BUN (7-18) mg/dL Creatinine (0.8-1.3) mg/dL Est Cr Clr Drug Dosing mL/min Estimated GFR (MDRD) (>60) Glucose (74-106) mg/dL Lactic Acid 2.4 H (0.4-2.0) mmol/L Calcium (8.5-10.1) mg/dL Total Bilirubin (0.2-1.0) mg/dL AST (15-37) U/L ALT (12-78) U/L Alkaline Phosphatase (46-116) U/L Total Protein (6.4-8.2) g/dL Albumin (3.4-5.0) g/dL Globulin (2.3-3.5) g/dL Albumin/Globulin Ratio (1.2-2.2) Result Diagrams: 12/15/18 18:55 12/15/18 18:55 - Problem List (1) Pneumonia SNOMED Code(s): 571571362 ICD Code: J18.9 - PNEUMONIA, UNSPECIFIED ORGANISM Status: Acute Priority : High Current Visit: Yes Qualifiers: Pneumonia type: due to unspecified organism Laterality: left Lung location: lower lobe of lung Qualified Code(s): J18.1 - Lobar pneumonia, unspecified organism (2) 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 SNOMED Code(s): 301327765179055 ICD Code: M10.39 - GOUT DUE TO RENAL IMPAIRMENT, MULTIPLE SITES Status: Acute Priority: High Current Visit: Yes Qualifiers: Chronicity: acute Qualified Code(s): M10.39 - Gout due to renal impairment , multiple sites (3) CHF (congestive heart failure) SNOMED Code(s): 40837135 ICD Code: I50.9 - HEART FAILURE, UNSPECIFIED Status: Chronic Priority: High Current Visit: No Qualifiers: Qualified Code(s): I50.22 - Chronic systolic (congestive) heart failure (4) Chronic kidney disease SNOMED Code(s): 834264375 ICD Code: N18.9 - CHRONIC KIDNEY DISEASE, UNSPECIFIED Status: Chronic Priority: High Current Visit: No Qualifiers: Chronic kidney disease stage: stage 3 (moderate) Qualified Code(s): N18.3 - Chronic kidney disease, stage 3 (moderate) (5) Diabetes type 2, controlled SNOMED Code(s): 56885941, 661474906 ICD Code: E11.9 - TYPE 2 DIABETES MELLITUS WITHOUT COMPLICATIONS Status: Chronic Priority: High Current Visit: No Qualifiers: Diabetes mellitus long chain quiller tender insulin use: without long chain quiller tender use Diabetes mellitus complication status: with unspecified complications Qualified Code(s) : E11.8 - Type 2 diabetes mellitus with unspecified complications (6) Stage III chronic kidney disease SNOMED Code(s): 141219878 ICD Code: N18.3 - CHRONIC KIDNEY DISEASE, STAGE 3 (MODERATE) Status: Chronic Priority: High Current Visit: No Problem List Initiated/Reviewed/Updated: Yes Orders Last 24hrs: Active Orders 24 hr Category Date Time Status Patient Status Manage Transfer [TRANSFER] Routine ADT 12/15/18 20:00 Ordered CULTURE BLOOD [BC] Urgent Lab 12/15/18 18:55 Received CULTURE BLOOD [BC] Urgent Lab 12/15/18 19:08 Received UA W/MICROSCOPIC [URIN] Urgent Lab 12/15/18 18:47 Ordered LORazepam [Ativan] Med 12/15/18 19:58 Active 1 mg IVPUSH Q4H PRN Sodium Chloride 0.9% [Saline Flush] Med 12/15/18 18:49 Active 10 ml FLUSH ASDIRECTED PRN Blood Culture x2 Reflex Set [OM.PC] Urgent Oth 12/15/18 18:49 Ordered Saline Lock Insert [OM.PC] Urgent Oth 12/15/18 18:48 Ordered Resuscitation Status Routine Resus Stat 12/15/18 20:02 Ordered Medication Orders Lorazepam (Ativan) 1 mg IVPUSH Q4H PRN PRN Reason: Anxiety Sodium Chloride (Saline Flush) 10 ml FLUSH ASDIRECTED PRN PRN Reason: Keep Vein Open Last Admin: 12/15/18 19:29 Dose: 10 ml Assessment/Plan Comment:: ASSESSMENT AND PLAN Family reports 3 days of weakness, lethargy, fever and chills. He was recently in [facility] from November 29 to December 03 2018 for inflammatory polyarthropathy and left elbow bursitis. He as doing well at [facility], when 3 days ago family noticed weakness, increasing pain in right hand and left elbow. He was transported to ER, had work up of labs, blood culture and chest xray. the Lab results elevated WBC and chest xray show left lower lobe pneumonia. will admit to hospital for IV antibiotic, pain control and rehydration . His , Daughter and Son - law are at bedside and agree with plan of care. PNEUMONIA LEFT LOWER LOBE - WBC 15.9, Lactic Acid 2.4 -Cefazolin 1 gram IV every 8 hours -Zithromax 500 mg IV every 24 hours -Albuterol and Duonebs ordered -IV fluids NS at 125ml per hours -blood cultures pending -am labs CBC, BMP, INR GOUT MULTI SITES - right hand and left elbow, Uric Acid level 7.9. severe pain in multi sites -IV Cefazolin 1 gram IV every 8 hours -IV Morphine 2 mg every 2 hours prn pain , Percocet 5-325 mgone every 4 hours prn pain, Tylenol 325mg ordered for pain control -IV Ativan 1 mg every 4 hours as needed for agitation CHRONIC SYSTOLIC CONGESTIVE HEART FAILURE- appears well compensated at this time. -2 g sodium diet -Continue daily Bumex ATRIAL FIBRILLATION - He is on long-term oral anticoagulation with warfarin -Continue current therapy with warfarin, INR 1.12 -Recheck INR in a.m. DIABETES TYPE 2 -blood glucose before meals and at bedtime -continue home medication - Glipzide 2.5 mg po bid CHRONIC KIDNEY DISEASE STAGE III -am labs BMP MAINTENANCE ISSUES -DVT prophylaxis; current therapy with warfarin should provide adequate DVT prophylaxis -GI prophylaxis; Protonix 40 mg po daily -Busch catheter; not indicated at this time -Nutrition; 2 g sodium diet -Nicotine dependence; not required CODE STATUS-FULL ADMISSION STATUS-patient will be admitted to inpatient status, expect at least a 2 night hospital stay for evaluation and management of problems as outlined above. At the time of this admission I do not reasonably expected evaluation and management of this problem will require more than a 96 hour hospital stay. DISPOSITION-anticipate discharge to [facility] after the hospital stay. PRIMARY CARE PROVIDER- Dr. Lynch Hospitalist - Dr. Kenney
[2018-12-15] MEDS ORDERED: Morphine 2 MG/ML Syringe IVPUSH ONE (20:27)
--- NOTE | 2018-12-15 21:08 | EDM.PDOC ---
ED HPI GENERAL MEDICAL PROBLEM - General Chief Complaint: General Stated Complaint: [facility] Time Seen by Provider: 12/15/18 18:32 Source of Information: Reports: Patient, Family History Limitations: Reports: Altered Mental Status - History of Present Illness INITIAL COMMENTS - FREE TEXT/NARRATIVE: This is a redo of my original ER note which somehow managed to be attached to the admission history and physical. The history is copy read for beta from that report. This gentleman is here because of weakness and lethargy and swelling/redness of his right wrist and hand. He has been in the intermediate for the past 12 days recuperating after hospitalization for gout. His said he had it in his right foot and ankle, left elbow, right hand and right knee. She said his left olecranon bursa was aspirated for crystals. For the past few days he's had very little oral intake and has become more and more week. Today his right wrist and hand are read swollen and very tender area and he's felt hot and cold. - Related Data Allergies Allergy/AdvReac Type Severity Reaction Status Date / Time amlodipine Allergy Severe anaphylaxis Verified 11/29/18 16:48 dipyridamole Allergy Cannot Verified 11/29/18 16:48 Remember Iodinated Contrast- Oral and Allergy Rash Verified 11/29/18 16:48 IV Dye [Iodinated Contrast Media - IV Dye] rosuvastatin calcium AdvReac Muscle Verified 11/29/18 16:48 [From Crestor] Aches Home Meds: Home Meds Multivitamin with Minerals [Multiple Vitamin] 1 tab PO DAILY 09/29/13 [History] Omeprazole [Prilosec] 40 mg PO DAILY PRN 09/29/13 [History] glipiZIDE [Glucotrol] 2.5 mg PO BIDAC 07/14/14 [History] Nitroglycerin [IJP: Nitroglycerin] 0.4 mg PO ASDIRECTED PRN 07/24/16 [History] Bumetanide [Bumex] 2 mg PO DAILY 10/10/16 [History] Warfarin [Coumadin] 2.5 mg PO DAILY 08/09/17 [History] Allopurinol [Zyloprim] 100 mg PO DAILY #30 tab 12/03/18 [Rx] Carboxymethylcellulose Sodium [Refresh Tears 0.5%] 1 drop EARBOTH BID 12/15/18 [ History] Past Medical History HEENT History: Reports: Cataract, Impaired Vision, Other (See Below) Other HEENT History: optic neuropathy Cardiovascular History: Reports: Afib, Arrhythmia, Blood Clots/VTE/DVT, CAD, Heart Failure, MO, Pacemaker, Stents, Other (See Below) Other Cardiovascular History: cardiomegaly, sinoatrial node disfunction. Respiratory History: Reports: PE Other Respiratory History: pulm. valve disorder Gastrointestinal History: Reports: GERD Genitourinary History: Reports: BPH, Chronic Renal Insuffiency, UTI, Recurrent Other Genitourinary History: hx of urinary obstructions Musculoskeletal History: Reports: Back Pain, Chronic, Osteoarthritis Neurological History: Reports: CVA Psychiatric History: Reports: Anxiety Endocrine/Metabolic History: Reports: Diabetes, Type II Hematologic History: Reports: Blood Transfusion(s) - Infectious Disease History Infectious Disease History: Reports: Chicken Pox, Measles, Mumps - Past Surgical History HEENT Surgical History: Reports: Cataract Surgery Cardiovascular Surgical History: Reports: Cardiac Ablation, Coronary Artery Stent Social & Family History - Family History Family Medical History: Noncontributory Cardiac: Reports: MO - Tobacco Use Smoking Status *Q: Never Smoker - Caffeine Use Caffeine Use: Reports: Coffee - Living Situation & Occupation Living situation: Reports: , with Family Occupation: Retired (lives with his , [address] [place] of [place], [place].) ED ROS GENERAL - Review of Systems Review Of Systems: See Below Constitutional: Reports: Malaise, Weakness, Decreased Appetite HEENT: Reports: No Symptoms Respiratory: Reports: No Symptoms Cardiovascular: Reports: No Symptoms, Palpitations GI/Abdominal: Reports: No Symptoms : Reports: No Symptoms Musculoskeletal: Reports: Other (see HPI) Skin: Reports: Other (HPI) Neurological: Reports: No Symptoms Psychiatric: Reports: No Symptoms ED EXAM, GENERAL - Physical Exam Exam: See Below Exam Limited By: No Limitations General Appearance: Lethargic, Mild Distress Eye Exam: Bilateral Eye: EOMI, PERRL Throat/Mouth: Other (slightly dry) Head: Atraumatic Neck: Normal Inspection Respiratory/Chest: No Respiratory Distress, Lungs Clear Cardiovascular: Regular Rate, Rhythm GI/Abdominal: Normal Bowel Sounds, Soft, Non-Tender Back Exam: Muscle Spasm, Other (Not seen) Extremities: Other (There is erythema of the right hand and wrist up to about the distal third of the forearm. There is moderate swelling to the hand and wrist. The entire hand and wrist are tender to palpation anywhere neurovascular tendon all intact) Neurological: Other (lethargic) Psychiatric: Normal Affect Skin Exam: Other (see extremities) Course - Vital Signs Last Recorded V/S: Last Vital Signs Temp 37.1 C 12/15/18 21:01 Pulse 81 12/15/18 21:01 Resp 18 12/15/18 21:01 BP 145/99 H 12/15/18 21:01 Pulse Ox 96 12/15/18 21:01 - Orders/Labs/Meds Orders: Active Orders 24 hr Category Date Time Status CULTURE BLOOD [BC] Urgent Lab 12/15/18 18:55 Received CULTURE BLOOD [BC] Urgent Lab 12/15/18 19:08 Received UA W/MICROSCOPIC [URIN] Urgent Lab 12/15/18 18:47 Ordered LORazepam [Ativan] Med 12/15/18 19:58 Active 1 mg IVPUSH Q4H PRN Sodium Chloride 0.9% [Saline Flush] Med 12/15/18 18:49 Active 10 ml FLUSH ASDIRECTED PRN Blood Culture x2 Reflex Set [OM.PC] Urgent Oth 12/15/18 18:49 Ordered Saline Lock Insert [OM.PC] Urgent Oth 12/15/18 18:48 Ordered Medication Orders Lorazepam (Ativan) 1 mg IVPUSH Q4H PRN PRN Reason: Anxiety Sodium Chloride (Saline Flush) 10 ml FLUSH ASDIRECTED PRN PRN Reason: Keep Vein Open Last Admin: 12/15/18 19:29 Dose: 10 ml Labs: Laboratory Tests 12/15/18 12/15/18 12/15/18 Range/Units 18:55 18:55 18:55 WBC 15.9 H (4.5-11.0) K/uL RBC 4.94 (4.30-5.90) M/uL Hgb 14.0 (12.0-15.0) g/dL Hct 44.4 (40.0-54.0) % MCV 90 (80-98) fL MCH 28 (27-31) pg MCHC 32 (32-36) % Plt Count 165 (150-400) K/uL Neut % (Auto) 80 H (36-66) % Lymph % (Auto) 9 L (24-44) % Esmeralda % (Auto) 10 H (2-6) % Eos % (Auto) 1 L (2-4) % Baso % (Auto) 0 (0-1) % PT 12.0 (9.5-12.0) sec INR 1.12 (0.80-1.20) Sodium 141 (140-148) mmol/L Potassium 3.9 (3.6-5.2) mmol/L Chloride 99 L (100-108) mmol/L Carbon Dioxide 35 H (21-32) mmol/L Anion Gap 10.9 (5.0-14.0) mmol/L BUN 28 H (7-18) mg/dL Creatinine 1.7 H (0.8-1.3) mg/dL Est Cr Clr Drug Dosing 34.24 mL/min Estimated GFR (MDRD) 38 L (>60) Glucose 165 H (74-106) mg/dL Lactic Acid (0.4-2.0) mmol/L Calcium 9.4 (8.5-10.1) mg/dL Total Bilirubin 0.9 (0.2-1.0) mg/dL AST 23 (15-37) U/L ALT 45 (12-78) U/L Alkaline Phosphatase 81 (46-116) U/L Total Protein 7.2 (6.4-8.2) g/dL Albumin 2.7 L (3.4-5.0) g/dL Globulin 4.5 H (2.3-3.5) g/dL Albumin/Globulin Ratio 0.6 L (1.2-2.2) 12/15/18 Range/Units 18:55 WBC (4.5-11.0) K/uL RBC (4.30-5.90) M/uL Hgb (12.0-15.0) g/dL Hct (40.0-54.0) % MCV (80-98) fL MCH (27-31) pg MCHC (32-36) % Plt Count (150-400) K/uL Neut % (Auto) (36-66) % Lymph % (Auto) (24-44) % Esmeralda % (Auto) (2-6) % Eos % (Auto) (2-4) % Baso % (Auto) (0-1) % PT (9.5-12.0) sec INR (0.80-1.20) Sodium (140-148) mmol/L Potassium (3.6-5.2) mmol/L Chloride (100-108) mmol/L Carbon Dioxide (21-32) mmol/L Anion Gap (5.0-14.0) mmol/L BUN (7-18) mg/dL Creatinine (0.8-1.3) mg/dL Est Cr Clr Drug Dosing mL/min Estimated GFR (MDRD) (>60) Glucose (74-106) mg/dL Lactic Acid 2.4 H (0.4-2.0) mmol/L Calcium (8.5-10.1) mg/dL Total Bilirubin (0.2-1.0) mg/dL AST (15-37) U/L ALT (12-78) U/L Alkaline Phosphatase (46-116) U/L Total Protein (6.4-8.2) g/dL Albumin (3.4-5.0) g/dL Globulin (2.3-3.5) g/dL Albumin/Globulin Ratio (1.2-2.2) Meds: Medications Generic Name Dose Route Start Last Admin Trade Name Freq PRN Reason Stop Dose Admin Lorazepam 1 mg 12/15/18 19:58 Ativan IVPUSH Q4H PRN Anxiety Sodium Chloride 10 ml 12/15/18 18:49 12/15/18 19:29 Saline Flush FLUSH 10 ml ASDIRECTED PRN Administration Keep Vein Open Discontinued Medications Generic Name Dose Route Start Last Admin Trade Name Freq PRN Reason Stop Dose Admin Sodium Chloride 1,000 mls @ 999 mls/hr 12/15/18 18:51 12/15/18 19:29 Normal Saline IV 12/15/18 19:51 999 mls/hr .BOLUS ONE Administration Morphine Sulfate 1 mg 12/15/18 20:27 12/15/18 20:33 Morphine IVPUSH 12/15/18 20:28 1 mg ONETIME ONE Administration - Radiology Interpretation Free Text/Narrative:: Possibly retrocardiac left lower lobe infiltrate versus atelectasis - Re-Assessments/Exams Free Text/Narrative Re-Assessment/Exam: 12/15/18 21:12 An IV was begun and began hydrating him with 1 L IV normal saline. I've discussed the case with Mable Pickering and she is admitting the patient to the hospital Departure - Departure Time of Disposition: 21:12 Disposition: Admitted As Inpatient 68 Condition: Fair Clinical Impression: Pneumonia - Discharge Information - My Orders Last 24 Hours: My Active Orders 12/15/18 18:47 UA W/MICROSCOPIC [URIN] Urgent 12/15/18 18:48 Saline Lock Insert [OM.PC] Urgent 12/15/18 18:49 Sodium Chloride 0.9% [Saline Flush] 10 ml FLUSH ASDIRECTED PRN Blood Culture x2 Reflex Set [OM.PC] Urgent 12/15/18 18:55 CULTURE BLOOD [BC] Urgent 12/15/18 19:08 CULTURE BLOOD [BC] Urgent - Assessment/Plan Last 24 Hours: My Active Orders 12/15/18 18:47 UA W/MICROSCOPIC [URIN] Urgent 12/15/18 18:48 Saline Lock Insert [OM.PC] Urgent 12/15/18 18:49 Sodium Chloride 0.9% [Saline Flush] 10 ml FLUSH ASDIRECTED PRN Blood Culture x2 Reflex Set [OM.PC] Urgent 12/15/18 18:55 CULTURE BLOOD [BC] Urgent 12/15/18 19:08 CULTURE BLOOD [BC] Urgent
[2018-12-15] MEDS ORDERED: Acetaminophen 325 MG Tab PO PRN (21:20)
[2018-12-15] MEDS ORDERED: oxyCODONE 5 MG Tab PO PRN (21:20)
[2018-12-15] MEDS ORDERED: Albuterol 0.083% 2.5 MG/3 ML Neb Soln NEB PRN (21:20)
[2018-12-15] MEDS ORDERED: Ondansetron 4 MG/2 ML SDV IV PRN (21:20)
[2018-12-15] MEDS ORDERED: Nitroglycerin 0.4 MG Tab.SL SL PRN (21:20)
[2018-12-15] MEDS ORDERED: Ondansetron 4 MG Tab.DIS PO PRN (21:20)
[2018-12-15] MEDS ORDERED: LORazepam 2 MG/ML SDV IV PRN (21:20)
[2018-12-15] MEDS: Azithromycin 500 MG in Sodium Chloride 0.9% 250 ML IV SCH (21:48)
[2018-12-15] MEDS ORDERED: Melatonin 3 MG Tab PO PRN (21:51)
[2018-12-15] MEDS: Albuterol/Ipratropium 3.0-0.5 MG/3 ML Neb Soln NEB SCH (21:58)
[2018-12-15] MEDS: ceFAZolin 1 GM in Sodium Chloride 0.9% 50 ML IV SCH (23:45)
[2018-12-16] MEDS: ceFAZolin 1 GM in Sodium Chloride 0.9% 50 ML IV SCH (05:45)
[2018-12-16] MEDS: Albuterol/Ipratropium 3.0-0.5 MG/3 ML Neb Soln NEB SCH ×4 (07:27→20:09)
[2018-12-16] MEDS ORDERED: Hypromellose 0.4% Ophth Soln 15 ML Bottle EYEBOTH PRN (07:30)
[2018-12-16] MEDS: Sodium Chloride 0.9% 1,000 ML IV SCH ×2 (08:22)
[2018-12-16] MEDS: Allopurinol 100 MG Tab PO SCH (08:26)
[2018-12-16] MEDS: glipiZIDE 5 MG Tab PO SCH ×2 (08:26→17:58)
[2018-12-16] MEDS: Bumetanide 1 MG Tab PO SCH (08:27)
[2018-12-16] MEDS: Multivitamins with Iron/Calcium/Folic Acid/Minerals Tab PO SCH (08:27)
[2018-12-16] MEDS: Lactobacillus Rhamnosus GG (Probiotic) Cap PO SCH ×2 (09:56→20:09)
[2018-12-16] MEDS: Morphine 2 MG/ML Syringe IVPUSH PRN ×3 (09:57→22:45)
[2018-12-16] MEDS: methylPREDNISolone Sodium Succinate 40 MG/1 ML SDV IVPUSH SCH ×2 (11:07→17:58)
[2018-12-16] MEDS: cefTRIAXone 1 GM in Sodium Chloride 0.9% 50 ML IV SCH (12:35)
[2018-12-16] MEDS ORDERED: Warfarin 5 MG Tab PO SCH (13:00)
[2018-12-16] MEDS ORDERED: Sodium Chloride 0.9% 1,000 ML IV SCH (13:15)
--- NOTE | 2018-12-16 13:15 | PCM.PN ---
- General Info Date of Service: 12/16/18 Subjective Update: Mr. Dalal is an 88-year-old gentleman who was admitted through the emergency department last night with weakness and lethargy. In addition he developed recurrent severe pain in his right wrist and hand, similar to previous admission with exacerbation of gout. White blood cell count was found to be elevated and chest x-ray shows evidence of infiltrate in the left lung. He remains fairly weak today, but has been hemodynamically stable. Functional Status: Reports: Urinating. Denies: Tolerating Diet, Ambulating - Review of Systems General: Reports: Weakness, Malaise. Denies: Fever, Chills Pulmonary: Reports: No Symptoms Cardiovascular: Reports: No Symptoms Gastrointestinal: Reports: No Symptoms - Patient Data Vitals - Most Recent: Last Vital Signs Temp 99.8 F 12/16/18 11:34 Pulse 91 12/16/18 11:34 Resp 20 12/16/18 11:34 BP 115/65 12/16/18 11:34 Pulse Ox 98 12/16/18 12:42 Weight - Most Recent: 222 lb 0.017 oz I&O - Last 24 Hours: Intake & Output 12/15/18 12/16/18 12/16/18 22:59 06:59 14:59 Intake Total 727 120 Balance 727 120 Lab Results Last 24 Hours: Laboratory Results - last 24 hr 12/15/18 12/15/18 12/15/18 Range/Units 18:55 18:55 18:55 WBC 15.9 H (4.5-11.0) K/uL RBC 4.94 (4.30-5.90) M/uL Hgb 14.0 (12.0-15.0) g/dL Hct 44.4 (40.0-54.0) % MCV 90 (80-98) fL MCH 28 (27-31) pg MCHC 32 (32-36) % Plt Count 165 (150-400) K/uL Neut % (Auto) 80 H (36-66) % Lymph % (Auto) 9 L (24-44) % [place] % (Auto) 10 H (2-6) % Eos % (Auto) 1 L (2-4) % Baso % (Auto) 0 (0-1) % PT 12.0 (9.5-12.0) sec INR 1.12 (0.80-1.20) Sodium 141 (140-148) mmol/L Potassium 3.9 (3.6-5.2) mmol/L Chloride 99 L (100-108) mmol/L Carbon Dioxide 35 H (21-32) mmol/L Anion Gap 10.9 (5.0-14.0) mmol/L BUN 28 H (7-18) mg/dL Creatinine 1.7 H (0.8-1.3) mg/dL Est Cr Clr Drug Dosing 34.24 mL/min Estimated GFR (MDRD) 38 L (>60) Glucose 165 H (74-106) mg/dL Lactic Acid (0.4-2.0) mmol/L Uric Acid (3.5-7.2) mg/dL Calcium 9.4 (8.5-10.1) mg/dL Total Bilirubin 0.9 (0.2-1.0) mg/dL AST 23 (15-37) U/L ALT 45 (12-78) U/L Alkaline Phosphatase 81 (46-116) U/L Total Protein 7.2 (6.4-8.2) g/dL Albumin 2.7 L (3.4-5.0) g/dL Globulin 4.5 H (2.3-3.5) g/dL Albumin/Globulin Ratio 0.6 L (1.2-2.2) 12/15/18 12/15/18 12/16/18 Range/Units 18:55 20:50 04:00 WBC 14.8 H (4.5-11.0) K/uL RBC 4.26 L (4.30-5.90) M/uL Hgb 12.2 (12.0-15.0) g/dL Hct 38.6 L (40.0-54.0) % MCV 91 (80-98) fL MCH 29 (27-31) pg MCHC 32 (32-36) % Plt Count 143 L (150-400) K/uL Neut % (Auto) 81 H (36-66) % Lymph % (Auto) 8 L (24-44) % [place] % (Auto) 10 H (2-6) % Eos % (Auto) 1 L (2-4) % Baso % (Auto) 0 (0-1) % PT (9.5-12.0) sec INR (0.80-1.20) Sodium (140-148) mmol/L Potassium (3.6-5.2) mmol/L Chloride (100-108) mmol/L Carbon Dioxide (21-32) mmol/L Anion Gap (5.0-14.0) mmol/L BUN (7-18) mg/dL Creatinine (0.8-1.3) mg/dL Est Cr Clr Drug Dosing mL/min Estimated GFR (MDRD) (>60) Glucose (74-106) mg/dL Lactic Acid 2.4 H (0.4-2.0) mmol/L Uric Acid 7.9 H (3.5-7.2) mg/dL Calcium (8.5-10.1) mg/dL Total Bilirubin (0.2-1.0) mg/dL AST (15-37) U/L ALT (12-78) U/L Alkaline Phosphatase (46-116) U/L Total Protein (6.4-8.2) g/dL Albumin (3.4-5.0) g/dL Globulin (2.3-3.5) g/dL Albumin/Globulin Ratio (1.2-2.2) 12/16/18 12/16/18 Range/Units 04:00 04:00 WBC (4.5-11.0) K/uL RBC (4.30-5.90) M/uL Hgb (12.0-15.0) g/dL Hct (40.0-54.0) % MCV (80-98) fL MCH (27-31) pg MCHC (32-36) % Plt Count (150-400) K/uL Neut % (Auto) (36-66) % Lymph % (Auto) (24-44) % [place]ia % (Auto) (2-6) % Eos % (Auto) (2-4) % Baso % (Auto) (0-1) % PT 12.8 H (9.5-12.0) sec INR 1.20 (0.80-1.20) Sodium 141 (140-148) mmol/L Potassium 3.7 (3.6-5.2) mmol/L Chloride 102 (100-108) mmol/L Carbon Dioxide 31 (21-32) mmol/L Anion Gap 8.5 (5.0-14.0) mmol/L BUN 27 H (7-18) mg/dL Creatinine 1.4 H (0.8-1.3) mg/dL Est Cr Clr Drug Dosing 41.57 mL/min Estimated GFR (MDRD) 48 L (>60) Glucose 146 H (74-106) mg/dL Lactic Acid (0.4-2.0) mmol/L Uric Acid (3.5-7.2) mg/dL Calcium 8.3 L (8.5-10.1) mg/dL Total Bilirubin (0.2-1.0) mg/dL AST (15-37) U/L ALT (12-78) U/L Alkaline Phosphatase (46-116) U/L Total Protein (6.4-8.2) g/dL Albumin (3.4-5.0) g/dL Globulin (2.3-3.5) g/dL Albumin/Globulin Ratio (1.2-2.2) Med Orders - Current: Current Medications Acetaminophen (Tylenol) 650 mg PO Q4H PRN PRN Reason: Pain (Mild 1-3)/fever Albuterol (Proventil Neb Soln) 2.5 mg NEB Q4H PRN PRN Reason: Shortness Of Breath/wheezing Albuterol/Ipratropium (Duoneb 3.0-0.5 Mg/3 Ml) 3 ml NEB QIDRT [facility] Last Admin: 12/16/18 10:49 Dose: 3 ml Allopurinol (Zyloprim) 100 mg PO DAILY [facility] Last Admin: 12/16/18 08:26 Dose: 100 mg Artificial Tears (Natural Balance Tears) 0 ml EYEBOTH BID PRN PRN Reason: DRY EYES Bisacodyl (Dulcolax) 5 mg PO DAILY PRN PRN Reason: Constipation Bumetanide (Bumex) 2 mg PO DAILY [facility] Last Admin: 12/16/18 08:27 Dose: 2 mg Docusate Sodium (Colace) 100 mg PO BID PRN PRN Reason: Constipation Glipizide (Glucotrol) 2.5 mg PO BIDAC [facility] Last Admin: 12/16/18 08:26 Dose: 2.5 mg Azithromycin 500 mg/ Sodium (Chloride) 250 mls @ 250 mls/hr IV Q24H [facility] Last Admin: 12/15/18 21:48 Dose: 250 mls/hr Ceftriaxone Sodium 1 gm/ (Sodium Chloride) 50 mls @ 100 mls/hr IV Q24H [facility] Last Admin: 12/16/18 12:35 Dose: 100 mls/hr Sodium Chloride (Normal Saline) 1,000 mls @ 50 mls/hr IV ASDIRECTED [facility] Lactobacillus Rhamnosus (Culturelle) 1 cap PO BID [facility] Last Admin: 12/16/18 09:56 Dose: Not Given Melatonin (Melatonin) 6 mg PO BEDTIME PRN PRN Reason: Insomnia Methylprednisolone Sodium Succinate (Solu-Medrol) 40 mg IVPUSH Q8H [facility] Last Admin: 12/16/18 11:07 Dose: 40 mg Morphine Sulfate (Morphine) 2 mg IVPUSH Q2H PRN PRN Reason: Pain (severe 7-10) Last Admin: 12/16/18 11:51 Dose: 2 mg Multivitamins/Minerals (Thera M Plus) 1 tab PO DAILY [facility] Last Admin: 12/16/18 08:27 Dose: 1 tab Nitroglycerin (Nitrostat) 0.4 mg SL ASDIRECTED PRN PRN Reason: Chest Pain Ondansetron HCl (Zofran Odt) 4 mg PO Q6H PRN PRN Reason: Nausea able to take PO Ondansetron HCl (Zofran) 4 mg IV Q4H PRN PRN Reason: Nausea/Vomiting Oxycodone HCl (Oxycodone) 5 mg PO Q4H PRN PRN Reason: Pain (moderate 4-6) Pantoprazole Sodium (Protonix) 40 mg PO DAILY PRN PRN Reason: Heartburn Warfarin Sodium (Coumadin) 2.5 mg PO [id number]@1300 [facility] Warfarin Sodium (Coumadin) 5 mg PO MoWeFr@1300 [facility] Discontinued Medications Sodium Chloride (Normal Saline) 1,000 mls @ 999 mls/hr IV .BOLUS ONE Stop: 12/15/18 19:51 Last Admin: 12/15/18 19:29 Dose: 999 mls/hr Cefazolin Sodium 1 gm/ Sodium (Chloride) 50 mls @ 100 mls/hr IV Q8H [facility] Last Admin: 12/16/18 05:45 Dose: 100 mls/hr Sodium Chloride (Normal Saline) 1,000 mls @ 100 mls/hr IV ASDIRECTED DURGA Last Admin: 12/16/18 08:22 Dose: 100 mls/hr Cefazolin Sodium/Dextrose 1 gm (/ Premix) 50 mls @ 100 mls/hr IV Q8H [facility] Lorazepam (Ativan) 1 mg IVPUSH Q4H PRN PRN Reason: Anxiety Last Admin: 12/15/18 21:56 Dose: 1 mg Lorazepam (Ativan) 1 mg IV Q6H PRN PRN Reason: Nausea/Vomiting Morphine Sulfate (Morphine) 1 mg IVPUSH ONETIME ONE Stop: 12/15/18 20:28 Last Admin: 12/15/18 20:33 Dose: 1 mg Sodium Chloride (Saline Flush) 10 ml FLUSH ASDIRECTED PRN PRN Reason: Keep Vein Open Last Admin: 12/15/18 19:29 Dose: 10 ml - Exam Quality Assessment: DVT Prophylaxis General: Alert, Cooperative, Moderate Distress Lungs: Clear to Auscultation, Normal Respiratory Effort Cardiovascular: Regular Rate, Regular Rhythm, No Murmurs GI/Abdominal Exam: Soft, Non-Tender, No Organomegaly, No Distention Extremities: Other (Significant inflammation tenderness right wrist and MCP joints) - Problem List Review Problem List Initiated/Reviewed/Updated: Yes - My Orders Last 24 Hours: My Active Orders 12/16/18 09:00 Lactobacillus Rhamnosus GG [Culturelle] 1 cap PO BID cefTRIAXone [Rocephin] 1 gm Sodium Chloride 0.9% [Normal Saline] 50 ml IV Q24H 12/16/18 10:00 methylPREDNISolone Sod Succ [Solu-MEDROL] 40 mg IVPUSH Q8H 12/16/18 13:15 Sodium Chloride 0.9% @ 50 MLS/HR(1000ml) Sodium Chloride 0.9% [Normal Saline] 1 ,000 ml IV ASDIRECTED 12/17/18 05:00 BASIC METABOLIC PANEL,BMP [CHEM] Timed CBC WITH AUTO DIFF [HEME] Timed INR,PT,PROTHROMBIN TIME [COAG] Timed - Plan Plan:: ASSESSMENT AND PLAN PNEUMONIA LEFT LOWER LOBE - no significant respiratory compromise, he is been afebrile since admission. White blood cell count improved from admission but remains elevated -Ceftriaxone 1 g IV every 24 hours -Zithromax 500 mg IV every 24 hours -Albuterol and Duonebs ordered -Decrease IV fluid rate to 50 mL per hour -blood cultures pending GOUT- right hand no significant improvement since admission -IV Morphine 2 mg every 2 hours prn pain , Percocet 5-325 mgone every 4 hours prn pain, Tylenol 325mg ordered for pain control -Solu-Medrol 40 mg IV every 8 hours CHRONIC SYSTOLIC CONGESTIVE HEART FAILURE- appears well compensated at this time. -2 g sodium diet -Continue daily Bumex ATRIAL FIBRILLATION - He is on long-term oral anticoagulation with warfarin -Continue current therapy with warfarin DIABETES TYPE 2 -blood glucose before meals and at bedtime -continue home medication - Glipzide 2.5 mg po bid CHRONIC KIDNEY DISEASE STAGE III -am labs BMP MAINTENANCE ISSUES -DVT prophylaxis; current therapy with warfarin should provide adequate DVT prophylaxis -GI prophylaxis; Protonix 40 mg po daily -Busch catheter; not indicated at this time -Nutrition; 2 g sodium diet -Nicotine dependence; not required CODE STATUS-FULL ADMISSION STATUS-patient will be admitted to inpatient status, expect at least a 2 night hospital stay for evaluation and management of problems as outlined above. At the time of this admission I do not reasonably expected evaluation and management of this problem will require more than a 96 hour hospital stay. DISPOSITION-anticipate discharge to [facility] after the hospital stay. PRIMARY CARE PROVIDER- Dr. Lynch
[2018-12-16] MEDS ORDERED: ceFAZolin 1 GM in Premix Bag 1 BAG IV SCH (14:00)
[2018-12-16] MEDS: Docusate Sodium 100 MG Cap PO PRN (18:00)
[2018-12-16] MEDS: Bisacodyl 5 MG Tab PO PRN (18:01)
[2018-12-16] MEDS: Azithromycin 500 MG in Sodium Chloride 0.9% 250 ML IV SCH (20:32)
[2018-12-16] MEDS ORDERED: Insulin Lispro 100 Unit/ML 3 ML KwikPen SUBCUT ONE (21:34)
[2018-12-16] MEDS: Pantoprazole 40 MG Tab.CR PO PRN (21:36)
[2018-12-16] MEDS: Insulin Lispro 100 Unit/ML 3 ML KwikPen SUBCUT SCH (21:38)
[2018-12-16] MEDS ORDERED: Aluminum Hydroxide/Magnesium Hydroxide/Simethicone Susp 30 ML Cup PO PRN (22:24)
[2018-12-16] MEDS ORDERED: Aluminum Hydroxide/Magnesium Hydroxide/Simethicone Susp 30 ML Cup PO STA (22:32)
[2018-12-17] MEDS: methylPREDNISolone Sodium Succinate 40 MG/1 ML SDV IVPUSH SCH ×2 (01:59→09:09)
[2018-12-17] MEDS: Albuterol/Ipratropium 3.0-0.5 MG/3 ML Neb Soln NEB SCH ×4 (07:14→20:00)
[2018-12-17] MEDS: Lactobacillus Rhamnosus GG (Probiotic) Cap PO SCH ×2 (08:28→20:00)
[2018-12-17] MEDS: glipiZIDE 5 MG Tab PO SCH ×2 (08:29→17:17)
[2018-12-17] MEDS: Multivitamins with Iron/Calcium/Folic Acid/Minerals Tab PO SCH (08:29)
[2018-12-17] MEDS: Bumetanide 1 MG Tab PO SCH (08:29)
[2018-12-17] MEDS: Allopurinol 100 MG Tab PO SCH (08:30)
[2018-12-17] MEDS: Insulin Lispro 100 Unit/ML 3 ML KwikPen SUBCUT SCH ×4 (08:39→21:17)
[2018-12-17] MEDS: cefTRIAXone 1 GM in Sodium Chloride 0.9% 50 ML IV SCH (09:09)
[2018-12-17] MEDS: Warfarin 5 MG Tab PO SCH (12:43)
[2018-12-17] MEDS ORDERED: Warfarin 2.5 MG Tab PO SCH (13:00)
--- NOTE | 2018-12-17 13:48 | PCM.PN ---
- General Info Date of Service: 12/17/18 Subjective Update: Mr. Dalal has been stable since yesterday, no significant temperature elevations. He is more alert and interactive today with improved oral intake. Pain in his right wrist and hand has significantly improved from admission but has not yet totally resolved. Functional Status: Reports: Pain Controlled, Tolerating Diet, Urinating - Review of Systems General: Reports: Weakness. Denies: Fever, Chills Pulmonary: Reports: No Symptoms Cardiovascular: Reports: No Symptoms Gastrointestinal: Reports: No Symptoms - Patient Data Vitals - Most Recent: Last Vital Signs Temp 96.9 F 12/17/18 11:28 Pulse 81 12/17/18 11:28 Resp 24 H 12/17/18 11:28 BP 127/59 L 12/17/18 11:28 Pulse Ox 96 12/17/18 11:28 Weight - Most Recent: 222 lb 0.017 oz I&O - Last 24 Hours: Intake & Output 12/16/18 12/17/18 12/17/18 22:59 06:59 14:59 Intake Total 1611 556 300 Balance 1611 556 300 Lab Results Last 24 Hours: Laboratory Results - last 24 hr 12/17/18 12/17/18 12/17/18 Range/Units 05:10 05:10 05:10 WBC 15.4 H (4.5-11.0) K/uL RBC 4.57 (4.30-5.90) M/uL Hgb 12.9 (12.0-15.0) g/dL Hct 41.5 (40.0-54.0) % MCV 91 (80-98) fL MCH 28 (27-31) pg MCHC 31 L (32-36) % Plt Count 159 (150-400) K/uL Neut % (Auto) 90 H (36-66) % Lymph % (Auto) 5 L (24-44) % Gooding % (Auto) 5 (2-6) % Eos % (Auto) 0 L (2-4) % Baso % (Auto) 0 (0-1) % PT 12.7 H (9.5-12.0) sec INR 1.19 (0.80-1.20) Sodium 140 (140-148) mmol/L Potassium 4.2 (3.6-5.2) mmol/L Chloride 102 (100-108) mmol/L Carbon Dioxide 28 (21-32) mmol/L Anion Gap 10.2 (5.0-14.0) mmol/L BUN 25 H (7-18) mg/dL Creatinine 1.7 H (0.8-1.3) mg/dL Est Cr Clr Drug Dosing 34.28 mL/min Estimated GFR (MDRD) 38 L (>60) Glucose 297 H (74-106) mg/dL Calcium 9.4 (8.5-10.1) mg/dL Terrence Results Last 24 Hours: Microbiology 12/15/18 19:08 Aerobic Blood Culture - Preliminary Blood - Arm, Left NO GROWTH AFTER 1 DAY Anaerobic Blood Culture - Preliminary NO GROWTH AFTER 1 DAY 12/15/18 18:55 Aerobic Blood Culture - Preliminary Blood - Arm, Left NO GROWTH AFTER 1 DAY Anaerobic Blood Culture - Preliminary NO GROWTH AFTER 1 DAY Med Orders - Current: Current Medications Acetaminophen (Tylenol) 650 mg PO Q4H PRN PRN Reason: Pain (Mild 1-3)/fever Al Hydroxide/Mg Hydroxide (Mag-Al Plus) 30 ml PO Q4H PRN PRN Reason: Heartburn Last Admin: 12/16/18 22:45 Dose: 30 ml Albuterol (Proventil Neb Soln) 2.5 mg NEB Q4H PRN PRN Reason: Shortness Of Breath/wheezing Albuterol/Ipratropium (Duoneb 3.0-0.5 Mg/3 Ml) 3 ml NEB QIDRT [facility] Last Admin: 12/17/18 11:08 Dose: 3 ml Allopurinol (Zyloprim) 100 mg PO DAILY [facility] Last Admin: 12/17/18 08:30 Dose: 100 mg Artificial Tears (Natural Balance Tears) 0 ml EYEBOTH BID PRN PRN Reason: DRY EYES Bisacodyl (Dulcolax) 5 mg PO DAILY PRN PRN Reason: Constipation Last Admin: 12/16/18 18:01 Dose: 5 mg Bumetanide (Bumex) 2 mg PO DAILY [facility] Last Admin: 12/17/18 08:29 Dose: 2 mg Docusate Sodium (Colace) 100 mg PO BID PRN PRN Reason: Constipation Last Admin: 12/16/18 18:00 Dose: 100 mg [facility] Last Admin: 12/17/18 08:29 Dose: 2.5 mg Azithromycin 500 mg/ Sodium (Chloride) 250 mls @ 250 mls/hr IV Q24H [facility] Last Admin: 12/16/18 20:32 Dose: 250 mls/hr Ceftriaxone Sodium 1 gm/ (Sodium Chloride) 50 mls @ 100 mls/hr IV Q24H [facility] Last Admin: 12/17/18 09:09 Dose: 100 mls/hr Insulin Human Lispro (Humalog) 0 unit SUBCUT QIDACANDBED [facility]; Protocol Last Admin: 12/17/18 12:40 Dose: 5 units Lactobacillus Rhamnosus (Culturelle) 1 cap PO BID [facility] Last Admin: 12/17/18 08:28 Dose: 1 cap Melatonin (Melatonin) 6 mg PO BEDTIME PRN PRN Reason: Insomnia Morphine Sulfate (Morphine) 2 mg IVPUSH Q2H PRN PRN Reason: Pain (severe 7-10) Last Admin: 12/16/18 22:45 Dose: 2 mg Multivitamins/Minerals (Thera M Plus) 1 tab PO DAILY [facility] Last Admin: 12/17/18 08:29 Dose: 1 tab Nitroglycerin (Nitrostat) 0.4 mg SL ASDIRECTED PRN PRN Reason: Chest Pain Ondansetron HCl (Zofran Odt) 4 mg PO Q6H PRN PRN Reason: Nausea able to take PO Ondansetron HCl (Zofran) 4 mg IV Q4H PRN PRN Reason: Nausea/Vomiting Oxycodone HCl (Oxycodone) 5 mg PO Q4H PRN PRN Reason: Pain (moderate 4-6) Pantoprazole Sodium (Protonix) 40 mg PO DAILY PRN PRN Reason: Heartburn Last Admin: 12/16/18 21:36 Dose: 40 mg Prednisone (Prednisone) 40 mg PO DAILY [facility] Warfarin Sodium (Coumadin) 5 mg PO DAILY@1300 [facility] Last Admin: 12/17/18 12:43 Dose: 5 mg Discontinued Medications Al Hydroxide/Mg Hydroxide (Mag-Al Plus) 30 ml PO ONETIME STA Stop: 12/16/18 22:33 Last Admin: 12/16/18 22:45 Dose: 30 ml Sodium Chloride (Normal Saline) 1,000 mls @ 999 mls/hr IV .BOLUS ONE Stop: 12/15/18 19:51 Last Admin: 12/15/18 19:29 Dose: 999 mls/hr Cefazolin Sodium 1 gm/ Sodium (Chloride) 50 mls @ 100 mls/hr IV Q8H [facility] Last Admin: 12/16/18 05:45 Dose: 100 mls/hr Sodium Chloride (Normal Saline) 1,000 mls @ 100 mls/hr IV ASDIRECTED [facility] Last Admin: 12/16/18 08:22 Dose: 100 mls/hr Cefazolin Sodium/Dextrose 1 gm (/ Premix) 50 mls @ 100 mls/hr IV Q8H [facility] Sodium Chloride (Normal Saline) 1,000 mls @ 50 mls/hr IV ASDIRECTED [facility] Last Admin: 12/16/18 20:05 Dose: 50 mls/hr Insulin Human Lispro (Humalog) Confirm Administered Dose 300 unit SUBCUT .STK- MED ONE Stop: 12/16/18 21:35 Last Admin: 12/16/18 21:47 Dose: Not Given Lorazepam (Ativan) 1 mg IVPUSH Q4H PRN PRN Reason: Anxiety Last Admin: 12/15/18 21:56 Dose: 1 mg Lorazepam (Ativan) 1 mg IV Q6H PRN PRN Reason: Nausea/Vomiting Methylprednisolone Sodium Succinate (Solu-Medrol) 40 mg IVPUSH Q8H [facility] Last Admin: 12/17/18 09:09 Dose: 40 mg Morphine Sulfate (Morphine) 1 mg IVPUSH ONETIME ONE Stop: 12/15/18 20:28 Last Admin: 12/15/18 20:33 Dose: 1 mg Sodium Chloride (Saline Flush) 10 ml FLUSH ASDIRECTED PRN PRN Reason: Keep Vein Open Last Admin: 12/15/18 19:29 Dose: 10 ml Warfarin Sodium (Coumadin) 2.5 mg PO SuTuThSa@1300 [facility] Warfarin Sodium (Coumadin) 5 mg PO MoWeFr@1300 [facility] Last Admin: 12/16/18 15:06 Dose: 5 mg - Exam General: Alert, Oriented, Cooperative, Mild Distress Lungs: Clear to Auscultation, Normal Respiratory Effort Cardiovascular: Regular Rate, Regular Rhythm, No Murmurs GI/Abdominal Exam: Soft, Non-Tender, No Organomegaly, No Distention Extremities: Other (Swelling and erythema right wrist and hand, improved from admission) - Problem List Review Problem List Initiated/Reviewed/Updated: Yes - My Orders Last 24 Hours: My Active Orders 12/16/18 22:24 Alum Hydrox/Mag Hydrox/Simeth [Mag-Al Plus] 30 ml PO Q4H PRN 12/17/18 07:00 Insulin Lispro [HumaLOG] 0 unit SUBCUT QIDACANDBED 12/17/18 07:35 PT Evaluation and Treatment [CONS] Routine 12/17/18 09:14 Convert IV to Saline Lock [OM.PC] Routine 12/17/18 13:00 Warfarin [Coumadin] 5 mg PO DAILY@1300 12/18/18 05:00 BASIC METABOLIC PANEL,BMP [CHEM] Timed 12/18/18 05:11 INR,PT,PROTHROMBIN TIME [COAG] AM 12/18/18 09:00 predniSONE 40 mg PO DAILY - Plan Plan:: ASSESSMENT AND PLAN PNEUMONIA LEFT LOWER LOBE - no significant respiratory compromise, he is been afebrile since admission. -Ceftriaxone 1 g IV every 24 hours -Zithromax 500 mg IV every 24 hours -Albuterol and Duonebs ordered -Saline lock IV -blood cultures pending GOUT-good improvement over the last 24 hours, less swelling and erythema and pain -IV Morphine 2 mg every 2 hours prn pain , Percocet 5-325 mgone every 4 hours prn pain, Tylenol 325mg ordered for pain control -Prednisone 40 mg by mouth daily CHRONIC SYSTOLIC CONGESTIVE HEART FAILURE- appears well compensated at this time. -2 g sodium diet -Continue daily Bumex ATRIAL FIBRILLATION - He is on long-term oral anticoagulation with warfarin, INR remains subtherapeutic -Continue current therapy with warfarin, increased dose to 5 mg daily -Reassess INR in a.m. DIABETES TYPE 2 -blood glucose before meals and at bedtime -continue home medication - Glipzide 2.5 mg po bid CHRONIC KIDNEY DISEASE STAGE III -am labs BMP MAINTENANCE ISSUES -DVT prophylaxis; current therapy with warfarin should provide adequate DVT prophylaxis -GI prophylaxis; Protonix 40 mg po daily -Busch catheter; not indicated at this time -Nutrition; 2 g sodium diet -Nicotine dependence; not required CODE STATUS-FULL ADMISSION STATUS-patient will be admitted to inpatient status, expect at least a 2 night hospital stay for evaluation and management of problems as outlined above. At the time of this admission I do not reasonably expected evaluation and management of this problem will require more than a 96 hour hospital stay. DISPOSITION-anticipate discharge to [facility] after the hospital stay. PRIMARY CARE PROVIDER- Dr. Lynch
[2018-12-17] MEDS ORDERED: Insulin Lispro 100 Unit/ML 3 ML KwikPen SUBCUT ONE ×2 (21:15→22:46)
[2018-12-17] MEDS: Azithromycin 500 MG in Sodium Chloride 0.9% 250 ML IV SCH (21:31)
--- NOTE | 2018-12-17 21:31 | PCM.SN ---
- Free Text/Narrative Note: Time 2109 call from [address] [place] [address] O: blood glucose 410 A: hyperglycemia P: given Insulin Regular 10 units subcut now recheck blood glucose in one hour.
[2018-12-18] MEDS: Insulin Lispro 100 Unit/ML 3 ML KwikPen SUBCUT SCH ×5 (00:55→20:48)
[2018-12-18] MEDS: Albuterol/Ipratropium 3.0-0.5 MG/3 ML Neb Soln NEB SCH ×4 (07:13→20:45)
[2018-12-18] MEDS: glipiZIDE 5 MG Tab PO SCH ×2 (08:15→17:06)
[2018-12-18] MEDS: predniSONE 20 MG Tab PO SCH (08:15)
[2018-12-18] MEDS: Pantoprazole 40 MG Tab.CR PO PRN (08:25)
[2018-12-18] MEDS: cefTRIAXone 1 GM in Sodium Chloride 0.9% 50 ML IV SCH (08:26)
--- NOTE | 2018-12-18 09:45 | PCM.PN ---
- General Info Date of Service: 12/18/18 Subjective Update: Mr. Dalal has been stable since yesterday, good vital signs and no significant fever. He remains very weak but denies significant respiratory symptoms. Remains on supplemental oxygen, to maintain adequate saturations. Left wrist and hand significantly improved with current management for gout. Functional Status: Reports: Tolerating Diet, Urinating - Review of Systems General: Reports: Weakness. Denies: Fever, Fatigue Pulmonary: Reports: No Symptoms Cardiovascular: Reports: No Symptoms Gastrointestinal: Reports: No Symptoms Psychiatric: Reports: Confusion - Patient Data Vitals - Most Recent: Last Vital Signs Temp 96.5 F 12/18/18 07:00 Pulse 76 12/18/18 07:13 Resp 16 12/18/18 07:00 BP 139/49 L 12/18/18 07:00 Pulse Ox 94 L 12/18/18 07:10 Weight - Most Recent: 222 lb 0.017 oz I&O - Last 24 Hours: Intake & Output 12/17/18 12/18/18 12/18/18 22:59 06:59 14:59 Intake Total 610 300 Balance 610 300 Lab Results Last 24 Hours: Laboratory Results - last 24 hr 12/18/18 12/18/18 Range/Units 04:25 04:25 PT 14.1 H (9.5-12.0) sec INR 1.33 H (0.80-1.20) Sodium 142 (140-148) mmol/L Potassium 3.7 (3.6-5.2) mmol/L Chloride 104 (100-108) mmol/L Carbon Dioxide 29 (21-32) mmol/L Anion Gap 8.6 (5.0-14.0) mmol/L BUN 37 H (7-18) mg/dL Creatinine 1.4 H (0.8-1.3) mg/dL Est Cr Clr Drug Dosing 41.63 mL/min Estimated GFR (MDRD) 48 L (>60) Glucose 188 H (74-106) mg/dL Calcium 8.8 (8.5-10.1) mg/dL Terrence Results Last 24 Hours: Microbiology 12/15/18 19:08 Aerobic Blood Culture - Preliminary Blood - Arm, Left NO GROWTH AFTER 2 DAYS Anaerobic Blood Culture - Preliminary NO GROWTH AFTER 2 DAYS 12/15/18 18:55 Aerobic Blood Culture - Preliminary Blood - Arm, Left NO GROWTH AFTER 2 DAYS Anaerobic Blood Culture - Preliminary NO GROWTH AFTER 2 DAYS Med Orders - Current: Current Medications Acetaminophen (Tylenol) 650 mg PO Q4H PRN PRN Reason: Pain (Mild 1-3)/fever Al Hydroxide/Mg Hydroxide (Mag-Al Plus) 30 ml PO Q4H PRN PRN Reason: Heartburn Last Admin: 12/16/18 22:45 Dose: 30 ml Albuterol (Proventil Neb Soln) 2.5 mg NEB Q4H PRN PRN Reason: Shortness Of Breath/wheezing Albuterol/Ipratropium (Duoneb 3.0-0.5 Mg/3 Ml) 3 ml NEB QIDRT [facility] Last Admin: 12/18/18 07:13 Dose: 3 ml Allopurinol (Zyloprim) 100 mg PO DAILY [facility] Last Admin: 12/17/18 08:30 Dose: 100 mg Artificial Tears (Natural Balance Tears) 0 ml EYEBOTH BID PRN PRN Reason: DRY EYES Bisacodyl (Dulcolax) 5 mg PO DAILY PRN PRN Reason: Constipation Last Admin: 12/16/18 18:01 Dose: 5 mg Bumetanide (Bumex) 2 mg PO DAILY [facility] Last Admin: 12/17/18 08:29 Dose: 2 mg Docusate Sodium (Colace) 100 mg PO BID PRN PRN Reason: Constipation Last Admin: 12/16/18 18:00 Dose: 100 mg Glipizide (Glucotrol) 2.5 mg PO BIDAC [facility] Last Admin: 12/18/18 08:15 Dose: 2.5 mg Azithromycin 500 mg/ Sodium (Chloride) 250 mls @ 250 mls/hr IV Q24H [facility] Last Admin: 12/17/18 21:31 Dose: 250 mls/hr Ceftriaxone Sodium 1 gm/ (Sodium Chloride) 50 mls @ 100 mls/hr IV Q24H [facility] Last Admin: 12/18/18 08:26 Dose: 100 mls/hr Insulin Human Lispro (Humalog) 0 unit SUBCUT QIDACANDBED [facility]; Protocol Last Admin: 12/18/18 07:39 Dose: Not Given Lactobacillus Rhamnosus (Culturelle) 1 cap PO BID [facility] Last Admin: 12/17/18 20:00 Dose: 1 cap Melatonin (Melatonin) 6 mg PO BEDTIME PRN PRN Reason: Insomnia Morphine Sulfate (Morphine) 2 mg IVPUSH Q2H PRN PRN Reason: Pain (severe 7-10) Last Admin: 12/16/18 22:45 Dose: 2 mg Multivitamins/Minerals (Thera M Plus) 1 tab PO DAILY [facility] Last Admin: 12/17/18 08:29 Dose: 1 tab Nitroglycerin (Nitrostat) 0.4 mg SL ASDIRECTED PRN PRN Reason: Chest Pain Ondansetron HCl (Zofran Odt) 4 mg PO Q6H PRN PRN Reason: Nausea able to take PO Ondansetron HCl (Zofran) 4 mg IV Q4H PRN PRN Reason: Nausea/Vomiting Oxycodone HCl (Oxycodone) 5 mg PO Q4H PRN PRN Reason: Pain (moderate 4-6) Pantoprazole Sodium (Protonix) 40 mg PO DAILY PRN PRN Reason: Heartburn Last Admin: 12/18/18 08:25 Dose: 40 mg Prednisone (Prednisone) 40 mg PO DAILY@0800 [facility] Last Admin: 12/18/18 08:15 Dose: 40 mg Warfarin Sodium (Coumadin) 5 mg PO DAILY@1300 [facility] Last Admin: 12/17/18 12:43 Dose: 5 mg Discontinued Medications Al Hydroxide/Mg Hydroxide (Mag-Al Plus) 30 ml PO ONETIME STA Stop: 12/16/18 22:33 Last Admin: 12/16/18 22:45 Dose: 30 ml Sodium Chloride (Normal Saline) 1,000 mls @ 999 mls/hr IV .BOLUS ONE Stop: 12/15/18 19:51 Last Admin: 12/15/18 19:29 Dose: 999 mls/hr Cefazolin Sodium 1 gm/ Sodium (Chloride) 50 mls @ 100 mls/hr IV Q8H [facility] Last Admin: 12/16/18 05:45 Dose: 100 mls/hr Sodium Chloride (Normal Saline) 1,000 mls @ 100 mls/hr IV ASDIRECTED [facility] Last Admin: 12/16/18 08:22 Dose: 100 mls/hr Cefazolin Sodium/Dextrose 1 gm (/ Premix) 50 mls @ 100 mls/hr IV Q8H [facility] Sodium Chloride (Normal Saline) 1,000 mls @ 50 mls/hr IV ASDIRECTED [facility] Last Admin: 12/16/18 20:05 Dose: 50 mls/hr Insulin Human Lispro (Humalog) Confirm Administered Dose 300 unit SUBCUT .STK- MED ONE Stop: 12/16/18 21:35 Last Admin: 12/16/18 21:47 Dose: Not Given Insulin Human Lispro (Humalog) 10 unit SUBCUT ONETIME ONE Stop: 12/17/18 21:16 Last Admin: 12/17/18 21:30 Dose: 10 units Insulin Human Lispro (Humalog) 10 unit SUBCUT ONETIME ONE Stop: 12/17/18 22:47 Last Admin: 12/17/18 23:05 Dose: 10 units Lorazepam (Ativan) 1 mg IVPUSH Q4H PRN PRN Reason: Anxiety Last Admin: 12/15/18 21:56 Dose: 1 mg Lorazepam (Ativan) 1 mg IV Q6H PRN PRN Reason: Nausea/Vomiting Methylprednisolone Sodium Succinate (Solu-Medrol) 40 mg IVPUSH Q8H [facility] Last Admin: 12/17/18 09:09 Dose: 40 mg Morphine Sulfate (Morphine) 1 mg IVPUSH ONETIME ONE Stop: 12/15/18 20:28 Last Admin: 12/15/18 20:33 Dose: 1 mg Sodium Chloride (Saline Flush) 10 ml FLUSH ASDIRECTED PRN PRN Reason: Keep Vein Open Last Admin: 12/15/18 19:29 Dose: 10 ml Warfarin Sodium (Coumadin) 2.5 mg PO SuTuThSa@1300 [facility] Warfarin Sodium (Coumadin) 5 mg PO MoWeFr@1300 [facility] Last Admin: 12/16/18 15:06 Dose: 5 mg - Exam Quality Assessment: Supplemental Oxygen, DVT Prophylaxis General: Alert, Cooperative, Mild Distress. No: Oriented Lungs: Clear to Auscultation, Normal Respiratory Effort Cardiovascular: Regular Rate, Regular Rhythm, No Murmurs GI/Abdominal Exam: Soft, Non-Tender, No Organomegaly, No Distention Extremities: Non-Tender, No Pedal Edema - Problem List Review Problem List Initiated/Reviewed/Updated: Yes - My Orders Last 24 Hours: My Active Orders 12/17/18 09:14 Convert IV to Saline Lock [OM.PC] Routine 12/17/18 13:00 Warfarin [Coumadin] 5 mg PO DAILY@1300 12/18/18 08:00 predniSONE 40 mg PO DAILY@0800 12/19/18 05:00 INR,PT,PROTHROMBIN TIME [COAG] Timed - Plan Plan:: ASSESSMENT AND PLAN PNEUMONIA LEFT LOWER LOBE - no significant respiratory compromise, he is been afebrile since admission. Remains on supplemental oxygen -Transition to oral antibiotic therapy today -Albuterol and Duonebs ordered -Saline lock IV -blood cultures remain negative GOUT-good improvement since admission, swelling and erythema have almost totally resolved -Percocet 5-325 mgone every 4 hours prn pain, Tylenol 325mg ordered for pain control -Prednisone 40 mg by mouth daily CHRONIC SYSTOLIC CONGESTIVE HEART FAILURE- appears well compensated at this time. -2 g sodium diet -Continue daily Bumex ATRIAL FIBRILLATION - He is on long-term oral anticoagulation with warfarin, INR remains subtherapeutic -Continue warfarin 5 mg daily -Reassess INR in a.m. DIABETES TYPE 2 -blood glucose before meals and at bedtime -continue home medication - Glipzide 2.5 mg po bid CHRONIC KIDNEY DISEASE STAGE III-renal function improved with hydration MAINTENANCE ISSUES -DVT prophylaxis; current therapy with warfarin should provide adequate DVT prophylaxis -GI prophylaxis; Protonix 40 mg po daily -Busch catheter; not indicated at this time -Nutrition; 2 g sodium diet -Nicotine dependence; not required CODE STATUS-FULL ADMISSION STATUS-patient will be admitted to inpatient status, expect at least a 2 night hospital stay for evaluation and management of problems as outlined above. At the time of this admission I do not reasonably expected evaluation and management of this problem will require more than a 96 hour hospital stay. DISPOSITION-anticipate discharge to [facility] after the hospital stay. PRIMARY CARE PROVIDER- Dr. Lynch
[2018-12-18] MEDS: Lactobacillus Rhamnosus GG (Probiotic) Cap PO SCH ×2 (10:08→20:37)
[2018-12-18] MEDS: Bumetanide 1 MG Tab PO SCH (10:08)
[2018-12-18] MEDS: Multivitamins with Iron/Calcium/Folic Acid/Minerals Tab PO SCH (10:08)
[2018-12-18] MEDS: Allopurinol 100 MG Tab PO SCH (10:08)
[2018-12-18] MEDS: Warfarin 5 MG Tab PO SCH (13:21)
[2018-12-18] MEDS: Carbidopa/Levodopa 25-100 MG Tab PO SCH ×2 (13:23→20:37)
[2018-12-18] MEDS: Cefdinir 300 MG Cap PO SCH (20:36)
[2018-12-19] MEDS: Albuterol/Ipratropium 3.0-0.5 MG/3 ML Neb Soln NEB SCH ×4 (07:10→20:00)
[2018-12-19] MEDS: Pantoprazole 40 MG Tab.CR PO PRN (07:42)
[2018-12-19] MEDS: Insulin Lispro 100 Unit/ML 3 ML KwikPen SUBCUT SCH ×4 (07:50→20:49)
[2018-12-19] MEDS ORDERED: Aluminum Hydroxide/Magnesium Hydroxide/Simethicone Susp 30 ML Cup PO ONE (08:15)
[2018-12-19] MEDS: predniSONE 20 MG Tab PO SCH (09:03)
[2018-12-19] MEDS: glipiZIDE 5 MG Tab PO SCH ×2 (09:04→16:48)
[2018-12-19] MEDS: Multivitamins with Iron/Calcium/Folic Acid/Minerals Tab PO SCH (09:14)
[2018-12-19] MEDS: Lactobacillus Rhamnosus GG (Probiotic) Cap PO SCH ×2 (09:14→20:00)
[2018-12-19] MEDS: Bumetanide 1 MG Tab PO SCH (09:14)
[2018-12-19] MEDS: Allopurinol 100 MG Tab PO SCH (09:15)
[2018-12-19] MEDS: Cefdinir 300 MG Cap PO SCH ×2 (09:15→19:59)
--- NOTE | 2018-12-19 10:38 | PCM.PN ---
- General Info Date of Service: 12/19/18 Subjective Update: Mr. Dalal has not felt as well this morning, weak and lethargic with increase in heart rate. He has had a few episodes of paroxysmal atrial fibrillation with heart rates into the 120 range. He was started on Sinemet yesterday for probable Parkinson's disease and this may also be a factor in his current symptoms. Functional Status: Reports: Tolerating Diet, Urinating - Review of Systems General: Reports: Weakness. Denies: Fever, Chills Pulmonary: Reports: No Symptoms Cardiovascular: Reports: No Symptoms Gastrointestinal: Reports: No Symptoms - Patient Data Vitals - Most Recent: Last Vital Signs Temp 96.9 F 12/19/18 07:45 Pulse 112 H 12/19/18 07:45 Resp 18 12/19/18 07:45 BP 134/53 L 12/19/18 07:45 Pulse Ox 92 L 12/19/18 07:45 Weight - Most Recent: 222 lb 0.017 oz I&O - Last 24 Hours: Intake & Output 12/18/18 12/19/18 12/19/18 22:59 06:59 14:59 Intake Total 480 Balance 480 Lab Results Last 24 Hours: Laboratory Results - last 24 hr 12/19/18 Range/Units 05:14 PT 15.4 H (9.5-12.0) sec INR 1.46 H (0.80-1.20) Terrence Results Last 24 Hours: Microbiology 12/15/18 19:08 Aerobic Blood Culture - Preliminary Blood - Arm, Left NO GROWTH AFTER 3 DAYS Anaerobic Blood Culture - Preliminary NO GROWTH AFTER 3 DAYS 12/15/18 18:55 Aerobic Blood Culture - Preliminary Blood - Arm, Left NO GROWTH AFTER 3 DAYS Anaerobic Blood Culture - Preliminary NO GROWTH AFTER 3 DAYS Med Orders - Current: Current Medications Acetaminophen (Tylenol) 650 mg PO Q4H PRN PRN Reason: Pain (Mild 1-3)/fever Al Hydroxide/Mg Hydroxide (Mag-Al Plus) 30 ml PO Q4H PRN PRN Reason: Heartburn Last Admin: 12/16/18 22:45 Dose: 30 ml Albuterol (Proventil Neb Soln) 2.5 mg NEB Q4H PRN PRN Reason: Shortness Of Breath/wheezing Albuterol/Ipratropium (Duoneb 3.0-0.5 Mg/3 Ml) 3 ml NEB QIDRT [facility] Last Admin: 12/19/18 07:10 Dose: 3 ml Allopurinol (Zyloprim) 100 mg PO DAILY [facility] Last Admin: 12/19/18 09:15 Dose: 100 mg Artificial Tears (Natural Balance Tears) 0 ml EYEBOTH BID PRN PRN Reason: DRY EYES Bisacodyl (Dulcolax) 5 mg PO DAILY PRN PRN Reason: Constipation Last Admin: 12/16/18 18:01 Dose: 5 mg Bumetanide (Bumex) 2 mg PO DAILY [facility] Last Admin: 12/19/18 09:14 Dose: 2 mg Cefdinir (Omnicef) 300 mg PO BID [facility] Last Admin: 12/19/18 09:15 Dose: 300 mg Docusate Sodium (Colace) 100 mg PO BID PRN PRN Reason: Constipation Last Admin: 12/16/18 18:00 Dose: 100 mg Glipizide (Glucotrol) 2.5 mg PO BIDAC [facility] Last Admin: 12/19/18 09:04 Dose: 2.5 mg Insulin Human Lispro (Humalog) 0 unit SUBCUT QIDACANDBED [facility]; Protocol Last Admin: 12/19/18 07:50 Dose: Not Given Lactobacillus Rhamnosus (Culturelle) 1 cap PO BID [facility] Last Admin: 12/19/18 09:14 Dose: 1 cap Melatonin (Melatonin) 6 mg PO BEDTIME PRN PRN Reason: Insomnia Metoprolol Tartrate (Lopressor) 25 mg PO Q6H [facility] Multivitamins/Minerals (Thera M Plus) 1 tab PO DAILY [facility] Last Admin: 12/19/18 09:14 Dose: 1 tab Nitroglycerin (Nitrostat) 0.4 mg SL ASDIRECTED PRN PRN Reason: Chest Pain Ondansetron HCl (Zofran Odt) 4 mg PO Q6H PRN PRN Reason: Nausea able to take PO Ondansetron HCl (Zofran) 4 mg IV Q4H PRN PRN Reason: Nausea/Vomiting Oxycodone HCl (Oxycodone) 5 mg PO Q4H PRN PRN Reason: Pain (moderate 4-6) Pantoprazole Sodium (Protonix) 40 mg PO DAILY PRN PRN Reason: Heartburn Last Admin: 12/19/18 07:42 Dose: 40 mg Prednisone (Prednisone) 40 mg PO DAILY@0800 [facility] Last Admin: 12/19/18 09:03 Dose: 40 mg Warfarin Sodium (Coumadin) 5 mg PO DAILY@1300 [facility] Last Admin: 12/18/18 13:21 Dose: 5 mg Discontinued Medications Al Hydroxide/Mg Hydroxide (Mag-Al Plus) 30 ml PO ONETIME STA Stop: 12/16/18 22:33 Last Admin: 12/16/18 22:45 Dose: 30 ml Al Hydroxide/Mg Hydroxide (Mag-Al Plus) 30 ml PO ONETIME ONE Stop: 12/19/18 08:16 Last Admin: 12/19/18 08:09 Dose: 30 ml Carbidopa/Levodopa (Sinemet 25-100 Mg) 1 tab PO TID [facility] Last Admin: 12/18/18 20:37 Dose: 1 tab Sodium Chloride (Normal Saline) 1,000 mls @ 999 mls/hr IV .BOLUS ONE Stop: 12/15/18 19:51 Last Admin: 12/15/18 19:29 Dose: 999 mls/hr Azithromycin 500 mg/ Sodium (Chloride) 250 mls @ 250 mls/hr IV Q24H [facility] Last Admin: 12/17/18 21:31 Dose: 250 mls/hr Cefazolin Sodium 1 gm/ Sodium (Chloride) 50 mls @ 100 mls/hr IV Q8H [facility] Last Admin: 12/16/18 05:45 Dose: 100 mls/hr Sodium Chloride (Normal Saline) 1,000 mls @ 100 mls/hr IV ASDIRECTED [facility] Last Admin: 12/16/18 08:22 Dose: 100 mls/hr Cefazolin Sodium/Dextrose 1 gm (/ Premix) 50 mls @ 100 mls/hr IV Q8H [facility] Ceftriaxone Sodium 1 gm/ (Sodium Chloride) 50 mls @ 100 mls/hr IV Q24H [facility] Last Admin: 12/18/18 08:26 Dose: 100 mls/hr Sodium Chloride (Normal Saline) 1,000 mls @ 50 mls/hr IV ASDIRECTED [facility] Last Admin: 12/16/18 20:05 Dose: 50 mls/hr Insulin Human Lispro (Humalog) Confirm Administered Dose 300 unit SUBCUT .STK- MED ONE Stop: 12/16/18 21:35 Last Admin: 12/16/18 21:47 Dose: Not Given Insulin Human Lispro (Humalog) 10 unit SUBCUT ONETIME ONE Stop: 12/17/18 21:16 Last Admin: 12/17/18 21:30 Dose: 10 units Insulin Human Lispro (Humalog) 10 unit SUBCUT ONETIME ONE Stop: 12/17/18 22:47 Last Admin: 12/17/18 23:05 Dose: 10 units Lorazepam (Ativan) 1 mg IVPUSH Q4H PRN PRN Reason: Anxiety Last Admin: 12/15/18 21:56 Dose: 1 mg Lorazepam (Ativan) 1 mg IV Q6H PRN PRN Reason: Nausea/Vomiting Methylprednisolone Sodium Succinate (Solu-Medrol) 40 mg IVPUSH Q8H [facility] Last Admin: 12/17/18 09:09 Dose: 40 mg Morphine Sulfate (Morphine) 1 mg IVPUSH ONETIME ONE Stop: 12/15/18 20:28 Last Admin: 12/15/18 20:33 Dose: 1 mg Morphine Sulfate (Morphine) 2 mg IVPUSH Q2H PRN PRN Reason: Pain (severe 7-10) Last Admin: 12/16/18 22:45 Dose: 2 mg Sodium Chloride (Saline Flush) 10 ml FLUSH ASDIRECTED PRN PRN Reason: Keep Vein Open Last Admin: 12/15/18 19:29 Dose: 10 ml Warfarin Sodium (Coumadin) 2.5 mg PO SuTuThSa@1300 [facility] Warfarin Sodium (Coumadin) 5 mg PO MoWeFr@1300 [facility] Last Admin: 12/16/18 15:06 Dose: 5 mg - Exam Quality Assessment: DVT Prophylaxis General: Alert, Oriented, Cooperative, Moderate Distress Lungs: Clear to Auscultation, Normal Respiratory Effort Cardiovascular: Regular Rate, No Murmurs, Irregular Rhythm, Tachycardia GI/Abdominal Exam: Soft, Non-Tender, No Organomegaly, No Distention Extremities: Non-Tender, No Pedal Edema - Problem List Review Problem List Initiated/Reviewed/Updated: Yes - My Orders Last 24 Hours: My Active Orders 12/18/18 15:43 Cardiac Monitoring Discontinue [RC] Click to Edit 12/18/18 21:00 Cefdinir [Omnicef] 300 mg PO BID 12/19/18 10:00 Metoprolol Tartrate [Lopressor] 25 mg PO Q6H 12/20/18 05:00 INR,PT,PROTHROMBIN TIME [COAG] Timed - Plan Plan:: ASSESSMENT AND PLAN PNEUMONIA LEFT LOWER LOBE - no significant respiratory compromise, he is been afebrile since admission. Remains on supplemental oxygen -Continue Omnicef 300 mg twice daily -Albuterol and Duonebs ordered -Saline lock IV -blood cultures remain negative GOUT-good improvement since admission, swelling and erythema have almost totally resolved -Percocet 5-325 mgone every 4 hours prn pain, Tylenol 325mg ordered for pain control -Prednisone 40 mg by mouth daily CHRONIC SYSTOLIC CONGESTIVE HEART FAILURE- appears well compensated at this time. -2 g sodium diet -Continue daily Bumex ATRIAL FIBRILLATION - recurrent episode of atrial fibrillation with increased heart rate, INR remains subtherapeutic -Metoprolol 25 mg by mouth every 6 hours, transition to long-acting form in a.m. if current dose tolerated -Continue warfarin 5 mg daily -Reassess INR in a.m. DIABETES TYPE 2 -blood glucose before meals and at bedtime -continue home medication - Glipzide 2.5 mg po bid CHRONIC KIDNEY DISEASE STAGE III-renal function improved with hydration MAINTENANCE ISSUES -DVT prophylaxis; current therapy with warfarin should provide adequate DVT prophylaxis -GI prophylaxis; Protonix 40 mg po daily -Busch catheter; not indicated at this time -Nutrition; 2 g sodium diet -Nicotine dependence; not required CODE STATUS-FULL ADMISSION STATUS-patient will be admitted to inpatient status, expect at least a 2 night hospital stay for evaluation and management of problems as outlined above. At the time of this admission I do not reasonably expected evaluation and management of this problem will require more than a 96 hour hospital stay. DISPOSITION-anticipate discharge to [facility] after the hospital stay. PRIMARY CARE PROVIDER- Dr. Lynch
[2018-12-19] MEDS: Metoprolol Tartrate 25 MG Tab PO SCH ×3 (10:48→22:34)
[2018-12-19] MEDS: Warfarin 5 MG Tab PO SCH (12:45)
[2018-12-19] MEDS: Carbidopa/Levodopa 25-100 MG Tab PO SCH (14:08)
[2018-12-19] MEDS ORDERED: Bisacodyl 10 MG Supp RECTAL PRN (19:52)
[2018-12-19] MEDS ORDERED: Sodium Phosphate,Monobasic/Sodium Phosphate,Dibasic Enema 133 ML Bottle RECTAL PRN (19:52)
[2018-12-19] MEDS: Docusate Sodium 100 MG Cap PO PRN (20:00)
[2018-12-19] MEDS: Bisacodyl 5 MG Tab PO PRN (20:00)
[2018-12-20] MEDS: Metoprolol Tartrate 25 MG Tab PO SCH (03:03)
[2018-12-20] MEDS: Albuterol/Ipratropium 3.0-0.5 MG/3 ML Neb Soln NEB SCH ×2 (07:10→10:53)
[2018-12-20] MEDS: Insulin Lispro 100 Unit/ML 3 ML KwikPen SUBCUT SCH ×2 (07:44→11:56)
[2018-12-20] MEDS: predniSONE 20 MG Tab PO SCH (07:46)
[2018-12-20] MEDS: glipiZIDE 5 MG Tab PO SCH (07:46)
[2018-12-20] MEDS: Lactobacillus Rhamnosus GG (Probiotic) Cap PO SCH (09:00)
[2018-12-20] MEDS ORDERED: Metoprolol Succinate 50 MG Tab.ER PO SCH (09:00)
[2018-12-20] MEDS: Bumetanide 1 MG Tab PO SCH (09:00)
[2018-12-20] MEDS: Multivitamins with Iron/Calcium/Folic Acid/Minerals Tab PO SCH (09:00)
[2018-12-20] MEDS: Carbidopa/Levodopa 25-100 MG Tab PO SCH ×2 (09:01→13:18)
[2018-12-20] MEDS: Cefdinir 300 MG Cap PO SCH (09:02)
[2018-12-20] MEDS: Allopurinol 100 MG Tab PO SCH (09:02)
[2018-12-20 09:32] VITALS: BP 143/50; PULSE 72
[2018-12-20] MEDS ORDERED: Lidocaine 2% Jelly 10 ML Urojet MUCMEM ONE (09:51)
[2018-12-20] MEDS ORDERED: Colchicine 0.6 MG Tab PO ONE (10:00)
--- NOTE | 2018-12-20 11:08 | PCM.DCSUM1 ---
Discharge Summary - Hospital Course Brief History: Mr. Dalal is an 88-year-old gentleman who was admitted through the emergency department with weakness and lethargy secondary to pneumonia andgout flare. - Discharge Data Discharge Date: 12/20/18 Discharge Disposition: DC/Tfer to SNF 03 Condition: Fair - Discharge Diagnosis/Problem(s) (1) Gout SNOMED Code(s): 10286623 ICD Code: M10.9 - GOUT, UNSPECIFIED Status: Acute Current Visit: Yes (2) Pneumonia SNOMED Code(s): 638028924 ICD Code: J18.9 - PNEUMONIA, UNSPECIFIED ORGANISM Status: Acute Priority : High Current Visit: Yes Qualifiers: Pneumonia type: due to unspecified organism Laterality: left Lung location: lower lobe of lung Qualified Code(s): J18.1 - Lobar pneumonia, unspecified organism (3) Diabetes type 2, controlled SNOMED Code(s): 80997473, 075881767 ICD Code: E11.9 - TYPE 2 DIABETES MELLITUS WITHOUT COMPLICATIONS Status: Chronic Priority: High Current Visit: No Qualifiers: Diabetes 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 insulin use: without shelter use Diabetes mellitus complication status: with unspecified complications Qualified Code(s) : E11.8 - Type 2 diabetes mellitus with unspecified complications (4) Chronic atrial fibrillation SNOMED Code(s): 594979970 ICD Code: I48.2 - CHRONIC ATRIAL FIBRILLATION Status: Chronic Current Visit: No (5) Systolic CHF with reduced left ventricular function, NYHA class 2 SNOMED Code(s): 180416998, 642564818, 337734805 ICD Code: I50.20 - UNSPECIFIED SYSTOLIC (CONGESTIVE) HEART FAILURE Status: Chronic Current Visit: No (6) CAD (coronary artery disease), [place] coronary artery SNOMED Code(s): 3508401233258 ICD Code: I25.10 - ATHSCL HEART DISEASE OF [place] CORONARY ARTERY W/O ANG PCTRS Status: Chronic Current Visit: No Qualifiers: [place] vs. transplanted heart: [place] heart Associated angina: without angina Qualified Code(s): I25.10 - Atherosclerotic heart disease of [place] coronary artery without angina pectoris (7) Stage III chronic kidney disease SNOMED Code(s): 137843338 ICD Code: N18.3 - CHRONIC KIDNEY DISEASE, STAGE 3 (MODERATE) Status: Chronic Priority: High Current Visit: No (8) Parkinson disease SNOMED Code(s): 30360435 ICD Code: G20 - PARKINSON'S DISEASE Status: Acute Current Visit: Yes - Patient Summary/Data Consults: Consultations 12/17/18 07:35 PT Evaluation and Treatment [CONS] Routine Please Evaluate and Treat. PT Reason for Consult: Strengthening Pending Discharge: Yes Discharge Disposition: Shelter Facility Special Instructions: OT dave. Patient came from [facility]. Patient did fall at [facility] This query below is only for informational purposes and is not editable. Admission Diagnosis/Problem: Pneumonia Hospital Course: This gentleman is here because of weakness and lethargy and swelling/redness of his right wrist and hand. [facility] has been in the jail for the past 12 days recuperating after hospitalization for gout. His said he had it in his right foot and ankle left elbow right hand and right knee. She said his left olecranon bursa was aspirated for crystals. For the past few days he's had very little oral intake and has become more and more week. Today his right wrist and hand or red swollen and very tender. He's felt hot and cold. On evaluation in the emergency department was noted to have an infiltrate on chest x-ray consistent with pneumonia. White blood cell count was found to be elevated, there was no evidence of sepsis. Blood cultures were obtained at the time of admission and he was started on IV antibiotic therapy with ceftriaxone and azithromycin. He was started on Solu-Medrol for management of gout in the right wrist and hand. He remained lethargic the first 24 hours of hospital stay and then became alert and interactive. He was noted to have intermittent episodes of confusion. Blood cultures remain negative, azithromycin was discontinued after he completed a 3 day course. He was transitioned oral antibiotic therapy with Omnicef to and will take this for 2 more days after discharge. Inflammation in the right wrist and hand improved significantly with Solu- Medrol and he was transitioned oral prednisone, he will take 1 additional day of prednisone after discharge. He was continued on allopurinol 100 mg daily throughout his hospital stay. He still had some residual inflammation in the resting he was given a therapeutic dose of colchicine on the day of discharge and will be continued on colchicine 0.6 mg daily. He was treated with probiotic therapy throughout hospitalization and will be discharged on this because of antibiotic therapy for pneumonia. He was found to have stiffness and a resting pill-rolling tremor during the hospital stay and was started on Sinemet 25 103 times daily. Neurology consult will be scheduled for further evaluation and recommendations concerning management. Renal function was initially elevated from baseline but returned to baseline with hydration. He did have some episodes of rapid heart rate with his atrial fibrillation during hospitalization and was started on metoprolol 50 mg daily. Activity will be as tolerated and he will be on a low-sodium diet. Follow-up with primary care will be as needed at the jail. Receive daily occupational physical therapy while at the jail. - Patient Instructions Diet: Low Sodium Activity: As Tolerated Other/Special Instructions: Please schedule a neurology consult for evaluation of tremor and stiffness. Obtain laboratory studies on December 24; BMP and INR. - Discharge Plan *PRESCRIPTION DRUG MONITORING PROGRAM REVIEWED*: Not Applicable *COPY OF PRESCRIPTION DRUG MONITORING REPORT IN PATIENT EDIL: Not Applicable Prescriptions/Med Rec: Carbidopa/Levodopa [Carbidopa-Levodopa 25-100] 1 tab PO TID #90 tablet Cefdinir [Omnicef] 300 mg PO BID #4 cap Colchicine 0.6 mg PO DAILY #30 capsule Lactobacillus Rhamnosus GG [Culturelle] 1 cap PO BID #60 cap Melatonin 6 mg PO BEDTIME PRN #60 tablet PRN Reason: Insomnia predniSONE 40 mg PO DAILY@0800 #2 tablet Warfarin [Coumadin] 5 mg PO DAILY@1300 #30 tablet Home Medications: Home Meds Multivitamin with Minerals [Multiple Vitamin] 1 tab PO DAILY 09/29/13 [History] Omeprazole [Prilosec] 40 mg PO DAILY PRN 09/29/13 [History] glipiZIDE [Glucotrol] 2.5 mg PO BIDAC 07/14/14 [History] Nitroglycerin [IJP: Nitroglycerin] 0.4 mg PO ASDIRECTED PRN 07/24/16 [History] Bumetanide [Bumex] 2 mg PO DAILY 10/10/16 [History] Allopurinol [Zyloprim] 100 mg PO DAILY #30 tab 12/03/18 [Rx] Carboxymethylcellulose Sodium [Refresh Tears 0.5%] 1 drop EYEBOTH BID 12/15/18 [ History] Carbidopa/Levodopa [Carbidopa-Levodopa 25-100] 1 tab PO TID #90 tablet 12/20/18 [Rx] Cefdinir [Omnicef] 300 mg PO BID #4 cap 12/20/18 [Rx] Colchicine 0.6 mg PO DAILY #30 capsule 12/20/18 [Rx] Lactobacillus Rhamnosus GG [Culturelle] 1 cap PO BID #60 cap 12/20/18 [Rx] Melatonin 6 mg PO BEDTIME PRN #60 tablet 12/20/18 [Rx] Warfarin [Coumadin] 5 mg PO DAILY@1300 #30 tablet 12/20/18 [Rx] predniSONE 40 mg PO DAILY@0800 #2 tablet 12/20/18 [Rx] - Discharge Summary/Plan Comment DC Time >30 min.: No - Patient Data Vitals - Most Recent: Last Vital Signs Temp 99.2 F 12/20/18 07:00 Pulse 72 12/20/18 09:30 Resp 18 12/20/18 07:00 BP 143/50 H 12/20/18 09:30 Pulse Ox 90 L 12/20/18 07:00 Weight - Most Recent: 222 lb 0.017 oz I&O - Last 24 hours: Intake & Output 12/19/18 12/20/18 12/20/18 22:59 06:59 14:59 Output Total 100 Balance -100 Lab Results - Last 24 hrs: Laboratory Results - last 24 hr 12/20/18 12/20/18 Range/Units 04:47 09:28 PT 17.0 H (9.5-12.0) sec INR 1.62 H (0.80-1.20) Urine Color Yellow Urine Appearance Clear Urine pH 5.0 (4.5-8.0) Ur Specific [place] 1.015 (1.008-1.030) Urine Protein Negative (NEGATIVE) mg/dL Urine Glucose (UA) Normal (NEGATIVE) mg/dL Urine Ketones Negative (NEGATIVE) mg/dL Urine Occult Blood Negative (NEGATIVE) Urine Nitrite Negative (NEGAITVE) Urine Bilirubin Negative (NEGATIVE) Urine Urobilinogen Normal (NORMAL) mg/dL Ur Leukocyte Esterase Small (NEGATIVE) Urine RBC Not seen (0-5) Urine WBC 0-5 (0-5) Ur Epithelial Cells Moderate Amorphous Sediment Not seen Urine Bacteria Not seen Urine Mucus Few BRIAN Results - Last 24 hrs: Microbiology 12/15/18 19:08 Aerobic Blood Culture - Preliminary Blood - Arm, Left NO GROWTH AFTER 4 DAYS Anaerobic Blood Culture - Preliminary NO GROWTH AFTER 4 DAYS 12/15/18 18:55 Aerobic Blood Culture - Preliminary Blood - Arm, Left NO GROWTH AFTER 4 DAYS Anaerobic Blood Culture - Preliminary NO GROWTH AFTER 4 DAYS Med Orders - Current: Current Medications Acetaminophen (Tylenol) 650 mg PO Q4H PRN PRN Reason: Pain (Mild 1-3)/fever Al Hydroxide/Mg Hydroxide (Mag-Al Plus) 30 ml PO Q4H PRN PRN Reason: Heartburn Last Admin: 12/16/18 22:45 Dose: 30 ml Albuterol (Proventil Neb Soln) 2.5 mg NEB Q4H PRN PRN Reason: Shortness Of Breath/wheezing Albuterol/Ipratropium (Duoneb 3.0-0.5 Mg/3 Ml) 3 ml NEB QIDRT [facility] Last Admin: 12/20/18 10:53 Dose: 3 ml Allopurinol (Zyloprim) 100 mg PO DAILY [facility] Last Admin: 12/20/18 09:02 Dose: 100 mg Artificial Tears (Natural Balance Tears) 0 ml EYEBOTH BID PRN PRN Reason: DRY EYES Bisacodyl (Dulcolax) 5 mg PO DAILY PRN PRN Reason: Constipation Last Admin: 12/19/18 20:00 Dose: 5 mg Bisacodyl (Dulcolax) 10 mg RECTAL DAILY PRN PRN Reason: Constipation Last Admin: 12/19/18 20:07 Dose: 10 mg Bumetanide (Bumex) 2 mg PO DAILY [facility] Last Admin: 12/20/18 09:00 Dose: 2 mg Carbidopa/Levodopa (Sinemet 25-100 Mg) 1 tab PO TID [facility] Last Admin: 12/20/18 09:01 Dose: 1 tab Cefdinir (Omnicef) 300 mg PO BID [facility] Last Admin: 12/20/18 09:02 Dose: 300 mg Docusate Sodium (Colace) 100 mg PO BID PRN PRN Reason: Constipation Last Admin: 12/19/18 20:00 Dose: 100 mg Glipizide (Glucotrol) 2.5 mg PO BIDAC [facility] Last Admin: 12/20/18 07:46 Dose: 2.5 mg Insulin Human Lispro (Humalog) 0 unit SUBCUT QIDACANDBED [facility]; Protocol Last Admin: 12/20/18 07:44 Dose: Not Given Lactobacillus Rhamnosus (Culturelle) 1 cap PO BID [facility] Last Admin: 12/20/18 09:00 Dose: 1 cap Melatonin (Melatonin) 6 mg PO BEDTIME PRN PRN Reason: Insomnia Metoprolol Succinate (Toprol Xl) 100 mg PO DAILY [facility] Last Admin: 12/20/18 09:30 Dose: 50 mg Multivitamins/Minerals (Thera M Plus) 1 tab PO DAILY [facility] Last Admin: 12/20/18 09:00 Dose: 1 tab Nitroglycerin (Nitrostat) 0.4 mg SL ASDIRECTED PRN PRN Reason: Chest Pain Ondansetron HCl (Zofran Odt) 4 mg PO Q6H PRN PRN Reason: Nausea able to take PO Ondansetron HCl (Zofran) 4 mg IV Q4H PRN PRN Reason: Nausea/Vomiting Oxycodone HCl (Oxycodone) 5 mg PO Q4H PRN PRN Reason: Pain (moderate 4-6) Pantoprazole Sodium (Protonix) 40 mg PO DAILY PRN PRN Reason: Heartburn Last Admin: 12/19/18 07:42 Dose: 40 mg Prednisone (Prednisone) 40 mg PO DAILY@0800 [facility] Last Admin: 12/20/18 07:46 Dose: 40 mg Sodium Biphosphate/Sodium Phosphate (Fleet Enema) 133 ml RECTAL DAILY PRN PRN Reason: Constipation Warfarin Sodium (Coumadin) 5 mg PO DAILY@1300 [facility] Last Admin: 12/19/18 12:45 Dose: 5 mg Discontinued Medications Al Hydroxide/Mg Hydroxide (Mag-Al Plus) 30 ml PO ONETIME STA Stop: 12/16/18 22:33 Last Admin: 12/16/18 22:45 Dose: 30 ml Al Hydroxide/Mg Hydroxide (Mag-Al Plus) 30 ml PO ONETIME ONE Stop: 12/19/18 08:16 Last Admin: 12/19/18 08:09 Dose: 30 ml Carbidopa/Levodopa (Sinemet 25-100 Mg) 1 tab PO TID [facility] Last Admin: 12/19/18 14:08 Dose: Not Given Colchicine (Colcrys) 1.2 mg PO ONETIME ONE Stop: 12/20/18 10:01 Last Admin: 12/20/18 10:26 Dose: 1.2 mg Sodium Chloride (Normal Saline) 1,000 mls @ 999 mls/hr IV .BOLUS ONE Stop: 12/15/18 19:51 Last Admin: 12/15/18 19:29 Dose: 999 mls/hr Azithromycin 500 mg/ Sodium (Chloride) 250 mls @ 250 mls/hr IV Q24H [facility] Last Admin: 12/17/18 21:31 Dose: 250 mls/hr Cefazolin Sodium 1 gm/ Sodium (Chloride) 50 mls @ 100 mls/hr IV Q8H [facility] Last Admin: 12/16/18 05:45 Dose: 100 mls/hr Sodium Chloride (Normal Saline) 1,000 mls @ 100 mls/hr IV ASDIRECTED [facility] Last Admin: 12/16/18 08:22 Dose: 100 mls/hr Cefazolin Sodium/Dextrose 1 gm (/ Premix) 50 mls @ 100 mls/hr IV Q8H [facility] Ceftriaxone Sodium 1 gm/ (Sodium Chloride) 50 mls @ 100 mls/hr IV Q24H [facility] Last Admin: 12/18/18 08:26 Dose: 100 mls/hr Sodium Chloride (Normal Saline) 1,000 mls @ 50 mls/hr IV ASDIRECTED [facility] Last Admin: 12/16/18 20:05 Dose: 50 mls/hr Insulin Human Lispro (Humalog) Confirm Administered Dose 300 unit SUBCUT .STK- MED ONE Stop: 12/16/18 21:35 Last Admin: 12/16/18 21:47 Dose: Not Given Insulin Human Lispro (Humalog) 10 unit SUBCUT ONETIME ONE Stop: 12/17/18 21:16 Last Admin: 12/17/18 21:30 Dose: 10 units Insulin Human Lispro (Humalog) 10 unit SUBCUT ONETIME ONE Stop: 12/17/18 22:47 Last Admin: 12/17/18 23:05 Dose: 10 units Lidocaine HCl (Xylocaine 2% Jelly) 10 ml MUCMEM ONETIME ONE Stop: 12/20/18 09:52 Lorazepam (Ativan) 1 mg IVPUSH Q4H PRN PRN Reason: Anxiety Last Admin: 12/15/18 21:56 Dose: 1 mg Lorazepam (Ativan) 1 mg IV Q6H PRN PRN Reason: Nausea/Vomiting Methylprednisolone Sodium Succinate (Solu-Medrol) 40 mg IVPUSH Q8H [facility] Last Admin: 12/17/18 09:09 Dose: 40 mg Metoprolol Tartrate (Lopressor) 25 mg PO Q6H [facility] Last Admin: 12/20/18 03:03 Dose: 25 mg Morphine Sulfate (Morphine) 1 mg IVPUSH ONETIME ONE Stop: 12/15/18 20:28 Last Admin: 12/15/18 20:33 Dose: 1 mg Morphine Sulfate (Morphine) 2 mg IVPUSH Q2H PRN PRN Reason: Pain (severe 7-10) Last Admin: 12/16/18 22:45 Dose: 2 mg Sodium Chloride (Saline Flush) 10 ml FLUSH ASDIRECTED PRN PRN Reason: Keep Vein Open Last Admin: 12/15/18 19:29 Dose: 10 ml Warfarin Sodium (Coumadin) 2.5 mg PO SuTuThSa@1300 [facility] Warfarin Sodium (Coumadin) 5 mg PO MoWeFr@1300 [facility] Last Admin: 12/16/18 15:06 Dose: 5 mg - Exam Quality Assessment: Reports: DVT Prophylaxis General: Reports: Alert, Oriented, Cooperative, Mild Distress Lungs: Reports: Clear to Auscultation, Normal Respiratory Effort Cardiovascular: Reports: Regular Rate, No Murmurs, Irregular Rhythm GI/Abdominal Exam: Soft, Non-Tender, No Organomegaly, No Distention, No Abnormal Bruit Extremities: Other (Mild residual swelling noted right wrist and hand, erythema has resolved as well as marked tenderness)
[2018-12-20] MEDS: Warfarin 5 MG Tab PO SCH (13:18)
== END 2018-12-20 14:04 | DRG 194 ==
LOC: JP.ED 18:03 → JP.MS 20:00
PROVIDERS: ADMIT Internal Medicine; ATTEND Hospitalist
DX: J18.1 Lobar pneumonia, unspecified organism (principal); I50.22 Chronic systolic (congestive) heart failure; I50.9 Heart failure, unspecified; E11.22 Type 2 diabetes mellitus with diabetic chronic kidney disease; N18.3 Chronic kidney disease, stage 3 (moderate); M10.39 Gout due to renal impairment, multiple sites; M10.341 Gout due to renal impairment, right hand; M10.331 Gout due to renal impairment, right wrist; Z79.84 Long term (current) use of oral hypoglycemic drugs; I48.91 Unspecified atrial fibrillation; R53.1 Weakness; M79.89 Other specified soft tissue disorders; M25.431 Effusion, right wrist; E11.40 Type 2 diabetes mellitus with diabetic neuropathy, unspecified; E11.65 Type 2 diabetes mellitus with hyperglycemia; Z79.01 Long term (current) use of anticoagulants; Z86.718 Personal history of other venous thrombosis and embolism; Z86.711 Personal history of pulmonary embolism; G20 Parkinson's disease; I25.10 Atherosclerotic heart disease of native coronary artery without angina pectoris; H54.7 Unspecified visual loss; I25.2 Old myocardial infarction; Z95.0 Presence of cardiac pacemaker; Z95.5 Presence of coronary angioplasty implant and graft; K21.9 Gastro-esophageal reflux disease without esophagitis; Z87.440 Personal history of urinary (tract) infections; M54.9 Dorsalgia, unspecified; G89.29 Other chronic pain; M19.90 Unspecified osteoarthritis, unspecified site; Z86.73 Personal history of transient ischemic attack (TIA), and cerebral infarction without residual deficits; F41.9 Anxiety disorder, unspecified; Z91.041 Radiographic dye allergy status; Z88.8 Allergy status to other drugs, medicaments and biological substances; Z79.899 Other long term (current) drug therapy
CPT/HCPCS: 36415; 71045; 80053; 83605; 85025; 85610; 87040 ×2; 96360; 99285; J7030; 80048; 81001; 82962; 84550; 94640; 94762; 97110-GP; 97162-GP; 97530-GP; 97535-GP; 99284; A9270-GY; J0456; J0690; J0696; J1815; J2060; J2270; J2920; J7050; J7620-GY

== ENCOUNTER 2019-03-25 14:01 | Emergency (ER) | payer MEDICARE, OTHER ==
[2019-03-25 14:16] VITALS: BP 170/85; PULSE 81
--- NOTE | 2019-03-25 15:17 | EDM.PDOC ---
ED HPI GENERAL MEDICAL PROBLEM - General Chief Complaint: Genitourinary Problem Stated Complaint: CATHETER PROBLEM Time Seen by Provider: 03/25/19 14:20 Source of Information: Reports: Patient History Limitations: Reports: No Limitations - History of Present Illness INITIAL COMMENTS - FREE TEXT/NARRATIVE: pt was to have the supra pupic replaced today and the homecare nurse was not able to get it in. He was brought here and was immediately brought back and it was replaced. He has good drainage at his time. Onset: Today Duration: Hour(s): Location: Reports: Other ( replacement of the suprapupic cath. ) Associated Symptoms: Reports: No Other Symptoms - Related Data Allergies Allergy/AdvReac Type Severity Reaction Status Date / Time amlodipine Allergy Severe anaphylaxis Verified 11/29/18 16:48 dipyridamole Allergy Cannot Verified 11/29/18 16:48 Remember Iodinated Contrast Media Allergy Rash Verified 11/29/18 16:48 [Iodinated Contrast Media - IV Dye] rosuvastatin calcium AdvReac Muscle Verified 11/29/18 16:48 [From Crestor] Aches Home Meds: Home Meds Multivitamin with Minerals [Multiple Vitamin] 1 tab PO DAILY 09/29/13 [History] Omeprazole [Prilosec] 40 mg PO DAILY PRN 09/29/13 [History] glipiZIDE [Glucotrol] 2.5 mg PO BIDAC 07/14/14 [History] Nitroglycerin [IJP: Nitroglycerin] 0.4 mg PO ASDIRECTED PRN 07/24/16 [History] Bumetanide [Bumex] 2 mg PO DAILY 10/10/16 [History] Allopurinol [Zyloprim] 100 mg PO DAILY #30 tab 12/03/18 [Rx] Carboxymethylcellulose Sodium [Refresh Tears 0.5%] 1 drop EYEBOTH BID 12/15/18 [ History] Colchicine 0.6 mg PO DAILY #30 capsule 12/20/18 [Rx] Lactobacillus Rhamnosus GG [Culturelle] 1 cap PO BID #60 cap 12/20/18 [Rx] Melatonin 6 mg PO BEDTIME PRN #60 tablet 12/20/18 [Rx] Warfarin [Coumadin] 5 mg PO DAILY@1300 #30 tablet 12/20/18 [Rx] Cholecalciferol (Vitamin D3) [Vitamin D] 50,000 unit PO WEEKLY 03/25/19 [History ] Metoprolol Tartrate 12.5 mg PO BID 03/25/19 [History] Past Medical History HEENT History: Reports: Cataract, Impaired Vision, Other (See Below) Other HEENT History: optic neuropathy Cardiovascular History: Reports: Afib, Arrhythmia, Blood Clots/VTE/DVT, CAD, Heart Failure, [place], Pacemaker, Stents, Other (See Below) Other Cardiovascular History: cardiomegaly, sinoatrial node disfunction. Respiratory History: Reports: PE Other Respiratory History: pulm. valve disorder Gastrointestinal History: Reports: GERD Genitourinary History: Reports: BPH, Chronic Renal Insuffiency, UTI, Recurrent Other Genitourinary History: hx of urinary obstructions Musculoskeletal History: Reports: Back Pain, Chronic, Osteoarthritis Neurological History: Reports: CVA Psychiatric History: Reports: Anxiety Endocrine/Metabolic History: Reports: Diabetes, Type II Hematologic History: Reports: Anticoagulation Therapy, Blood Transfusion(s) - Infectious Disease History Infectious Disease History: Reports: Chicken Pox, Measles, Mumps - Past Surgical History Head Surgeries/Procedures: Reports: None HEENT Surgical History: Reports: Cataract Surgery Cardiovascular Surgical History: Reports: Cardiac Ablation, Coronary Artery Stent Male Surgical History: Reports: Suprapubic Catheter Placement Social & Family History - Family History Family Medical History: Noncontributory Cardiac: Reports: [place] - Caffeine Use Caffeine Use: Reports: Coffee - Living Situation & Occupation Living situation: Reports: , with Family Occupation: Retired (lives with his , [address] [place] of [place], [place].) ED ROS GENERAL - Review of Systems Review Of Systems: See Below Constitutional: Reports: No Symptoms HEENT: Reports: No Symptoms Respiratory: Reports: No Symptoms Cardiovascular: Reports: No Symptoms Endocrine: Reports: No Symptoms GI/Abdominal: Reports: No Symptoms : Reports: Other (unable to get the supra pupic cath in by homecare nurse. ) Musculoskeletal: Reports: No Symptoms Skin: Reports: No Symptoms Neurological: Reports: No Symptoms ED EXAM, RENAL/ - Physical Exam Exam: See Below Text/Narrative:: pt is having his second change for his suprapupic cath. The home care nurse was not able to get the cath in. He was brought here and we brought him back immediately and it was put in. Exam Limited By: No Limitations General Appearance: Alert, Mild Distress Ears: Normal TMs Nose: Normal Inspection Throat/Mouth: Normal Inspection Head: Atraumatic Neck: Normal Inspection GI/Abdominal: Soft, Non-Tender, Other ( supra pupic was placed withjout difficulty. ) Rectal (Males) Exam: Deferred Course - Vital Signs Last Recorded V/S: Last Vital Signs Temp 35.6 C 03/25/19 14:17 Pulse 81 03/25/19 14:17 Resp 16 03/25/19 14:17 BP 170/85 H 03/25/19 14:17 Pulse Ox 97 03/25/19 14:17 - Orders/Labs/Meds Orders: Active Orders 24 hr Category Date Time Status CULTURE URINE [RM] Stat Lab 03/25/19 14:48 Received Labs: Laboratory Tests 03/25/19 03/25/19 Range/Units 14:28 14:40 WBC 10.9 (4.5-11.0) K/uL RBC 5.24 (4.30-5.90) M/uL Hgb 15.1 H D (12.0-15.0) g/dL Hct 46.8 (40.0-54.0) % MCV 89 (80-98) fL MCH 29 (27-31) pg MCHC 32 (32-36) % Plt Count 183 (150-400) K/uL Neut % (Auto) 74 H (36-66) % Lymph % (Auto) 14 L (24-44) % [place] % (Auto) 9 H (2-6) % Eos % (Auto) 3 (2-4) % Baso % (Auto) 0 (0-1) % Urine Color [place] A (YELLOW) Urine Appearance Cloudy A (CLEAR) Urine pH 7.0 (5.0-8.0) Ur Specific [place] 1.020 (1.008-1.030) Urine Protein 30 H (NEGATIVE) mg/dL Urine Glucose (UA) Negative (NEGATIVE) mg/dL Urine Ketones Negative (NEGATIVE) mg/dL Urine Occult Blood Large H (NEGATIVE) Urine Nitrite Negative (NEGATIVE) Urine Bilirubin Negative (NEGATIVE) Urine Urobilinogen 0.2 (0.2-1.0) EU/dL Ur Leukocyte Esterase Small H (NEGATIVE) Urine RBC Packed H (0-5) Urine WBC 10-20 H (0-5) Ur Epithelial Cells Not seen Amorphous Sediment Few Urine Bacteria Rare Urine Mucus Not seen - Re-Assessments/Exams Free Text/Narrative Re-Assessment/Exam: 03/25/19 15:24 wbc was normal. His urine did not have alot of bacteria. Because of all the manuipulation today he will be placed on ciprio for 2 days. Departure - Departure Time of Disposition: 15:17 Disposition: Home, Self-Care 01 Condition: Fair Clinical Impression: Suprapubic catheter dysfunction - Discharge Information Instructions: Suprapubic Catheter Replacement, Care After Referrals: Pedro Lynch MD [Primary Care Provider] - Forms: ED Department Discharge Care Plan Goals: cipro 500mg bid for 2 days, push fluids. - My Orders Last 24 Hours: My Active Orders 03/25/19 14:48 CULTURE URINE [RM] Stat - Assessment/Plan Last 24 Hours: My Active Orders 03/25/19 14:48 CULTURE URINE [RM] Stat
== END 2019-03-25 15:44 | disposition home or self-care (01) ==
LOC: JP.ED 14:01
DX: I25.2 Old myocardial infarction (principal); I48.91 Unspecified atrial fibrillation; I25.10 Atherosclerotic heart disease of native coronary artery without angina pectoris; K21.9 Gastro-esophageal reflux disease without esophagitis; E11.22 Type 2 diabetes mellitus with diabetic chronic kidney disease; N18.9 Chronic kidney disease, unspecified; Z86.73 Personal history of transient ischemic attack (TIA), and cerebral infarction without residual deficits; Z86.711 Personal history of pulmonary embolism; Z86.718 Personal history of other venous thrombosis and embolism; Z95.5 Presence of coronary angioplasty implant and graft; Z95.0 Presence of cardiac pacemaker; Z88.8 Allergy status to other drugs, medicaments and biological substances; Z91.041 Radiographic dye allergy status; Z79.01 Long term (current) use of anticoagulants; Z79.84 Long term (current) use of oral hypoglycemic drugs; Z79.899 Other long term (current) drug therapy
CPT/HCPCS: 36415; 81001; 85025; 87086; 87088; 87186; 99283

== ENCOUNTER 2019-10-29 12:12 | Emergency (ER) | payer MEDICARE, OTHER ==
[2019-10-29 12:52] VITALS: BP 147/77; PULSE 71
--- NOTE | 2019-10-29 13:15 | EDM.PDOC ---
ED HPI GENERAL MEDICAL PROBLEM - General Chief Complaint: Genitourinary Problem Stated Complaint: SUPRAPUBIC CATH REMOVAL Time Seen by Provider: 10/29/19 13:00 Source of Information: Reports: Patient, Old Records, RN History Limitations: Reports: No Limitations - History of Present Illness INITIAL COMMENTS - FREE TEXT/NARRATIVE: 89 yo male with an indwelling suprapubic catheter presents due to plugging of this catheter. Has a pHx of a UTI about 3 weeks ago. No recent fever or chills. Onset: Today Onset Date: 10/29/19 Duration: Hour(s):, Getting Worse Location: Reports: Abdomen (suprapubic) Quality: Reports: Other (pressure) Severity: Moderate Improves with: Reports: Other (relief of obstruction) Worsens with: Reports: Other (duration of existing obstruction) Context: Reports: Other (See HPI) Associated Symptoms: Reports: No Other Symptoms Treatments SPACER TYPE BAR AND SEGMENT: Reports: Other (see below) (none) - Related Data Allergies Allergy/AdvReac Type Severity Reaction Status Date / Time amlodipine Allergy Severe anaphylaxis Verified 10/29/19 12:43 dipyridamole Allergy Cannot Verified 10/29/19 12:43 Remember Iodinated Contrast Media Allergy Rash Verified 10/29/19 12:43 [Iodinated Contrast Media - IV Dye] rosuvastatin calcium AdvReac Muscle Verified 10/29/19 12:43 [From Crestor] Aches Home Meds: Home Meds Multivitamin with Minerals [Multiple Vitamin] 1 tab PO DAILY 09/29/13 [History] Omeprazole [Prilosec] 40 mg PO DAILY PRN 09/29/13 [History] glipiZIDE [Glucotrol] 2.5 mg PO BIDAC 07/14/14 [History] Nitroglycerin [IJP: Nitroglycerin] 0.4 mg PO ASDIRECTED PRN 07/24/16 [History] Bumetanide [Bumex] 2 mg PO DAILY 10/10/16 [History] allopurinoL [Zyloprim] 100 mg PO DAILY #30 tab 12/03/18 [Rx] Carboxymethylcellulose Sodium [Refresh Tears 0.5%] 1 drop EYEBOTH BID 12/15/18 [ History] Colchicine 0.6 mg PO DAILY #30 capsule 12/20/18 [Rx] Lactobacillus Rhamnosus GG [Culturelle] 1 cap PO BID #60 cap 12/20/18 [Rx] Melatonin 6 mg PO BEDTIME PRN #60 tablet 12/20/18 [Rx] Warfarin [Coumadin] 5 mg PO DAILY@1300 #30 tablet 12/20/18 [Rx] Cholecalciferol (Vitamin D3) [Vitamin D] 50,000 unit PO WEEKLY 03/25/19 [History ] Metoprolol Tartrate 12.5 mg PO BID 03/25/19 [History] Finasteride 1 tab PO DAILY 10/29/19 [History] cephALEXin [Cephalexin] 500 mg PO TID #16 capsule 10/29/19 [Rx] Past Medical History HEENT History: Reports: Cataract, Impaired Vision, Other (See Below) Other HEENT History: optic neuropathy Cardiovascular History: Reports: Afib, Arrhythmia, Blood Clots/VTE/DVT, CAD, Heart Failure, [place], Pacemaker, Stents, Other (See Below) Other Cardiovascular History: cardiomegaly, sinoatrial node disfunction. Respiratory History: Reports: PE Other Respiratory History: pulm. valve disorder Gastrointestinal History: Reports: GERD Genitourinary History: Reports: BPH, Chronic Renal Insuffiency, UTI, Recurrent Other Genitourinary History: hx of urinary obstructions Musculoskeletal History: Reports: Back Pain, Chronic, Osteoarthritis Neurological History: Reports: CVA Psychiatric History: Reports: Anxiety Endocrine/Metabolic History: Reports: Diabetes, Type II Hematologic History: Reports: Anticoagulation Therapy, Blood Transfusion(s) - Infectious Disease History Infectious Disease History: Reports: Chicken Pox, Measles, Mumps - Past Surgical History Head Surgeries/Procedures: Reports: None HEENT Surgical History: Reports: Cataract Surgery Cardiovascular Surgical History: Reports: Cardiac Ablation, Coronary Artery Stent Male Surgical History: Reports: Suprapubic Catheter Placement Social & Family History - Family History Family Medical History: Noncontributory Cardiac: Reports: [place] - Tobacco Use Smoking Status *Q: Never Smoker - Caffeine Use Caffeine Use: Reports: Coffee - Living Situation & Occupation Living situation: Reports: , with Family Occupation: Retired (lives with his , [address] [place] of [place], [place].) ED ROS GENERAL - Review of Systems Review Of Systems: See Below Constitutional: Reports: No Symptoms : Reports: Urinary Retention (due to catheter obstruction ) Musculoskeletal: Reports: No Symptoms Skin: Reports: No Symptoms ED EXAM, RENAL/ - Physical Exam Exam: See Below Exam Limited By: No Limitations General Appearance: Alert, WD/WN, No Apparent Distress (Male) Exam: Suprapubic Fullness, Other (indwelling suprapubic catheter) Extremities: Normal Inspection Neurological: Alert, Oriented, CN II-XII Intact, Normal Cognition, No Motor/ Sensory Deficits Course - Vital Signs Last Recorded V/S: Last Vital Signs Temp 36.0 C L 10/29/19 12:51 Pulse 71 10/29/19 12:51 Resp 16 10/29/19 12:51 BP 147/77 H 10/29/19 12:51 Pulse Ox 96 10/29/19 12:51 - Orders/Labs/Meds Orders: Active Orders 24 hr Category Date Time Status Busch Catheter Insertion [Insert Urinary Catheter] [OM. Care 10/29/19 12:30 Ordered PC] Q24H Urinary Catheter Assessment [RC] ASDIRECTED Care 10/29/19 12:24 Active CULTURE URINE [RM] Stat Lab 10/29/19 13:42 Ordered Labs: Laboratory Tests 10/29/19 Range/Units 13:07 Urine Color Yellow (YELLOW) Urine Appearance Cloudy A (CLEAR) Urine pH 7.0 (5.0-8.0) Ur Specific [place] 1.020 (1.008-1.030) Urine Protein Negative (NEGATIVE) mg/dL Urine Glucose (UA) Negative (NEGATIVE) mg/dL Urine Ketones Negative (NEGATIVE) mg/dL Urine Occult Blood Moderate H (NEGATIVE) Urine Nitrite Negative (NEGATIVE) Urine Bilirubin Negative (NEGATIVE) Urine Urobilinogen 0.2 (0.2-1.0) EU/dL Ur Leukocyte Esterase Large H (NEGATIVE) Urine RBC 10-20 H (0-5) Urine WBC 75-100 H (0-5) Ur Epithelial Cells Not seen Amorphous Sediment Not seen Urine Bacteria Moderate Urine Mucus Not seen - Re-Assessments/Exams Free Text/Narrative Re-Assessment/Exam: 10/29/19 13:15 Catheter changed, sx's relieved. Departure - Departure Time of Disposition: 13:50 Disposition: Home, Self-Care 01 Condition: Good Clinical Impression: Busch catheter problem Qualifiers: Encounter type: initial encounter Qualified Code(s): T83.9XXA - Unspecified complication of genitourinary prosthetic device, implant and graft, initial encounter UTI (urinary tract infection) Qualifiers: Urinary tract infection type: catheter-associated UTI Indwelling urinary catheter type: cystostomy catheter Encounter type: initial encounter Qualified Code(s): T83.510A - Infection and inflammatory reaction due to cystostomy catheter, initial encounter; N39.0 - Urinary tract infection, site not specified - Discharge Information *PRESCRIPTION DRUG MONITORING PROGRAM REVIEWED*: No *COPY OF PRESCRIPTION DRUG MONITORING REPORT IN PATIENT EDIL: No Prescriptions: cephALEXin [Cephalexin] 500 mg PO TID #16 capsule Instructions: Urinary Tract Infection, Adult, [id number] Referrals: PCP,None [Primary Care Provider] - Forms: ED Department Discharge Additional Instructions: Take cephalexin every 8 hrs. Drink ample fluids. Recheck with your provider late Sunday afternoon to follow up on the outstanding urine culture. Return if worse. Sepsis Event Note - Evaluation Sepsis Screening Result: No Definite Risk - Focused Exam Vital Signs: Vital Signs Temp Pulse Resp BP Pulse Ox 10/29/19 12:51 36.0 C L 71 16 147/77 H 96 Date Exam was Performed: 10/29/19 Time Exam was Performed: 13:43 - My Orders Last 24 Hours: My Active Orders 10/29/19 12:24 Urinary Catheter Assessment [RC] ASDIRECTED 10/29/19 12:30 Busch Catheter Insertion [Insert Urinary Catheter] [OM.PC] Q24H 10/29/19 13:42 CULTURE URINE [RM] Stat - Assessment/Plan Last 24 Hours: My Active Orders 10/29/19 12:24 Urinary Catheter Assessment [RC] ASDIRECTED 10/29/19 12:30 Busch Catheter Insertion [Insert Urinary Catheter] [OM.PC] Q24H 10/29/19 13:42 CULTURE URINE [RM] Stat
== END 2019-10-29 14:55 | disposition home or self-care (01) ==
LOC: JP.ED 12:12
DX: T83.9XXA Unspecified complication of genitourinary prosthetic device, implant and graft, initial encounter (principal); T83.510A Infection and inflammatory reaction due to cystostomy catheter, initial encounter; N39.0 Urinary tract infection, site not specified; I25.2 Old myocardial infarction; I50.9 Heart failure, unspecified; I48.91 Unspecified atrial fibrillation; E11.22 Type 2 diabetes mellitus with diabetic chronic kidney disease; N18.9 Chronic kidney disease, unspecified; I25.10 Atherosclerotic heart disease of native coronary artery without angina pectoris; K21.9 Gastro-esophageal reflux disease without esophagitis; F41.9 Anxiety disorder, unspecified; Z86.73 Personal history of transient ischemic attack (TIA), and cerebral infarction without residual deficits; Z88.8 Allergy status to other drugs, medicaments and biological substances; Z91.041 Radiographic dye allergy status; Z79.01 Long term (current) use of anticoagulants; Z79.899 Other long term (current) drug therapy
CPT/HCPCS: 51705; 81001; 87086; 87088; 87186; 99283-25

== ENCOUNTER 2020-01-15 11:44 | Inpatient (IN) | payer MEDICARE, OTHER ==
--- NOTE | 2020-01-15 13:25 | EDM.PDOC ---
ED HPI GENERAL MEDICAL PROBLEM - General Chief Complaint: General Stated Complaint: MEDICAL Time Seen by Provider: 01/15/20 13:05 Source of Information: Reports: Patient, Family, Old Records, RN History Limitations: Reports: No Limitations - History of Present Illness INITIAL COMMENTS - FREE TEXT/NARRATIVE: 89 yo male who gets around with a walker has been getting progressively weaker for about a week. He saw Dr. Lynch on 01/05 and had PT prescribed, but no testing was reportedly done. About 2 weeks ago he had a UTI. He is more SOB lately than normal, especially with exertion. No fever. No pain. Struggles to even get up now due to his weakness. Onset: Gradual Onset Date: 01/08/20 Duration: Week(s): (1), Getting Worse Location: Reports: Generalized Quality: Reports: Other (pain not reported.) Severity: Moderate Improves with: Reports: None Worsens with: Reports: Other (? time) Context: Reports: Other (See HPI) Associated Symptoms: Reports: Shortness of Breath (with exertion), Weakness. Denies: Chest Pain, Cough, Fever/Chills, Nausea/Vomiting Treatments [employer]: Reports: Other (see below) (PT per Dr. Lynch's order) - Related Data Allergies Allergy/AdvReac Type Severity Reaction Status Date / Time amlodipine Allergy Severe anaphylaxis Verified 01/15/20 12:45 dipyridamole Allergy Cannot Verified 01/15/20 12:45 Remember Iodinated Contrast Media Allergy Rash Verified 01/15/20 12:45 [Iodinated Contrast Media - IV Dye] rosuvastatin calcium AdvReac Muscle Verified 01/15/20 12:45 [From Crestor] Aches Home Meds: Home Meds Multivitamin with Minerals [Multiple Vitamin] 1 tab PO DAILY 09/29/13 [History] Omeprazole [Prilosec] 40 mg PO DAILY PRN 09/29/13 [History] glipiZIDE [Glucotrol] 2.5 mg PO BIDAC 07/14/14 [History] Nitroglycerin [IJP: Nitroglycerin] 0.4 mg PO ASDIRECTED PRN 07/24/16 [History] Bumetanide [Bumex] 2 mg PO DAILY 10/10/16 [History] allopurinoL [Zyloprim] 100 mg PO DAILY #30 tab 12/03/18 [Rx] Carboxymethylcellulose Sodium [Refresh Tears 0.5%] 1 drop EYEBOTH BID PRN 12/15/18 [History] Lactobacillus Rhamnosus GG [Culturelle] 1 cap PO BID #60 cap 12/20/18 [Rx] Warfarin [Coumadin] 5 mg PO DAILY@1300 #30 tablet 12/20/18 [Rx] Metoprolol Tartrate 12.5 mg PO BID 03/25/19 [History] Finasteride 1 tab PO BEDTIME 10/29/19 [History] Colchicine 0.6 mg PO BEDTIME 01/15/20 [History] Past Medical History HEENT History: Reports: Cataract, Impaired Vision, Other (See Below) Other HEENT History: optic neuropathy Cardiovascular History: Reports: Afib, Arrhythmia, Blood Clots/VTE/DVT, CAD, Heart Failure, RI, Pacemaker, Stents, Other (See Below) Other Cardiovascular History: cardiomegaly, sinoatrial node disfunction. Respiratory History: Reports: PE Other Respiratory History: pulm. valve disorder Gastrointestinal History: Reports: GERD Genitourinary History: Reports: BPH, Chronic Renal Insuffiency, UTI, Recurrent Other Genitourinary History: hx of urinary obstructions Musculoskeletal History: Reports: Back Pain, Chronic, Osteoarthritis Neurological History: Reports: CVA Psychiatric History: Reports: Anxiety Endocrine/Metabolic History: Reports: Diabetes, Type II Hematologic History: Reports: Anticoagulation Therapy, Blood Transfusion(s) - Infectious Disease History Infectious Disease History: Reports: Chicken Pox, Measles, Mumps - Past Surgical History Head Surgeries/Procedures: Reports: None HEENT Surgical History: Reports: Cataract Surgery Cardiovascular Surgical History: Reports: Cardiac Ablation, Coronary Artery Stent Male Surgical History: Reports: Suprapubic Catheter Placement Social & Family History - Family History Family Medical History: Noncontributory Cardiac: Reports: RI - Tobacco Use Smoking Status *Q: Never Smoker - Caffeine Use Caffeine Use: Reports: Coffee - Living Situation & Occupation Living situation: Reports: , with Family Occupation: Retired (lives with his , [address] miles [place] of [place], [place].) ED ROS GENERAL - Review of Systems Review Of Systems: See Below Constitutional: Reports: Weakness HEENT: Reports: No Symptoms Respiratory: Reports: No Symptoms Cardiovascular: Reports: Dyspnea on Exertion Endocrine: Reports: No Symptoms GI/Abdominal: Reports: No Symptoms : Reports: No Symptoms Musculoskeletal: Reports: No Symptoms Skin: Reports: No Symptoms Neurological: Reports: No Symptoms, Weakness (generalized) ED EXAM, GENERAL - Physical Exam Exam: See Below Exam Limited By: No Limitations General Appearance: Alert, WD/WN, No Apparent Distress, Obese Eye Exam: Bilateral Eye: Normal Inspection Ears: Normal External Exam, Normal Canal, Hearing Grossly Normal Ear Exam: Bilateral Ear: Auricle Normal, Canal Normal, TM normal Nose: Normal Inspection, No Blood Throat/Mouth: Normal Inspection, Normal Lips, Normal Oropharynx, Normal Voice, No Airway Compromise Head: Atraumatic, Normocephalic Neck: Normal Inspection Respiratory/Chest: No Respiratory Distress, Normal Breath Sounds, No Accessory Muscle Use, Decreased Breath Sounds Cardiovascular: Regular Rate, Rhythm, No Edema GI/Abdominal: Normal Bowel Sounds, Soft, Non-Tender, No Distention Back Exam: Normal Inspection Extremities: Normal Inspection, Normal Range of Motion, Non-Tender, No Pedal Edema Neurological: Alert, Oriented, CN II-XII Intact, Normal Cognition, No Motor/Sensory Deficits Psychiatric: Normal Affect, Normal Mood Skin Exam: Warm, Dry, Intact, Normal Color, No Rash Course - Vital Signs Text/Narrative:: Dr. Mccarthy called @ 1349h Last Recorded V/S: Last Vital Signs Temp 36.6 C 01/15/20 12:44 Pulse 73 01/15/20 12:44 Resp 16 01/15/20 12:44 BP 144/61 H 01/15/20 12:44 Pulse Ox 95 01/15/20 12:44 - Orders/Labs/Meds Orders: Active Orders 24 hr Category Date Time Status Bladder Scan [RC] ASDIRECTED Care 01/15/20 13:43 Ordered Chest 1V Frontal [CR] Stat Exams 01/15/20 13:19 Ordered CULTURE BLOOD [BC] Stat Lab 01/15/20 13:44 Ordered CULTURE BLOOD [BC] Stat Lab 01/15/20 13:44 Ordered CULTURE URINE [RM] Stat Lab 01/15/20 13:43 Ordered Labs: Laboratory Tests 01/15/20 01/15/20 01/15/20 Range/Units 13:05 13:16 13:16 WBC 20.3 H (4.5-11.0) K/uL RBC 5.13 (4.30-5.90) M/uL Hgb 15.2 H (12.0-15.0) g/dL Hct 47.1 (40.0-54.0) % MCV 92 (80-98) fL MCH 30 (27-31) pg MCHC 32 (32-36) % Plt Count 154 (150-400) K/uL PT (9.5-12.0) sec INR (0.80-1.20) Sodium 144 (140-148) mmol/L Potassium 4.2 (3.6-5.2) mmol/L Chloride 105 (100-108) mmol/L Carbon Dioxide 30 (21-32) mmol/L Anion Gap 9.4 (5.0-14.0) mmol/L BUN 30 H (7-18) mg/dL Creatinine 1.9 H (0.8-1.3) mg/dL Est Cr Clr Drug Dosing 30.06 mL/min Estimated GFR (MDRD) 34 L (>60) Glucose 231 H (74-106) mg/dL Calcium 8.6 (8.5-10.1) mg/dL Total Bilirubin 1.1 H (0.2-1.0) mg/dL AST 27 (15-37) U/L ALT 52 (12-78) U/L Alkaline Phosphatase 70 (46-116) U/L Troponin I < 0.017 (0.000-0.056) ng/mL Total Protein 6.6 (6.4-8.2) g/dL Albumin 3.3 L (3.4-5.0) g/dL Globulin 3.3 (2.3-3.5) g/dL Albumin/Globulin Ratio 1.0 L (1.2-2.2) Urine Color Yellow (YELLOW) Urine Appearance Cloudy A (CLEAR) Urine pH >= 9.0 H (5.0-8.0) Ur Specific [place] 1.015 (1.008-1.030) Urine Protein Negative (NEGATIVE) mg/dL Urine Glucose (UA) Negative (NEGATIVE) mg/dL Urine Ketones Negative (NEGATIVE) mg/dL Urine Occult Blood Negative (NEGATIVE) Urine Nitrite Positive H (NEGATIVE) Urine Bilirubin Negative (NEGATIVE) Urine Urobilinogen 0.2 (0.2-1.0) EU/dL Ur Leukocyte Esterase Moderate H (NEGATIVE) Urine RBC 0-5 (0-5) Urine WBC 10-20 H (0-5) Ur Epithelial Cells Not seen Amorphous Sediment Not seen Urine Bacteria Many Urine Mucus Not seen Urine Other 01/15/20 Range/Units 13:16 WBC (4.5-11.0) K/uL RBC (4.30-5.90) M/uL Hgb (12.0-15.0) g/dL Hct (40.0-54.0) % MCV (80-98) fL MCH (27-31) pg MCHC (32-36) % Plt Count (150-400) K/uL PT 24.4 H (9.5-12.0) sec INR 2.27 H (0.80-1.20) Sodium (140-148) mmol/L Potassium (3.6-5.2) mmol/L Chloride (100-108) mmol/L Carbon Dioxide (21-32) mmol/L Anion Gap (5.0-14.0) mmol/L BUN (7-18) mg/dL Creatinine (0.8-1.3) mg/dL Est Cr Clr Drug Dosing mL/min Estimated GFR (MDRD) (>60) Glucose (74-106) mg/dL Calcium (8.5-10.1) mg/dL Total Bilirubin (0.2-1.0) mg/dL AST (15-37) U/L ALT (12-78) U/L Alkaline Phosphatase (46-116) U/L Troponin I (0.000-0.056) ng/mL Total Protein (6.4-8.2) g/dL Albumin (3.4-5.0) g/dL Globulin (2.3-3.5) g/dL Albumin/Globulin Ratio (1.2-2.2) Urine Color (YELLOW) Urine Appearance (CLEAR) Urine pH (5.0-8.0) Ur Specific [place] (1.008-1.030) Urine Protein (NEGATIVE) mg/dL Urine Glucose (UA) (NEGATIVE) mg/dL Urine Ketones (NEGATIVE) mg/dL Urine Occult Blood (NEGATIVE) Urine Nitrite (NEGATIVE) Urine Bilirubin (NEGATIVE) Urine Urobilinogen (0.2-1.0) EU/dL Ur Leukocyte Esterase (NEGATIVE) Urine RBC (0-5) Urine WBC (0-5) Ur Epithelial Cells Amorphous Sediment Urine Bacteria Urine Mucus Urine Other - Radiology Interpretation Free Text/Narrative:: CXR-pneumonia R sided. Departure - Departure Time of Disposition: 14:15 Disposition: Admitted As Inpatient 68 Condition: Fair Clinical Impression: Weakness, Mild dehydration Right middle lobe pneumonia Qualifiers: Pneumonia type: due to unspecified organism Qualified Code(s): J18.9 - Pneumonia, unspecified organism - Discharge Information *PRESCRIPTION DRUG MONITORING PROGRAM REVIEWED*: Not Applicable *COPY OF PRESCRIPTION DRUG MONITORING REPORT IN PATIENT EDIL: Not Applicable Referrals: Pedro Lynch MD [Primary Care Provider] - Forms: ED Department Discharge Sepsis Event Note (ED) - Evaluation Sepsis Screening Result: No Definite Risk - Focused Exam Vital Signs: Vital Signs Temp Pulse Resp BP Pulse Ox 01/15/20 12:44 36.6 C 73 16 144/61 H 95 01/15/20 12:41 36.6 C 73 16 144/61 H 95 - My Orders Last 24 Hours: My Active Orders 01/15/20 13:19 Chest 1V Frontal [CR] Stat 01/15/20 13:43 Bladder Scan [RC] ASDIRECTED CULTURE URINE [RM] Stat 01/15/20 13:44 CULTURE BLOOD [BC] Stat CULTURE BLOOD [BC] Stat - Assessment/Plan Last 24 Hours: My Active Orders 01/15/20 13:19 Chest 1V Frontal [CR] Stat 01/15/20 13:43 Bladder Scan [RC] ASDIRECTED CULTURE URINE [RM] Stat 01/15/20 13:44 CULTURE BLOOD [BC] Stat CULTURE BLOOD [BC] Stat
[2020-01-15] MEDS ORDERED: cefTRIAXone 1 GM in Sodium Chloride 0.9% 50 ML IV ONE (13:47)
[2020-01-15] MEDS ORDERED: Doxycycline 100 MG in Sodium Chloride 0.9% 100 ML IV SCH (14:00)
[2020-01-15] MEDS ORDERED: Sodium Chloride 0.9% 1,000 ML IV SCH ×2 (14:00→16:07)
--- NOTE | 2020-01-15 14:07 | PCM.HP.2 ---
H&P History of Present Illness - General Date of Service: 01/15/20 Admit Problem/Dx: Admission Diagnosis/Problem Admission Diagnosis/Problem Pneumonia Source of Information: Patient, Family, Provider, RN Notes Reviewed History Limitations: Reports: No Limitations - History of Present Illness Initial Comments - Free Text/Narative: Mr. Dalal is an 89-year-old gentleman who was admitted through the emergency department with weakness and shortness of breath secondary to right lung pneumonia. He has a known history of COPD with chronic shortness of breath. He has had a nonproductive cough over the past few weeks and over the last 24 hours has become very weak. He denies significant fever or chills. Because of symptoms he presented to the emergency department, chest x-ray shows evidence of a right lung infiltrate. White blood cell count is elevated at 20,000. He is afebrile and hemodynamically stable with no evidence of underlying sepsis. - Related Data Allergies/Adverse Reactions: Allergies Allergy/AdvReac Type Severity Reaction Status Date / Time amlodipine Allergy Severe anaphylaxis Verified 01/15/20 12:45 dipyridamole Allergy Cannot Verified 01/15/20 12:45 Remember Iodinated Contrast Media Allergy Rash Verified 01/15/20 12:45 [Iodinated Contrast Media - IV Dye] rosuvastatin calcium AdvReac Muscle Verified 01/15/20 12:45 [From Crestor] Aches Home Medications: Home Meds Multivitamin with Minerals [Multiple Vitamin] 1 tab PO DAILY 09/29/13 [History] Omeprazole [Prilosec] 40 mg PO DAILY PRN 09/29/13 [History] glipiZIDE [Glucotrol] 2.5 mg PO BIDAC 07/14/14 [History] Nitroglycerin [IJP: Nitroglycerin] 0.4 mg PO ASDIRECTED PRN 07/24/16 [History] Bumetanide [Bumex] 2 mg PO DAILY 10/10/16 [History] allopurinoL [Zyloprim] 100 mg PO DAILY #30 tab 12/03/18 [Rx] Carboxymethylcellulose Sodium [Refresh Tears 0.5%] 1 drop EYEBOTH BID PRN [History] Lactobacillus Rhamnosus GG [Culturelle] 1 cap PO BID #60 cap 12/20/18 [Rx] Warfarin [Coumadin] 5 mg PO DAILY@1300 #30 tablet 12/20/18 [Rx] Metoprolol Tartrate 12.5 mg PO BID 03/25/19 [History] Finasteride 1 tab PO BEDTIME 10/29/19 [History] Colchicine 0.6 mg PO BEDTIME 01/15/20 [History] Past Medical History HEENT History: Reports: Cataract, Impaired Vision, Other (See Below) Other HEENT History: optic neuropathy Cardiovascular History: Reports: Afib, Arrhythmia, Blood Clots/VTE/DVT, CAD, Heart Failure, PR, Pacemaker, Stents, Other (See Below) Other Cardiovascular History: cardiomegaly, sinoatrial node disfunction. Respiratory History: Reports: PE Other Respiratory History: pulm. valve disorder Gastrointestinal History: Reports: GERD Genitourinary History: Reports: BPH, Chronic Renal Insuffiency, UTI, Recurrent Other Genitourinary History: hx of urinary obstructions Musculoskeletal History: Reports: Back Pain, Chronic, Osteoarthritis Neurological History: Reports: CVA Psychiatric History: Reports: Anxiety Endocrine/Metabolic History: Reports: Diabetes, Type II Hematologic History: Reports: Anticoagulation Therapy, Blood Transfusion(s) - Infectious Disease History Infectious Disease History: Reports: Chicken Pox, Measles, Mumps - Past Surgical History Head Surgeries/Procedures: Reports: None HEENT Surgical History: Reports: Cataract Surgery Cardiovascular Surgical History: Reports: Cardiac Ablation, Coronary Artery Stent Male Surgical History: Reports: Suprapubic Catheter Placement Social & Family History - Family History Family Medical History: Noncontributory Cardiac: Reports: PR - Tobacco Use Smoking Status *Q: Never Smoker - Caffeine Use Caffeine Use: Reports: Coffee - Living Situation & Occupation Living situation: Reports: , with Family Occupation: Retired (lives with his , [address] miles [place] of [place], [place].) H&P Review of Systems - Review of Systems: Review Of Systems: See Below General: Reports: Malaise, Weakness. Denies: Fever, Chills HEENT: Reports: No Symptoms Pulmonary: Reports: Shortness of Breath, Cough. Denies: Wheezing, Pleuritic Chest Pain, Sputum, Hemoptysis Cardiovascular: Reports: Dyspnea on Exertion. Denies: Chest Pain, Palpitations, Orthopnea, PND, Edema, Lightheadedness Gastrointestinal: Reports: No Symptoms Genitourinary: Reports: No Symptoms, Other (Suprapubic catheter) Musculoskeletal: Reports: No Symptoms Skin: Reports: No Symptoms Psychiatric: Reports: No Symptoms Neurological: Reports: No Symptoms Hematologic/Lymphatic: Reports: No Symptoms Immunologic: Reports: No Symptoms Exam - Exam Exam: See Below - Vital Signs Vital Signs: Last Vital Signs Temp 97.9 F 01/15/20 12:44 Pulse 73 01/15/20 12:44 Resp 16 01/15/20 12:44 BP 144/61 H 01/15/20 12:44 Pulse Ox 95 01/15/20 12:44 Weight: 200 lb - Exam Quality Assessment: Urinary Catheter, DVT Prophylaxis General: Alert, Oriented, Cooperative, Mild Distress HEENT: Conjunctiva Clear, Hearing Intact, Mucosa Moist & Cruger, Normal Nasal Septum, Posterior Pharynx Clear, Pupils Equal Neck: Supple, Trachea Midline, +2 Carotid Pulse wo Bruit Lungs: Clear to Auscultation, Normal Respiratory Effort, Decreased Breath Sounds Cardiovascular: Regular Rate, Regular Rhythm, Normal S1, Normal S2. No: Systolic Murmur, Diastolic Murmur GI/Abdominal Exam: Soft, Non-Tender, No Organomegaly, No Distention Back Exam: Normal Inspection, Full Range of Motion Extremities: Non-Tender, No Pedal Edema Skin: Warm, Dry, Intact Neurological: Cranial Nerves Intact, Strength Equal Bilateral, Normal Speech, Normal Tone, Sensation Intact. No: Focal Deficit Neuro Extensive - Mental Status: Alert, Oriented x3, Normal Mood/Affect, Normal Cognition, Memory Intact - Patient Data Lab Results Last 24 hrs: Laboratory Results - last 24 hr 01/15/20 01/15/20 01/15/20 Range/Units 13:05 13:16 13:16 WBC 20.3 H (4.5-11.0) K/uL RBC 5.13 (4.30-5.90) M/uL Hgb 15.2 H (12.0-15.0) g/dL Hct 47.1 (40.0-54.0) % MCV 92 (80-98) fL MCH 30 (27-31) pg MCHC 32 (32-36) % Plt Count 154 (150-400) K/uL PT (9.5-12.0) sec INR (0.80-1.20) Sodium 144 (140-148) mmol/L Potassium 4.2 (3.6-5.2) mmol/L Chloride 105 (100-108) mmol/L Carbon Dioxide 30 (21-32) mmol/L Anion Gap 9.4 (5.0-14.0) mmol/L BUN 30 H (7-18) mg/dL Creatinine 1.9 H (0.8-1.3) mg/dL Est Cr Clr Drug Dosing 30.06 mL/min Estimated GFR (MDRD) 34 L (>60) Glucose 231 H (74-106) mg/dL Calcium 8.6 (8.5-10.1) mg/dL Total Bilirubin 1.1 H (0.2-1.0) mg/dL AST 27 (15-37) U/L ALT 52 (12-78) U/L Alkaline Phosphatase 70 (46-116) U/L Troponin I < 0.017 (0.000-0.056) ng/mL Total Protein 6.6 (6.4-8.2) g/dL Albumin 3.3 L (3.4-5.0) g/dL Globulin 3.3 (2.3-3.5) g/dL Albumin/Globulin Ratio 1.0 L (1.2-2.2) Urine Color Yellow (YELLOW) Urine Appearance Cloudy A (CLEAR) Urine pH >= 9.0 H (5.0-8.0) Ur Specific [place] 1.015 (1.008-1.030) Urine Protein Negative (NEGATIVE) mg/dL Urine Glucose (UA) Negative (NEGATIVE) mg/dL Urine Ketones Negative (NEGATIVE) mg/dL Urine Occult Blood Negative (NEGATIVE) Urine Nitrite Positive H (NEGATIVE) Urine Bilirubin Negative (NEGATIVE) Urine Urobilinogen 0.2 (0.2-1.0) EU/dL Ur Leukocyte Esterase Moderate H (NEGATIVE) Urine RBC 0-5 (0-5) Urine WBC 10-20 H (0-5) Ur Epithelial Cells Not seen Amorphous Sediment Not seen Urine Bacteria Many Urine Mucus Not seen Urine Other 01/15/20 Range/Units 13:16 WBC (4.5-11.0) K/uL RBC (4.30-5.90) M/uL Hgb (12.0-15.0) g/dL Hct (40.0-54.0) % MCV (80-98) fL MCH (27-31) pg MCHC (32-36) % Plt Count (150-400) K/uL PT 24.4 H (9.5-12.0) sec INR 2.27 H (0.80-1.20) Sodium (140-148) mmol/L Potassium (3.6-5.2) mmol/L Chloride (100-108) mmol/L Carbon Dioxide (21-32) mmol/L Anion Gap (5.0-14.0) mmol/L BUN (7-18) mg/dL Creatinine (0.8-1.3) mg/dL Est Cr Clr Drug Dosing mL/min Estimated GFR (MDRD) (>60) Glucose (74-106) mg/dL Calcium (8.5-10.1) mg/dL Total Bilirubin (0.2-1.0) mg/dL AST (15-37) U/L ALT (12-78) U/L Alkaline Phosphatase (46-116) U/L Troponin I (0.000-0.056) ng/mL Total Protein (6.4-8.2) g/dL Albumin (3.4-5.0) g/dL Globulin (2.3-3.5) g/dL Albumin/Globulin Ratio (1.2-2.2) Urine Color (YELLOW) Urine Appearance (CLEAR) Urine pH (5.0-8.0) Ur Specific [place] (1.008-1.030) Urine Protein (NEGATIVE) mg/dL Urine Glucose (UA) (NEGATIVE) mg/dL Urine Ketones (NEGATIVE) mg/dL Urine Occult Blood (NEGATIVE) Urine Nitrite (NEGATIVE) Urine Bilirubin (NEGATIVE) Urine Urobilinogen (0.2-1.0) EU/dL Ur Leukocyte Esterase (NEGATIVE) Urine RBC (0-5) Urine WBC (0-5) Ur Epithelial Cells Amorphous Sediment Urine Bacteria Urine Mucus Urine Other Result Diagrams: 01/15/20 13:16 01/15/20 13:16 Sepsis Event Note - Evaluation Sepsis Screening Result: No Definite Risk - Focused Exam Vital Signs: Vital Signs Temp Pulse Resp BP Pulse Ox 01/15/20 12:44 97.9 F 73 16 144/61 H 95 01/15/20 12:41 97.9 F 73 16 144/61 H 95 *Q Meaningful Use (ADM) - VTE Risk Assess *Q Each Risk Factor Represents 1 Point: Obesity ( BMI > 25 kg/m2), Abnormal Pulmonary Function (COPD) Total Score 1 Point Risk Factors: 2 Each Risk Factor Represents 2 Points: None Total Score 2 Point Risk Factors: 0 Each Risk Factor Represents 3 Points: Age 75 Years or Greater Total Score 3 Point Risk Factors: 3 Each Risk Factor Represents 5 Points: None Total Score 5 Point Risk Factors: 0 Venous Thromboembolism Risk Factor Score *Q: 5 Problem List Initiated/Reviewed/Updated: Yes Orders Last 24hrs: Active Orders 24 hr Category Date Time Status Patient Status Manage Transfer [TRANSFER] Routine ADT 01/15/20 13:59 Ordered Bladder Scan [RC] ASDIRECTED Care 01/15/20 13:43 Active Chest 1V Frontal [CR] Stat Exams 01/15/20 13:19 Taken CULTURE BLOOD [BC] Stat Lab 01/15/20 13:55 Received CULTURE BLOOD [BC] Stat Lab 01/15/20 14:00 Received CULTURE URINE [RM] Stat Lab 01/15/20 13:55 Received Doxycycline [Vibramycin] 100 mg Med 01/15/20 14:00 Active Sodium Chloride 0.9% [Normal Saline] 100 ml IV Q12H Sodium Chloride 0.9% [Normal Saline] 1,000 ml Med 01/15/20 14:00 Active IV ASDIRECTED cefTRIAXone [Rocephin] 1 gm Med 01/15/20 13:47 Active Sodium Chloride 0.9% [Normal Saline] 50 ml IV ONETIME Resuscitation Status Routine Resus Stat 01/15/20 14:02 Ordered Medication Orders Sodium Chloride (Normal Saline) 1,000 mls @ 150 mls/hr IV ASDIRECTED DURGA Ceftriaxone Sodium 1 gm/ (Sodium Chloride) 50 mls @ 100 mls/hr IV ONETIME ONE Stop: 01/15/20 14:16 Doxycycline Hyclate 100 mg/ (Sodium Chloride) 100 mls @ 100 mls/hr IV Q12H [facility] Assessment/Plan Comment:: ASSESSMENT AND PLAN RIGHT LUNG PNEUMONIA-no evidence at this time of underlying sepsis. Minimal respiratory symptoms, he has had a dry cough over the last few weeks and notes mild increase in shortness of breath. -Blood cultures pending -IV fluids for hydration -Nebulizer therapy as needed -IV ceftriaxone and doxycycline, pending culture results TYPE 2 DIABETES MELLITUS -Hold glipizide -4 times daily glucometers -Low-dose sliding scale Humalog CHRONIC KIDNEY DISEASE STAGE IIIb -Closely monitor urine output and renal function MAINTENANCE ISSUES -DVT prophylaxis; Lovenox 40 mg subcu daily -GI prophylaxis; continue outpatient PPI therapy -Busch catheter; indwelling suprapubic catheter because of BPH -Nutrition; consistent carbohydrate diet -Nicotine dependence; not required CODE STATUS-FULL CODE ADMISSION STATUS-patient will be admitted to inpatient status, expect at least a 2 night hospital stay for evaluation and management of problems as outlined above. At the time of this admission I do not reasonably expected evaluation and management of this problem will require more than a 96 hour hospital stay. DISPOSITION-anticipate discharge to home after the hospital stay. PRIMARY CARE PROVIDER-Dr. Lynch - Mortality Measure Prognosis:: Good
--- NOTE | 2020-01-15 14:45 | CR ---
CHEST: Portable 01/15/2020 at 1:42 PM CLINICAL HISTORY:SOB, weakness COMPARISON:12/15/2018 FINDINGS: The heart is enlarged. Pulmonary vascularity is normal. Patient has a permanent cardiac pacer. There has been previous sternotomy. There are atherosclerotic changes in the aorta.. There is a right dense right mid lung infiltrate. Left lung is clear. IMPRESSION: Dense right upper lung infiltrate. This is most likely pneumonia. Follow-up recommended until clear to exclude underlying lesion
[2020-01-15] MEDS ORDERED: Albuterol 0.083% 2.5 MG/3 ML Neb Soln NEB PRN (16:07)
[2020-01-15] MEDS ORDERED: Glucose Gel 15 GM in 37.5 GM Tube PO PRN (16:07)
[2020-01-15] MEDS ORDERED: Polyethylene Glycol 3350 Powder 17 GM Packet PO PRN (16:07)
[2020-01-15] MEDS ORDERED: Acetaminophen 325 MG Tab PO PRN (16:07)
[2020-01-15] MEDS ORDERED: 50% Dextrose in Water 50 ML Syringe IV PRN (16:07)
[2020-01-15] MEDS ORDERED: Non-Formulary Medication 1 Each (Omeprazole [Prilosec] 40 MG) PO PRN (16:07)
[2020-01-15] MEDS ORDERED: Ondansetron 4 MG/2 ML SDV IV PRN (16:07)
[2020-01-15] MEDS ORDERED: Sodium Chloride 0.9% 10 ML Syringe FLUSH PRN (16:07)
[2020-01-15] MEDS ORDERED: Pantoprazole 40 MG Tab.CR PO PRN (16:22)
[2020-01-15] MEDS: Insulin Lispro 100 Unit/ML 3 ML KwikPen SUBCUT SCH ×2 (17:01→20:09)
[2020-01-15] MEDS: Albuterol/Ipratropium 3.0-0.5 MG/3 ML Neb Soln NEB SCH ×2 (17:03→21:52)
[2020-01-15] MEDS ORDERED: COLCHICINE 0.6 MG PO SCH (21:00)
[2020-01-15] MEDS: Lactobacillus Rhamnosus GG (Probiotic) Cap PO SCH (21:51)
[2020-01-15] MEDS: Metoprolol Tartrate 25 MG Tab PO SCH (21:51)
[2020-01-15] MEDS: Colchicine 0.6 MG Tab PO SCH (21:52)
[2020-01-15] MEDS: Finasteride 5 MG Tab PO SCH (21:52)
[2020-01-16] MEDS: Doxycycline 100 MG in Sodium Chloride 0.9% 100 ML IV SCH ×2 (02:14→13:15)
[2020-01-16] MEDS: Albuterol/Ipratropium 3.0-0.5 MG/3 ML Neb Soln NEB SCH ×4 (06:59→21:30)
[2020-01-16] MEDS: Insulin Lispro 100 Unit/ML 3 ML KwikPen SUBCUT SCH ×4 (07:40→21:08)
[2020-01-16] MEDS: Lactobacillus Rhamnosus GG (Probiotic) Cap PO SCH ×2 (08:18→20:59)
[2020-01-16] MEDS: Allopurinol 100 MG Tab PO SCH (08:19)
[2020-01-16] MEDS: Bumetanide 1 MG Tab PO SCH (08:19)
[2020-01-16] MEDS: Metoprolol Tartrate 25 MG Tab PO SCH ×2 (08:19→21:01)
[2020-01-16] MEDS ORDERED: Non-Formulary Medication 1 Each (Bumetanide [Bumex] 2 MG) PO SCH (09:00)
--- NOTE | 2020-01-16 10:08 | PCM.PN ---
- General Info Date of Service: 01/16/20 Subjective Update: Mr. Dalal reports ongoing symptoms of weakness and continues to require assistance of 2 for transfers. Denies significant shortness of breath and has not had much in the way of cough or fever. Vital signs have remained stable, white blood cell count is improved from admission. Functional Status: Reports: Tolerating Diet. Denies: Ambulating - Review of Systems General: Reports: Weakness, Fatigue. Denies: Fever, Chills Pulmonary: Reports: No Symptoms Cardiovascular: Reports: No Symptoms Gastrointestinal: Reports: No Symptoms - Patient Data Vitals - Most Recent: Last Vital Signs Temp 98.0 F 01/16/20 07:41 Pulse 70 01/16/20 08:19 Resp 16 01/16/20 07:41 BP 122/54 L 01/16/20 08:19 Pulse Ox 93 L 01/16/20 07:41 Weight - Most Recent: 222 lb 7.143 oz I&O - Last 24 Hours: Intake & Output 01/15/20 01/16/20 01/16/20 22:59 06:59 14:59 Intake Total 1400 500 Output Total 350 Balance 1050 500 Lab Results Last 24 Hours: Laboratory Results - last 24 hr 01/15/20 01/15/20 01/15/20 Range/Units 13:05 13:16 13:16 WBC 20.3 H (4.5-11.0) K/uL RBC 5.13 (4.30-5.90) M/uL Hgb 15.2 H (12.0-15.0) g/dL Hct 47.1 (40.0-54.0) % MCV 92 (80-98) fL MCH 30 (27-31) pg MCHC 32 (32-36) % Plt Count 154 (150-400) K/uL Neut % (Auto) (36-66) % Lymph % (Auto) (24-44) % Boyd % (Auto) (2-6) % Eos % (Auto) (2-4) % Baso % (Auto) (0-1) % PT (9.5-12.0) sec INR (0.80-1.20) Sodium 144 (140-148) mmol/L Potassium 4.2 (3.6-5.2) mmol/L Chloride 105 (100-108) mmol/L Carbon Dioxide 30 (21-32) mmol/L Anion Gap 9.4 (5.0-14.0) mmol/L BUN 30 H (7-18) mg/dL Creatinine 1.9 H (0.8-1.3) mg/dL Est Cr Clr Drug Dosing 30.06 mL/min Estimated GFR (MDRD) 34 L (>60) Glucose 231 H (74-106) mg/dL POC Glucose (74-106) MG/DL Calcium 8.6 (8.5-10.1) mg/dL Total Bilirubin 1.1 H (0.2-1.0) mg/dL AST 27 (15-37) U/L ALT 52 (12-78) U/L Alkaline Phosphatase 70 (46-116) U/L Troponin I < 0.017 (0.000-0.056) ng/mL Total Protein 6.6 (6.4-8.2) g/dL Albumin 3.3 L (3.4-5.0) g/dL Globulin 3.3 (2.3-3.5) g/dL Albumin/Globulin Ratio 1.0 L (1.2-2.2) Urine Color Yellow (YELLOW) Urine Appearance Cloudy A (CLEAR) Urine pH >= 9.0 H (5.0-8.0) Ur Specific [place] 1.015 (1.008-1.030) Urine Protein Negative (NEGATIVE) mg/dL Urine Glucose (UA) Negative (NEGATIVE) mg/dL Urine Ketones Negative (NEGATIVE) mg/dL Urine Occult Blood Negative (NEGATIVE) Urine Nitrite Positive H (NEGATIVE) Urine Bilirubin Negative (NEGATIVE) Urine Urobilinogen 0.2 (0.2-1.0) EU/dL Ur Leukocyte Esterase Moderate H (NEGATIVE) Urine RBC 0-5 (0-5) Urine WBC 10-20 H (0-5) Ur Epithelial Cells Not seen Amorphous Sediment Not seen Urine Bacteria Many Urine Mucus Not seen Urine Other 01/15/20 01/15/20 01/16/20 Range/Units 13:16 16:20 04:05 WBC 12.2 H (4.5-11.0) K/uL RBC 4.35 (4.30-5.90) M/uL Hgb 13.1 D (12.0-15.0) g/dL Hct 40.8 (40.0-54.0) % MCV 94 (80-98) fL MCH 30 (27-31) pg MCHC 32 (32-36) % Plt Count 128 L (150-400) K/uL Neut % (Auto) 76 H (36-66) % Lymph % (Auto) 13 L (24-44) % Boyd % (Auto) 9 H (2-6) % Eos % (Auto) 1 L (2-4) % Baso % (Auto) 0 (0-1) % PT 24.4 H (9.5-12.0) sec INR 2.27 H (0.80-1.20) Sodium (140-148) mmol/L Potassium (3.6-5.2) mmol/L Chloride (100-108) mmol/L Carbon Dioxide (21-32) mmol/L Anion Gap (5.0-14.0) mmol/L BUN (7-18) mg/dL Creatinine (0.8-1.3) mg/dL Est Cr Clr Drug Dosing mL/min Estimated GFR (MDRD) (>60) Glucose (74-106) mg/dL POC Glucose 163 H (74-106) MG/DL Calcium (8.5-10.1) mg/dL Total Bilirubin (0.2-1.0) mg/dL AST (15-37) U/L ALT (12-78) U/L Alkaline Phosphatase (46-116) U/L Troponin I (0.000-0.056) ng/mL Total Protein (6.4-8.2) g/dL Albumin (3.4-5.0) g/dL Globulin (2.3-3.5) g/dL Albumin/Globulin Ratio (1.2-2.2) Urine Color (YELLOW) Urine Appearance (CLEAR) Urine pH (5.0-8.0) Ur Specific [place] (1.008-1.030) Urine Protein (NEGATIVE) mg/dL Urine Glucose (UA) (NEGATIVE) mg/dL Urine Ketones (NEGATIVE) mg/dL Urine Occult Blood (NEGATIVE) Urine Nitrite (NEGATIVE) Urine Bilirubin (NEGATIVE) Urine Urobilinogen (0.2-1.0) EU/dL Ur Leukocyte Esterase (NEGATIVE) Urine RBC (0-5) Urine WBC (0-5) Ur Epithelial Cells Amorphous Sediment Urine Bacteria Urine Mucus Urine Other 01/16/20 01/16/20 Range/Units 04:05 04:05 WBC (4.5-11.0) K/uL RBC (4.30-5.90) M/uL Hgb (12.0-15.0) g/dL Hct (40.0-54.0) % MCV (80-98) fL MCH (27-31) pg MCHC (32-36) % Plt Count (150-400) K/uL Neut % (Auto) (36-66) % Lymph % (Auto) (24-44) % Boyd % (Auto) (2-6) % Eos % (Auto) (2-4) % Baso % (Auto) (0-1) % PT 24.2 H (9.5-12.0) sec INR 2.26 H (0.80-1.20) Sodium 144 (140-148) mmol/L Potassium 3.7 (3.6-5.2) mmol/L Chloride 109 H (100-108) mmol/L Carbon Dioxide 29 (21-32) mmol/L Anion Gap 9.7 (5.0-14.0) mmol/L BUN 30 H (7-18) mg/dL Creatinine 1.7 H (0.8-1.3) mg/dL Est Cr Clr Drug Dosing 33.60 mL/min Estimated GFR (MDRD) 38 L (>60) Glucose 131 H (74-106) mg/dL POC Glucose (74-106) MG/DL Calcium 8.0 L (8.5-10.1) mg/dL Total Bilirubin (0.2-1.0) mg/dL AST (15-37) U/L ALT (12-78) U/L Alkaline Phosphatase (46-116) U/L Troponin I (0.000-0.056) ng/mL Total Protein (6.4-8.2) g/dL Albumin (3.4-5.0) g/dL Globulin (2.3-3.5) g/dL Albumin/Globulin Ratio (1.2-2.2) Urine Color (YELLOW) Urine Appearance (CLEAR) Urine pH (5.0-8.0) Ur Specific [place] (1.008-1.030) Urine Protein (NEGATIVE) mg/dL Urine Glucose (UA) (NEGATIVE) mg/dL Urine Ketones (NEGATIVE) mg/dL Urine Occult Blood (NEGATIVE) Urine Nitrite (NEGATIVE) Urine Bilirubin (NEGATIVE) Urine Urobilinogen (0.2-1.0) EU/dL Ur Leukocyte Esterase (NEGATIVE) Urine RBC (0-5) Urine WBC (0-5) Ur Epithelial Cells Amorphous Sediment Urine Bacteria Urine Mucus Urine Other Terrence Results Last 24 Hours: Microbiology 01/15/20 13:55 Urine Culture - Preliminary Urine, Clean Catch Med Orders - Current: Current Medications Acetaminophen (Tylenol) 650 mg PO Q4H PRN PRN Reason: Pain (Mild 1-3)/fever Albuterol (Proventil Neb Soln) 2.5 mg NEB Q4H PRN PRN Reason: Shortness Of Breath/wheezing Albuterol/Ipratropium (Duoneb 3.0-0.5 Mg/3 Ml) 3 ml NEB QIDRT [facility] Last Admin: 01/16/20 06:59 Dose: 3 ml Documented by: Allopurinol (Zyloprim) 100 mg PO DAILY [facility] Last Admin: 01/16/20 08:19 Dose: 100 mg Documented by: Bumetanide (Bumex) 2 mg PO DAILY [facility] Last Admin: 01/16/20 08:19 Dose: 2 mg Documented by: Colchicine (Colcrys) 0.6 mg PO BEDTIME [facility] Last Admin: 01/15/20 21:52 Dose: 0.6 mg Documented by: Dextrose (Glutose 15) 15 gm PO ASDIRECTED PRN PRN Reason: Hypoglycemia Dextrose/Water (Dextrose 50% In Water) 50 ml IV ASDIRECTED PRN PRN Reason: Hypoglycemia Finasteride (Proscar) 5 mg PO BEDTIME [facility] Last Admin: 01/15/20 21:52 Dose: 5 mg Documented by: Ceftriaxone Sodium 1 gm/ (Sodium Chloride) 50 mls @ 100 mls/hr IV Q24H [facility] Doxycycline Hyclate 100 mg/ (Sodium Chloride) 100 mls @ 100 mls/hr IV Q12H [facility] Last Admin: 01/16/20 02:14 Dose: 100 mls/hr Documented by: Insulin Human Lispro (Humalog) 0 unit SUBCUT QIDACANDBED [facility]; Protocol Last Admin: 01/16/20 07:40 Dose: Not Given Documented by: Lactobacillus Rhamnosus (Culturelle) 1 cap PO BID [facility] Last Admin: 01/16/20 08:18 Dose: 1 cap Documented by: Metoprolol Tartrate (Lopressor) 12.5 mg PO BID [facility] Last Admin: 01/16/20 08:19 Dose: 12.5 mg Documented by: Ondansetron HCl (Zofran) 4 mg IV Q4H PRN PRN Reason: Nausea/Vomiting Pantoprazole Sodium (Protonix) 40 mg PO DAILY PRN PRN Reason: HEARTBURN Polyethylene Glycol (Miralax) 17 gm PO DAILY PRN PRN Reason: Constipation Sodium Chloride (Saline Flush) 10 ml FLUSH ASDIRECTED PRN PRN Reason: Keep Vein Open Warfarin Sodium (Coumadin) 5 mg PO DAILY@1300 [facility] Discontinued Medications Sodium Chloride (Normal Saline) 1,000 mls @ 150 mls/hr IV ASDIRECTED [facility] Last Admin: 01/15/20 14:33 Dose: 150 mls/hr Documented by: Ceftriaxone Sodium 1 gm/ (Sodium Chloride) 50 mls @ 100 mls/hr IV ONETIME ONE Stop: 01/15/20 14:16 Last Admin: 01/15/20 14:34 Dose: 100 mls/hr Documented by: Doxycycline Hyclate 100 mg/ (Sodium Chloride) 100 mls @ 100 mls/hr IV Q12H [facility] Last Admin: 01/15/20 14:35 Dose: 100 mls/hr Documented by: Sodium Chloride (Normal Saline) 1,000 mls @ 75 mls/hr IV ASDIRECTED [facility] Last Admin: 01/16/20 02:14 Dose: 75 mls/hr Documented by: - Exam Quality Assessment: DVT Prophylaxis General: Alert, Oriented, Cooperative, Mild Distress Lungs: Clear to Auscultation, Normal Respiratory Effort, Decreased Breath Sounds. No: Wheezing Cardiovascular: Regular Rate, Regular Rhythm, No Murmurs GI/Abdominal Exam: Soft, Non-Tender, No Organomegaly, No Distention Extremities: Non-Tender, No Pedal Edema Sepsis Event Note - Evaluation Sepsis Screening Result: No Definite Risk - Focused Exam Vital Signs: Vital Signs Temp Pulse Pulse Resp BP BP Pulse Ox 01/16/20 08:19 70 122/54 L 01/16/20 07:41 98.0 F 78 16 122/54 L 93 L 01/16/20 06:59 73 01/16/20 03:27 98.1 F 08/21/20 01:35 76 18 122/51 L 92 L - Problem List Review Problem List Initiated/Reviewed/Updated: Yes - My Orders Last 24 Hours: My Active Orders 01/15/20 Lunch Consistent Carbohydrate Diet [DIET] 01/15/20 14:02 Resuscitation Status Routine 01/15/20 16:07 Acetaminophen [TylenoL] 650 mg PO Q4H PRN Albuterol [Proventil Neb Soln] 2.5 mg NEB Q4H PRN Albuterol/Ipratropium [DuoNeb 3.0-0.5 MG/3 ML] 3 ml NEB QIDRT Dextrose 50% in Water 50 ml IV ASDIRECTED PRN Dextrose [Glutose 15] 15 gm PO ASDIRECTED PRN Ondansetron [Zofran] 4 mg IV Q4H PRN Sodium Chloride 0.9% [Saline Flush] 10 ml FLUSH ASDIRECTED PRN polyethylene glycoL 3350 [MiraLAX] 17 gm PO DAILY PRN 01/15/20 16:07 Patient Status [ADT] Routine Ambulate [RC] QID Communication Order [RC] STAT Diabetes Education [RC] Click to Edit Height and Weight [RC] DAILY Intake and Output [RC] QSHIFT Notify Provider Vital Signs [RC] ASDIRECTED Notify Provider [RC] PRN Oxygen Therapy [RC] PRN Peripheral IV Care [RC] . DIRECTED Pulse Oximetry [RC] CONTINUOUS RT Aerosol Therapy [RC] ASDIRECTED Up With Assistance [RC] ASDIRECTED Up to Chair [RC] QID VTE/DVT Education [RC] Per Unit Routine Vital Signs [RC] Q4H Peripheral IV Insertion Adult [OM.PC] Routine VTE Pharmacological Contraindications [AST] Per Unit Routine 01/15/20 16:22 Pantoprazole [ProTONIX] 40 mg PO DAILY PRN 01/15/20 17:00 Insulin Lispro [HumaLOG] See Protocol SUBCUT QIDACANDBED 01/15/20 21:00 Colchicine [Colcrys] 0.6 mg PO BEDTIME Finasteride [Proscar] 5 mg PO BEDTIME Lactobacillus Rhamnosus GG [Culturelle] 1 cap PO BID Metoprolol Tartrate [Lopressor] 12.5 mg PO BID 01/16/20 02:00 Doxycycline [Vibramycin] 100 mg Sodium Chloride 0.9% [Normal Saline] 100 ml IV Q12H 01/16/20 08:49 PT Evaluation and Treatment [CONS] Routine 01/16/20 09:00 Bumetanide [Bumex] 2 mg PO DAILY allopurinoL [Zyloprim] 100 mg PO DAILY 01/16/20 10:06 Convert IV to Saline Lock [OM.PC] Routine 01/16/20 13:00 Warfarin [Coumadin] 5 mg PO DAILY@1300 cefTRIAXone [Rocephin] 1 gm Sodium Chloride 0.9% [Normal Saline] 50 ml IV Q24H 01/17/20 05:00 BASIC METABOLIC PANEL,BMP [CHEM] Timed CBC WITH AUTO DIFF [HEME] Timed INR,PT,PROTHROMBIN TIME [COAG] Timed 01/17/20 07:30 GLUCOSE POC LAB TO COLLECT JPM [POC] QIDACANDBED 01/17/20 11:30 GLUCOSE POC LAB TO COLLECT JPM [POC] QIDACANDBED 01/17/20 16:30 GLUCOSE POC LAB TO COLLECT JPM [POC] QIDACANDBED 01/17/20 21:00 GLUCOSE POC LAB TO COLLECT JPM [POC] QIDACANDBED 01/18/20 07:30 GLUCOSE POC LAB TO COLLECT JPM [POC] QIDACANDBED 01/18/20 11:30 GLUCOSE POC LAB TO COLLECT JPM [POC] QIDACANDBED 01/18/20 16:30 GLUCOSE POC LAB TO COLLECT JPM [POC] QIDACANDBED 01/18/20 21:00 GLUCOSE POC LAB TO COLLECT JPM [POC] QIDACANDBED 01/19/20 07:30 GLUCOSE POC LAB TO COLLECT JPM [POC] QIDACANDBED 01/19/20 11:30 GLUCOSE POC LAB TO COLLECT JPM [POC] QIDACANDBED 01/19/20 16:30 GLUCOSE POC LAB TO COLLECT JPM [POC] QIDACANDBED 01/19/20 21:00 GLUCOSE POC LAB TO COLLECT JPM [POC] QIDACANDBED 01/20/20 07:30 GLUCOSE POC LAB TO COLLECT JPM [POC] QIDACANDBED 01/20/20 11:30 GLUCOSE POC LAB TO COLLECT JPM [POC] QIDACANDBED - Plan Plan:: ASSESSMENT AND PLAN RIGHT LUNG PNEUMONIA-minimal symptoms but has ongoing difficulty with weakness -Blood cultures pending -Saline lock IV -Nebulizer therapy as needed -IV ceftriaxone and doxycycline, pending culture results TYPE 2 DIABETES MELLITUS -Hold glipizide -4 times daily glucometers -Low-dose sliding scale Humalog CHRONIC KIDNEY DISEASE STAGE IIIb-renal function improved from admission with hydration -Closely monitor urine output and renal function MAINTENANCE ISSUES -DVT prophylaxis; Lovenox 40 mg subcu daily -GI prophylaxis; continue outpatient PPI therapy -Busch catheter; indwelling suprapubic catheter because of BPH -Nutrition; consistent carbohydrate diet -Nicotine dependence; not required CODE STATUS-FULL CODE ADMISSION STATUS-patient will be admitted to inpatient status, expect at least a 2 night hospital stay for evaluation and management of problems as outlined above. At the time of this admission I do not reasonably expected evaluation and management of this problem will require more than a 96 hour hospital stay. DISPOSITION-anticipate discharge to home after the hospital stay. PRIMARY CARE PROVIDER-Dr. Lynch
[2020-01-16] MEDS: Warfarin 5 MG Tab PO SCH (12:43)
[2020-01-16] MEDS ORDERED: cefTRIAXone 1 GM in Sodium Chloride 0.9% 50 ML IV SCH (13:00)
[2020-01-16] MEDS: Colchicine 0.6 MG Tab PO SCH (20:59)
[2020-01-16] MEDS: Finasteride 5 MG Tab PO SCH (21:01)
[2020-01-17] MEDS: Doxycycline 100 MG in Sodium Chloride 0.9% 100 ML IV SCH (02:34)
[2020-01-17] MEDS: Albuterol/Ipratropium 3.0-0.5 MG/3 ML Neb Soln NEB SCH ×4 (07:09→21:34)
[2020-01-17] MEDS: Insulin Lispro 100 Unit/ML 3 ML KwikPen SUBCUT SCH ×4 (07:25→21:23)
[2020-01-17] MEDS: Bumetanide 1 MG Tab PO SCH (08:16)
[2020-01-17] MEDS: Metoprolol Tartrate 25 MG Tab PO SCH ×2 (08:16→21:30)
[2020-01-17] MEDS: Allopurinol 100 MG Tab PO SCH (08:17)
[2020-01-17] MEDS: Lactobacillus Rhamnosus GG (Probiotic) Cap PO SCH ×2 (08:17→21:30)
--- NOTE | 2020-01-17 10:32 | PCM.PN ---
- General Info Date of Service: 01/17/20 Subjective Update: Mr. Dalal has been stable over the last 24 hours, appetite and overall strength are improving and he has been able to ambulate in the hallways with minimal assistance. Urine culture growing pansensitive Proteus, blood cultures remain negative. Functional Status: Reports: Tolerating Diet, Ambulating, Urinating - Review of Systems General: Reports: Weakness, Fatigue. Denies: Fever, Chills Pulmonary: Reports: No Symptoms Cardiovascular: Reports: No Symptoms Gastrointestinal: Reports: No Symptoms - Patient Data Vitals - Most Recent: Last Vital Signs Temp 95.1 F L 01/17/20 07:24 Pulse 72 01/17/20 08:16 Resp 16 01/17/20 07:24 BP 123/53 L 01/17/20 08:16 Pulse Ox 97 01/17/20 07:33 Weight - Most Recent: 228 lb 3.2 oz I&O - Last 24 Hours: Intake & Output 01/16/20 01/17/20 01/17/20 22:59 06:59 14:59 Intake Total 1250 1000 Output Total 1400 625 Balance -150 -625 1000 Lab Results Last 24 Hours: Laboratory Results - last 24 hr 01/16/20 01/16/20 01/16/20 Range/Units 11:50 16:30 20:59 WBC (4.5-11.0) K/uL RBC (4.30-5.90) M/uL Hgb (12.0-15.0) g/dL Hct (40.0-54.0) % MCV (80-98) fL MCH (27-31) pg MCHC (32-36) % Plt Count (150-400) K/uL Neut % (Auto) (36-66) % Lymph % (Auto) (24-44) % [place] % (Auto) (2-6) % Eos % (Auto) (2-4) % Baso % (Auto) (0-1) % PT (9.5-12.0) sec INR (0.80-1.20) Sodium (140-148) mmol/L Potassium (3.6-5.2) mmol/L Chloride (100-108) mmol/L Carbon Dioxide (21-32) mmol/L Anion Gap (5.0-14.0) mmol/L BUN (7-18) mg/dL Creatinine (0.8-1.3) mg/dL Est Cr Clr Drug Dosing mL/min Estimated GFR (MDRD) (>60) Glucose (74-106) mg/dL POC Glucose 171 H 123 H 186 H (74-106) MG/DL Calcium (8.5-10.1) mg/dL 01/17/20 01/17/20 01/17/20 Range/Units 05:55 05:55 05:55 WBC 8.9 (4.5-11.0) K/uL RBC 4.63 (4.30-5.90) M/uL Hgb 13.7 (12.0-15.0) g/dL Hct 43.0 (40.0-54.0) % MCV 93 (80-98) fL MCH 30 (27-31) pg MCHC 32 (32-36) % Plt Count 128 L (150-400) K/uL Neut % (Auto) 72 H (36-66) % Lymph % (Auto) 18 L (24-44) % [place] % (Auto) 7 H (2-6) % Eos % (Auto) 3 (2-4) % Baso % (Auto) 0 (0-1) % PT 21.0 H (9.5-12.0) sec INR 1.95 H (0.80-1.20) Sodium 143 (140-148) mmol/L Potassium 3.9 (3.6-5.2) mmol/L Chloride 106 (100-108) mmol/L Carbon Dioxide 31 (21-32) mmol/L Anion Gap 6.5 (5.0-14.0) mmol/L BUN 28 H (7-18) mg/dL Creatinine 1.5 H (0.8-1.3) mg/dL Est Cr Clr Drug Dosing 40.34 mL/min Estimated GFR (MDRD) 44 L (>60) Glucose 165 H (74-106) mg/dL POC Glucose (74-106) MG/DL Calcium 8.1 L (8.5-10.1) mg/dL 01/17/20 Range/Units 07:30 WBC (4.5-11.0) K/uL RBC (4.30-5.90) M/uL Hgb (12.0-15.0) g/dL Hct (40.0-54.0) % MCV (80-98) fL MCH (27-31) pg MCHC (32-36) % Plt Count (150-400) K/uL Neut % (Auto) (36-66) % Lymph % (Auto) (24-44) % [place] % (Auto) (2-6) % Eos % (Auto) (2-4) % Baso % (Auto) (0-1) % PT (9.5-12.0) sec INR (0.80-1.20) Sodium (140-148) mmol/L Potassium (3.6-5.2) mmol/L Chloride (100-108) mmol/L Carbon Dioxide (21-32) mmol/L Anion Gap (5.0-14.0) mmol/L BUN (7-18) mg/dL Creatinine (0.8-1.3) mg/dL Est Cr Clr Drug Dosing mL/min Estimated GFR (MDRD) (>60) Glucose (74-106) mg/dL POC Glucose 140 H (74-106) MG/DL Calcium (8.5-10.1) mg/dL [place]rence Results Last 24 Hours: Microbiology 01/15/20 13:55 Urine Culture - Final Urine, Clean Catch Proteus Mirabilis 01/15/20 14:00 Aerobic Blood Culture - Preliminary Blood - Arm, Left NO GROWTH AFTER 1 DAY Anaerobic Blood Culture - Preliminary NO GROWTH AFTER 1 DAY 01/15/20 13:55 Aerobic Blood Culture - Preliminary Blood - Arm, Right NO GROWTH AFTER 1 DAY Anaerobic Blood Culture - Preliminary NO GROWTH AFTER 1 DAY Med Orders - Current: Current Medications Acetaminophen (Tylenol) 650 mg PO Q4H PRN PRN Reason: Pain (Mild 1-3)/fever Albuterol (Proventil Neb Soln) 2.5 mg NEB Q4H PRN PRN Reason: Shortness Of Breath/wheezing Albuterol/Ipratropium (Duoneb 3.0-0.5 Mg/3 Ml) 3 ml NEB QIDRT [facility] Last Admin: 01/17/20 07:09 Dose: 3 ml Documented by: Allopurinol (Zyloprim) 100 mg PO DAILY [facility] Last Admin: 01/17/20 08:17 Dose: 100 mg Documented by: Bumetanide (Bumex) 2 mg PO DAILY [facility] Last Admin: 01/17/20 08:16 Dose: 2 mg Documented by: Colchicine (Colcrys) 0.6 mg PO BEDTIME [facility] Last Admin: 01/16/20 20:59 Dose: 0.6 mg Documented by: Dextrose (Glutose 15) 15 gm PO ASDIRECTED PRN PRN Reason: Hypoglycemia Dextrose/Water (Dextrose 50% In Water) 50 ml IV ASDIRECTED PRN PRN Reason: Hypoglycemia Finasteride (Proscar) 5 mg PO BEDTIME [facility] Last Admin: 01/16/20 21:01 Dose: 5 mg Documented by: Insulin Human Lispro (Humalog) 0 unit SUBCUT QIDACANDBED [facility]; Protocol Last Admin: 01/17/20 07:25 Dose: Not Given Documented by: Lactobacillus Rhamnosus (Culturelle) 1 cap PO BID [facility] Last Admin: 01/17/20 08:17 Dose: 1 cap Documented by: Metoprolol Tartrate (Lopressor) 12.5 mg PO BID [facility] Last Admin: 01/17/20 08:16 Dose: 12.5 mg Documented by: Ondansetron HCl (Zofran) 4 mg IV Q4H PRN PRN Reason: Nausea/Vomiting Pantoprazole Sodium (Protonix) 40 mg PO DAILY PRN PRN Reason: HEARTBURN Polyethylene Glycol (Miralax) 17 gm PO DAILY PRN PRN Reason: Constipation Sodium Chloride (Saline Flush) 10 ml FLUSH ASDIRECTED PRN PRN Reason: Keep Vein Open Warfarin Sodium (Coumadin) 5 mg PO DAILY@1300 [facility] Last Admin: 01/16/20 12:43 Dose: 5 mg Documented by: Discontinued Medications Sodium Chloride (Normal Saline) 1,000 mls @ 150 mls/hr IV ASDIRECTED [facility] Last Admin: 01/15/20 14:33 Dose: 150 mls/hr Documented by: Ceftriaxone Sodium 1 gm/ (Sodium Chloride) 50 mls @ 100 mls/hr IV ONETIME ONE Stop: 01/15/20 14:16 Last Admin: 01/15/20 14:34 Dose: 100 mls/hr Documented by: Doxycycline Hyclate 100 mg/ (Sodium Chloride) 100 mls @ 100 mls/hr IV Q12H [facility] Last Admin: 01/15/20 14:35 Dose: 100 mls/hr Documented by: Sodium Chloride (Normal Saline) 1,000 mls @ 75 mls/hr IV ASDIRECTED [facility] Last Admin: 01/16/20 02:14 Dose: 75 mls/hr Documented by: Ceftriaxone Sodium 1 gm/ (Sodium Chloride) 50 mls @ 100 mls/hr IV Q24H [facility] Last Admin: 01/16/20 12:43 Dose: 100 mls/hr Documented by: Doxycycline Hyclate 100 mg/ (Sodium Chloride) 100 mls @ 100 mls/hr IV Q12H [facility] Last Admin: 01/17/20 02:34 Dose: 100 mls/hr Documented by: - Exam Quality Assessment: DVT Prophylaxis General: Alert, Oriented, Cooperative, Mild Distress Lungs: Clear to Auscultation, Normal Respiratory Effort, Decreased Breath Sounds Cardiovascular: Regular Rate, Regular Rhythm, No Murmurs GI/Abdominal Exam: Soft, Non-Tender, No Organomegaly, No Distention Extremities: Non-Tender, No Pedal Edema Sepsis Event Note - Evaluation Sepsis Screening Result: No Definite Risk - Focused Exam Vital Signs: Vital Signs Temp Pulse Pulse Resp BP BP Pulse Ox 01/17/20 08:16 72 123/53 L 01/17/20 07:33 97 01/17/20 07:24 95.1 F L 78 16 123/53 L 97 01/17/20 07:09 82 01/17/20 02:31 96.2 F L 80 16 130/63 96 01/17/20 01:13 96 01/16/20 23:16 96.1 F L 84 16 136/52 L 98 - Problem List Review Problem List Initiated/Reviewed/Updated: Yes - My Orders Last 24 Hours: My Active Orders 01/16/20 10:06 Convert IV to Saline Lock [OM.PC] Routine 01/16/20 13:00 Warfarin [Coumadin] 5 mg PO DAILY@1300 01/17/20 10:30 Doxycycline [Vibramycin] 100 mg PO Q12H 01/17/20 11:30 GLUCOSE POC LAB TO COLLECT JPM [POC] QIDACANDBED 01/17/20 16:30 GLUCOSE POC LAB TO COLLECT JPM [POC] QIDACANDBED 01/17/20 21:00 GLUCOSE POC LAB TO COLLECT JPM [POC] QIDACANDBED Cefdinir [Omnicef] 300 mg PO BID 01/18/20 05:00 INR,PT,PROTHROMBIN TIME [COAG] Timed 01/18/20 07:30 GLUCOSE POC LAB TO COLLECT JPM [POC] QIDACANDBED GLUCOSE POC LAB TO COLLECT JPM [POC] QIDACANDBED 01/18/20 11:30 GLUCOSE POC LAB TO COLLECT JPM [POC] QIDACANDBED GLUCOSE POC LAB TO COLLECT JPM [POC] QIDACANDBED 01/18/20 16:30 GLUCOSE POC LAB TO COLLECT JPM [POC] QIDACANDBED GLUCOSE POC LAB TO COLLECT JPM [POC] QIDACANDBED 01/18/20 21:00 GLUCOSE POC LAB TO COLLECT JPM [POC] QIDACANDBED GLUCOSE POC LAB TO COLLECT JPM [POC] QIDACANDBED 01/19/20 07:30 GLUCOSE POC LAB TO COLLECT JPM [POC] QIDACANDBED GLUCOSE POC LAB TO COLLECT JPM [POC] QIDACANDBED 01/19/20 11:30 GLUCOSE POC LAB TO COLLECT JPM [POC] QIDACANDBED GLUCOSE POC LAB TO COLLECT JPM [POC] QIDACANDBED 01/19/20 16:30 GLUCOSE POC LAB TO COLLECT JPM [POC] QIDACANDBED 01/19/20 21:00 GLUCOSE POC LAB TO COLLECT JPM [POC] QIDACANDBED 01/20/20 07:30 GLUCOSE POC LAB TO COLLECT JPM [POC] QIDACANDBED 01/20/20 11:30 GLUCOSE POC LAB TO COLLECT JPM [POC] QIDACANDBED - Plan Plan:: ASSESSMENT AND PLAN RIGHT LUNG PNEUMONIA-not much in the way of symptoms, energy level improving, white blood cell count has normalized -Blood cultures pending -Saline lock IV -Nebulizer therapy as needed -Discontinue IV ceftriaxone and doxycycline -Oral doxycycline and Omnicef TYPE 2 DIABETES MELLITUS -Hold glipizide -4 times daily glucometers -Low-dose sliding scale Humalog CHRONIC KIDNEY DISEASE STAGE IIIb-renal function improved from admission with hydration -Closely monitor urine output and renal function URINARY TRACT INFECTION-culture is growing pansensitive Proteus -Should be well covered on current therapy with Omnicef MAINTENANCE ISSUES -DVT prophylaxis; Lovenox 40 mg subcu daily -GI prophylaxis; continue outpatient PPI therapy -Busch catheter; indwelling suprapubic catheter because of BPH -Nutrition; consistent carbohydrate diet -Nicotine dependence; not required CODE STATUS-FULL CODE ADMISSION STATUS-patient will be admitted to inpatient status, expect at least a 2 night hospital stay for evaluation and management of problems as outlined above. At the time of this admission I do not reasonably expected evaluation and management of this problem will require more than a 96 hour hospital stay. DISPOSITION-anticipate discharge to home after the hospital stay. PRIMARY CARE PROVIDER-Dr. Lynch
[2020-01-17] MEDS: Warfarin 5 MG Tab PO SCH (12:21)
[2020-01-17] MEDS: Doxycycline 100 MG Cap PO SCH ×2 (12:21→21:30)
[2020-01-17] MEDS: Cefdinir 300 MG Cap PO SCH (21:30)
[2020-01-17] MEDS: Finasteride 5 MG Tab PO SCH (21:30)
[2020-01-17] MEDS: Colchicine 0.6 MG Tab PO SCH (21:30)
[2020-01-18] MEDS: Albuterol/Ipratropium 3.0-0.5 MG/3 ML Neb Soln NEB SCH ×4 (07:05→20:56)
[2020-01-18] MEDS: Insulin Lispro 100 Unit/ML 3 ML KwikPen SUBCUT SCH ×4 (07:59→20:58)
[2020-01-18] MEDS: Allopurinol 100 MG Tab PO SCH (08:00)
[2020-01-18] MEDS: Bumetanide 1 MG Tab PO SCH (08:00)
[2020-01-18] MEDS: Lactobacillus Rhamnosus GG (Probiotic) Cap PO SCH ×2 (08:00→20:55)
[2020-01-18] MEDS: Metoprolol Tartrate 25 MG Tab PO SCH ×2 (08:00→20:55)
[2020-01-18] MEDS: Doxycycline 100 MG Cap PO SCH ×2 (08:01→20:55)
[2020-01-18] MEDS: Cefdinir 300 MG Cap PO SCH ×2 (08:01→20:55)
--- NOTE | 2020-01-18 09:48 | PCM.PN ---
- General Info Date of Service: 01/18/20 Subjective Update: Mr. Dalal experience more difficulty with confusion during the night, alert and oriented now this morning. Respiratory status slowly improving and he has been walking in the hallways, regaining strength. Signs have been good and he has remained afebrile. Functional Status: Reports: Tolerating Diet, Ambulating - Review of Systems General: Reports: Weakness, Fatigue. Denies: Fever, Chills Pulmonary: Reports: Shortness of Breath. Denies: Cough, Sputum, Hemoptysis, Wheezing Cardiovascular: Reports: No Symptoms Gastrointestinal: Reports: No Symptoms - Patient Data Vitals - Most Recent: Last Vital Signs Temp 95.2 F L 01/18/20 07:30 Pulse 72 01/18/20 08:00 Resp 16 01/18/20 07:30 BP 128/62 01/18/20 08:00 Pulse Ox 99 01/18/20 07:30 Weight - Most Recent: 228 lb 11.2 oz I&O - Last 24 Hours: Intake & Output 01/17/20 01/18/20 01/18/20 22:59 06:59 14:59 Intake Total 540 650 Output Total 1050 1050 Balance -510 -400 Lab Results Last 24 Hours: Laboratory Results - last 24 hr 01/17/20 01/17/20 01/17/20 Range/Units 11:25 16:30 20:57 PT (9.5-12.0) sec INR (0.80-1.20) POC Glucose 188 H 159 H 185 H (74-106) MG/DL 01/18/20 01/18/20 Range/Units 05:30 07:30 PT 21.1 H (9.5-12.0) sec INR 1.96 H (0.80-1.20) POC Glucose 152 H (74-106) MG/DL Terrence Results Last 24 Hours: Microbiology 01/15/20 14:00 Aerobic Blood Culture - Preliminary Blood - Arm, Left NO GROWTH AFTER 2 DAYS Anaerobic Blood Culture - Preliminary NO GROWTH AFTER 2 DAYS 01/15/20 13:55 Aerobic Blood Culture - Preliminary Blood - Arm, Right NO GROWTH AFTER 2 DAYS Anaerobic Blood Culture - Preliminary NO GROWTH AFTER 2 DAYS 01/15/20 13:55 Urine Culture - Final Urine, Clean Catch Proteus Mirabilis Med Orders - Current: Current Medications Acetaminophen (Tylenol) 650 mg PO Q4H PRN PRN Reason: Pain (Mild 1-3)/fever Last Admin: 01/17/20 21:34 Dose: 650 mg Documented by: Albuterol (Proventil Neb Soln) 2.5 mg NEB Q4H PRN PRN Reason: Shortness Of Breath/wheezing Last Admin: 01/18/20 01:55 Dose: 2.5 mg Documented by: Albuterol/Ipratropium (Duoneb 3.0-0.5 Mg/3 Ml) 3 ml NEB QIDRT [facility] Last Admin: 01/18/20 07:05 Dose: 3 ml Documented by: Allopurinol (Zyloprim) 100 mg PO DAILY [facility] Last Admin: 01/18/20 08:00 Dose: 100 mg Documented by: Bumetanide (Bumex) 2 mg PO DAILY [facility] Last Admin: 01/18/20 08:00 Dose: 2 mg Documented by: Cefdinir (Omnicef) 300 mg PO BID [facility] Last Admin: 01/18/20 08:01 Dose: 300 mg Documented by: Colchicine (Colcrys) 0.6 mg PO BEDTIME [facility] Last Admin: 01/17/20 21:30 Dose: 0.6 mg Documented by: Dextrose (Glutose 15) 15 gm PO ASDIRECTED PRN PRN Reason: Hypoglycemia Dextrose/Water (Dextrose 50% In Water) 50 ml IV ASDIRECTED PRN PRN Reason: Hypoglycemia Doxycycline Hyclate (Vibramycin) 100 mg PO BID [facility] Last Admin: 01/18/20 08:01 Dose: 100 mg Documented by: Finasteride (Proscar) 5 mg PO BEDTIME [facility] Last Admin: 01/17/20 21:30 Dose: 5 mg Documented by: Insulin Human Lispro (Humalog) 0 unit SUBCUT QIDACANDBED [facility]; Protocol Last Admin: 01/18/20 07:59 Dose: 1 units Documented by: Lactobacillus Rhamnosus (Culturelle) 1 cap PO BID [facility] Last Admin: 01/18/20 08:00 Dose: 1 cap Documented by: Metoprolol Tartrate (Lopressor) 12.5 mg PO BID [facility] Last Admin: 01/18/20 08:00 Dose: 12.5 mg Documented by: Ondansetron HCl (Zofran) 4 mg IV Q4H PRN PRN Reason: Nausea/Vomiting Pantoprazole Sodium (Protonix) 40 mg PO DAILY PRN PRN Reason: HEARTBURN Last Admin: 01/17/20 15:08 Dose: 40 mg Documented by: Polyethylene Glycol (Miralax) 17 gm PO DAILY PRN PRN Reason: Constipation Sodium Chloride (Saline Flush) 10 ml FLUSH ASDIRECTED PRN PRN Reason: Keep Vein Open Warfarin Sodium (Coumadin) 5 mg PO DAILY@1300 [facility] Last Admin: 01/17/20 12:21 Dose: 5 mg Documented by: Discontinued Medications Sodium Chloride (Normal Saline) 1,000 mls @ 150 mls/hr IV ASDIRECTED [facility] Last Admin: 01/15/20 14:33 Dose: 150 mls/hr Documented by: Ceftriaxone Sodium 1 gm/ (Sodium Chloride) 50 mls @ 100 mls/hr IV ONETIME ONE Stop: 01/15/20 14:16 Last Admin: 01/15/20 14:34 Dose: 100 mls/hr Documented by: Doxycycline Hyclate 100 mg/ (Sodium Chloride) 100 mls @ 100 mls/hr IV Q12H [facility] Last Admin: 01/15/20 14:35 Dose: 100 mls/hr Documented by: Sodium Chloride (Normal Saline) 1,000 mls @ 75 mls/hr IV ASDIRECTED [facility] Last Admin: 01/16/20 02:14 Dose: 75 mls/hr Documented by: Ceftriaxone Sodium 1 gm/ (Sodium Chloride) 50 mls @ 100 mls/hr IV Q24H [facility] Last Admin: 01/16/20 12:43 Dose: 100 mls/hr Documented by: Doxycycline Hyclate 100 mg/ (Sodium Chloride) 100 mls @ 100 mls/hr IV Q12H [facility] Last Admin: 01/17/20 02:34 Dose: 100 mls/hr Documented by: - Exam Quality Assessment: DVT Prophylaxis General: Alert, Oriented, Cooperative, Mild Distress Lungs: Clear to Auscultation, Normal Respiratory Effort Cardiovascular: Regular Rate, Regular Rhythm, No Murmurs GI/Abdominal Exam: Soft, Non-Tender, No Organomegaly, No Distention Extremities: Non-Tender, No Pedal Edema Sepsis Event Note - Evaluation Sepsis Screening Result: No Definite Risk - Focused Exam Vital Signs: Vital Signs Temp Temp Pulse Pulse Resp BP BP 01/18/20 08:00 72 128/62 01/18/20 07:30 95.2 F L 80 16 128/51 L 01/18/20 05:53 97.3 F 76 16 127/52 L 01/18/20 01:42 96.8 F L 84 16 131/59 L 01/17/20 23:00 95.7 F L 82 16 134/109 H Pulse Ox 01/18/20 08:00 01/18/20 07:30 99 01/18/20 05:53 96 01/18/20 01:42 96 01/17/20 23:00 96 - Problem List Review Problem List Initiated/Reviewed/Updated: Yes - My Orders Last 24 Hours: My Active Orders 01/17/20 12:00 Doxycycline [Vibramycin] 100 mg PO BID 01/17/20 21:00 Cefdinir [Omnicef] 300 mg PO BID 01/18/20 11:30 GLUCOSE POC LAB TO COLLECT JPM [POC] QIDACANDBED 01/18/20 16:30 GLUCOSE POC LAB TO COLLECT JPM [POC] QIDACANDBED 01/18/20 21:00 GLUCOSE POC LAB TO COLLECT JPM [POC] QIDACANDBED 01/19/20 05:00 INR,PT,PROTHROMBIN TIME [COAG] Timed 01/19/20 07:30 GLUCOSE POC LAB TO COLLECT JPM [POC] QIDACANDBED GLUCOSE POC LAB TO COLLECT JPM [POC] QIDACANDBED 01/19/20 11:30 GLUCOSE POC LAB TO COLLECT JPM [POC] QIDACANDBED GLUCOSE POC LAB TO COLLECT JPM [POC] QIDACANDBED 01/19/20 16:30 GLUCOSE POC LAB TO COLLECT JPM [POC] QIDACANDBED 01/19/20 21:00 GLUCOSE POC LAB TO COLLECT JPM [POC] QIDACANDBED 01/20/20 07:30 GLUCOSE POC LAB TO COLLECT JPM [POC] QIDACANDBED 01/20/20 11:30 GLUCOSE POC LAB TO COLLECT JPM [POC] QIDACANDBED - Plan Plan:: ASSESSMENT AND PLAN RIGHT LUNG PNEUMONIA-not much in the way of symptoms, energy level improving, white blood cell count has normalized -Saline lock IV -Nebulizer therapy as needed -Oral doxycycline and Omnicef TYPE 2 DIABETES MELLITUS -Hold glipizide -4 times daily glucometers -Low-dose sliding scale Humalog CHRONIC KIDNEY DISEASE STAGE IIIb-renal function improved from admission with hydration -Closely monitor urine output and renal function URINARY TRACT INFECTION-culture is growing pansensitive Proteus -Should be well covered on current therapy with Omnicef MAINTENANCE ISSUES -DVT prophylaxis; Lovenox 40 mg subcu daily -GI prophylaxis; continue outpatient PPI therapy -Busch catheter; indwelling suprapubic catheter because of BPH -Nutrition; consistent carbohydrate diet -Nicotine dependence; not required CODE STATUS-FULL CODE ADMISSION STATUS-patient will be admitted to inpatient status, expect at least a 2 night hospital stay for evaluation and management of problems as outlined above. At the time of this admission I do not reasonably expected evaluation and management of this problem will require more than a 96 hour hospital stay. DISPOSITION-anticipate discharge to home after the hospital stay. PRIMARY CARE PROVIDER-Dr. Lynch
[2020-01-18] MEDS: Warfarin 5 MG Tab PO SCH (12:55)
[2020-01-18] MEDS: Finasteride 5 MG Tab PO SCH (20:55)
[2020-01-18] MEDS: Melatonin 3 MG Tab PO SCH (20:55)
[2020-01-18] MEDS: Colchicine 0.6 MG Tab PO SCH (20:55)
[2020-01-19] MEDS: Albuterol/Ipratropium 3.0-0.5 MG/3 ML Neb Soln NEB SCH ×4 (07:14→22:12)
[2020-01-19] MEDS: Insulin Lispro 100 Unit/ML 3 ML KwikPen SUBCUT SCH ×4 (08:34→22:03)
[2020-01-19] MEDS: Bumetanide 1 MG Tab PO SCH (08:59)
[2020-01-19] MEDS: Metoprolol Tartrate 25 MG Tab PO SCH ×2 (09:00→22:06)
[2020-01-19] MEDS: Lactobacillus Rhamnosus GG (Probiotic) Cap PO SCH ×2 (09:00→22:07)
[2020-01-19] MEDS: Cefdinir 300 MG Cap PO SCH ×2 (09:00→22:06)
[2020-01-19] MEDS: Allopurinol 100 MG Tab PO SCH (09:01)
[2020-01-19] MEDS: Doxycycline 100 MG Cap PO SCH ×2 (09:01→22:07)
--- NOTE | 2020-01-19 10:50 | PCM.PN ---
- General Info Date of Service: 01/19/20 Subjective Update: No acute events overnight. Shortness of breath is better but not quite back to baseline. Not much of a cough. No fevers. No abdominal pain or nausea. Still weak but slowly improving. He was on supplemental oxygen overnight but is off as of early this morning. Still requiring assist of 1 to get out of bed. Functional Status: Reports: Pain Controlled, Tolerating Diet - Review of Systems General: Reports: Weakness. Denies: Fever Pulmonary: Reports: Shortness of Breath - Patient Data Vitals - Most Recent: Last Vital Signs Temp 35.1 C L 01/19/20 08:37 Pulse 77 01/19/20 09:00 Resp 16 01/19/20 08:37 BP 124/55 L 01/19/20 09:00 Pulse Ox 97 01/19/20 08:37 Weight - Most Recent: 103.737 kg I&O - Last 24 Hours: Intake & Output 01/18/20 01/19/20 01/19/20 22:59 06:59 14:59 Intake Total 500 350 Output Total 1350 600 Balance -850 -250 Lab Results Last 24 Hours: Laboratory Results - last 24 hr 01/18/20 01/18/20 01/18/20 Range/Units 11:25 16:25 21:00 PT (9.5-12.0) sec INR (0.80-1.20) POC Glucose 188 H 212 H 206 H (74-106) MG/DL 01/19/20 01/19/20 Range/Units 04:00 07:25 PT 23.3 H (9.5-12.0) sec INR 2.17 H (0.80-1.20) POC Glucose 137 H (74-106) MG/DL Terrence Results Last 24 Hours: Microbiology 01/15/20 14:00 Aerobic Blood Culture - Preliminary Blood - Arm, Left NO GROWTH AFTER 3 DAYS Anaerobic Blood Culture - Preliminary NO GROWTH AFTER 3 DAYS 01/15/20 13:55 Aerobic Blood Culture - Preliminary Blood - Arm, Right NO GROWTH AFTER 3 DAYS Anaerobic Blood Culture - Preliminary NO GROWTH AFTER 3 DAYS Med Orders - Current: Current Medications Acetaminophen (Tylenol) 650 mg PO Q4H PRN PRN Reason: Pain (Mild 1-3)/fever Last Admin: 01/17/20 21:34 Dose: 650 mg Documented by: Albuterol (Proventil Neb Soln) 2.5 mg NEB Q4H PRN PRN Reason: Shortness Of Breath/wheezing Last Admin: 01/18/20 01:55 Dose: 2.5 mg Documented by: Albuterol/Ipratropium (Duoneb 3.0-0.5 Mg/3 Ml) 3 ml NEB QIDRT [facility] Last Admin: 01/19/20 07:14 Dose: 3 ml Documented by: Allopurinol (Zyloprim) 100 mg PO DAILY [facility] Last Admin: 01/19/20 09:01 Dose: 100 mg Documented by: Bumetanide (Bumex) 2 mg PO DAILY [facility] Last Admin: 01/19/20 08:59 Dose: 2 mg Documented by: Cefdinir (Omnicef) 300 mg PO BID [facility] Last Admin: 01/19/20 09:00 Dose: 300 mg Documented by: Colchicine (Colcrys) 0.6 mg PO BEDTIME [facility] Last Admin: 01/18/20 20:55 Dose: 0.6 mg Documented by: Dextrose (Glutose 15) 15 gm PO ASDIRECTED PRN PRN Reason: Hypoglycemia Dextrose/Water (Dextrose 50% In Water) 50 ml IV ASDIRECTED PRN PRN Reason: Hypoglycemia Doxycycline Hyclate (Vibramycin) 100 mg PO BID [facility] Last Admin: 01/19/20 09:01 Dose: 100 mg Documented by: Finasteride (Proscar) 5 mg PO BEDTIME [facility] Last Admin: 01/18/20 20:55 Dose: 5 mg Documented by: Insulin Human Lispro (Humalog) 0 unit SUBCUT QIDACANDBED [facility]; Protocol Last Admin: 01/19/20 08:34 Dose: Not Given Documented by: Lactobacillus Rhamnosus (Culturelle) 1 cap PO BID [facility] Last Admin: 01/19/20 09:00 Dose: 1 cap Documented by: Melatonin (Melatonin) 9 mg PO BEDTIME [facility] Last Admin: 01/18/20 20:55 Dose: 9 mg Documented by: Metoprolol Tartrate (Lopressor) 12.5 mg PO BID [facility] Last Admin: 01/19/20 09:00 Dose: 12.5 mg Documented by: Ondansetron HCl (Zofran) 4 mg IV Q4H PRN PRN Reason: Nausea/Vomiting Pantoprazole Sodium (Protonix) 40 mg PO DAILY PRN PRN Reason: HEARTBURN Last Admin: 01/17/20 15:08 Dose: 40 mg Documented by: Polyethylene Glycol (Miralax) 17 gm PO DAILY PRN PRN Reason: Constipation Sodium Chloride (Saline Flush) 10 ml FLUSH ASDIRECTED PRN PRN Reason: Keep Vein Open Warfarin Sodium (Coumadin) 5 mg PO DAILY@1300 [facility] Last Admin: 01/18/20 12:55 Dose: 5 mg Documented by: Discontinued Medications Sodium Chloride (Normal Saline) 1,000 mls @ 150 mls/hr IV ASDIRECTED [facility] Last Admin: 01/15/20 14:33 Dose: 150 mls/hr Documented by: Ceftriaxone Sodium 1 gm/ (Sodium Chloride) 50 mls @ 100 mls/hr IV ONETIME ONE Stop: 01/15/20 14:16 Last Admin: 01/15/20 14:34 Dose: 100 mls/hr Documented by: Doxycycline Hyclate 100 mg/ (Sodium Chloride) 100 mls @ 100 mls/hr IV Q12H [facility] Last Admin: 01/15/20 14:35 Dose: 100 mls/hr Documented by: Sodium Chloride (Normal Saline) 1,000 mls @ 75 mls/hr IV ASDIRECTED [facility] Last Admin: 01/16/20 02:14 Dose: 75 mls/hr Documented by: Ceftriaxone Sodium 1 gm/ (Sodium Chloride) 50 mls @ 100 mls/hr IV Q24H [facility] Last Admin: 01/16/20 12:43 Dose: 100 mls/hr Documented by: Doxycycline Hyclate 100 mg/ (Sodium Chloride) 100 mls @ 100 mls/hr IV Q12H [facility] Last Admin: 01/17/20 02:34 Dose: 100 mls/hr Documented by: - Exam Quality Assessment: No: Supplemental Oxygen General: Alert, Oriented, Cooperative, No Acute Distress Lungs: Normal Respiratory Effort, Crackles (both bases R>L ) Cardiovascular: Regular Rate, Regular Rhythm GI/Abdominal Exam: Soft, No Distention Extremities: No Pedal Edema. No: Increased Warmth Skin: Warm, Dry Psy/Mental Status: Alert, Normal Affect Sepsis Event Note - Evaluation Sepsis Screening Result: No Definite Risk - Focused Exam Vital Signs: Vital Signs Temp Pulse Pulse Resp BP BP Pulse Ox 01/19/20 09:00 77 124/55 L 01/19/20 08:37 35.1 C L 77 16 124/55 L 97 01/19/20 07:14 79 01/19/20 03:43 35.7 C L 76 16 127/56 L 93 L - Problem List Review Problem List Initiated/Reviewed/Updated: Yes - Plan Plan:: ASSESSMENT AND PLAN RIGHT LUNG PNEUMONIA-minimal symptoms. White blood cell count normal. No fevers. Off oxygen as of this morning. Still quite weak but otherwise doing okay. -Saline lock IV -Nebulizer therapy as needed -Oral doxycycline and Omnicef -Physical therapy TYPE 2 DIABETES MELLITUS-blood sugar control has been acceptable. -Restart glipizide in the morning -4 times daily glucometers -Low-dose sliding scale Humalog CHRONIC KIDNEY DISEASE STAGE IIIb-renal function improved from admission with hydration. -Closely monitor urine output and renal function URINARY TRACT INFECTION-culture is growing pansensitive Proteus. -Should be well covered on current therapy with Omnicef MAINTENANCE ISSUES -DVT prophylaxis; enoxaparin -GI prophylaxis; continue outpatient PPI therapy -Busch catheter; chronic suprapubic catheter because of BPH -Nutrition; consistent carbohydrate diet DISPOSITION-anticipate discharge to home with home care after the hospital stay. Sam Kenney MD
[2020-01-19] MEDS: Warfarin 5 MG Tab PO SCH (12:16)
[2020-01-19] MEDS: Melatonin 3 MG Tab PO SCH (22:06)
[2020-01-19] MEDS: Colchicine 0.6 MG Tab PO SCH (22:07)
[2020-01-19] MEDS: Finasteride 5 MG Tab PO SCH (22:07)
[2020-01-20] MEDS: Albuterol/Ipratropium 3.0-0.5 MG/3 ML Neb Soln NEB SCH ×2 (07:23→11:04)
[2020-01-20] MEDS ORDERED: glipiZIDE 5 MG Tab PO SCH (07:30)
[2020-01-20] MEDS: Insulin Lispro 100 Unit/ML 3 ML KwikPen SUBCUT SCH ×2 (08:26→13:18)
[2020-01-20] MEDS: Cefdinir 300 MG Cap PO SCH (08:29)
[2020-01-20] MEDS: Bumetanide 1 MG Tab PO SCH (08:29)
[2020-01-20] MEDS: Doxycycline 100 MG Cap PO SCH (08:29)
[2020-01-20] MEDS: Metoprolol Tartrate 25 MG Tab PO SCH (08:30)
[2020-01-20] MEDS: Lactobacillus Rhamnosus GG (Probiotic) Cap PO SCH (08:30)
[2020-01-20] MEDS: Allopurinol 100 MG Tab PO SCH (08:34)
--- NOTE | 2020-01-20 11:43 | PCM.DCSUM1 ---
Discharge Summary - Hospital Course Brief History: 89-year-old male with history of type 2 diabetes mellitus with neuropathy, atrial fibrillation, previous DVT who presented with increasing weakness and shortness of breath. He was admitted for management of a right lung pneumonia with acute respiratory failure with hypoxia. Diagnosis: Stroke: No - Discharge Data Discharge Date: 01/20/20 Discharge Disposition: Home, W Home Health Agency 06 Condition: Good - Referral to Home Health Date of Face to Face Encounter: 01/20/20 Reason for Homebound Status: Acute weakness and dyspnea with exertion after a right lung pneumonia Primary Care Physician: Pedro Lynch MD Skilled Need: Nursing to monitor respiratory status, check INR and routine catheter changes. Physical therapy and Occupational Therapy to improve strength and endurance - Discharge Diagnosis/Problem(s) (1) Right upper lobe pneumonia SNOMED Code(s): 199964347 ICD Code: J18.9 - PNEUMONIA, UNSPECIFIED ORGANISM Status: Acute Qualifiers: Pneumonia type: due to unspecified organism Qualified Code(s): J18.9 - Pneumonia, unspecified organism (2) Acute respiratory failure with hypoxia SNOMED Code(s): 03117206, 102964633 ICD Code: J96.01 - ACUTE RESPIRATORY FAILURE WITH HYPOXIA Status: Acute (3) Diabetes type 2, controlled SNOMED Code(s): 21804737, 168905928 ICD Code: E11.9 - TYPE 2 DIABETES MELLITUS WITHOUT COMPLICATIONS Status: Chronic Priority: High Qualifiers: Diabetes mellitus exterminator insulin use: without exterminator use Diabetes mellitus complication status: with unspecified complications Qualified Code(s): E11.8 - Type 2 diabetes mellitus with unspecified complications (4) Systolic CHF with reduced left ventricular function, NYHA class 2 SNOMED Code(s): 815076334, 044539680, 018504174 ICD Code: I50.20 - UNSPECIFIED SYSTOLIC (CONGESTIVE) HEART FAILURE Status: Chronic (5) Stage III chronic kidney disease SNOMED Code(s): 719580217 ICD Code: N18.3 - CHRONIC KIDNEY DISEASE, STAGE 3 (MODERATE) Status: Chronic Priority: High - Patient Summary/Data Consults: Consultations 01/16/20 08:49 PT Evaluation and Treatment [CONS] Routine Please Evaluate and Treat. PT Reason for Consult: Strengthening Pending Discharge: Yes Discharge Disposition: Home This query below is only for informational purposes and is not editable. Admission Diagnosis/Problem: Pneumonia Hospital Course: Fredrick presented to the emergency room with cough, shortness of breath, fever and weakness. Work-up in the emergency room revealed leukocytosis as well as ev idence for a right lung pneumonia. The patient was hypoxic and required supplemental oxygen. Urinalysis suggested possible infection. Cultures were obtained and he was started on ceftriaxone and doxycycline and admitted to the hospital for further management. His white blood cell count trended down and he had a steady progress towards improvement over the course of the hospital stay. The progress was slow but each day he was a little bit better. His white blood cell count eventually normalized. He has not had any fevers. His urine culture did grow out Proteus which was covered by the ceftriaxone and later the Cefdinir. After several days we were able to wean him off his supplemental oxygen. He did continue to use it at night but did this at home prior to hospital admission. There was no evidence for exacerbation of his COPD. His appetite is been good. He does continue to be weak but has made significant improvements over the past several days. He probably would benefit from subacute rehab but at this time he declines subacute rehab. He was interested in home care. Now that he is off oxygen I believe he is stable for outpatient management along with home care and family support. He will need several more days of antibiotics but has so far tolerated the transition to oral antibiotics with ongoing improvement. No significant flares of his chronic medical problems were noted. - Patient Instructions Diet: Diabetic Diet Activity: As Tolerated Showering/Bathing: May Shower Notify Provider of: Fever, Increased Pain Other/Special Instructions: 1. You were in the hospital for management of a right lung pneumonia complicated by hypoxic respiratory failure. Your condition has been improving with antibiotic therapy. I do recommend ongoing antibiotic therapy with both doxycycline and cefdinir. You should take both of these medications twice daily with food. Your first dose outside of the hospital will be due tonight. 2. Continue your usual home medications as previously prescribed including the warfarin. 3. I have placed a referral to home health care so they can increase services temporarily as you make your transition home from the hospital following an acute infection with increased weakness. They will provide nursing, physical therapy and occupational therapy services. 4. Follow up with Dr. Pedro Lynch as scheduled on Sunday - Discharge Plan *PRESCRIPTION DRUG MONITORING PROGRAM REVIEWED*: Not Applicable *COPY OF PRESCRIPTION DRUG MONITORING REPORT IN PATIENT EDIL: Not Applicable Prescriptions/Med Rec: Cefdinir [Omnicef] 300 mg PO BID #7 cap Doxycycline [Vibramycin] 100 mg PO BID #7 cap Home Medications: Home Meds Multivitamin with Minerals [Multiple Vitamin] 1 tab PO DAILY 09/29/13 [History] Omeprazole [Prilosec] 40 mg PO DAILY PRN 09/29/13 [History] glipiZIDE [Glucotrol] 2.5 mg PO BIDAC 07/14/14 [History] Nitroglycerin [IJP: Nitroglycerin] 0.4 mg PO ASDIRECTED PRN 07/24/16 [History] Bumetanide [Bumex] 2 mg PO DAILY 10/10/16 [History] allopurinoL [Zyloprim] 100 mg PO DAILY #30 tab 12/03/18 [Rx] Carboxymethylcellulose Sodium [Refresh Tears 0.5%] 1 drop EYEBOTH BID PRN 12/15/18 [History] Lactobacillus Rhamnosus GG [Culturelle] 1 cap PO BID #60 cap 12/20/18 [Rx] Warfarin [Coumadin] 5 mg PO DAILY@1300 #30 tablet 12/20/18 [Rx] Metoprolol Tartrate 12.5 mg PO BID 03/25/19 [History] Finasteride 5 mg PO BEDTIME 10/29/19 [History] Colchicine 0.6 mg PO BEDTIME 01/15/20 [History] Cefdinir [Omnicef] 300 mg PO BID #7 cap 01/20/20 [Rx] Doxycycline [Vibramycin] 100 mg PO BID #7 cap 01/20/20 [Rx] Oxygen Therapy Mode: Room Air Patient Handouts: Cefdinir capsules, Doxycycline tablets or capsules, Community-Acquired Pneumonia, Adult Referrals: Pedro Lynch MD [Primary Care Provider] - 01/23/20 1:00 pm (Please arrive 15 minutes early to register for your appointment. ) - Discharge Summary/Plan Comment DC Time >30 min.: Yes (40-coordinating home health care) - Patient Data Vitals - Most Recent: Last Vital Signs Temp 34.9 C L 01/20/20 08:35 Pulse 79 01/20/20 08:35 Resp 16 01/20/20 08:35 BP 124/53 L 01/20/20 08:35 Pulse Ox 98 01/20/20 08:35 Weight - Most Recent: 103.737 kg I&O - Last 24 hours: Intake & Output 01/19/20 01/20/20 01/20/20 22:59 06:59 14:59 Intake Total 700 480 Output Total 1750 700 Balance -1750 0 480 Lab Results - Last 24 hrs: Laboratory Results - last 24 hr 01/19/20 01/19/20 01/20/20 Range/Units 16:45 21:00 07:30 POC Glucose 162 H 180 H 206 H (74-106) MG/DL 01/20/20 Range/Units 11:25 POC Glucose 151 H (74-106) MG/DL BRIAN Results - Last 24 hrs: Microbiology 01/15/20 14:00 Aerobic Blood Culture - Preliminary Blood - Arm, Left NO GROWTH AFTER 4 DAYS Anaerobic Blood Culture - Preliminary NO GROWTH AFTER 4 DAYS 01/15/20 13:55 Aerobic Blood Culture - Preliminary Blood - Arm, Right NO GROWTH AFTER 4 DAYS Anaerobic Blood Culture - Preliminary NO GROWTH AFTER 4 DAYS Med Orders - Current: Current Medications Acetaminophen (Tylenol) 650 mg PO Q4H PRN PRN Reason: Pain (Mild 1-3)/fever Last Admin: 01/17/20 21:34 Dose: 650 mg Documented by: Albuterol (Proventil Neb Soln) 2.5 mg NEB Q4H PRN PRN Reason: Shortness Of Breath/wheezing Last Admin: 01/18/20 01:55 Dose: 2.5 mg Documented by: Albuterol/Ipratropium (Duoneb 3.0-0.5 Mg/3 Ml) 3 ml NEB QIDRT [facility] Last Admin: 01/20/20 11:04 Dose: 3 ml Documented by: Allopurinol (Zyloprim) 100 mg PO DAILY [facility] Last Admin: 01/20/20 08:34 Dose: 100 mg Documented by: Bumetanide (Bumex) 2 mg PO DAILY [facility] Last Admin: 01/20/20 08:29 Dose: 2 mg Documented by: Cefdinir (Omnicef) 300 mg PO BID [facility] Last Admin: 01/20/20 08:29 Dose: 300 mg Documented by: Colchicine (Colcrys) 0.6 mg PO BEDTIME [facility] Last Admin: 01/19/20 22:07 Dose: 0.6 mg Documented by: Dextrose (Glutose 15) 15 gm PO ASDIRECTED PRN PRN Reason: Hypoglycemia Dextrose/Water (Dextrose 50% In Water) 50 ml IV ASDIRECTED PRN PRN Reason: Hypoglycemia Doxycycline Hyclate (Vibramycin) 100 mg PO BID [facility] Last Admin: 01/20/20 08:29 Dose: 100 mg Documented by: Finasteride (Proscar) 5 mg PO BEDTIME [facility] Last Admin: 01/19/20 22:07 Dose: 5 mg Documented by: Glipizide (Glucotrol) 2.5 mg PO BIDAC [facility] Last Admin: 01/20/20 08:29 Dose: 2.5 mg Documented by: Insulin Human Lispro (Humalog) 0 unit SUBCUT QIDACANDBED [facility]; Protocol Last Admin: 01/20/20 08:26 Dose: 2 units Documented by: Lactobacillus Rhamnosus (Culturelle) 1 cap PO BID [facility] Last Admin: 01/20/20 08:30 Dose: 1 cap Documented by: Melatonin (Melatonin) 9 mg PO BEDTIME [facility] Last Admin: 01/19/20 22:06 Dose: 9 mg Documented by: Metoprolol Tartrate (Lopressor) 12.5 mg PO BID [facility] Last Admin: 01/20/20 08:30 Dose: 12.5 mg Documented by: Ondansetron HCl (Zofran) 4 mg IV Q4H PRN PRN Reason: Nausea/Vomiting Pantoprazole Sodium (Protonix) 40 mg PO DAILY PRN PRN Reason: HEARTBURN Last Admin: 01/17/20 15:08 Dose: 40 mg Documented by: Polyethylene Glycol (Miralax) 17 gm PO DAILY PRN PRN Reason: Constipation Sodium Chloride (Saline Flush) 10 ml FLUSH ASDIRECTED PRN PRN Reason: Keep Vein Open Warfarin Sodium (Coumadin) 5 mg PO DAILY@1300 [facility] Last Admin: 01/19/20 12:16 Dose: 5 mg Documented by: Discontinued Medications Sodium Chloride (Normal Saline) 1,000 mls @ 150 mls/hr IV ASDIRECTED [facility] Last Admin: 01/15/20 14:33 Dose: 150 mls/hr Documented by: Ceftriaxone Sodium 1 gm/ (Sodium Chloride) 50 mls @ 100 mls/hr IV ONETIME ONE Stop: 01/15/20 14:16 Last Admin: 01/15/20 14:34 Dose: 100 mls/hr Documented by: Doxycycline Hyclate 100 mg/ (Sodium Chloride) 100 mls @ 100 mls/hr IV Q12H [facility] Last Admin: 01/15/20 14:35 Dose: 100 mls/hr Documented by: Sodium Chloride (Normal Saline) 1,000 mls @ 75 mls/hr IV ASDIRECTED [facility] Last Admin: 01/16/20 02:14 Dose: 75 mls/hr Documented by: Ceftriaxone Sodium 1 gm/ (Sodium Chloride) 50 mls @ 100 mls/hr IV Q24H [facility] Last Admin: 01/16/20 12:43 Dose: 100 mls/hr Documented by: Doxycycline Hyclate 100 mg/ (Sodium Chloride) 100 mls @ 100 mls/hr IV Q12H [facility] Last Admin: 01/17/20 02:34 Dose: 100 mls/hr Documented by: *Q Meaningful Use (DIS) - VTE *Q VTE Pharmacological Contraindications *Q: High INR Value
[2020-01-20 12:45] VITALS: BP 135/59; PULSE 89
[2020-01-20] MEDS: Warfarin 5 MG Tab PO SCH (13:19)
== END 2020-01-20 14:00 | disposition home health service (06) | DRG 193 ==
LOC: JP.ED 11:44 → JP.ICU 13:59 → JP.MS 01-16 08:10
PROVIDERS: ADMIT Hospitalist; ATTEND Internal Medicine
DX: J18.9 Pneumonia, unspecified organism (principal); R53.1 Weakness; E86.0 Dehydration; J96.01 Acute respiratory failure with hypoxia; I50.22 Chronic systolic (congestive) heart failure; E11.42 Type 2 diabetes mellitus with diabetic polyneuropathy; I48.91 Unspecified atrial fibrillation; N18.3 Chronic kidney disease, stage 3 (moderate); I50.9 Heart failure, unspecified; N18.9 Chronic kidney disease, unspecified; H54.7 Unspecified visual loss; I25.10 Atherosclerotic heart disease of native coronary artery without angina pectoris; Z95.0 Presence of cardiac pacemaker; Z86.711 Personal history of pulmonary embolism; I49.9 Cardiac arrhythmia, unspecified; K21.9 Gastro-esophageal reflux disease without esophagitis; N40.0 Benign prostatic hyperplasia without lower urinary tract symptoms; G89.29 Other chronic pain; M54.9 Dorsalgia, unspecified; M19.90 Unspecified osteoarthritis, unspecified site; F41.9 Anxiety disorder, unspecified; E11.9 Type 2 diabetes mellitus without complications; E11.22 Type 2 diabetes mellitus with diabetic chronic kidney disease; Z79.01 Long term (current) use of anticoagulants; Z91.041 Radiographic dye allergy status; Z79.899 Other long term (current) drug therapy; Z79.82 Long term (current) use of aspirin; Z79.84 Long term (current) use of oral hypoglycemic drugs; I25.2 Old myocardial infarction; Z87.440 Personal history of urinary (tract) infections; Z86.73 Personal history of transient ischemic attack (TIA), and cerebral infarction without residual deficits; Z98.49 Cataract extraction status, unspecified eye; Z95.5 Presence of coronary angioplasty implant and graft; Z88.8 Allergy status to other drugs, medicaments and biological substances; Z91.09 Other allergy status, other than to drugs and biological substances; Z86.718 Personal history of other venous thrombosis and embolism; Z96.0 Presence of urogenital implants
CPT/HCPCS: 36415; 71045; 71045-26; 80048; 80053; 81001; 82962; 84484; 85025; 85027; 85610; 87040; 87086; 87088; 87186; 94640; 94762; 97116-GP; 97162-GP; 97530-GP; 99284; 99285-25; A9270-GY; J0696; J1815; J3490; J7030; J7050; J7620-GY

== ENCOUNTER 2020-03-21 19:27 | Inpatient (IN) | payer MEDICARE, OTHER ==
--- NOTE | 2020-03-21 19:45 | EDM.PDOC ---
ED HPI GENERAL MEDICAL PROBLEM - General Chief Complaint: General Stated Complaint: [facility] Time Seen by Provider: 03/21/20 19:33 Source of Information: Reports: Patient, EMS, Old Records History Limitations: Reports: No Limitations - History of Present Illness INITIAL COMMENTS - FREE TEXT/NARRATIVE: 89 yo male on home oxygen and with an indwelling hdez catheter and who lives with his at home is brought in this evening by EMS due to progressive weakness over the course of the day today. No fever or cough. He thinks he may have a UTI due to his past experiences. First responders noted low oxygenation, but it sounds like he may have been off of his oxygen at the time he was checked. Apparently, is on oxygen normally only at night. Onset: Today, Gradual Onset Date: 03/21/20 Duration: Hour(s):, Getting Worse Location: Reports: Generalized Quality: Reports: Other (pain not reported) Severity: Moderate Improves with: Reports: Rest Worsens with: Reports: Movement Context: Reports: Other (See HPI) Associated Symptoms: Reports: Malaise, Shortness of Breath (chronic), Weakness (generalized). 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 - Related Data Allergies Allergy/AdvReac Type Severity Reaction Status Date / Time amlodipine Allergy Severe anaphylaxis Verified 03/21/20 19:48 dipyridamole Allergy Cannot Verified 03/21/20 19:48 Remember Iodinated Contrast Media Allergy Rash Verified 03/21/20 19:48 [Iodinated Contrast Media - IV Dye] rosuvastatin calcium AdvReac Muscle Verified 03/21/20 19:48 [From Crestor] Aches Home Meds: Home Meds Multivitamin with Minerals [Multiple Vitamin] 1 tab PO DAILY 09/29/13 [History] Omeprazole [Prilosec] 40 mg PO DAILY PRN 09/29/13 [History] glipiZIDE [Glucotrol] 5 mg PO BIDAC 07/14/14 [History] Nitroglycerin [IJP: Nitroglycerin] 0.4 mg PO ASDIRECTED PRN 07/24/16 [History] Bumetanide [Bumex] 2 mg PO DAILY 10/10/16 [History] allopurinoL [Zyloprim] 100 mg PO DAILY #30 tab 12/03/18 [Rx] Carboxymethylcellulose Sodium [Refresh Tears 0.5%] 1 drop EYEBOTH BID PRN 12/15/18 [History] Lactobacillus Rhamnosus GG [Culturelle] 1 cap PO BID #60 cap 12/20/18 [Rx] Warfarin [Coumadin] 5 mg PO DAILY@1300 #30 tablet 12/20/18 [Rx] Metoprolol Tartrate 12.5 mg PO BID 03/25/19 [History] Finasteride 5 mg PO BEDTIME 10/29/19 [History] Colchicine 0.6 mg PO BEDTIME 01/15/20 [History] Past Medical History HEENT History: Reports: Cataract, Impaired Vision, Other (See Below) Other HEENT History: optic neuropathy Cardiovascular History: Reports: Afib, Arrhythmia, Blood Clots/VTE/DVT, CAD, Heart Failure, VA, Pacemaker, Stents, Other (See Below) Other Cardiovascular History: cardiomegaly, sinoatrial node disfunction. Respiratory History: Reports: PE Other Respiratory History: pulm. valve disorder Gastrointestinal History: Reports: GERD Genitourinary History: Reports: BPH, Chronic Renal Insuffiency, UTI, Recurrent Other Genitourinary History: hx of urinary obstructions Musculoskeletal History: Reports: Back Pain, Chronic, Osteoarthritis Neurological History: Reports: CVA Psychiatric History: Reports: Anxiety Endocrine/Metabolic History: Reports: Diabetes, Type II Hematologic History: Reports: Anticoagulation Therapy, Blood Transfusion(s) - Infectious Disease History Infectious Disease History: Reports: Chicken Pox, Measles, Mumps - Past Surgical History Head Surgeries/Procedures: Reports: None HEENT Surgical History: Reports: Cataract Surgery Cardiovascular Surgical History: Reports: Cardiac Ablation, Coronary Artery Stent Male Surgical History: Reports: Suprapubic Catheter Placement Social & Family History - Family History Family Medical History: Noncontributory Cardiac: Reports: VA - Caffeine Use Caffeine Use: Reports: Coffee - Living Situation & Occupation Living situation: Reports: , with Family Occupation: Retired (lives with his , [address] [place], [place] ED ROS GENERAL - Review of Systems Review Of Systems: See Below Constitutional: Reports: Malaise, Weakness HEENT: Reports: No Symptoms Respiratory: Reports: Shortness of Breath (chronic, not subjectively worse). Denies: Wheezing, Pleuritic Chest Pain, Cough, Sputum, Hemoptysis Cardiovascular: Reports: No Symptoms Endocrine: Reports: No Symptoms GI/Abdominal: Reports: No Symptoms : Reports: No Symptoms Musculoskeletal: Reports: No Symptoms Skin: Reports: No Symptoms Neurological: Reports: No Symptoms ED EXAM, GENERAL - Physical Exam Exam: See Below Exam Limited By: No Limitations General Appearance: Alert, WD/WN, No Apparent Distress Eye Exam: Bilateral Eye: Normal Inspection, PERRL Ears: Normal External Exam, Normal Canal, Hearing Grossly Normal Ear Exam: Bilateral Ear: Auricle Normal, Canal Normal Nose: Normal Inspection, No Blood Throat/Mouth: Normal Inspection, Normal Lips, Normal Oropharynx, Normal Voice, No Airway Compromise Head: Atraumatic, Normocephalic Neck: Normal Inspection Respiratory/Chest: No Respiratory Distress, No Accessory Muscle Use, Crackles (faint). No: Respiratory Distress, Rhonchi, Wheezing Cardiovascular: Regular Rate, Rhythm, No Edema GI/Abdominal: Normal Bowel Sounds, Soft, Non-Tender, No Distention Back Exam: Normal Inspection. No: CVA Tenderness (R), CVA Tenderness (L) Extremities: Normal Inspection, Normal Range of Motion, Non-Tender, No Pedal Edema Neurological: Alert, Oriented, CN II-XII Intact, Normal Cognition, No Motor/Sensory Deficits Psychiatric: Normal Affect, Normal Mood Skin Exam: Warm, Dry, Intact, Normal Color, No Rash Course - Vital Signs Text/Narrative:: Dr. Mac called @ Last Recorded V/S: Last Vital Signs Temp 37.5 C 03/21/20 20:02 Pulse 86 03/21/20 20:02 Resp 15 03/21/20 20:02 BP 138/72 03/21/20 20:02 Pulse Ox 97 03/21/20 20:02 - Orders/Labs/Meds Orders: Active Orders 24 hr Category Date Time Status Patient Status [ADT] Routine ADT 03/21/20 21:52 Active Ambulate [RC] QID Care 03/21/20 21:52 Active Anticoag Warfarin Education *Q [RC] PER UNIT ROUTINE Care 03/21/20 21:52 Active Blood Glucose Check, Bedside [RC] BIDMEALS Care 03/21/20 21:52 Active May Shower [RC] ASDIRECTED Care 03/21/20 21:52 Active Oxygen Therapy [RC] PRN Care 03/21/20 21:52 Active Pulse Oximetry [RC] CONTINUOUS Care 03/21/20 21:54 Active Up With Assistance [RC] ASDIRECTED Care 03/21/20 21:52 Active VTE/DVT Education [RC] Per Unit Routine Care 03/21/20 21:52 Active Vital Signs [RC] Q4H Care 03/21/20 21:52 Active CBC WITH AUTO DIFF [HEME] AM Lab 03/22/20 05:11 Ordered COMPREHENSIVE METABOLIC PN,CMP [CHEM] AM Lab 03/22/20 05:11 Ordered CULTURE URINE [RM] Stat Lab 03/21/20 21:17 Received Acetaminophen [TylenoL] Med 03/21/20 21:52 Active 650 mg PO Q4H PRN Bumetanide [Bumex] Med 03/22/20 09:00 Pending 1 mg PO DAILY Ciprofloxacin [Ciprofloxacin HCl] Med 03/21/20 22:15 Active 500 mg PO BID Doxycycline [Vibramycin] Med 03/21/20 22:00 Active 100 mg PO Q12H Finasteride [Proscar] Med 03/21/20 22:01 Active 5 mg PO BEDTIME Lactated Ringers [Ringers, Lactated] 1,000 ml Med 03/21/20 21:00 Active IV ASDIRECTED Metoprolol Tartrate [Lopressor] Med 03/21/20 22:00 Active 12.5 mg PO Q12H Morphine Med 03/21/20 21:52 Active 2 mg IVPUSH Q2H PRN Ondansetron [Zofran ODT] Med 03/21/20 21:52 Active 4 mg PO Q6H PRN Pantoprazole [ProTONIX] Med 03/22/20 07:30 Active 40 mg PO ACBREAKFAST Promethazine [Phenergan] 6.25 mg Med 03/21/20 21:52 Active Sodium Chloride 0.9% [Normal Saline] 50 ml IV Q6H Warfarin [Coumadin] Med 03/22/20 13:00 Pending 5 mg PO DAILY@1300 allopurinoL [Zyloprim] Med 03/22/20 09:00 Active 100 mg PO DAILY glipiZIDE [Glucotrol] Med 03/21/20 22:15 Active 5 mg PO BIDMEALS oxyCODONE Med 03/21/20 21:52 Active 5 mg PO Q4H PRN Resuscitation Status Routine Resus Stat 03/21/20 21:52 Ordered Medication Orders Acetaminophen (Tylenol) 650 mg PO Q4H PRN PRN Reason: Pain (Mild 1-3)/fever Allopurinol (Zyloprim) 100 mg PO DAILY [facility] Bumetanide (Bumex) 1 mg PO DAILY [facility] Ciprofloxacin (Ciprofloxacin Hcl) 500 mg PO BID [facility] Doxycycline Hyclate (Vibramycin) 100 mg PO Q12H [facility] Finasteride (Proscar) 5 mg PO BEDTIME [facility] Glipizide (Glucotrol) 5 mg PO BIDMEALS [facility] Lactated Ringer's (Ringers, Lactated) 1,000 mls @ 100 mls/hr IV ASDIRECTED [facility] Last Admin: 03/21/20 21:25 Dose: 100 mls/hr Documented by: MONICA Promethazine HCl 6.25 mg/ (Sodium Chloride) 50.25 mls @ 200 mls/hr IV Q6H PRN PRN Reason: Nausea/Vomiting Metoprolol Tartrate (Lopressor) 12.5 mg PO Q12H [facility] Morphine Sulfate (Morphine) 2 mg IVPUSH Q2H PRN PRN Reason: Pain (severe 7-10) Ondansetron HCl (Zofran Odt) 4 mg PO Q6H PRN PRN Reason: Nausea able to take PO Oxycodone HCl (Oxycodone) 5 mg PO Q4H PRN PRN Reason: Pain (moderate 4-6) Pantoprazole Sodium (Protonix) 40 mg PO ACBREAKFAST [facility] Warfarin Sodium (Coumadin) 5 mg PO DAILY@1300 [facility] Labs: Laboratory Tests 03/21/20 03/21/20 03/21/20 Range/Units 19:48 19:48 19:48 WBC 13.0 H (4.5-11.0) K/uL RBC 4.86 (4.30-5.90) M/uL Hgb 14.3 (12.0-15.0) g/dL Hct 44.0 (40.0-54.0) % MCV 91 (80-98) fL MCH 29 (27-31) pg MCHC 33 (32-36) % Plt Count 158 (150-400) K/uL PT (9.5-12.0) sec INR (0.80-1.20) D-Dimer, Quantitative < 100 (0.0-400.0) ng/mL Sodium 139 L (140-148) mmol/L Potassium 3.9 (3.6-5.2) mmol/L Chloride 101 (100-108) mmol/L Carbon Dioxide 30 (21-32) mmol/L Anion Gap 11.9 (5.0-14.0) mmol/L BUN 35 H (7-18) mg/dL Creatinine 1.9 H (0.8-1.3) mg/dL Est Cr Clr Drug Dosing TNP Estimated GFR (MDRD) 34 L (>60) Glucose 134 H (74-106) mg/dL Calcium 8.8 (8.5-10.1) mg/dL Troponin I (0.000-0.056) ng/mL C-Reactive Protein 11.42 H (0.0-0.3) mg/dL Urine Color (YELLOW) Urine Appearance (CLEAR) Urine pH (5.0-8.0) Ur Specific Pixley (1.008-1.030) Urine Protein (NEGATIVE) mg/dL Urine Glucose (UA) (NEGATIVE) mg/dL Urine Ketones (NEGATIVE) mg/dL Urine Occult Blood (NEGATIVE) Urine Nitrite (NEGATIVE) Urine Bilirubin (NEGATIVE) Urine Urobilinogen (0.2-1.0) EU/dL Ur Leukocyte Esterase (NEGATIVE) Urine RBC (0-5) Urine WBC (0-5) Ur Epithelial Cells Amorphous Sediment Urine Bacteria SARS-CoV-2 RNA (OREN) (NEGATIVE) 03/21/20 03/21/20 03/21/20 Range/Units 19:48 19:48 20:41 WBC (4.5-11.0) K/uL RBC (4.30-5.90) M/uL Hgb (12.0-15.0) g/dL Hct (40.0-54.0) % MCV (80-98) fL MCH (27-31) pg MCHC (32-36) % Plt Count (150-400) K/uL PT 35.5 H (9.5-12.0) sec INR 3.33 H (0.80-1.20) D-Dimer, Quantitative (0.0-400.0) ng/mL Sodium (140-148) mmol/L Potassium (3.6-5.2) mmol/L Chloride (100-108) mmol/L Carbon Dioxide (21-32) mmol/L Anion Gap (5.0-14.0) mmol/L BUN (7-18) mg/dL Creatinine (0.8-1.3) mg/dL Est Cr Clr Drug Dosing Estimated GFR (MDRD) (>60) Glucose (74-106) mg/dL Calcium (8.5-10.1) mg/dL Troponin I < 0.017 (0.000-0.056) ng/mL C-Reactive Protein (0.0-0.3) mg/dL Urine Color Yellow (YELLOW) Urine Appearance Cloudy A (CLEAR) Urine pH 6.0 (5.0-8.0) Ur Specific Pixley 1.015 (1.008-1.030) Urine Protein 30 H (NEGATIVE) mg/dL Urine Glucose (UA) Negative (NEGATIVE) mg/dL Urine Ketones Negative (NEGATIVE) mg/dL Urine Occult Blood Trace-intact H (NEGATIVE) Urine Nitrite Negative (NEGATIVE) Urine Bilirubin Negative (NEGATIVE) Urine Urobilinogen 0.2 (0.2-1.0) EU/dL Ur Leukocyte Esterase Large H (NEGATIVE) Urine RBC Not seen (0-5) Urine WBC 40-50 H (0-5) Ur Epithelial Cells Not seen Amorphous Sediment Moderate Urine Bacteria Many SARS-CoV-2 RNA (OREN) (NEGATIVE) 03/21/20 Range/Units 20:57 WBC (4.5-11.0) K/uL RBC (4.30-5.90) M/uL Hgb (12.0-15.0) g/dL Hct (40.0-54.0) % MCV (80-98) fL MCH (27-31) pg MCHC (32-36) % Plt Count (150-400) K/uL PT (9.5-12.0) sec INR (0.80-1.20) D-Dimer, Quantitative (0.0-400.0) ng/mL Sodium (140-148) mmol/L Potassium (3.6-5.2) mmol/L Chloride (100-108) mmol/L Carbon Dioxide (21-32) mmol/L Anion Gap (5.0-14.0) mmol/L BUN (7-18) mg/dL Creatinine (0.8-1.3) mg/dL Est Cr Clr Drug Dosing Estimated GFR (MDRD) (>60) Glucose (74-106) mg/dL Calcium (8.5-10.1) mg/dL Troponin I (0.000-0.056) ng/mL C-Reactive Protein (0.0-0.3) mg/dL Urine Color (YELLOW) Urine Appearance (CLEAR) Urine pH (5.0-8.0) Ur Specific Pixley (1.008-1.030) Urine Protein (NEGATIVE) mg/dL Urine Glucose (UA) (NEGATIVE) mg/dL Urine Ketones (NEGATIVE) mg/dL Urine Occult Blood (NEGATIVE) Urine Nitrite (NEGATIVE) Urine Bilirubin (NEGATIVE) Urine Urobilinogen (0.2-1.0) EU/dL Ur Leukocyte Esterase (NEGATIVE) Urine RBC (0-5) Urine WBC (0-5) Ur Epithelial Cells Amorphous Sediment Urine Bacteria SARS-CoV-2 RNA (OREN) Negative (NEGATIVE) Meds: Medications Generic Name Dose Route Start Last Admin Trade Name Freq PRN Reason Stop Dose Admin Acetaminophen 650 mg 03/21/20 21:52 Tylenol PO Q4H PRN Pain (Mild 1-3)/fever Allopurinol 100 mg 03/22/20 09:00 Zyloprim PO DAILY [facility] Bumetanide 1 mg 03/22/20 09:00 Bumex PO DAILY [facility] Ciprofloxacin 500 mg 03/21/20 22:15 Ciprofloxacin Hcl PO BID [facility] Doxycycline Hyclate 100 mg 03/21/20 22:00 Vibramycin PO Q12H [facility] Finasteride 5 mg 03/21/20 22:01 Proscar PO BEDTIME [facility] Glipizide 5 mg 03/21/20 22:15 Glucotrol PO BIDMEALS [facility] Lactated Ringer's 1,000 mls @ 100 mls/hr 03/21/20 21:00 03/21/20 21:25 Ringers, Lactated IV 100 mls/hr ASDIRECTED [facility] Administration Promethazine HCl 6.25 mg/ 50.25 mls @ 200 mls/hr 03/21/20 21:52 Sodium Chloride IV Q6H PRN Nausea/Vomiting Metoprolol Tartrate 12.5 mg 03/21/20 22:00 Lopressor PO Q12H [facility] Morphine Sulfate 2 mg 03/21/20 21:52 Morphine IVPUSH Q2H PRN Pain (severe 7-10) Ondansetron HCl 4 mg 03/21/20 21:52 Zofran Odt PO Q6H PRN Nausea able to take PO Oxycodone HCl 5 mg 03/21/20 21:52 Oxycodone PO Q4H PRN Pain (moderate 4-6) Pantoprazole Sodium 40 mg 03/22/20 07:30 Protonix PO ACBREAKFAST [facility] Warfarin Sodium 5 mg 03/22/20 13:00 Coumadin PO DAILY@1300 [facility] Discontinued Medications Generic Name Dose Route Start Last Admin Trade Name Freq PRN Reason Stop Dose Admin Lactated Ringer's 1,000 mls @ 500 mls/hr 03/21/20 20:28 03/21/20 20:53 Ringers, Lactated IV 03/21/20 22:27 500 mls/hr BOLUS ONE Administration Nitroglycerin 1 gm 03/21/20 20:40 03/21/20 21:00 Nitro-Bid 2% TOP 03/21/20 20:41 1 gm ONETIME ONE Administration Trimethoprim/Sulfamethoxazole 1 tab 03/21/20 22:00 Septra Ds PO BID [facility] - Radiology Interpretation Free Text/Narrative:: CXR- IMPRESSION: Cardiomegaly with findings suggestive of cardiac decompensation and fluid overload including interstitial edema and small bilateral pleural effusions. Dictated by Eula Sierra MD @ 03/21/2020 8:34:52 PM Dictated by: Eula Sierra MD @ 03/21/2020 20:35:04 Departure - Departure Time of Disposition: 22:05 Disposition: Admitted As Inpatient 68 Condition: Fair Clinical Impression: Weakness, Mild congestive heart failure UTI (urinary tract infection) Qualifiers: Urinary tract infection type: catheter-associated UTI Indwelling urinary catheter type: indwelling urethral catheter Encounter type: initial encounter Qualified Code(s): T83.511A - Infection and inflammatory reaction due to indwelling urethral catheter, initial encounter - Discharge Information Sepsis Event Note (ED) - Focused Exam Vital Signs: Vital Signs Temp Pulse Resp BP Pulse Ox 03/21/20 20:02 37.5 C 86 15 138/72 97 - My Orders Last 24 Hours: My Active Orders 03/21/20 21:00 Lactated Ringers [Ringers, Lactated] 1,000 ml IV ASDIRECTED 03/21/20 21:17 CULTURE URINE [RM] Stat - Assessment/Plan Last 24 Hours: My Active Orders 03/21/20 21:00 Lactated Ringers [Ringers, Lactated] 1,000 ml IV ASDIRECTED 03/21/20 21:17 CULTURE URINE [RM] Stat
[2020-03-21] MEDS ORDERED: Lactated Ringers 1,000 ML IV ONE (20:28)
--- NOTE | 2020-03-21 20:37 | CRLCR ---
INDICATION: Crackles and hypoxemia TECHNIQUE: Chest 2 views. COMPARISON: Chest x-ray 01/15/2020 FINDINGS: There is resolution of the previously seen right lung opacity. The heart is enlarged. There is mild pulmonary vascular congestion with interstitial edema. Small bilateral pleural effusions are visualized. There is stable placement of a cardiac device. Multilevel degenerative changes are present within the spine. IMPRESSION: Cardiomegaly with findings suggestive of cardiac decompensation and fluid overload including interstitial edema and small bilateral pleural effusions. Dictated by Eula Sierra MD @ 03/21/2020 8:34:52 PM Dictated by: Eula Sierra MD @ 03/21/2020 20:35:04 (Electronically Signed)
[2020-03-21] MEDS ORDERED: Nitroglycerin 2% Oint 1 GM UD Packet TOP ONE (20:40)
[2020-03-21] MEDS: Lactated Ringers 1,000 ML IV SCH (21:25)
[2020-03-21] MEDS ORDERED: Promethazine 6.25 MG in Sodium Chloride 0.9% 50 ML IV PRN (21:52)
[2020-03-21] MEDS ORDERED: Ondansetron 4 MG Tab.DIS PO PRN (21:52)
--- NOTE | 2020-03-21 21:52 | PCM.HP.2 ---
H&P History of Present Illness - General Date of Service: 03/21/20 Source of Information: Patient History Limitations: Reports: No Limitations - History of Present Illness Initial Comments - Free Text/Narative: Patient is a 89yo male with PMH of indwelling catheter, CHF, gout, and DMII who presented today with acute weakness of BL lower extremities. He says he was walking around like normal earlier today and then when he tried to get up out of a chair this evening was unable to stand on his own. In the ER he was found to have a UTI. We discuss that he feels it is also possible that he's been exposed to lymes disease recently as someone in his household found a deer tick in the past week. He says he has had sepsis before from UTIs due to his indwelling catheter. He denies any FC, NVD, SOB, Cough, pedal edema. Patient's COVID-19 test was negative in ED Onset of Symptoms: Reports: Sudden Associated Symptoms: Reports: No Other Symptoms - Related Data Allergies/Adverse Reactions: Allergies Allergy/AdvReac Type Severity Reaction Status Date / Time amlodipine Allergy Severe anaphylaxis Verified 03/21/20 19:48 dipyridamole Allergy Cannot Verified 03/21/20 19:48 Remember Iodinated Contrast Media Allergy Rash Verified 03/21/20 19:48 [Iodinated Contrast Media - IV Dye] rosuvastatin calcium AdvReac Muscle Verified 03/21/20 19:48 [From Crestor] Aches Home Medications: Home Meds Multivitamin with Minerals [Multiple Vitamin] 1 tab PO DAILY 09/29/13 [History] Omeprazole [Prilosec] 40 mg PO DAILY PRN 09/29/13 [History] glipiZIDE [Glucotrol] 5 mg PO BIDAC 07/14/14 [History] Nitroglycerin [IJP: Nitroglycerin] 0.4 mg PO ASDIRECTED PRN 07/24/16 [History] Bumetanide [Bumex] 2 mg PO DAILY 10/10/16 [History] allopurinoL [Zyloprim] 100 mg PO DAILY #30 tab 12/03/18 [Rx] Carboxymethylcellulose Sodium [Refresh Tears 0.5%] 1 drop EYEBOTH BID PRN 12/15/18 [History] Lactobacillus Rhamnosus GG [Culturelle] 1 cap PO BID #60 cap 12/20/18 [Rx] Warfarin [Coumadin] 5 mg PO DAILY@1300 #30 tablet 12/20/18 [Rx] Metoprolol Tartrate 12.5 mg PO BID 03/25/19 [History] Finasteride 5 mg PO BEDTIME 10/29/19 [History] Colchicine 0.6 mg PO BEDTIME 01/15/20 [History] Past Medical History HEENT History: Reports: Cataract, Impaired Vision, Other (See Below) Other HEENT History: optic neuropathy Cardiovascular History: Reports: Afib, Arrhythmia, Blood Clots/VTE/DVT, CAD, Heart Failure, DE, Pacemaker, Stents, Other (See Below) Other Cardiovascular History: cardiomegaly, sinoatrial node disfunction. Respiratory History: Reports: PE Other Respiratory History: pulm. valve disorder Gastrointestinal History: Reports: GERD Genitourinary History: Reports: BPH, Chronic Renal Insuffiency, UTI, Recurrent Other Genitourinary History: hx of urinary obstructions Musculoskeletal History: Reports: Back Pain, Chronic, Osteoarthritis Neurological History: Reports: CVA Psychiatric History: Reports: Anxiety Endocrine/Metabolic History: Reports: Diabetes, Type II Hematologic History: Reports: Anticoagulation Therapy, Blood Transfusion(s) - Infectious Disease History Infectious Disease History: Reports: Chicken Pox, Measles, Mumps - Past Surgical History Head Surgeries/Procedures: Reports: None HEENT Surgical History: Reports: Cataract Surgery Cardiovascular Surgical History: Reports: Cardiac Ablation, Coronary Artery Stent Male Surgical History: Reports: Suprapubic Catheter Placement Social & Family History - Family History Family Medical History: Noncontributory Cardiac: Reports: DE - Tobacco Use Tobacco Use Status *Q: Never Tobacco User - Caffeine Use Caffeine Use: Reports: Coffee - Living Situation & Occupation Living situation: Reports: , with Family Occupation: Retired (lives with his , [address] [place] of [place], [place].) H&P Review of Systems - Review of Systems: Review Of Systems: See Below General: Reports: No Symptoms HEENT: Reports: No Symptoms (3) Pulmonary: Reports: No Symptoms Cardiovascular: Reports: No Symptoms Gastrointestinal: Reports: No Symptoms Genitourinary: Reports: No Symptoms Musculoskeletal: Reports: No Symptoms Skin: Reports: No Symptoms Psychiatric: Reports: No Symptoms Neurological: Reports: Weakness (BL lower extremities) Hematologic/Lymphatic: Reports: No Symptoms Immunologic: Reports: No Symptoms Exam - Exam Exam: See Below - Vital Signs Vital Signs: Last Vital Signs Temp 37.5 C 03/21/20 20:02 Pulse 86 03/21/20 20:02 Resp 15 03/21/20 20:02 BP 138/72 03/21/20 20:02 Pulse Ox 97 03/21/20 20:02 Weight: 98.43 kg - Exam Quality Assessment: Supplemental Oxygen General: Alert, Oriented, 4 HEENT: PERRLA, Hearing Intact, Mucosa Moist & [facility], Nares Patent, Normal Nasal Septum, Posterior Pharynx Clear, Conjunctiva Clear, EOMI, EACs Clear, TMs Clear Neck: Supple, Trachea Midline, 2 Lungs: Clear to Auscultation, Normal Respiratory Effort Cardiovascular: Regular Rate, Regular Rhythm GI/Abdominal Exam: Normal Bowel Sounds, Soft, Non-Tender, No Organomegaly, No Distention, No Abnormal Bruit, No Mass, Pelvis Stable (Male) Exam: Deferred Rectal (Males) Exam: Deferred Back Exam: Normal Inspection, Full Range of Motion, NT Extremities: Normal Inspection, Normal Range of Motion, Non-Tender, No Pedal Edema, Normal Capillary Refill Skin: Warm, Dry, Intact Neurological: Other (weakness BL LE, 3/5) Neuro Extensive - Mental Status: Alert, Oriented x3, Normal Mood/Affect, Normal Cognition Neuro Extensive - Motor, Sensory, Reflexes: CN II-XII Intact Psychiatric: Alert, Normal Affect, Normal Mood - Patient Data Lab Results Last 24 hrs: Laboratory Results - last 24 hr 03/21/20 03/21/20 03/21/20 Range/Units 19:48 19:48 19:48 WBC 13.0 H (4.5-11.0) K/uL RBC 4.86 (4.30-5.90) M/uL Hgb 14.3 (12.0-15.0) g/dL Hct 44.0 (40.0-54.0) % MCV 91 (80-98) fL MCH 29 (27-31) pg MCHC 33 (32-36) % Plt Count 158 (150-400) K/uL PT (9.5-12.0) sec INR (0.80-1.20) D-Dimer, Quantitative < 100 (0.0-400.0) ng/mL Sodium 139 L (140-148) mmol/L Potassium 3.9 (3.6-5.2) mmol/L Chloride 101 (100-108) mmol/L Carbon Dioxide 30 (21-32) mmol/L Anion Gap 11.9 (5.0-14.0) mmol/L BUN 35 H (7-18) mg/dL Creatinine 1.9 H (0.8-1.3) mg/dL Est Cr Clr Drug Dosing TNP Estimated GFR (MDRD) 34 L (>60) Glucose 134 H (74-106) mg/dL Calcium 8.8 (8.5-10.1) mg/dL Troponin I (0.000-0.056) ng/mL C-Reactive Protein 11.42 H (0.0-0.3) mg/dL Urine Color (YELLOW) Urine Appearance (CLEAR) Urine pH (5.0-8.0) Ur Specific [place] (1.008-1.030) Urine Protein (NEGATIVE) mg/dL Urine Glucose (UA) (NEGATIVE) mg/dL Urine Ketones (NEGATIVE) mg/dL Urine Occult Blood (NEGATIVE) Urine Nitrite (NEGATIVE) Urine Bilirubin (NEGATIVE) Urine Urobilinogen (0.2-1.0) EU/dL Ur Leukocyte Esterase (NEGATIVE) Urine RBC (0-5) Urine WBC (0-5) Ur Epithelial Cells Amorphous Sediment Urine Bacteria 03/21/20 03/21/20 03/21/20 Range/Units 19:48 19:48 20:41 WBC (4.5-11.0) K/uL RBC (4.30-5.90) M/uL Hgb (12.0-15.0) g/dL Hct (40.0-54.0) % MCV (80-98) fL MCH (27-31) pg MCHC (32-36) % Plt Count (150-400) K/uL PT 35.5 H (9.5-12.0) sec INR 3.33 H (0.80-1.20) D-Dimer, Quantitative (0.0-400.0) ng/mL Sodium (140-148) mmol/L Potassium (3.6-5.2) mmol/L Chloride (100-108) mmol/L Carbon Dioxide (21-32) mmol/L Anion Gap (5.0-14.0) mmol/L BUN (7-18) mg/dL Creatinine (0.8-1.3) mg/dL Est Cr Clr Drug Dosing Estimated GFR (MDRD) (>60) Glucose (74-106) mg/dL Calcium (8.5-10.1) mg/dL Troponin I < 0.017 (0.000-0.056) ng/mL C-Reactive Protein (0.0-0.3) mg/dL Urine Color Yellow (YELLOW) Urine Appearance Cloudy A (CLEAR) Urine pH 6.0 (5.0-8.0) Ur Specific [place] 1.015 (1.008-1.030) Urine Protein 30 H (NEGATIVE) mg/dL Urine Glucose (UA) Negative (NEGATIVE) mg/dL Urine Ketones Negative (NEGATIVE) mg/dL Urine Occult Blood Trace-intact H (NEGATIVE) Urine Nitrite Negative (NEGATIVE) Urine Bilirubin Negative (NEGATIVE) Urine Urobilinogen 0.2 (0.2-1.0) EU/dL Ur Leukocyte Esterase Large H (NEGATIVE) Urine RBC Not seen (0-5) Urine WBC 40-50 H (0-5) Ur Epithelial Cells Not seen Amorphous Sediment Moderate Urine Bacteria Many Result Diagrams: 03/21/20 19:48 03/21/20 19:48 Sepsis Event Note - Evaluation Sepsis Screening Result: No Definite Risk - Focused Exam Vital Signs: Vital Signs Temp Pulse Resp BP Pulse Ox 03/21/20 20:02 37.5 C 86 15 138/72 97 - Problem List (1) UTI (urinary tract infection) due to urinary indwelling catheter SNOMED Code(s): 596813662 ICD Code: T83.511A - I/I REACT D/T INDWELLING URETHRAL CATHETER, INIT; N39.0 - URINARY TRACT INFECTION, SITE NOT SPECIFIED Status: Acute Priority: High Current Visit: Yes Onset Date: Unknown Problem Details: Patient has indwelling catheter and has recurrent UTIs. Could be cause of patient weakness, vital signs stable, no signs of sepsis at this time. Will start cipro 50mg BID. (2) Weakness of both lower extremities SNOMED Code(s): 1244323 ICD Code: R29.898 - OTH SYMPTOMS AND SIGNS INVOLVING THE MUSCULOSKELETAL SYSTEM Status: Acute Current Visit: Yes Onset Date: 03/21/20 Problem Details: Unclear etiology, could be related to patient's UTI or could be lyme disease or other as of yet undiscovered cause. Will start doxycycline 100mg BID, as patient has concerns that he was exposed to a deer tick in the last week in his house, as one was found crawling on a family member. (3) CHF (congestive heart failure) SNOMED Code(s): 36922296 ICD Code: I50.9 - HEART FAILURE, UNSPECIFIED Status: Chronic Priority: High Current Visit: No Problem Details: Will continue home medications of metoprolol and bumex Qualifiers: Qualified Code(s): I50.22 - Chronic systolic (congestive) heart failure (4) Chronic atrial fibrillation SNOMED Code(s): 394338131 ICD Code: I48.2 - CHRONIC ATRIAL FIBRILLATION * DO NOT USE * Status: Chronic Current Visit: No Problem Details: will continue warfarin and metoprolol (5) Chronic kidney disease SNOMED Code(s): 186654525 ICD Code: N18.9 - CHRONIC KIDNEY DISEASE, UNSPECIFIED Status: Chronic Priority: High Current Visit: No Problem Details: Patient's Cr is slightly elevated from previous baseline. Could be related to UTI, fluids given in ED. Will recheck CMP in AM Qualifiers: Chronic kidney disease stage: stage 3 (moderate) (6) Diabetes type 2, controlled SNOMED Code(s): 58925699, 933449291 ICD Code: E11.9 - TYPE 2 DIABETES MELLITUS WITHOUT COMPLICATIONS Status: Chronic Priority: High Current Visit: No Problem Details: Will continue Glipizide Qualifiers: Diabetes mellitus terminal computer operator insulin use: without terminal computer operator use Diabetes mellitus complication status: with kidney complications Diabetes mellitus complication detail: with chronic kidney disease Chronic kidney disease stage: stage 3 (moderate) Qualified Code(s): E11.22 - Type 2 diabetes mellitus with diabetic chronic kidney disease; N18.30 - Chronic kidney disease, stage 3 unspecified Problem List Initiated/Reviewed/Updated: Yes Orders Last 24hrs: Active Orders 24 hr Category Date Time Status Cardiac Monitoring [RC] .As Directed Care 03/21/20 19:32 Active CORONAVIRUS COVID-19 OREN [MOLEC] Routine Lab 03/21/20 20:57 Received CULTURE URINE [RM] Stat Lab 03/21/20 21:17 Received Lactated Ringers [Ringers, Lactated] 1,000 ml Med 03/21/20 21:00 Active IV ASDIRECTED Medication Orders Lactated Ringer's (Ringers, Lactated) 1,000 mls @ 100 mls/hr IV ASDIRECTED DURGA Last Admin: 03/21/20 21:25 Dose: 100 mls/hr Documented by: MONICA Resuscitation Status 03/21/20 21:52 Resuscitation Status Routine Resuscitation Status: Full Code Abbreviations used in this policy: *Cardiopulmonary Resuscitation (CPR) *Do Not Resuscitate (DNR) *Do Not Intubate (DNI) Code status categories recognized at [facility] 1. Full Code a. If a patient experiences cardiac or respiratory arrest, all resuscitation efforts (including CPR, defibrillation, and airway management) will be performed. b. Patients without a specific code status order other than Full Code will be assumed to be Full Code Status. Intubation CPR Defibrillation YES YES YES 2. DNR a. If there are changes in the patients' vital signs and condition, including respiratory arrest, treatment with medications and intubation, if indicated will be performed. b. If a patient experiences cardiac arrest, resuscitation efforts (CPR and Defibrillation) will not be performed. Intubation CPR Defibrillation YES NO NO 3. DNR/DNI a. If there are changes in the patient's vital signs and condition, including respiratory arrest, treatment with medications and noninvasive airway management/positive pressure ventilation, if indicated will be performed b. If a patient experiences a cardiac arrest, resuscitation efforts (including CPR, defibrillation and intubation) will not be performed. Intubation CPR Defibrillation NO NO NO 4. DNR/DNI/Comfort Measures a. All medical and nursing interventions will be for the sole purpose of providing pain/symptom management for the patient. b. If a patient experiences a cardiac or respiratory arrest, resuscitation efforts (including CPR, defibrillation and intubation) will not be performed. Intubation CPR Defibrillation No NO NO ACTIVE MED ORDERS Generic Name Dose Route Start Last Admin Trade Name Freq PRN Reason Stop Dose Admin Acetaminophen 650 mg 03/21/20 21:52 Tylenol PO Q4H PRN Pain (Mild 1-3)/fever Allopurinol 100 mg 03/22/20 09:00 Zyloprim PO DAILY [facility] Bumetanide 1 mg 03/22/20 09:00 Bumex PO DAILY [facility] Ciprofloxacin 500 mg 03/21/20 22:15 Ciprofloxacin Hcl PO BID [facility] Doxycycline Hyclate 100 mg 03/21/20 22:00 Vibramycin PO Q12H [facility] Finasteride 5 mg 03/21/20 22:01 Proscar PO BEDTIME [facility] Glipizide 5 mg 03/21/20 22:15 Glucotrol PO BID [facility] Lactated Ringer's 1,000 mls @ 100 mls/hr 03/21/20 21:00 03/21/20 21:25 Ringers, Lactated IV 100 mls/hr ASDIRECTED [facility] Administration Promethazine HCl 6.25 mg/ 50.25 mls @ 200 mls/hr 03/21/20 21:52 Sodium Chloride IV Q6H PRN Nausea/Vomiting Metoprolol Tartrate 12.5 mg 03/21/20 22:00 Lopressor PO Q12H [facility] Morphine Sulfate 2 mg 03/21/20 21:52 Morphine IVPUSH Q2H PRN Pain (severe 7-10) Ondansetron HCl 4 mg 03/21/20 21:52 Zofran Odt PO Q6H PRN Nausea able to take PO Oxycodone HCl 5 mg 03/21/20 21:52 Oxycodone PO Q4H PRN Pain (moderate 4-6) Pantoprazole Sodium 40 mg 03/22/20 09:00 Protonix PO DAILY [facility] Warfarin Sodium 5 mg 03/22/20 13:00 Coumadin PO DAILY@1300 [facility] ACTIVE NON-MED ORDERS/Care 03/21/20 19:32 Cardiac Monitoring [RC] .As Directed 03/21/20 21:52 Ambulate [RC] QID Anticoag Warfarin Education *Q [RC] PER UNIT ROUTINE Blood Glucose Check, Bedside [RC] BIDMEALS May Shower [RC] ASDIRECTED Oxygen Therapy [RC] PRN Maintain SpO2% greater than: 92 Oxygen Therapy Mode, Primary: Nasal Cannula Oxygen Flow Rate (L/min): 2 Oxygen Therapy Mode, Secondary: Nasal Cannula Flow Rate (L/min), Secondary: 4 Up With Assistance [RC] ASDIRECTED VTE/DVT Education [RC] Per Unit Routine Vital Signs [RC] Q4H 03/21/20 21:54 Pulse Oximetry [RC] CONTINUOUS ACTIVE NON-MED ORDERS/Orderable Interventions Activity, Ambulate Start: 03/21/20 21:52 Freq: QID Status: Active Protocol: Activity, Up With Assistance Start: 03/21/20 21:52 Freq: ASDIRECTED Status: Active Protocol: Blood Glucose Check, Bedside Start: 03/21/20 21:52 Freq: BIDMEALS Status: Active Protocol: BGL Cardiac Monitoring/Telemetry Start: 03/21/20 19:32 Text: Status: Active Freq: .As Directed Protocol: Education: VTE/DVT Topics Start: 03/21/20 21:52 Freq: Per Unit Routine Status: Active Protocol: Education: Warfarin *Q Start: 03/21/20 21:52 Text: Status: Active Freq: PER UNIT ROUTINE Protocol: Hygiene, May Shower Start: 03/21/20 21:52 Freq: ASDIRECTED Status: Active Protocol: Oxygen Therapy Start: 03/21/20 21:52 Freq: PRN Status: Active Protocol: Pulse Oximetry Start: 03/21/20 21:54 Freq: CONTINUOUS Status: Active Protocol: Vital Signs Start: 03/21/20 21:52 Text: Click to edit a change in frequency and times. Status: Active Freq: Q4H Protocol: VS.PEDS ACTIVE NON-MED ORDERS/LAB 03/21/20 21:17 CULTURE URINE [RM] Stat Comment: BRIAN Source: Urine, Busch Cath (Indwelling) Specimen: Has been collected Specimen Description: 03/22/20 05:11 CBC WITH AUTO DIFF [HEME] AM Comment: Specimen: Send someone from the department to collect COMPREHENSIVE METABOLIC PN,CMP [CHEM] AM Comment: Specimen: Send someone from the department to collect ACTIVE ORDERS/MEDS 03/21/20 21:00 Lactated Ringers [Ringers, Lactated] 1,000 ml IV ASDIRECTED 03/21/20 21:52 Acetaminophen [TylenoL] 650 mg PO Q4H PRN Morphine 2 mg IVPUSH Q2H PRN Ondansetron [Zofran ODT] 4 mg PO Q6H PRN Promethazine [Phenergan] 6.25 mg Sodium Chloride 0.9% [Normal Saline] 50 ml IV Q6H oxyCODONE 5 mg PO Q4H PRN 03/21/20 22:00 Doxycycline [Vibramycin] 100 mg PO Q12H 03/21/20 22:01 Finasteride [Proscar] 5 mg PO BEDTIME 03/21/20 22:15 Ciprofloxacin [Ciprofloxacin HCl] 500 mg PO BID Metoprolol Tartrate [Lopressor] 12.5 mg PO Q12H glipiZIDE [Glucotrol] 5 mg PO BID 03/22/20 09:00 Bumetanide [Bumex] 1 mg PO DAILY Pantoprazole [ProTONIX] 40 mg PO DAILY allopurinoL [Zyloprim] 100 mg PO DAILY 03/22/20 13:00 Warfarin [Coumadin] 5 mg PO DAILY@1300 ACTIVE NON-MED ORDERS/Transfer 03/21/20 22:07 Patient Status Manage Transfer [TRANSFER] Routine Patient Status: Admit to Inpatient Admission Diagnosis/Problem: Weakness of both lower extremities Reason for Admit: Weakness, UTI Nurse Unit Type: Medical-Surgical Admitting Physician: Miryam Mac Attending Physician: Edi Mccarthy Medicare 96 Hour Certification Statement: This Patient is Admitted for Inpatient Services and is Medically Appropriate and Meets Medical Necessity for Inpatient Admission. I Reasonably Expect the Patient will Require Inpatient Services that Span a Period of Over 2 Midnights. My Rationale for Medically Necessary Inpatient Care will be Found in the Admission History & Ph ysical and Progress Notes. I Reasonably Expect the Patient to be Discharged or Transferred within 96 Hours After Admission to this [facility]. Provider Acknowledgement/Certification: Miryam Mac ACTIVE NON-MED ORDERS/Other 03/21/20 21:52 Patient Status [ADT] Routine Patient Status: Admit to Inpatient Admission Diagnosis/Problem: Weakness of both lower extremities Reason for Admit: weakness, UTI Nurse Unit Type: Medical-Surgical Admitting Physician: Miryam Mac Attending Physician: Edi Mccarthy Medicare 96 Hour Certification Statement: This Patient is Admitted for Inpatient Services and is Medically Appropriate and Meets Medical Necessity for Inpatient Admission. I Reasonably Expect the Patient will Require Inpatient Services that Span a Period of Over 2 Midnights. My Rationale for Medically Necessary Inpatient Care will be Found in the Admission History & Physical and Progress Notes. I Reasonably Expect the Patient to be Discharged or Transferred within 96 Hours After Admission to this [facility] Hospital. Provider Acknowledgement/Certification: Miryam Mac - Mortality Measure Prognosis:: Good
[2020-03-21] MEDS ORDERED: Sulfamethoxazole/Trimethoprim 800-160 MG Tab PO SCH (22:00)
[2020-03-22] MEDS: Ciprofloxacin 500 MG Tab PO SCH ×2 (00:02→08:26)
[2020-03-22] MEDS: Metoprolol Tartrate 25 MG Tab PO SCH ×4 (00:07→21:14)
[2020-03-22] MEDS: Finasteride 5 MG Tab PO SCH ×2 (00:09→20:27)
[2020-03-22] MEDS: Doxycycline 100 MG Cap PO SCH ×2 (00:13→10:16)
[2020-03-22] MEDS: glipiZIDE 5 MG Tab PO SCH ×3 (00:13→17:03)
[2020-03-22] MEDS: Lactated Ringers 1,000 ML IV SCH ×2 (04:32→15:13)
[2020-03-22] MEDS: Pantoprazole 40 MG Tab.CR PO SCH (07:32)
[2020-03-22] MEDS: Allopurinol 100 MG Tab PO SCH (08:25)
[2020-03-22] MEDS: Bumetanide 1 MG Tab PO SCH (08:25)
[2020-03-22] MEDS: cefTRIAXone 1 GM in Sodium Chloride 0.9% 50 ML IV SCH (09:18)
[2020-03-22] MEDS: Lactobacillus Rhamnosus GG (Probiotic) Cap PO SCH ×2 (10:07→20:27)
--- NOTE | 2020-03-22 16:06 | CRLCT ---
INDICATION: Unable to ambulate TECHNIQUE: Head CT without contrast. COMPARISON: December 15, 2019 FINDINGS: CSF spaces: Within normal limits for age. 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 This measures 3.1 x 2.1 cm, relatively unchanged in size compared to the prior study. A portion of this lesion may encircled the proximal right middle cerebral artery. There are nonspecific low attenuation white matter changes consistent with chronic microvascular disease. No sign of mass, hemorrhage, or midline shift. Skull base and calvarium: The visualized paranasal sinuses and mastoid air cells demonstrate no acute or significant findings. The visualized orbits are grossly unremarkable. No skull fractures. There is intracranial atherosclerosis. IMPRESSION: 1. No acute abnormality. 2. Stable appearance of partially calcified mass in the right frontal lobe. Recommend MRI with and without contrast and MRA for further evaluation. Please note that all CT scans at this facility use dose modulation, iterative reconstruction, and/or weight-based dosing when appropriate to reduce radiation dose to as low as reasonably achievable. Dictated by Linnea Llanes MD @ Mar 22 2020 3:47PM Signed by Dr. Linnea Llanes @ Mar 22 2020 4:04PM
[2020-03-22] MEDS: Warfarin 5 MG Tab PO SCH (17:07)
[2020-03-22] MEDS ORDERED: Albuterol/Ipratropium 3.0-0.5 MG/3 ML Neb Soln NEB ONE (17:14)
[2020-03-22] MEDS ORDERED: Albuterol 0.083% 2.5 MG/3 ML Neb Soln NEB PRN (18:34)
[2020-03-22] MEDS ORDERED: Furosemide 40 MG/4 ML VIAL IVPUSH ONE (18:34)
--- NOTE | 2020-03-22 18:45 | PCM.PN ---
- General Info Date of Service: 03/22/20 Subjective Update: Mr. Dalal is an 89-year-old gentleman who was admitted through the emergency department last night by Dr. Gonzalez. He noted abrupt onset of weakness yesterday with inability to stand or ambulate. He has had similar symptoms in the past associated with infections including pneumonia and urinary tract infection. He has remained fairly weak through the night and still is unable to stand or walk independently. He denies focal weakness and there is no obvious focal weakness identified on exam. He has been more short of breath through the day, chest x-ray did show evidence of congestive heart failure. Echocardiogram shows severely decreased left ventricular function estimated ejection fraction of 25 to 30%, formal report is pending. Findings on admission were consistent with urinary tract infection, urine culture is pending and he currently is treated with ceftriaxone. Functional Status: Reports: Tolerating Diet, Urinating. Denies: Ambulating - Review of Systems General: Reports: Weakness, Fatigue. Denies: Fever, Chills Pulmonary: Reports: No Symptoms Cardiovascular: Reports: No Symptoms Gastrointestinal: Reports: No Symptoms - Patient Data Vitals - Most Recent: Last Vital Signs Temp 98.4 F 03/22/20 15:00 Pulse 77 03/22/20 15:00 Resp 16 03/22/20 15:00 BP 131/65 03/22/20 15:45 Pulse Ox 97 03/22/20 15:00 Weight - Most Recent: 226 lb 0.004 oz I&O - Last 24 Hours: Intake & Output 03/22/20 03/22/20 03/22/20 06:59 14:59 22:59 Intake Total 400 28 7445 Output Total 350 650 Balance 399 50 690 Lab Results Last 24 Hours: Laboratory Results - last 24 hr 03/21/20 03/21/20 03/21/20 Range/Units 19:48 19:48 19:48 WBC 13.0 H (4.5-11.0) K/uL RBC 4.86 (4.30-5.90) M/uL Hgb 14.3 (12.0-15.0) g/dL Hct 44.0 (40.0-54.0) % MCV 91 (80-98) fL MCH 29 (27-31) pg MCHC 33 (32-36) % Plt Count 158 (150-400) K/uL Neut % (Auto) (36-66) % Lymph % (Auto) (24-44) % [place] % (Auto) (2-6) % Eos % (Auto) (2-4) % Baso % (Auto) (0-1) % PT (9.5-12.0) sec INR (0.80-1.20) D-Dimer, Quantitative < 100 (0.0-400.0) ng/mL Sodium 139 L (140-148) mmol/L Potassium 3.9 (3.6-5.2) mmol/L Chloride 101 (100-108) mmol/L Carbon Dioxide 30 (21-32) mmol/L Anion Gap 11.9 (5.0-14.0) mmol/L BUN 35 H (7-18) mg/dL Creatinine 1.9 H (0.8-1.3) mg/dL Est Cr Clr Drug Dosing TNP Estimated GFR (MDRD) 34 L (>60) Glucose 134 H (74-106) mg/dL POC Glucose (74-106) MG/DL Calcium 8.8 (8.5-10.1) mg/dL Total Bilirubin (0.2-1.0) mg/dL AST (15-37) U/L ALT (12-78) U/L Alkaline Phosphatase (46-116) U/L Troponin I (0.000-0.056) ng/mL C-Reactive Protein 11.42 H (0.0-0.3) mg/dL Total Protein (6.4-8.2) g/dL Albumin (3.4-5.0) g/dL Globulin (2.3-3.5) g/dL Albumin/Globulin Ratio (1.2-2.2) Urine Color (YELLOW) Urine Appearance (CLEAR) Urine pH (5.0-8.0) Ur Specific [place] (1.008-1.030) Urine Protein (NEGATIVE) mg/dL Urine Glucose (UA) (NEGATIVE) mg/dL Urine Ketones (NEGATIVE) mg/dL Urine Occult Blood (NEGATIVE) Urine Nitrite (NEGATIVE) Urine Bilirubin (NEGATIVE) Urine Urobilinogen (0.2-1.0) EU/dL Ur Leukocyte Esterase (NEGATIVE) Urine RBC (0-5) Urine WBC (0-5) Ur Epithelial Cells Amorphous Sediment Urine Bacteria SARS-CoV-2 RNA (OREN) (NEGATIVE) 03/21/20 03/21/20 03/21/20 Range/Units 19:48 19:48 20:41 WBC (4.5-11.0) K/uL RBC (4.30-5.90) M/uL Hgb (12.0-15.0) g/dL Hct (40.0-54.0) % MCV (80-98) fL MCH (27-31) pg MCHC (32-36) % Plt Count (150-400) K/uL Neut % (Auto) (36-66) % Lymph % (Auto) (24-44) % [place] % (Auto) (2-6) % Eos % (Auto) (2-4) % Baso % (Auto) (0-1) % PT 35.5 H (9.5-12.0) sec INR 3.33 H (0.80-1.20) D-Dimer, Quantitative (0.0-400.0) ng/mL Sodium (140-148) mmol/L Potassium (3.6-5.2) mmol/L Chloride (100-108) mmol/L Carbon Dioxide (21-32) mmol/L Anion Gap (5.0-14.0) mmol/L BUN (7-18) mg/dL Creatinine (0.8-1.3) mg/dL Est Cr Clr Drug Dosing Estimated GFR (MDRD) (>60) Glucose (74-106) mg/dL POC Glucose (74-106) MG/DL Calcium (8.5-10.1) mg/dL Total Bilirubin (0.2-1.0) mg/dL AST (15-37) U/L ALT (12-78) U/L Alkaline Phosphatase (46-116) U/L Troponin I < 0.017 (0.000-0.056) ng/mL C-Reactive Protein (0.0-0.3) mg/dL Total Protein (6.4-8.2) g/dL Albumin (3.4-5.0) g/dL Globulin (2.3-3.5) g/dL Albumin/Globulin Ratio (1.2-2.2) Urine Color Yellow (YELLOW) Urine Appearance Cloudy A (CLEAR) Urine pH 6.0 (5.0-8.0) Ur Specific [place] 1.015 (1.008-1.030) Urine Protein 30 H (NEGATIVE) mg/dL Urine Glucose (UA) Negative (NEGATIVE) mg/dL Urine Ketones Negative (NEGATIVE) mg/dL Urine Occult Blood Trace-intact H (NEGATIVE) Urine Nitrite Negative (NEGATIVE) Urine Bilirubin Negative (NEGATIVE) Urine Urobilinogen 0.2 (0.2-1.0) EU/dL Ur Leukocyte Esterase Large H (NEGATIVE) Urine RBC Not seen (0-5) Urine WBC 40-50 H (0-5) Ur Epithelial Cells Not seen Amorphous Sediment Moderate Urine Bacteria Many SARS-CoV-2 RNA (OREN) (NEGATIVE) 03/21/20 03/22/20 03/22/20 Range/Units 20:57 04:20 04:20 WBC 12.2 H (4.5-11.0) K/uL RBC 4.14 L (4.30-5.90) M/uL Hgb 12.3 D (12.0-15.0) g/dL Hct 38.2 L (40.0-54.0) % MCV 92 (80-98) fL MCH 30 (27-31) pg MCHC 32 (32-36) % Plt Count 138 L (150-400) K/uL Neut % (Auto) 73 H (36-66) % Lymph % (Auto) 13 L (24-44) % [place] % (Auto) 12 H (2-6) % Eos % (Auto) 1 L (2-4) % Baso % (Auto) 0 (0-1) % PT (9.5-12.0) sec INR (0.80-1.20) D-Dimer, Quantitative (0.0-400.0) ng/mL Sodium 138 L (140-148) mmol/L Potassium 3.9 (3.6-5.2) mmol/L Chloride 102 (100-108) mmol/L Carbon Dioxide 29 (21-32) mmol/L Anion Gap 10.9 (5.0-14.0) mmol/L BUN 36 H (7-18) mg/dL Creatinine 1.8 H (0.8-1.3) mg/dL Est Cr Clr Drug Dosing 31.73 Estimated GFR (MDRD) 36 L (>60) Glucose 191 H (74-106) mg/dL POC Glucose (74-106) MG/DL Calcium 8.1 L (8.5-10.1) mg/dL Total Bilirubin 1.1 H (0.2-1.0) mg/dL AST 15 (15-37) U/L ALT 30 (12-78) U/L Alkaline Phosphatase 71 (46-116) U/L Troponin I (0.000-0.056) ng/mL C-Reactive Protein (0.0-0.3) mg/dL Total Protein 6.0 L (6.4-8.2) g/dL Albumin 2.7 L (3.4-5.0) g/dL Globulin 3.3 (2.3-3.5) g/dL Albumin/Globulin Ratio 0.8 L (1.2-2.2) Urine Color (YELLOW) Urine Appearance (CLEAR) Urine pH (5.0-8.0) Ur Specific [place] (1.008-1.030) Urine Protein (NEGATIVE) mg/dL Urine Glucose (UA) (NEGATIVE) mg/dL Urine Ketones (NEGATIVE) mg/dL Urine Occult Blood (NEGATIVE) Urine Nitrite (NEGATIVE) Urine Bilirubin (NEGATIVE) Urine Urobilinogen (0.2-1.0) EU/dL Ur Leukocyte Esterase (NEGATIVE) Urine RBC (0-5) Urine WBC (0-5) Ur Epithelial Cells Amorphous Sediment Urine Bacteria SARS-CoV-2 RNA (OREN) Negative (NEGATIVE) 03/22/20 03/22/20 Range/Units 15:24 17:00 WBC (4.5-11.0) K/uL RBC (4.30-5.90) M/uL Hgb (12.0-15.0) g/dL Hct (40.0-54.0) % MCV (80-98) fL MCH (27-31) pg MCHC (32-36) % Plt Count (150-400) K/uL Neut % (Auto) (36-66) % Lymph % (Auto) (24-44) % [place] % (Auto) (2-6) % Eos % (Auto) (2-4) % Baso % (Auto) (0-1) % PT 26.7 H (9.5-12.0) sec INR 2.49 H (0.80-1.20) D-Dimer, Quantitative (0.0-400.0) ng/mL Sodium (140-148) mmol/L Potassium (3.6-5.2) mmol/L Chloride (100-108) mmol/L Carbon Dioxide (21-32) mmol/L Anion Gap (5.0-14.0) mmol/L BUN (7-18) mg/dL Creatinine (0.8-1.3) mg/dL Est Cr Clr Drug Dosing Estimated GFR (MDRD) (>60) Glucose (74-106) mg/dL POC Glucose 156 H (74-106) MG/DL Calcium (8.5-10.1) mg/dL Total Bilirubin (0.2-1.0) mg/dL AST (15-37) U/L ALT (12-78) U/L Alkaline Phosphatase (46-116) U/L Troponin I (0.000-0.056) ng/mL C-Reactive Protein (0.0-0.3) mg/dL Total Protein (6.4-8.2) g/dL Albumin (3.4-5.0) g/dL Globulin (2.3-3.5) g/dL Albumin/Globulin Ratio (1.2-2.2) Urine Color (YELLOW) Urine Appearance (CLEAR) Urine pH (5.0-8.0) Ur Specific [place] (1.008-1.030) Urine Protein (NEGATIVE) mg/dL Urine Glucose (UA) (NEGATIVE) mg/dL Urine Ketones (NEGATIVE) mg/dL Urine Occult Blood (NEGATIVE) Urine Nitrite (NEGATIVE) Urine Bilirubin (NEGATIVE) Urine Urobilinogen (0.2-1.0) EU/dL Ur Leukocyte Esterase (NEGATIVE) Urine RBC (0-5) Urine WBC (0-5) Ur Epithelial Cells Amorphous Sediment Urine Bacteria SARS-CoV-2 RNA (OREN) (NEGATIVE) Med Orders - Current: Current Medications Acetaminophen (Tylenol) 650 mg PO Q4H PRN PRN Reason: Pain (Mild 1-3)/fever Albuterol (Proventil Neb Soln) 2.5 mg NEB Q4H PRN PRN Reason: Dyspnea Albuterol/Ipratropium (Duoneb 3.0-0.5 Mg/3 Ml) 3 ml NEB QIDRT DURGA Allopurinol (Zyloprim) 100 mg PO DAILY [facility] Last Admin: 03/22/20 08:25 Dose: 100 mg Documented by: Bumetanide (Bumex) 1 mg PO DAILY [facility] Last Admin: 03/22/20 08:25 Dose: 1 mg Documented by: Doxycycline Hyclate (Vibramycin) 100 mg PO Q12H [facility] Last Admin: 03/22/20 10:16 Dose: 100 mg Documented by: Finasteride (Proscar) 5 mg PO BEDTIME [facility] Last Admin: 03/22/20 00:09 Dose: 5 mg Documented by: Glipizide (Glucotrol) 5 mg PO BIDMEALS [facility] Last Admin: 03/22/20 17:03 Dose: 5 mg Documented by: Promethazine HCl 6.25 mg/ (Sodium Chloride) 50.25 mls @ 200 mls/hr IV Q6H PRN PRN Reason: Nausea/Vomiting Ceftriaxone Sodium 1 gm/ (Sodium Chloride) 50 mls @ 100 mls/hr IV Q24H [facility] Last Admin: 03/22/20 09:18 Dose: 100 mls/hr Documented by: Lactobacillus Rhamnosus (Culturelle) 1 cap PO BID [facility] Last Admin: 03/22/20 10:07 Dose: 1 cap Documented by: Metoprolol Tartrate (Lopressor) 12.5 mg PO Q12H [facility] Last Admin: 03/22/20 10:07 Dose: 12.5 mg Documented by: Morphine Sulfate (Morphine) 2 mg IVPUSH Q2H PRN PRN Reason: Pain (severe 7-10) Ondansetron HCl (Zofran Odt) 4 mg PO Q6H PRN PRN Reason: Nausea able to take PO Oxycodone HCl (Oxycodone) 5 mg PO Q4H PRN PRN Reason: Pain (moderate 4-6) Pantoprazole Sodium (Protonix) 40 mg PO ACBREAKFAST [facility] Last Admin: 03/22/20 07:32 Dose: 40 mg Documented by: Warfarin Sodium (Coumadin) 5 mg PO DAILY@1300 [facility] Last Admin: 03/22/20 17:07 Dose: 5 mg Documented by: Discontinued Medications Albuterol/Ipratropium (Duoneb 3.0-0.5 Mg/3 Ml) 3 ml NEB ONETIME ONE Stop: 03/22/20 17:15 Last Admin: 03/22/20 18:01 Dose: 3 ml Documented by: Ciprofloxacin (Ciprofloxacin Hcl) 500 mg PO BID [facility] Last Admin: 03/22/20 08:26 Dose: 500 mg Documented by: Furosemide (Lasix) 60 mg IVPUSH NOW ONE Stop: 03/22/20 18:35 Lactated Ringer's (Ringers, Lactated) 1,000 mls @ 500 mls/hr IV BOLUS ONE Stop: 03/21/20 22:27 Last Admin: 03/21/20 20:53 Dose: 500 mls/hr Documented by: Lactated Ringer's (Ringers, Lactated) 1,000 mls @ 100 mls/hr IV ASDIRECTED [facility] Last Admin: 03/22/20 15:13 Dose: 100 mls/hr Documented by: Nitroglycerin (Nitro-Bid 2%) 1 gm TOP ONETIME ONE Stop: 03/21/20 20:41 Last Admin: 03/21/20 21:00 Dose: 1 gm Documented by: Trimethoprim/Sulfamethoxazole (Septra Ds) 1 tab PO BID [facility] Last Admin: 03/22/20 00:24 Dose: Not Given Documented by: - Exam Quality Assessment: DVT Prophylaxis General: Alert, Cooperative, Mild Distress Lungs: Decreased Breath Sounds, Rales. No: Rhonchi, Rub, Wheezing Cardiovascular: Regular Rate, Regular Rhythm, Irregular Rhythm, Murmurs GI/Abdominal Exam: Soft, Non-Tender, No Organomegaly, No Distention Extremities: Non-Tender, Pedal Edema Sepsis Event Note - Evaluation Sepsis Screening Result: No Definite Risk - Focused Exam Vital Signs: Vital Signs Temp Pulse Pulse Resp BP BP Pulse Ox 03/22/20 15:45 131/65 03/22/20 15:00 98.4 F 77 16 97 03/22/20 12:48 95 03/22/20 11:00 96.1 F L 76 18 116/57 L 95 03/22/20 10:07 74 116/57 L 03/22/20 07:16 94 L 03/22/20 07:00 97.4 F 73 18 104/36 L 96 - Problem List Review Problem List Initiated/Reviewed/Updated: Yes - My Orders Last 24 Hours: My Active Orders 03/22/20 09:00 Lactobacillus Rhamnosus GG [Culturelle] 1 cap PO BID 03/22/20 09:33 Echo Comp wo Cont [US] Routine 03/22/20 10:00 cefTRIAXone [Rocephin] 1 gm Sodium Chloride 0.9% [Normal Saline] 50 ml IV Q24H 03/22/20 15:32 Convert IV to Saline Lock [OM.PC] Routine 03/22/20 17:14 RT Aerosol Therapy [RC] ASDIRECTED 03/22/20 18:34 Albuterol [Proventil Neb Soln] 2.5 mg NEB Q4HRRT PRN 03/22/20 22:00 Albuterol/Ipratropium [DuoNeb 3.0-0.5 MG/3 ML] 3 ml NEB QID 03/23/20 05:00 INR,PT,PROTHROMBIN TIME [COAG] Timed - Plan Plan:: ASSESSMENT AND PLAN CONGESTIVE HEART FAILURE-increase shortness of breath through the day, inspiratory rales noted on exam. Chest x-ray shows evidence of pulmonary edema and echocardiogram shows severely decreased left ventricular function. -Saline lock IV -Furosemide 60 mg IV now, reassess in a.m. URINARY TRACT INFECTION-evidence of infection noted on urinalysis -Urine culture pending -Ceftriaxone 1 g IV every 24 hours pending culture results SEVERE WEAKNESS-likely secondary to CHF exacerbation and urinary tract infection. No focal findings identified on neurologic exam or by history. CT scan of the head without contrast shows no acute abnormalities. 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 -Treat underlying conditions as above -Physical therapy consult CHRONIC KIDNEY DISEASE STAGE IIIb-name is elevated from baseline, but not yet in the range of acute kidney injury -Closely monitor urine output and renal function TYPE 2 DIABETES MELLITUS -Hold glipizide -4 times daily glucometers -Low-dose sliding scale Humalog ATRIAL FIBRILLATION-rate well controlled -Continue outpatient medical therapy including warfarin -Daily INR MAINTENANCE ISSUES -DVT prophylaxis; current therapy with warfarin should provide adequate DVT prophylaxis -GI prophylaxis; not indicated -Busch catheter; chronic indwelling catheter -Nutrition; 2 g sodium diet -Nicotine dependence; not required CODE STATUS-FULL CODE ADMISSION STATUS-patient will be admitted to inpatient status, expect at least a 2 night hospital stay for evaluation and management of problems as outlined above. At the time of this admission I do not reasonably expected evaluation and management of this problem will require more than a 96 hour hospital stay. DISPOSITION-anticipate discharge to home after the hospital stay. PRIMARY CARE PROVIDER-Dr. Lynch
[2020-03-22] MEDS ORDERED: 50% Dextrose in Water 50 ML Syringe IV PRN (18:49)
[2020-03-22] MEDS ORDERED: Glucose Gel 15 GM in 37.5 GM Tube PO PRN (18:49)
[2020-03-22] MEDS: Albuterol/Ipratropium 3.0-0.5 MG/3 ML Neb Soln NEB SCH (20:33)
[2020-03-22] MEDS: Insulin Lispro 100 Unit/ML 3 ML KwikPen SUBCUT SCH (22:23)
[2020-03-23] MEDS: oxyCODONE 5 MG Tab PO PRN ×2 (00:02→21:15)
[2020-03-23] MEDS: Acetaminophen 325 MG Tab PO PRN ×2 (00:02→21:14)
[2020-03-23] MEDS: Albuterol/Ipratropium 3.0-0.5 MG/3 ML Neb Soln NEB SCH ×4 (07:14→21:14)
[2020-03-23] MEDS: Insulin Lispro 100 Unit/ML 3 ML KwikPen SUBCUT SCH ×4 (07:55→21:24)
[2020-03-23] MEDS: Pantoprazole 40 MG Tab.CR PO SCH (07:56)
[2020-03-23] MEDS: Allopurinol 100 MG Tab PO SCH (09:40)
[2020-03-23] MEDS: Lactobacillus Rhamnosus GG (Probiotic) Cap PO SCH ×2 (09:40→20:01)
[2020-03-23] MEDS: Bumetanide 1 MG Tab PO SCH (09:40)
[2020-03-23] MEDS: cefTRIAXone 1 GM in Sodium Chloride 0.9% 50 ML IV SCH (09:41)
[2020-03-23] MEDS: Metoprolol Tartrate 25 MG Tab PO SCH ×2 (09:41→21:17)
--- NOTE | 2020-03-23 12:28 | PCM.PN ---
- General Info Date of Service: 03/23/20 Subjective Update: Mr. Dalal feels significantly improved today compared to yesterday with less shortness of breath and weakness. He was given IV furosemide yesterday afternoon with very good result and improvement in symptoms. Echocardiogram shows severely decreased left ventricular function and chest imaging showed evidence of pulmonary edema. - Review of Systems General: Reports: Weakness, Fatigue. Denies: Fever, Chills Pulmonary: Reports: Shortness of Breath. Denies: Pleuritic Chest Pain, Cough, Sputum, Hemoptysis, Wheezing Cardiovascular: Reports: Dyspnea on Exertion, Edema. Denies: Chest Pain, Palpitations, Orthopnea, PND, Lightheadedness Gastrointestinal: Reports: No Symptoms - Patient Data Vitals - Most Recent: Last Vital Signs Temp 95.7 F L 03/23/20 07:44 Pulse 75 03/23/20 10:48 Resp 16 03/23/20 07:44 BP 110/59 L 03/23/20 09:41 Pulse Ox 95 03/23/20 10:48 Weight - Most Recent: 226 lb 0.004 oz I&O - Last 24 Hours: Intake & Output 03/22/20 03/23/20 03/23/20 22:59 06:59 14:59 Intake Total 1340 500 790 Output Total 650 925 Balance 690 -425 790 Lab Results Last 24 Hours: Laboratory Results - last 24 hr 03/22/20 03/22/20 03/22/20 Range/Units 15:24 17:00 20:49 WBC (4.5-11.0) K/uL RBC (4.30-5.90) M/uL Hgb (12.0-15.0) g/dL Hct (40.0-54.0) % MCV (80-98) fL MCH (27-31) pg MCHC (32-36) % Plt Count (150-400) K/uL Neut % (Auto) (36-66) % Lymph % (Auto) (24-44) % Casey % (Auto) (2-6) % Eos % (Auto) (2-4) % Baso % (Auto) (0-1) % PT 26.7 H (9.5-12.0) sec INR 2.49 H (0.80-1.20) Sodium (140-148) mmol/L Potassium (3.6-5.2) mmol/L Chloride (100-108) mmol/L Carbon Dioxide (21-32) mmol/L Anion Gap (5.0-14.0) mmol/L BUN (7-18) mg/dL Creatinine (0.8-1.3) mg/dL Est Cr Clr Drug Dosing mL/min Estimated GFR (MDRD) (>60) Glucose (74-106) mg/dL POC Glucose 156 H 154 H (74-106) MG/DL Calcium (8.5-10.1) mg/dL 03/23/20 03/23/20 03/23/20 Range/Units 05:50 07:38 09:33 WBC 9.3 (4.5-11.0) K/uL RBC 4.25 L (4.30-5.90) M/uL Hgb 12.4 (12.0-15.0) g/dL Hct 39.4 L (40.0-54.0) % MCV 93 (80-98) fL MCH 29 (27-31) pg MCHC 32 (32-36) % Plt Count 136 L (150-400) K/uL Neut % (Auto) 81 H (36-66) % Lymph % (Auto) 13 L (24-44) % Casey % (Auto) 5 (2-6) % Eos % (Auto) 1 L (2-4) % Baso % (Auto) 0 (0-1) % PT 27.7 H (9.5-12.0) sec INR 2.59 H (0.80-1.20) Sodium (140-148) mmol/L Potassium (3.6-5.2) mmol/L Chloride (100-108) mmol/L Carbon Dioxide (21-32) mmol/L Anion Gap (5.0-14.0) mmol/L BUN (7-18) mg/dL Creatinine (0.8-1.3) mg/dL Est Cr Clr Drug Dosing mL/min Estimated GFR (MDRD) (>60) Glucose (74-106) mg/dL POC Glucose 128 H (74-106) MG/DL Calcium (8.5-10.1) mg/dL 03/23/20 03/23/20 Range/Units 09:33 11:30 WBC (4.5-11.0) K/uL RBC (4.30-5.90) M/uL Hgb (12.0-15.0) g/dL Hct (40.0-54.0) % MCV (80-98) fL MCH (27-31) pg MCHC (32-36) % Plt Count (150-400) K/uL Neut % (Auto) (36-66) % Lymph % (Auto) (24-44) % Casey % (Auto) (2-6) % Eos % (Auto) (2-4) % Baso % (Auto) (0-1) % PT (9.5-12.0) sec INR (0.80-1.20) Sodium 135 L (140-148) mmol/L Potassium 3.8 (3.6-5.2) mmol/L Chloride 99 L (100-108) mmol/L Carbon Dioxide 29 (21-32) mmol/L Anion Gap 10.8 (5.0-14.0) mmol/L BUN 40 H (7-18) mg/dL Creatinine 2.1 H (0.8-1.3) mg/dL Est Cr Clr Drug Dosing 27.24 mL/min Estimated GFR (MDRD) 30 L (>60) Glucose 239 H (74-106) mg/dL POC Glucose 154 H (74-106) MG/DL Calcium 8.2 L (8.5-10.1) mg/dL Terrence Results Last 24 Hours: Microbiology 03/21/20 21:17 Urine Culture - Preliminary Urine, Busch Cath (Indwelling) Med Orders - Current: Current Medications Acetaminophen (Tylenol) 650 mg PO Q4H PRN PRN Reason: Pain (Mild 1-3)/fever Last Admin: 03/23/20 00:02 Dose: 650 mg Documented by: Albuterol (Proventil Neb Soln) 2.5 mg NEB Q4H PRN PRN Reason: Dyspnea Albuterol/Ipratropium (Duoneb 3.0-0.5 Mg/3 Ml) 3 ml NEB QIDRT [facility] Last Admin: 03/23/20 10:48 Dose: 3 ml Documented by: Allopurinol (Zyloprim) 100 mg PO DAILY [facility] Last Admin: 03/23/20 09:40 Dose: 100 mg Documented by: Bumetanide (Bumex) 1 mg PO DAILY [facility] Last Admin: 03/23/20 09:40 Dose: 1 mg Documented by: Dextrose (Glutose 15) 15 gm PO ONETIME PRN PRN Reason: Hypoglycemia Dextrose/Water (Dextrose 50% In Water) 50 ml IV ONETIME PRN PRN Reason: Hypoglycemia Finasteride (Proscar) 5 mg PO BEDTIME [facility] Last Admin: 03/22/20 20:27 Dose: 5 mg Documented by: Promethazine HCl 6.25 mg/ (Sodium Chloride) 50.25 mls @ 200 mls/hr IV Q6H PRN PRN Reason: Nausea/Vomiting Ceftriaxone Sodium 1 gm/ (Sodium Chloride) 50 mls @ 100 mls/hr IV Q24H [facility] Last Admin: 03/23/20 09:41 Dose: 100 mls/hr Documented by: Insulin Human Lispro (Humalog) 0 unit SUBCUT QIDACANDBED [facility]; Protocol Last Admin: 03/23/20 07:55 Dose: Not Given Documented by: Lactobacillus Rhamnosus (Culturelle) 1 cap PO BID [facility] Last Admin: 03/23/20 09:40 Dose: 1 cap Documented by: Melatonin (Melatonin) 9 mg PO BEDTIME [facility] Metoprolol Tartrate (Lopressor) 12.5 mg PO Q12H [facility] Last Admin: 03/23/20 09:41 Dose: 12.5 mg Documented by: Morphine Sulfate (Morphine) 2 mg IVPUSH Q2H PRN PRN Reason: Pain (severe 7-10) Ondansetron HCl (Zofran Odt) 4 mg PO Q6H PRN PRN Reason: Nausea able to take PO Oxycodone HCl (Oxycodone) 5 mg PO Q4H PRN PRN Reason: Pain (moderate 4-6) Last Admin: 03/23/20 00:02 Dose: 5 mg Documented by: Pantoprazole Sodium (Protonix) 40 mg PO ACBREAKFAST [facility] Last Admin: 03/23/20 07:56 Dose: 40 mg Documented by: Warfarin Sodium (Coumadin) 5 mg PO DAILY@1300 [facility] Last Admin: 03/22/20 17:07 Dose: 5 mg Documented by: Discontinued Medications Albuterol/Ipratropium (Duoneb 3.0-0.5 Mg/3 Ml) 3 ml NEB ONETIME ONE Stop: 03/22/20 17:15 Last Admin: 03/22/20 18:01 Dose: 3 ml Documented by: Ciprofloxacin (Ciprofloxacin Hcl) 500 mg PO BID [facility] Last Admin: 03/22/20 08:26 Dose: 500 mg Documented by: Doxycycline Hyclate (Vibramycin) 100 mg PO Q12H [facility] Last Admin: 03/22/20 10:16 Dose: 100 mg Documented by: Furosemide (Lasix) 60 mg IVPUSH NOW ONE Stop: 03/22/20 18:35 Last Admin: 03/22/20 18:42 Dose: 60 mg Documented by: Glipizide (Glucotrol) 5 mg PO BIDMEALS [facility] Last Admin: 03/22/20 17:03 Dose: 5 mg Documented by: Lactated Ringer's (Ringers, Lactated) 1,000 mls @ 500 mls/hr IV BOLUS ONE Stop: 03/21/20 22:27 Last Admin: 03/21/20 20:53 Dose: 500 mls/hr Documented by: Lactated Ringer's (Ringers, Lactated) 1,000 mls @ 100 mls/hr IV ASDIRECTED [facility] Last Admin: 03/22/20 15:13 Dose: 100 mls/hr Documented by: Nitroglycerin (Nitro-Bid 2%) 1 gm TOP ONETIME ONE Stop: 03/21/20 20:41 Last Admin: 03/21/20 21:00 Dose: 1 gm Documented by: Trimethoprim/Sulfamethoxazole (Septra Ds) 1 tab PO BID [facility] Last Admin: 03/22/20 00:24 Dose: Not Given Documented by: - Exam Quality Assessment: Supplemental Oxygen, DVT Prophylaxis General: Alert, Oriented, Cooperative, Mild Distress Lungs: Normal Respiratory Effort, Decreased Breath Sounds. No: Rales, Rhonchi, Wheezing Cardiovascular: Regular Rate, Irregular Rhythm, Murmurs GI/Abdominal Exam: Soft, Non-Tender, No Organomegaly, No Distention Extremities: Non-Tender, Pedal Edema Sepsis Event Note - Evaluation Sepsis Screening Result: No Definite Risk - Focused Exam Vital Signs: Vital Signs Temp Pulse Pulse Pulse Resp BP BP 03/23/20 10:48 75 03/23/20 09:41 78 110/59 L 03/23/20 08:18 03/23/20 07:44 95.7 F L 78 16 110/59 L 03/23/20 07:17 75 03/23/20 03:00 96.3 F L 70 20 102/60 03/23/20 01:27 Pulse Ox Pulse Ox 03/23/20 10:48 95 03/23/20 09:41 03/23/20 08:18 96 03/23/20 07:44 95 03/23/20 07:17 97 03/23/20 03:00 95 03/23/20 01:27 95 - Problem List Review Problem List Initiated/Reviewed/Updated: Yes - My Orders Last 24 Hours: My Active Orders 03/22/20 15:32 Convert IV to Saline Lock [OM.PC] Routine 03/22/20 17:14 RT Aerosol Therapy [RC] ASDIRECTED 03/22/20 18:34 Albuterol [Proventil Neb Soln] 2.5 mg NEB Q4H PRN 03/22/20 18:49 Communication Order [RC] STAT Diabetes Education [RC] Click to Edit Notify Provider [RC] PRN Dextrose 50% in Water 50 ml IV ONETIME PRN Dextrose [Glutose 15] 15 gm PO ONETIME PRN 03/22/20 20:00 Insulin Lispro [HumaLOG] See Protocol SUBCUT QIDACANDBED 03/22/20 21:00 Albuterol/Ipratropium [DuoNeb 3.0-0.5 MG/3 ML] 3 ml NEB QIDRT 03/23/20 Breakfast 2 Gram Sodium Diet [DIET] 03/23/20 16:30 GLUCOSE POC LAB TO COLLECT JPM [POC] QIDACANDBED 03/23/20 21:00 GLUCOSE POC LAB TO COLLECT JPM [POC] QIDACANDBED Melatonin 9 mg PO BEDTIME 03/24/20 05:00 BASIC METABOLIC PANEL,BMP [CHEM] Timed INR,PT,PROTHROMBIN TIME [COAG] Timed 03/24/20 07:30 GLUCOSE POC LAB TO COLLECT JPM [POC] QIDACANDBED 03/24/20 11:30 GLUCOSE POC LAB TO COLLECT JPM [POC] QIDACANDBED 03/24/20 16:30 GLUCOSE POC LAB TO COLLECT JPM [POC] QIDACANDBED 03/24/20 21:00 GLUCOSE POC LAB TO COLLECT JPM [POC] QIDACANDBED 03/25/20 07:30 GLUCOSE POC LAB TO COLLECT JPM [POC] QIDACANDBED 03/25/20 11:30 GLUCOSE POC LAB TO COLLECT JPM [POC] QIDACANDBED 03/25/20 16:30 GLUCOSE POC LAB TO COLLECT JPM [POC] QIDACANDBED 03/25/20 21:00 GLUCOSE POC LAB TO COLLECT JPM [POC] QIDACANDBED 03/26/20 07:30 GLUCOSE POC LAB TO COLLECT JPM [POC] QIDACANDBED 03/26/20 11:30 GLUCOSE POC LAB TO COLLECT JPM [POC] QIDACANDBED 03/26/20 16:30 GLUCOSE POC LAB TO COLLECT JPM [POC] QIDACANDBED 03/26/20 21:00 GLUCOSE POC LAB TO COLLECT JPM [POC] QIDACANDBED 03/27/20 07:30 GLUCOSE POC LAB TO COLLECT JPM [POC] QIDACANDBED 03/27/20 11:30 GLUCOSE POC LAB TO COLLECT JPM [POC] QIDACANDBED 03/27/20 16:30 GLUCOSE POC LAB TO COLLECT JPM [POC] QIDACANDBED - Plan Plan:: ASSESSMENT AND PLAN CONGESTIVE HEART FAILURE-increase shortness of breath through the day, inspiratory rales noted on exam. Chest x-ray shows evidence of pulmonary edema and echocardiogram shows severely decreased left ventricular function. Dramatically improved following diuresis, unfortunately creatinine is elevated following extra dose of diuretic therapy -Saline lock IV -Hold IV furosemide today URINARY TRACT INFECTION-evidence of infection noted on urinalysis -Urine culture pending -Ceftriaxone 1 g IV every 24 hours pending culture results SEVERE WEAKNESS-likely secondary to CHF exacerbation and urinary tract infection. No focal findings identified on neurologic exam or by history. CT scan of the head without contrast shows no acute abnormalities. 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 -Treat underlying conditions as above -Physical therapy consult CHRONIC KIDNEY DISEASE STAGE IIIb-creatinine elevated today following diuresis yesterday -Closely monitor urine output and renal function TYPE 2 DIABETES MELLITUS -Hold glipizide -4 times daily glucometers -Low-dose sliding scale Humalog ATRIAL FIBRILLATION-rate well controlled -Continue outpatient medical therapy including warfarin -Daily INR MAINTENANCE ISSUES -DVT prophylaxis; current therapy with warfarin should provide adequate DVT prophylaxis -GI prophylaxis; not indicated -Busch catheter; chronic indwelling catheter -Nutrition; 2 g sodium diet -Nicotine dependence; not required CODE STATUS-FULL CODE ADMISSION STATUS-patient will be admitted to inpatient status, expect at least a 2 night hospital stay for evaluation and management of problems as outlined above. At the time of this admission I do not reasonably expected evaluation and management of this problem will require more than a 96 hour hospital stay. DISPOSITION-anticipate discharge to home after the hospital stay. PRIMARY CARE PROVIDER-Dr. Lynch
[2020-03-23] MEDS: Warfarin 5 MG Tab PO SCH (12:31)
[2020-03-23] MEDS: Melatonin 3 MG Tab PO SCH (20:01)
[2020-03-23] MEDS: Finasteride 5 MG Tab PO SCH (20:02)
[2020-03-23] MEDS: Docusate Sodium 100 MG Cap PO PRN (21:14)
[2020-03-24] MEDS: Albuterol/Ipratropium 3.0-0.5 MG/3 ML Neb Soln NEB SCH ×4 (07:08→20:06)
[2020-03-24] MEDS: Insulin Lispro 100 Unit/ML 3 ML KwikPen SUBCUT SCH ×4 (08:25→20:03)
[2020-03-24] MEDS: Pantoprazole 40 MG Tab.CR PO SCH (08:27)
[2020-03-24] MEDS: Bumetanide 1 MG Tab PO SCH (08:28)
[2020-03-24] MEDS: Allopurinol 100 MG Tab PO SCH (08:29)
[2020-03-24] MEDS: Lactobacillus Rhamnosus GG (Probiotic) Cap PO SCH ×2 (08:29→20:06)
[2020-03-24] MEDS: Metoprolol Tartrate 25 MG Tab PO SCH ×2 (09:58→22:12)
[2020-03-24] MEDS: cefTRIAXone 1 GM in Sodium Chloride 0.9% 50 ML IV SCH (10:00)
[2020-03-24] MEDS ORDERED: Sodium Phosphate,Monobasic/Sodium Phosphate,Dibasic Enema 133 ML Bottle RECTAL PRN (11:59)
--- NOTE | 2020-03-24 12:02 | PCM.PN ---
- General Info Date of Service: 03/24/20 Subjective Update: Mr. Dalal is not felt as well today, he experienced abdominal bloating likely secondary to constipation earlier, that has somewhat improved after a small bowel movement. During the afternoon is become more short of breath and developed rapid irregular rhythm. EKG shows atrial fibrillation with rapid ventricular response and underlying left bundle branch block. He has been transferred to the ICU for management of his rapid heart rate. Functional Status: Reports: Tolerating Diet, Ambulating, Urinating - Review of Systems General: Reports: Weakness, Fatigue. Denies: Fever, Chills Pulmonary: Reports: Shortness of Breath, Wheezing. Denies: Pleuritic Chest Pain, Cough, Sputum, Hemoptysis Cardiovascular: Reports: Palpitations, Dyspnea on Exertion. Denies: Chest Pain, Orthopnea, PND, Edema, Lightheadedness Gastrointestinal: Reports: Constipation. Denies: Difficulty Swallowing, Hematochezia, Melena, Nausea, Vomiting Genitourinary: Reports: No Symptoms - Patient Data Vitals - Most Recent: Last Vital Signs Temp 96.4 F L 03/24/20 11:03 Pulse 93 03/24/20 11:03 Resp 28 H 03/24/20 11:03 BP 139/76 03/24/20 11:03 Pulse Ox 95 03/24/20 11:03 Weight - Most Recent: 226 lb 0.004 oz I&O - Last 24 Hours: Intake & Output 03/23/20 03/24/20 03/24/20 22:59 06:59 14:59 Intake Total 960 300 Output Total 650 500 Balance 310 -200 Lab Results Last 24 Hours: Laboratory Results - last 24 hr 03/23/20 03/23/20 03/24/20 Range/Units 16:16 21:00 04:33 PT 33.7 H (9.5-12.0) sec INR 3.16 H (0.80-1.20) Sodium (140-148) mmol/L Potassium (3.6-5.2) mmol/L Chloride (100-108) mmol/L Carbon Dioxide (21-32) mmol/L Anion Gap (5.0-14.0) mmol/L BUN (7-18) mg/dL Creatinine (0.8-1.3) mg/dL Est Cr Clr Drug Dosing mL/min Estimated GFR (MDRD) (>60) Glucose (74-106) mg/dL POC Glucose 210 H 208 H (74-106) MG/DL Calcium (8.5-10.1) mg/dL 03/24/20 03/24/20 03/24/20 Range/Units 04:33 07:30 11:30 PT (9.5-12.0) sec INR (0.80-1.20) Sodium 138 L (140-148) mmol/L Potassium 3.7 (3.6-5.2) mmol/L Chloride 101 (100-108) mmol/L Carbon Dioxide 31 (21-32) mmol/L Anion Gap 9.7 (5.0-14.0) mmol/L BUN 42 H (7-18) mg/dL Creatinine 2.0 H (0.8-1.3) mg/dL Est Cr Clr Drug Dosing 28.60 mL/min Estimated GFR (MDRD) 32 L (>60) Glucose 127 H (74-106) mg/dL POC Glucose 146 H 238 H (74-106) MG/DL Calcium 8.3 L (8.5-10.1) mg/dL Terrence Results Last 24 Hours: Microbiology 03/21/20 21:17 Urine Culture - Preliminary Urine, Busch Cath (Indwelling) Med Orders - Current: Current Medications Acetaminophen (Tylenol) 650 mg PO Q4H PRN PRN Reason: Pain (Mild 1-3)/fever Last Admin: 03/23/20 21:14 Dose: 650 mg Documented by: Albuterol (Proventil Neb Soln) 2.5 mg NEB Q4H PRN PRN Reason: Dyspnea Albuterol/Ipratropium (Duoneb 3.0-0.5 Mg/3 Ml) 3 ml NEB QIDRT [facility] Last Admin: 03/24/20 10:54 Dose: 3 ml Documented by: Allopurinol (Zyloprim) 100 mg PO DAILY [facility] Last Admin: 03/24/20 08:29 Dose: 100 mg Documented by: Bisacodyl (Dulcolax) 10 mg RECTAL ONETIME ONE Stop: 03/24/20 12:00 Bumetanide (Bumex) 2 mg PO DAILY [facility] Dextrose (Glutose 15) 15 gm PO ONETIME PRN PRN Reason: Hypoglycemia Dextrose/Water (Dextrose 50% In Water) 50 ml IV ONETIME PRN PRN Reason: Hypoglycemia Docusate Sodium (Colace) 100 mg PO BID PRN PRN Reason: Constipation Last Admin: 03/23/20 21:14 Dose: 100 mg Documented by: Finasteride (Proscar) 5 mg PO BEDTIME [facility] Last Admin: 03/23/20 20:02 Dose: 5 mg Documented by: Furosemide (Lasix) 40 mg IVPUSH NOW ONE Stop: 03/24/20 17:01 Promethazine HCl 6.25 mg/ (Sodium Chloride) 50.25 mls @ 200 mls/hr IV Q6H PRN PRN Reason: Nausea/Vomiting Ceftriaxone Sodium 1 gm/ (Sodium Chloride) 50 mls @ 100 mls/hr IV Q24H [facility] Last Admin: 03/24/20 10:00 Dose: 100 mls/hr Documented by: Insulin Human Lispro (Humalog) 0 unit SUBCUT QIDACANDBED [facility]; Protocol Last Admin: 03/24/20 11:53 Dose: 2 unit Documented by: Lactobacillus Rhamnosus (Culturelle) 1 cap PO BID [facility] Last Admin: 03/24/20 08:29 Dose: 1 cap Documented by: Melatonin (Melatonin) 9 mg PO BEDTIME [facility] Last Admin: 03/23/20 20:01 Dose: 9 mg Documented by: Metoprolol Tartrate (Lopressor) 12.5 mg PO Q12H [facility] Last Admin: 03/24/20 09:58 Dose: 12.5 mg Documented by: Morphine Sulfate (Morphine) 2 mg IVPUSH Q2H PRN PRN Reason: Pain (severe 7-10) Ondansetron HCl (Zofran Odt) 4 mg PO Q6H PRN PRN Reason: Nausea able to take PO Oxycodone HCl (Oxycodone) 5 mg PO Q4H PRN PRN Reason: Pain (moderate 4-6) Last Admin: 03/23/20 21:15 Dose: 5 mg Documented by: Pantoprazole Sodium (Protonix) 40 mg PO ACBREAKFAST [facility] Last Admin: 03/24/20 08:27 Dose: 40 mg Documented by: Polyethylene Glycol (Miralax) 17 gm PO ONETIME ONE Stop: 03/24/20 12:00 Sodium Biphosphate/Sodium Phosphate (Fleet Enema) 133 ml RECTAL ONETIME PRN PRN Reason: Constipation Warfarin Sodium (Coumadin) 5 mg PO DAILY@1300 [facility] Last Admin: 03/23/20 12:31 Dose: 5 mg Documented by: Discontinued Medications Albuterol/Ipratropium (Duoneb 3.0-0.5 Mg/3 Ml) 3 ml NEB ONETIME ONE Stop: 03/22/20 17:15 Last Admin: 03/22/20 18:01 Dose: 3 ml Documented by: Bumetanide (Bumex) 1 mg PO DAILY [facility] Last Admin: 03/24/20 08:28 Dose: 1 mg Documented by: Ciprofloxacin (Ciprofloxacin Hcl) 500 mg PO BID [facility] Last Admin: 03/22/20 08:26 Dose: 500 mg Documented by: Doxycycline Hyclate (Vibramycin) 100 mg PO Q12H [facility] Last Admin: 03/22/20 10:16 Dose: 100 mg Documented by: Furosemide (Lasix) 60 mg IVPUSH NOW ONE Stop: 03/22/20 18:35 Last Admin: 03/22/20 18:42 Dose: 60 mg Documented by: Glipizide (Glucotrol) 5 mg PO BIDMEALS [facility] Last Admin: 03/22/20 17:03 Dose: 5 mg Documented by: Lactated Ringer's (Ringers, Lactated) 1,000 mls @ 500 mls/hr IV BOLUS ONE Stop: 03/21/20 22:27 Last Admin: 03/21/20 20:53 Dose: 500 mls/hr Documented by: Lactated Ringer's (Ringers, Lactated) 1,000 mls @ 100 mls/hr IV ASDIRECTED [facility] Last Admin: 03/22/20 15:13 Dose: 100 mls/hr Documented by: Nitroglycerin (Nitro-Bid 2%) 1 gm TOP ONETIME ONE Stop: 03/21/20 20:41 Last Admin: 03/21/20 21:00 Dose: 1 gm Documented by: Trimethoprim/Sulfamethoxazole (Septra Ds) 1 tab PO BID [facility] Last Admin: 03/22/20 00:24 Dose: Not Given Documented by: - Exam Quality Assessment: Supplemental Oxygen, Urine Catheter, DVT Prophylaxis General: Alert, Oriented, Cooperative, Moderate Distress Lungs: Decreased Breath Sounds, Wheezing. No: Crackles, Rales, Rhonchi Cardiovascular: No Murmurs, Irregular Rhythm, Tachycardia GI/Abdominal Exam: Soft, Non-Tender, No Organomegaly, Distended. No: Guarding, Rigid, Rebound Extremities: Non-Tender, Pedal Edema Sepsis Event Note - Evaluation Sepsis Screening Result: No Definite Risk - Focused Exam Vital Signs: Vital Signs Temp Pulse Pulse Resp BP BP Pulse Ox 03/24/20 11:03 96.4 F L 93 28 H 139/76 95 03/24/20 10:55 94 03/24/20 09:58 97 138/59 L 03/24/20 07:43 96.4 F L 97 18 138/59 L 96 03/24/20 07:23 97 03/24/20 07:09 87 03/24/20 04:08 96.5 F L 90 20 119/60 95 03/24/20 01:00 93 L Pulse Ox 03/24/20 11:03 03/24/20 10:55 95 03/24/20 09:58 03/24/20 07:43 03/24/20 07:23 03/24/20 07:09 95 03/24/20 04:08 03/24/20 01:00 - Problem List Review Problem List Initiated/Reviewed/Updated: Yes - My Orders Last 24 Hours: My Active Orders 03/23/20 20:04 Docusate Sodium [Colace] 100 mg PO BID PRN 03/23/20 21:00 Melatonin 9 mg PO BEDTIME 03/24/20 11:59 bisacodyL [Dulcolax] 10 mg RECTAL ONETIME ONE polyethylene glycoL 3350 [MiraLAX] 17 gm PO ONETIME ONE 03/24/20 11:59 Na Phos,M-B/Na Phos,DI-B [Fleet Enema] 133 ml RECTAL ONETIME PRN 03/24/20 16:30 GLUCOSE POC LAB TO COLLECT JPM [POC] QIDACANDBED 03/24/20 17:00 Furosemide [Lasix] 40 mg IVPUSH NOW ONE 03/24/20 21:00 GLUCOSE POC LAB TO COLLECT JPM [POC] QIDACANDBED 03/25/20 05:00 BASIC METABOLIC PANEL,BMP [CHEM] Timed 03/25/20 07:30 GLUCOSE POC LAB TO COLLECT JPM [POC] QIDACANDBED 03/25/20 09:00 Bumetanide [Bumex] 2 mg PO DAILY 03/25/20 11:30 GLUCOSE POC LAB TO COLLECT JPM [POC] QIDACANDBED 03/25/20 16:30 GLUCOSE POC LAB TO COLLECT JPM [POC] QIDACANDBED 03/25/20 21:00 GLUCOSE POC LAB TO COLLECT JPM [POC] QIDACANDBED 03/26/20 07:30 GLUCOSE POC LAB TO COLLECT JPM [POC] QIDACANDBED 03/26/20 11:30 GLUCOSE POC LAB TO COLLECT JPM [POC] QIDACANDBED 03/26/20 16:30 GLUCOSE POC LAB TO COLLECT JPM [POC] QIDACANDBED 03/26/20 21:00 GLUCOSE POC LAB TO COLLECT JPM [POC] QIDACANDBED 03/27/20 07:30 GLUCOSE POC LAB TO COLLECT JPM [POC] QIDACANDBED 03/27/20 11:30 GLUCOSE POC LAB TO COLLECT JPM [POC] QIDACANDBED 03/27/20 16:30 GLUCOSE POC LAB TO COLLECT JPM [POC] QIDACANDBED - Plan Plan:: ASSESSMENT AND PLAN CONGESTIVE HEART FAILURE-Short of breath through the day today, renal function stable from yesterday, complicated by atrial fibrillation with rapid ventricular response. Cardiogram shows severely decreased left ventricular function with estimated systolic ejection fraction of 25 to 30%, moderate diastolic dysfunction mild to moderate aortic stenosis and moderate mitral regurgitation -Saline lock IV -Furosemide 40 mg IV today URINARY TRACT INFECTION-evidence of infection noted on urinalysis -Urine culture pending -Ceftriaxone 1 g IV every 24 hours pending culture results SEVERE WEAKNESS-likely secondary to CHF exacerbation and urinary tract infection. Overall strength is improved over the last 24 hours and he has been able to walk short distances with assistance and use of a walker. -Treat underlying conditions as above -Physical therapy consult CHRONIC KIDNEY DISEASE STAGE IIIb-threatening stable over the last 24 hours -Closely monitor urine output and renal function TYPE 2 DIABETES MELLITUS -Hold glipizide -4 times daily glucometers -Low-dose sliding scale Humalog ATRIAL FIBRILLATION-with rapid ventricular response -Continue outpatient medical therapy including warfarin -Daily INR -For to the ICU for diltiazem bolus and continuous infusion of diltiazem MAINTENANCE ISSUES -DVT prophylaxis; current therapy with warfarin should provide adequate DVT prophylaxis -GI prophylaxis; not indicated -Busch catheter; chronic indwelling catheter -Nutrition; 2 g sodium diet -Nicotine dependence; not required CODE STATUS-FULL CODE ADMISSION STATUS-patient will be admitted to inpatient status, expect at least a 2 night hospital stay for evaluation and management of problems as outlined above. At the time of this admission I do not reasonably expected evaluation and management of this problem will require more than a 96 hour hospital stay. DISPOSITION-anticipate discharge to home after the hospital stay. PRIMARY CARE PROVIDER-Dr. Lynch
[2020-03-24] MEDS ORDERED: Polyethylene Glycol 3350 Powder 17 GM Packet PO ONE (13:00)
[2020-03-24] MEDS ORDERED: Bisacodyl 10 MG Supp RECTAL ONE (13:00)
[2020-03-24] MEDS: Warfarin 5 MG Tab PO SCH (13:07)
[2020-03-24] MEDS ORDERED: Warfarin 2.5 MG Tab PO ONE (13:30)
[2020-03-24] MEDS: Morphine 2 MG/ML SYRINGE IVPUSH PRN ×2 (15:08→20:16)
[2020-03-24] MEDS ORDERED: Furosemide 40 MG/4 ML VIAL IVPUSH ONE ×2 (15:45→17:00)
[2020-03-24] MEDS: Diltiazem 100 MG in Sodium Chloride 0.9% 100 ML IV SCH (15:45)
[2020-03-24] MEDS ORDERED: Diltiazem 25 MG/5 ML SDV IVPUSH ONE (15:45)
[2020-03-24] MEDS ORDERED: Sodium Chloride 0.9% 1,000 ML IV SCH (16:15)
[2020-03-24] MEDS: Docusate Sodium 100 MG Cap PO PRN (17:35)
[2020-03-24] MEDS: Melatonin 3 MG Tab PO SCH (20:05)
[2020-03-24] MEDS: Finasteride 5 MG Tab PO SCH (20:06)
[2020-03-25] MEDS: Morphine 2 MG/ML SYRINGE IVPUSH PRN (03:01)
[2020-03-25] MEDS: Diltiazem 100 MG in Sodium Chloride 0.9% 100 ML IV SCH ×2 (03:01→13:24)
[2020-03-25] MEDS: Albuterol/Ipratropium 3.0-0.5 MG/3 ML Neb Soln NEB SCH ×4 (07:10→20:58)
[2020-03-25] MEDS: Insulin Lispro 100 Unit/ML 3 ML KwikPen SUBCUT SCH ×4 (07:38→20:56)
[2020-03-25] MEDS: Pantoprazole 40 MG Tab.CR PO SCH (07:41)
[2020-03-25] MEDS: Lactobacillus Rhamnosus GG (Probiotic) Cap PO SCH ×2 (08:38→20:58)
[2020-03-25] MEDS: Allopurinol 100 MG Tab PO SCH (08:38)
[2020-03-25] MEDS: Bumetanide 1 MG Tab PO SCH (08:39)
[2020-03-25] MEDS: Metoprolol Tartrate 25 MG Tab PO SCH ×2 (10:09→21:00)
[2020-03-25] MEDS: cefTRIAXone 1 GM in Sodium Chloride 0.9% 50 ML IV SCH (10:10)
[2020-03-25] MEDS: Acetaminophen 325 MG Tab PO PRN (17:02)
[2020-03-25] MEDS: oxyCODONE 5 MG Tab PO PRN (17:02)
[2020-03-25] MEDS: Finasteride 5 MG Tab PO SCH (20:58)
[2020-03-25] MEDS: Melatonin 3 MG Tab PO SCH (20:58)
--- NOTE | 2020-03-25 22:35 | PCM.PN ---
- General Info Date of Service: 03/25/20 Subjective Update: Mr. Dalal is improved over the last 24 hours with less shortness of breath. He did have witnessed probable aspiration earlier today while eating scrambled eggs. This did cause some increase in shortness of breath and raises the possibility that this has been a problem for him recently causing shortness of breath exacerbations. Atrial fibrillation rate is well controlled with diltiazem drip and will be converted to oral medications. - Review of Systems General: Reports: Weakness, Fatigue. Denies: Fever, Chills Pulmonary: Reports: Shortness of Breath, Cough. Denies: Pleuritic Chest Pain, Sputum, Hemoptysis, Wheezing Cardiovascular: Reports: Dyspnea on Exertion. Denies: Chest Pain, Palpitations, Orthopnea, PND, Edema, Lightheadedness Gastrointestinal: Reports: No Symptoms - Patient Data Vitals - Most Recent: Last Vital Signs Temp 98.2 F 03/24/20 19:00 Pulse 85 03/25/20 21:00 Resp 19 03/25/20 19:00 BP 117/58 L 03/25/20 21:00 Pulse Ox 96 03/25/20 19:00 Weight - Most Recent: 226 lb 0.004 oz I&O - Last 24 Hours: Intake & Output 03/25/20 03/25/20 03/25/20 06:59 14:59 22:59 Intake Total 1013 630 Output Total 250 200 Balance 763 430 Lab Results Last 24 Hours: Laboratory Results - last 24 hr 03/25/20 03/25/20 Range/Units 05:23 05:23 PT 41.5 H (9.5-12.0) sec INR 3.91 H (0.80-1.20) Sodium 136 L (140-148) mmol/L Potassium 4.7 (3.6-5.2) mmol/L Chloride 99 L (100-108) mmol/L Carbon Dioxide 29 (21-32) mmol/L Anion Gap 12.7 (5.0-14.0) mmol/L BUN 47 H (7-18) mg/dL Creatinine 2.3 H (0.8-1.3) mg/dL Est Cr Clr Drug Dosing 24.87 mL/min Estimated GFR (MDRD) 27 L (>60) Glucose 178 H (74-106) mg/dL Calcium 8.4 L (8.5-10.1) mg/dL Troponin I 0.142 H* (0.000-0.056) ng/mL Terrence Results Last 24 Hours: Microbiology 03/21/20 21:17 Urine Culture - Final Urine, Busch Cath (Indwelling) Acinetobacter Ursingii Med Orders - Current: Current Medications Acetaminophen (Tylenol) 650 mg PO Q4H PRN PRN Reason: Pain (Mild 1-3)/fever Last Admin: 03/25/20 17:02 Dose: 650 mg Documented by: Albuterol (Proventil Neb Soln) 2.5 mg NEB Q4H PRN PRN Reason: Dyspnea Albuterol/Ipratropium (Duoneb 3.0-0.5 Mg/3 Ml) 3 ml NEB QIDRT [facility] Last Admin: 03/25/20 20:58 Dose: 3 ml Documented by: Allopurinol (Zyloprim) 100 mg PO DAILY [facility] Last Admin: 03/25/20 08:38 Dose: 100 mg Documented by: Bumetanide (Bumex) 2 mg PO DAILY [facility] Last Admin: 03/25/20 08:39 Dose: 2 mg Documented by: Dextrose (Glutose 15) 15 gm PO ONETIME PRN PRN Reason: Hypoglycemia Dextrose/Water (Dextrose 50% In Water) 50 ml IV ONETIME PRN PRN Reason: Hypoglycemia Diltiazem HCl (Cardizem) 30 mg PO Q6HR [facility] Docusate Sodium (Colace) 100 mg PO BID PRN PRN Reason: Constipation Last Admin: 03/24/20 17:35 Dose: 100 mg Documented by: Finasteride (Proscar) 5 mg PO BEDTIME [facility] Last Admin: 03/25/20 20:58 Dose: 5 mg Documented by: Promethazine HCl 6.25 mg/ (Sodium Chloride) 50.25 mls @ 200 mls/hr IV Q6H PRN PRN Reason: Nausea/Vomiting Ceftriaxone Sodium 1 gm/ (Sodium Chloride) 50 mls @ 100 mls/hr IV Q24H [facility] Last Admin: 03/25/20 10:10 Dose: 100 mls/hr Documented by: Insulin Human Lispro (Humalog) 0 unit SUBCUT QIDACANDBED [facility]; Protocol Last Admin: 03/25/20 20:56 Dose: 2 unit Documented by: Lactobacillus Rhamnosus (Culturelle) 1 cap PO BID [facility] Last Admin: 03/25/20 20:58 Dose: 1 cap Documented by: Melatonin (Melatonin) 9 mg PO BEDTIME [facility] Last Admin: 03/25/20 20:58 Dose: 9 mg Documented by: Metoprolol Tartrate (Lopressor) 12.5 mg PO Q12H [facility] Last Admin: 03/25/20 21:00 Dose: 12.5 mg Documented by: Morphine Sulfate (Morphine) 2 mg IVPUSH Q2H PRN PRN Reason: Pain (severe 7-10) Last Admin: 03/25/20 03:01 Dose: 2 mg Documented by: Ondansetron HCl (Zofran Odt) 4 mg PO Q6H PRN PRN Reason: Nausea able to take PO Oxycodone HCl (Oxycodone) 5 mg PO Q4H PRN PRN Reason: Pain (moderate 4-6) Last Admin: 03/25/20 17:02 Dose: 5 mg Documented by: Pantoprazole Sodium (Protonix) 40 mg PO ACBREAKFAST [facility] Last Admin: 03/25/20 07:41 Dose: 40 mg Documented by: Sodium Biphosphate/Sodium Phosphate (Fleet Enema) 133 ml RECTAL ONETIME PRN PRN Reason: Constipation Discontinued Medications Albuterol/Ipratropium (Duoneb 3.0-0.5 Mg/3 Ml) 3 ml NEB ONETIME ONE Stop: 03/22/20 17:15 Last Admin: 03/22/20 18:01 Dose: 3 ml Documented by: Bisacodyl (Dulcolax) 10 mg RECTAL ONETIME ONE Stop: 03/24/20 13:01 Last Admin: 03/24/20 13:03 Dose: 10 mg Documented by: Bumetanide (Bumex) 1 mg PO DAILY [facility] Last Admin: 03/24/20 08:28 Dose: 1 mg Documented by: Ciprofloxacin (Ciprofloxacin Hcl) 500 mg PO BID [facility] Last Admin: 03/22/20 08:26 Dose: 500 mg Documented by: Diltiazem HCl (Diltiazem) 20 mg IVPUSH ONETIME ONE Stop: 03/24/20 15:46 Last Admin: 03/24/20 15:40 Dose: 20 mg Documented by: Doxycycline Hyclate (Vibramycin) 100 mg PO Q12H [facility] Last Admin: 03/22/20 10:16 Dose: 100 mg Documented by: Furosemide (Lasix) 60 mg IVPUSH NOW ONE Stop: 03/22/20 18:35 Last Admin: 03/22/20 18:42 Dose: 60 mg Documented by: Furosemide (Lasix) 40 mg IVPUSH NOW ONE Stop: 03/24/20 17:01 Furosemide (Lasix) 40 mg IVPUSH ONETIME ONE Stop: 03/24/20 15:46 Last Admin: 03/24/20 15:49 Dose: 40 mg Documented by: Glipizide (Glucotrol) 5 mg PO BIDMEALS [facility] Last Admin: 03/22/20 17:03 Dose: 5 mg Documented by: Lactated Ringer's (Ringers, Lactated) 1,000 mls @ 500 mls/hr IV BOLUS ONE Stop: 03/21/20 22:27 Last Admin: 03/21/20 20:53 Dose: 500 mls/hr Documented by: Lactated Ringer's (Ringers, Lactated) 1,000 mls @ 100 mls/hr IV ASDIRECTED [facility] Last Admin: 03/22/20 15:13 Dose: 100 mls/hr Documented by: Diltiazem HCl 100 mg/ Sodium (Chloride) 100 mls @ 5 mls/hr IV TITRATE [facility]; Protocol Last Admin: 03/25/20 13:24 Dose: 10 mg/hr, 10 mls/hr Documented by: Sodium Chloride (Normal Saline) 1,000 mls @ 250 mls/hr IV ASDIRECTED [facility] Stop: 03/24/20 18:15 Last Admin: 03/24/20 17:01 Dose: 250 mls/hr Documented by: Nitroglycerin (Nitro-Bid 2%) 1 gm TOP ONETIME ONE Stop: 03/21/20 20:41 Last Admin: 03/21/20 21:00 Dose: 1 gm Documented by: Polyethylene Glycol (Miralax) 17 gm PO ONETIME ONE Stop: 03/24/20 13:01 Last Admin: 03/24/20 13:02 Dose: 17 gm Documented by: Trimethoprim/Sulfamethoxazole (Septra Ds) 1 tab PO BID [facility] Last Admin: 03/22/20 00:24 Dose: Not Given Documented by: Warfarin Sodium (Coumadin) 5 mg PO DAILY@1300 [facility] Last Admin: 03/24/20 13:07 Dose: Not Given Documented by: Warfarin Sodium (Coumadin) 2.5 mg PO ONETIME ONE Stop: 03/24/20 13:31 Last Admin: 03/24/20 13:39 Dose: 2.5 mg Documented by: - Exam Quality Assessment: DVT Prophylaxis General: Alert, Oriented, Cooperative, Mild Distress Lungs: Clear to Auscultation, Normal Respiratory Effort Cardiovascular: Regular Rate, Regular Rhythm, Murmurs GI/Abdominal Exam: Soft, Non-Tender, No Organomegaly, No Distention Extremities: Non-Tender, Pedal Edema Sepsis Event Note - Evaluation Sepsis Screening Result: Severe Sepsis Risk - Focused Exam Vital Signs: Vital Signs Pulse Pulse Resp BP BP Pulse Ox 03/25/20 21:00 85 117/58 L 03/25/20 19:00 78 19 125/53 L 96 03/25/20 18:00 15 127/49 L 95 03/25/20 17:00 93 22 H 127/77 95 03/25/20 16:00 15 135/65 96 03/25/20 15:00 105 H 22 H 102/81 96 03/25/20 14:35 88 03/25/20 14:00 100 24 H 104/71 95 03/25/20 13:00 90 24 H 128/66 96 03/25/20 12:00 98 19 112/55 L 96 03/25/20 11:00 94 17 110/56 L 98 03/25/20 10:46 87 - Problem List Review Problem List Initiated/Reviewed/Updated: Yes - My Orders Last 24 Hours: My Active Orders 03/25/20 09:00 Bumetanide [Bumex] 2 mg PO DAILY 03/25/20 22:31 Consult to Speech Language Pathology [ASSISTANT FRONT OFFICE MANAGER Evaluation and Treatment] [CONS] Routine 03/25/20 22:45 Diltiazem IR [Cardizem] 30 mg PO Q6HR 03/26/20 05:00 BASIC METABOLIC PANEL,BMP [CHEM] Timed CBC WITH AUTO DIFF [HEME] Timed INR,PT,PROTHROMBIN TIME [COAG] Timed 03/26/20 07:30 GLUCOSE POC LAB TO COLLECT JPM [POC] QIDACANDBED 03/26/20 Breakfast Pureed Diet [DIET] 03/26/20 11:30 GLUCOSE POC LAB TO COLLECT JPM [POC] QIDACANDBED 03/26/20 16:30 GLUCOSE POC LAB TO COLLECT JPM [POC] QIDACANDBED 03/26/20 21:00 GLUCOSE POC LAB TO COLLECT JPM [POC] QIDADBED 03/27/20 07:30 GLUCOSE POC LAB TO COLLECT JPM [POC] QIDADB03/27/20 11:30 GLUCOSE POC LAB TO COLLECT JPM [POC] QIDADBED 03/27/20 16:30 GLUCOSE POC LAB TO COLLECT JPM [POC] QIDACANDBED - Plan Plan:: ASSESSMENT AND PLAN CONGESTIVE HEART FAILURE-Echocardiogram shows severely decreased left ventricular function with estimated systolic ejection fraction of 25 to 30%, moderate diastolic dysfunction mild to moderate aortic stenosis and moderate mitral regurgitation -Saline lock IV -Increase Bumex to 2 mg daily URINARY TRACT INFECTION-evidence of infection noted on urinalysis -Urine culture pending -Ceftriaxone 1 g IV every 24 hours pending culture results SEVERE WEAKNESS-likely secondary to CHF exacerbation and urinary tract infection. -Treat underlying conditions as above -Physical therapy consult CHRONIC KIDNEY DISEASE STAGE IIIb-creatinine modestly increased over the last 24 hours -Closely monitor urine output and renal function TYPE 2 DIABETES MELLITUS -Hold glipizide -4 times daily glucometers -Low-dose sliding scale Humalog ATRIAL FIBRILLATION-with rapid ventricular response -Continue outpatient medical therapy including warfarin -Daily INR -For to the ICU for diltiazem bolus and continuous infusion of diltiazem EPISODES OF ASPIRATION -Pured diet with nectar thickened liquids -Speech therapy consult MAINTENANCE ISSUES -DVT prophylaxis; current therapy with warfarin should provide adequate DVT prophylaxis -GI prophylaxis; not indicated -Busch catheter; chronic indwelling catheter -Nutrition; 2 g sodium diet -Nicotine dependence; not required CODE STATUS-FULL CODE ADMISSION STATUS-patient will be admitted to inpatient status, expect at least a 2 night hospital stay for evaluation and management of problems as outlined above. At the time of this admission I do not reasonably expected evaluation and management of this problem will require more than a 96 hour hospital stay. DISPOSITION-anticipate discharge to home after the hospital stay. PRIMARY CARE PROVIDER-Dr. Lynch
[2020-03-25] MEDS: Diltiazem IR 30 MG Tab PO SCH (23:33)
[2020-03-26] MEDS: Diltiazem IR 30 MG Tab PO SCH (03:44)
[2020-03-26] MEDS: Albuterol/Ipratropium 3.0-0.5 MG/3 ML Neb Soln NEB SCH ×4 (07:38→21:55)
[2020-03-26] MEDS: Insulin Lispro 100 Unit/ML 3 ML KwikPen SUBCUT SCH ×4 (08:13→21:50)
[2020-03-26] MEDS: Bumetanide 1 MG Tab PO SCH (08:15)
[2020-03-26] MEDS: Lactobacillus Rhamnosus GG (Probiotic) Cap PO SCH ×2 (08:15→21:54)
[2020-03-26] MEDS: Pantoprazole 40 MG Tab.CR PO SCH (08:15)
[2020-03-26] MEDS: Allopurinol 100 MG Tab PO SCH (08:16)
[2020-03-26] MEDS ORDERED: Sodium Chloride 0.9% 1,000 ML IV SCH (08:30)
[2020-03-26] MEDS: Metoprolol Tartrate 25 MG Tab PO SCH ×2 (10:28→21:54)
[2020-03-26] MEDS: Diltiazem 180 MG Cap.CD PO SCH (10:29)
[2020-03-26] MEDS: cefTRIAXone 1 GM in Sodium Chloride 0.9% 50 ML IV SCH (10:30)
--- NOTE | 2020-03-26 13:22 | PCM.PN ---
- General Info Date of Service: 03/26/20 Subjective Update: Mr. Dalal has improved modestly since yesterday. He is transition to oral diltiazem, heart rates intermittently elevated on current regimen. Level of dyspnea has been stable, no further episodes of possible aspiration. - Review of Systems General: Reports: Weakness, Fatigue. Denies: Fever, Chills Pulmonary: Reports: No Symptoms Cardiovascular: Reports: No Symptoms Gastrointestinal: Reports: No Symptoms - Patient Data Vitals - Most Recent: Last Vital Signs Temp 95.6 F L 03/26/20 04:00 Pulse 105 H 03/26/20 13:00 Resp 15 03/26/20 13:00 BP 88/55 L 03/26/20 13:00 Pulse Ox 97 03/26/20 13:00 Weight - Most Recent: 226 lb 0.004 oz I&O - Last 24 Hours: Intake & Output 03/25/20 03/26/20 03/26/20 22:59 06:59 14:59 Intake Total 630 Output Total 200 275 Balance 430 -275 Lab Results Last 24 Hours: Laboratory Results - last 24 hr 03/26/20 03/26/20 03/26/20 Range/Units 04:25 04:25 04:25 WBC 12.4 H (4.5-11.0) K/uL RBC 4.40 (4.30-5.90) M/uL Hgb 12.6 (12.0-15.0) g/dL Hct 40.9 (40.0-54.0) % MCV 93 (80-98) fL MCH 29 (27-31) pg MCHC 31 L (32-36) % Plt Count 225 (150-400) K/uL Neut % (Auto) 76 H (36-66) % Lymph % (Auto) 12 L (24-44) % [place] % (Auto) 10 H (2-6) % Eos % (Auto) 2 (2-4) % Baso % (Auto) 0 (0-1) % PT 39.9 H (9.5-12.0) sec INR 3.76 H (0.80-1.20) Sodium 138 L (140-148) mmol/L Potassium 4.5 (3.6-5.2) mmol/L Chloride 99 L (100-108) mmol/L Carbon Dioxide 29 (21-32) mmol/L Anion Gap 14.5 H (5.0-14.0) mmol/L BUN 64 H (7-18) mg/dL Creatinine 2.8 H (0.8-1.3) mg/dL Est Cr Clr Drug Dosing 20.43 mL/min Estimated GFR (MDRD) 22 L (>60) Glucose 164 H (74-106) mg/dL Calcium 8.6 (8.5-10.1) mg/dL Med Orders - Current: Current Medications Acetaminophen (Tylenol) 650 mg PO Q4H PRN PRN Reason: Pain (Mild 1-3)/fever Last Admin: 03/25/20 17:02 Dose: 650 mg Documented by: Albuterol (Proventil Neb Soln) 2.5 mg NEB Q4H PRN PRN Reason: Dyspnea Albuterol/Ipratropium (Duoneb 3.0-0.5 Mg/3 Ml) 3 ml NEB QIDRT [facility] Last Admin: 03/26/20 10:53 Dose: 3 ml Documented by: Allopurinol (Zyloprim) 100 mg PO DAILY [facility] Last Admin: 03/26/20 08:16 Dose: 100 mg Documented by: Cephalexin (Keflex) 250 mg PO Q6HR [facility] Dextrose (Glutose 15) 15 gm PO ONETIME PRN PRN Reason: Hypoglycemia Dextrose/Water (Dextrose 50% In Water) 50 ml IV ONETIME PRN PRN Reason: Hypoglycemia Diltiazem HCl (Cardizem Cd) 180 mg PO DAILY [facility] Last Admin: 03/26/20 10:29 Dose: 180 mg Documented by: Docusate Sodium (Colace) 100 mg PO BID PRN PRN Reason: Constipation Last Admin: 03/24/20 17:35 Dose: 100 mg Documented by: Finasteride (Proscar) 5 mg PO BEDTIME [facility] Last Admin: 03/25/20 20:58 Dose: 5 mg Documented by: Promethazine HCl 6.25 mg/ (Sodium Chloride) 50.25 mls @ 200 mls/hr IV Q6H PRN PRN Reason: Nausea/Vomiting Sodium Chloride (Normal Saline) 1,000 mls @ 50 mls/hr IV ASDIRECTED [facility] Insulin Human Lispro (Humalog) 0 unit SUBCUT QIDACANDBED [facility]; Protocol Last Admin: 03/26/20 12:21 Dose: 2 unit Documented by: Lactobacillus Rhamnosus (Culturelle) 1 cap PO BID [facility] Last Admin: 03/26/20 08:15 Dose: 1 cap Documented by: Melatonin (Melatonin) 9 mg PO BEDTIME [facility] Last Admin: 03/25/20 20:58 Dose: 9 mg Documented by: Metoprolol Tartrate (Lopressor) 12.5 mg PO Q12H [facility] Last Admin: 03/26/20 10:28 Dose: 12.5 mg Documented by: Morphine Sulfate (Morphine) 2 mg IVPUSH Q2H PRN PRN Reason: Pain (severe 7-10) Last Admin: 03/25/20 03:01 Dose: 2 mg Documented by: Ondansetron HCl (Zofran Odt) 4 mg PO Q6H PRN PRN Reason: Nausea able to take PO Oxycodone HCl (Oxycodone) 5 mg PO Q4H PRN PRN Reason: Pain (moderate 4-6) Last Admin: 03/25/20 17:02 Dose: 5 mg Documented by: Pantoprazole Sodium (Protonix) 40 mg PO ACBREAKFAST [facility] Last Admin: 03/26/20 08:15 Dose: 40 mg Documented by: Polyethylene Glycol (Miralax) 17 gm PO ONETIME ONE Stop: 03/26/20 13:31 Sodium Biphosphate/Sodium Phosphate (Fleet Enema) 133 ml RECTAL ONETIME PRN PRN Reason: Constipation Discontinued Medications Albuterol/Ipratropium (Duoneb 3.0-0.5 Mg/3 Ml) 3 ml NEB ONETIME ONE Stop: 03/22/20 17:15 Last Admin: 03/22/20 18:01 Dose: 3 ml Documented by: Bisacodyl (Dulcolax) 10 mg RECTAL ONETIME ONE Stop: 03/24/20 13:01 Last Admin: 03/24/20 13:03 Dose: 10 mg Documented by: Bumetanide (Bumex) 1 mg PO DAILY [facility] Last Admin: 03/24/20 08:28 Dose: 1 mg Documented by: Bumetanide (Bumex) 2 mg PO DAILY [facility] Last Admin: 03/26/20 08:15 Dose: 2 mg Documented by: Ciprofloxacin (Ciprofloxacin Hcl) 500 mg PO BID [facility] Last Admin: 03/22/20 08:26 Dose: 500 mg Documented by: Diltiazem HCl (Diltiazem) 20 mg IVPUSH ONETIME ONE Stop: 03/24/20 15:46 Last Admin: 03/24/20 15:40 Dose: 20 mg Documented by: Diltiazem HCl (Cardizem) 30 mg PO Q6HR [facility] Last Admin: 03/26/20 03:44 Dose: 30 mg Documented by: Doxycycline Hyclate (Vibramycin) 100 mg PO Q12H [facility] Last Admin: 03/22/20 10:16 Dose: 100 mg Documented by: Furosemide (Lasix) 60 mg IVPUSH NOW ONE Stop: 03/22/20 18:35 Last Admin: 03/22/20 18:42 Dose: 60 mg Documented by: Furosemide (Lasix) 40 mg IVPUSH NOW ONE Stop: 03/24/20 17:01 Furosemide (Lasix) 40 mg IVPUSH ONETIME ONE Stop: 03/24/20 15:46 Last Admin: 03/24/20 15:49 Dose: 40 mg Documented by: Glipizide (Glucotrol) 5 mg PO BIDMEALS [facility] Last Admin: 03/22/20 17:03 Dose: 5 mg Documented by: Lactated Ringer's (Ringers, Lactated) 1,000 mls @ 500 mls/hr IV BOLUS ONE Stop: 03/21/20 22:27 Last Admin: 03/21/20 20:53 Dose: 500 mls/hr Documented by: Lactated Ringer's (Ringers, Lactated) 1,000 mls @ 100 mls/hr IV ASDIRECTED [facility] Last Admin: 03/22/20 15:13 Dose: 100 mls/hr Documented by: Ceftriaxone Sodium 1 gm/ (Sodium Chloride) 50 mls @ 100 mls/hr IV Q24H [facility] Last Admin: 03/26/20 10:30 Dose: 100 mls/hr Documented by: Diltiazem HCl 100 mg/ Sodium (Chloride) 100 mls @ 5 mls/hr IV TITRATE [facility]; Protocol Last Admin: 03/25/20 13:24 Dose: 10 mg/hr, 10 mls/hr Documented by: Sodium Chloride (Normal Saline) 1,000 mls @ 250 mls/hr IV ASDIRECTED [facility] Stop: 03/24/20 18:15 Last Admin: 03/24/20 17:01 Dose: 250 mls/hr Documented by: Nitroglycerin (Nitro-Bid 2%) 1 gm TOP ONETIME ONE Stop: 03/21/20 20:41 Last Admin: 03/21/20 21:00 Dose: 1 gm Documented by: Polyethylene Glycol (Miralax) 17 gm PO ONETIME ONE Stop: 03/24/20 13:01 Last Admin: 03/24/20 13:02 Dose: 17 gm Documented by: Trimethoprim/Sulfamethoxazole (Septra Ds) 1 tab PO BID [facility] Last Admin: 03/22/20 00:24 Dose: Not Given Documented by: Warfarin Sodium (Coumadin) 5 mg PO DAILY@1300 [facility] Last Admin: 03/24/20 13:07 Dose: Not Given Documented by: Warfarin Sodium (Coumadin) 2.5 mg PO ONETIME ONE Stop: 03/24/20 13:31 Last Admin: 03/24/20 13:39 Dose: 2.5 mg Documented by: - Exam Quality Assessment: Supplemental Oxygen, DVT Prophylaxis General: Alert, Oriented, Cooperative, Moderate Distress Lungs: Clear to Auscultation, Normal Respiratory Effort Cardiovascular: No Murmurs, Irregular Rhythm, Tachycardia GI/Abdominal Exam: Soft, Non-Tender, No Organomegaly, No Distention Extremities: Non-Tender, No Pedal Edema Sepsis Event Note - Evaluation Sepsis Screening Result: Severe Sepsis Risk - Focused Exam Vital Signs: Vital Signs Temp Pulse Pulse Pulse Resp BP BP 03/26/20 13:00 105 H 15 88/55 L 03/26/20 12:00 103 H 18 139/79 03/26/20 10:54 102 H 03/26/20 10:28 98 123/77 03/26/20 07:38 115 H 03/26/20 07:26 118 H 16 119/65 03/26/20 06:00 114 H 42 H 131/69 03/26/20 05:00 95 25 H 122/67 03/26/20 04:00 95.6 F L 88 21 H 121/79 03/26/20 03:00 98 21 H 116/71 03/26/20 02:00 86 21 H 123/69 Pulse Ox Pulse Ox 03/26/20 13:00 97 03/26/20 12:00 95 03/26/20 10:54 95 03/26/20 10:28 03/26/20 07:38 90 L 03/26/20 07:26 98 03/26/20 06:00 90 L 03/26/20 05:00 92 L 03/26/20 04:00 94 L 03/26/20 03:00 97 03/26/20 02:00 86 L - Problem List Review Problem List Initiated/Reviewed/Updated: Yes - My Orders Last 24 Hours: My Active Orders 03/25/20 22:31 Consult to Speech Language Pathology [RESEARCH AND EVALUATION ANALYST Evaluation and Treatment] [CONS] Routine 03/26/20 Breakfast Pureed Diet [DIET] 03/26/20 08:30 Sodium Chloride 0.9% [Normal Saline] 1,000 ml IV ASDIRECTED 03/26/20 09:00 Diltiazem [Cardizem CD] 180 mg PO DAILY 03/26/20 13:15 cephALEXin [Keflex] 250 mg PO Q6HR 03/26/20 13:30 polyethylene glycoL 3350 [MiraLAX] 17 gm PO ONETIME ONE 03/27/20 05:00 BASIC METABOLIC PANEL,BMP [CHEM] Timed CBC WITH AUTO DIFF [HEME] Timed INR,PT,PROTHROMBIN TIME [COAG] Timed 03/27/20 07:30 GLUCOSE POC LAB TO COLLECT JPM [POC] QIDACANDBED 03/27/20 11:30 GLUCOSE POC LAB TO COLLECT JPM [POC] QIDACANDBED 03/27/20 16:30 GLUCOSE POC LAB TO COLLECT JPM [POC] QIDACANDBED - Plan Plan:: ASSESSMENT AND PLAN CONGESTIVE HEART FAILURE-Echocardiogram shows severely decreased left ventricular function with estimated systolic ejection fraction of 25 to 30%, moderate diastolic dysfunction mild to moderate aortic stenosis and moderate mitral regurgitation -Saline lock IV -Hold Bumex because of worsening renal function URINARY TRACT INFECTION-actinobacter cultured from urine -Cephalexin 250 mg p.o. every 6 hours SEVERE WEAKNESS-likely secondary to CHF exacerbation and urinary tract infection. -Treat underlying conditions as above -Physical therapy consult CHRONIC KIDNEY DISEASE STAGE IIIb-creatinine increased again -Closely monitor urine output and renal function -Hold diuretic therapy -IV fluid replacement, reassess in a.m. TYPE 2 DIABETES MELLITUS -Hold glipizide -4 times daily glucometers -Low-dose sliding scale Humalog ATRIAL FIBRILLATION-with rapid ventricular response. INR supratherapeutic today -Warfarin today, reassess in a.m. -Daily INR -Transition to long-acting oral diltiazem EPISODES OF ASPIRATION -Pured diet with nectar thickened liquids -Speech therapy consult MAINTENANCE ISSUES -DVT prophylaxis; current therapy with warfarin should provide adequate DVT prophylaxis -GI prophylaxis; not indicated -Busch catheter; chronic indwelling catheter -Nutrition; 2 g sodium diet -Nicotine dependence; not required CODE STATUS-FULL CODE ADMISSION STATUS-patient will be admitted to inpatient status, expect at least a 2 night hospital stay for evaluation and management of problems as outlined above. At the time of this admission I do not reasonably expected evaluation and management of this problem will require more than a 96 hour hospital stay. DISPOSITION-anticipate discharge to home after the hospital stay. PRIMARY CARE PROVIDER-Dr. Lynch
[2020-03-26] MEDS ORDERED: Polyethylene Glycol 3350 Powder 17 GM Packet PO ONE (13:30)
[2020-03-26] MEDS: Cephalexin 250 MG Cap PO SCH ×2 (15:18→21:55)
[2020-03-26] MEDS: Melatonin 3 MG Tab PO SCH (21:54)
[2020-03-26] MEDS: Finasteride 5 MG Tab PO SCH (21:55)
[2020-03-27] MEDS: Albuterol/Ipratropium 3.0-0.5 MG/3 ML Neb Soln NEB SCH ×4 (07:05→21:47)
[2020-03-27] MEDS: Allopurinol 100 MG Tab PO SCH ×2 (07:52→08:01)
[2020-03-27] MEDS: Lactobacillus Rhamnosus GG (Probiotic) Cap PO SCH ×3 (07:52→21:46)
[2020-03-27] MEDS: Diltiazem 180 MG Cap.CD PO SCH ×2 (07:53→08:02)
[2020-03-27] MEDS: Pantoprazole 40 MG Tab.CR PO SCH (07:53)
[2020-03-27] MEDS: Cephalexin 250 MG Cap PO SCH ×4 (07:53→21:46)
[2020-03-27] MEDS: Insulin Lispro 100 Unit/ML 3 ML KwikPen SUBCUT SCH ×4 (08:09→21:45)
[2020-03-27] MEDS: Metoprolol Tartrate 25 MG Tab PO SCH ×2 (13:40→21:46)
[2020-03-27] MEDS: Sodium Chloride 0.9% 1,000 ML IV SCH ×2 (13:44→23:23)
[2020-03-27] MEDS ORDERED: Warfarin 2.5 MG Tab PO ONE (15:13)
--- NOTE | 2020-03-27 15:17 | PCM.PN ---
- General Info Date of Service: 03/27/20 Subjective Update: Mr. Dalal actually shown evidence of further deterioration over the last 24 hours. There has been further decline in renal function and he has become more confused. Because of confusion he is unable to provide a meaningful history concerning recent symptoms or review of systems. I discussed his current condition with his daughter last night and again today. If he continues to show deterioration she would like to consider transitioning to comfort cares and discharge to hospice for care at home. Functional Status: Reports: Urinating. Denies: Tolerating Diet, Ambulating - Patient Data Vitals - Most Recent: Last Vital Signs Temp 97 F 03/27/20 08:00 Pulse 82 03/27/20 14:30 Resp 19 03/27/20 14:00 BP 142/67 H 03/27/20 14:00 Pulse Ox 93 L 03/27/20 14:00 Weight - Most Recent: 226 lb 0.004 oz I&O - Last 24 Hours: Intake & Output 03/27/20 03/27/20 03/27/20 06:59 14:59 22:59 Intake Total 60 Output Total 300 300 Balance -240 -300 Lab Results Last 24 Hours: Laboratory Results - last 24 hr 03/27/20 03/27/20 03/27/20 Range/Units 04:30 04:30 04:30 WBC 14.5 H (4.5-11.0) K/uL RBC 4.28 L (4.30-5.90) M/uL Hgb 12.5 (12.0-15.0) g/dL Hct 39.5 L (40.0-54.0) % MCV 92 (80-98) fL MCH 29 (27-31) pg MCHC 32 (32-36) % Plt Count 246 (150-400) K/uL Neut % (Auto) 82 H (36-66) % Lymph % (Auto) 8 L (24-44) % Moca % (Auto) 9 H (2-6) % Eos % (Auto) 1 L (2-4) % Baso % (Auto) 0 (0-1) % PT 33.4 H (9.5-12.0) sec INR 3.13 H (0.80-1.20) Sodium 136 L (140-148) mmol/L Potassium 4.9 (3.6-5.2) mmol/L Chloride 99 L (100-108) mmol/L Carbon Dioxide 27 (21-32) mmol/L Anion Gap 14.9 H (5.0-14.0) mmol/L BUN 84 H* (7-18) mg/dL Creatinine 3.2 H (0.8-1.3) mg/dL Est Cr Clr Drug Dosing 17.88 mL/min Estimated GFR (MDRD) 18 L (>60) Glucose 172 H (74-106) mg/dL Calcium 8.5 (8.5-10.1) mg/dL Urine Color (YELLOW) Urine Appearance (CLEAR) Urine pH (5.0-8.0) Ur Specific Kistler (1.008-1.030) Urine Protein (NEGATIVE) mg/dL Urine Glucose (UA) (NEGATIVE) mg/dL Urine Ketones (NEGATIVE) mg/dL Urine Occult Blood (NEGATIVE) Urine Nitrite (NEGATIVE) Urine Bilirubin (NEGATIVE) Urine Urobilinogen (0.2-1.0) EU/dL Ur Leukocyte Esterase (NEGATIVE) Urine RBC (0-5) Urine WBC (0-5) Ur Epithelial Cells Amorphous Sediment Urine Bacteria Urine Mucus Urine Other 03/27/20 Range/Units 10:24 WBC (4.5-11.0) K/uL RBC (4.30-5.90) M/uL Hgb (12.0-15.0) g/dL Hct (40.0-54.0) % MCV (80-98) fL MCH (27-31) pg MCHC (32-36) % Plt Count (150-400) K/uL Neut % (Auto) (36-66) % Lymph % (Auto) (24-44) % Moca % (Auto) (2-6) % Eos % (Auto) (2-4) % Baso % (Auto) (0-1) % PT (9.5-12.0) sec INR (0.80-1.20) Sodium (140-148) mmol/L Potassium (3.6-5.2) mmol/L Chloride (100-108) mmol/L Carbon Dioxide (21-32) mmol/L Anion Gap (5.0-14.0) mmol/L BUN (7-18) mg/dL Creatinine (0.8-1.3) mg/dL Est Cr Clr Drug Dosing mL/min Estimated GFR (MDRD) (>60) Glucose (74-106) mg/dL Calcium (8.5-10.1) mg/dL Urine Color Yellow (YELLOW) Urine Appearance Clear (CLEAR) Urine pH 5.0 (5.0-8.0) Ur Specific Kistler 1.025 (1.008-1.030) Urine Protein 30 H (NEGATIVE) mg/dL Urine Glucose (UA) Negative (NEGATIVE) mg/dL Urine Ketones Negative (NEGATIVE) mg/dL Urine Occult Blood Negative (NEGATIVE) Urine Nitrite Negative (NEGATIVE) Urine Bilirubin Negative (NEGATIVE) Urine Urobilinogen 0.2 (0.2-1.0) EU/dL Ur Leukocyte Esterase Negative (NEGATIVE) Urine RBC 0-5 (0-5) Urine WBC Not seen (0-5) Ur Epithelial Cells Not seen Amorphous Sediment Rare Urine Bacteria Not seen Urine Mucus Rare Urine Other See note Med Orders - Current: Current Medications Acetaminophen (Tylenol) 650 mg PO Q4H PRN PRN Reason: Pain (Mild 1-3)/fever Last Admin: 03/25/20 17:02 Dose: 650 mg Documented by: Albuterol (Proventil Neb Soln) 2.5 mg NEB Q4H PRN PRN Reason: Dyspnea Albuterol/Ipratropium (Duoneb 3.0-0.5 Mg/3 Ml) 3 ml NEB QIDRT [facility] Last Admin: 03/27/20 14:29 Dose: 3 ml Documented by: Allopurinol (Zyloprim) 100 mg PO DAILY [facility] Last Admin: 03/27/20 08:01 Dose: 100 mg Documented by: Cephalexin (Keflex) 250 mg PO Q6HR [facility] Last Admin: 03/27/20 13:42 Dose: 250 mg Documented by: Dextrose (Glutose 15) 15 gm PO ONETIME PRN PRN Reason: Hypoglycemia Dextrose/Water (Dextrose 50% In Water) 50 ml IV ONETIME PRN PRN Reason: Hypoglycemia Diltiazem HCl (Cardizem Cd) 180 mg PO DAILY [facility] Last Admin: 03/27/20 08:02 Dose: 180 mg Documented by: Docusate Sodium (Colace) 100 mg PO BID PRN PRN Reason: Constipation Last Admin: 03/24/20 17:35 Dose: 100 mg Documented by: Finasteride (Proscar) 5 mg PO BEDTIME [facility] Last Admin: 03/26/20 21:55 Dose: 5 mg Documented by: Promethazine HCl 6.25 mg/ (Sodium Chloride) 50.25 mls @ 200 mls/hr IV Q6H PRN PRN Reason: Nausea/Vomiting Sodium Chloride (Normal Saline) 1,000 mls @ 100 mls/hr IV ASDIRECTED [facility] Last Admin: 03/27/20 13:44 Dose: 100 mls/hr Documented by: Insulin Human Lispro (Humalog) 0 unit SUBCUT QIDACANDBED [facility]; Protocol Last Admin: 03/27/20 11:45 Dose: 1 unit Documented by: Lactobacillus Rhamnosus (Culturelle) 1 cap PO BID [facility] Last Admin: 03/27/20 08:01 Dose: 1 cap Documented by: Melatonin (Melatonin) 9 mg PO BEDTIME [facility] Last Admin: 03/26/20 21:54 Dose: 9 mg Documented by: Metoprolol Tartrate (Lopressor) 12.5 mg PO Q12H [facility] Last Admin: 03/27/20 13:40 Dose: 12.5 mg Documented by: Morphine Sulfate (Morphine) 2 mg IVPUSH Q2H PRN PRN Reason: Pain (severe 7-10) Last Admin: 03/25/20 03:01 Dose: 2 mg Documented by: Ondansetron HCl (Zofran Odt) 4 mg PO Q6H PRN PRN Reason: Nausea able to take PO Oxycodone HCl (Oxycodone) 5 mg PO Q4H PRN PRN Reason: Pain (moderate 4-6) Last Admin: 03/25/20 17:02 Dose: 5 mg Documented by: Pantoprazole Sodium (Protonix) 40 mg PO ACBREAKFAST [facility] Last Admin: 03/27/20 07:53 Dose: 40 mg Documented by: Sodium Biphosphate/Sodium Phosphate (Fleet Enema) 133 ml RECTAL ONETIME PRN PRN Reason: Constipation Warfarin Sodium (Coumadin) 2.5 mg PO ONETIME ONE Stop: 03/27/20 15:14 Discontinued Medications Albuterol/Ipratropium (Duoneb 3.0-0.5 Mg/3 Ml) 3 ml NEB ONETIME ONE Stop: 03/22/20 17:15 Last Admin: 03/22/20 18:01 Dose: 3 ml Documented by: Bisacodyl (Dulcolax) 10 mg RECTAL ONETIME ONE Stop: 03/24/20 13:01 Last Admin: 03/24/20 13:03 Dose: 10 mg Documented by: Bumetanide (Bumex) 1 mg PO DAILY [facility] Last Admin: 03/24/20 08:28 Dose: 1 mg Documented by: Bumetanide (Bumex) 2 mg PO DAILY [facility] Last Admin: 03/26/20 08:15 Dose: 2 mg Documented by: Ciprofloxacin (Ciprofloxacin Hcl) 500 mg PO BID [facility] Last Admin: 03/22/20 08:26 Dose: 500 mg Documented by: Diltiazem HCl (Diltiazem) 20 mg IVPUSH ONETIME ONE Stop: 03/24/20 15:46 Last Admin: 03/24/20 15:40 Dose: 20 mg Documented by: Diltiazem HCl (Cardizem) 30 mg PO Q6HR [facility] Last Admin: 03/26/20 03:44 Dose: 30 mg Documented by: Doxycycline Hyclate (Vibramycin) 100 mg PO Q12H [facility] Last Admin: 03/22/20 10:16 Dose: 100 mg Documented by: Furosemide (Lasix) 60 mg IVPUSH NOW ONE Stop: 03/22/20 18:35 Last Admin: 03/22/20 18:42 Dose: 60 mg Documented by: Furosemide (Lasix) 40 mg IVPUSH NOW ONE Stop: 03/24/20 17:01 Furosemide (Lasix) 40 mg IVPUSH ONETIME ONE Stop: 03/24/20 15:46 Last Admin: 03/24/20 15:49 Dose: 40 mg Documented by: Glipizide (Glucotrol) 5 mg PO BIDMEALS [facility] Last Admin: 03/22/20 17:03 Dose: 5 mg Documented by: Lactated Ringer's (Ringers, Lactated) 1,000 mls @ 500 mls/hr IV BOLUS ONE Stop: 03/21/20 22:27 Last Admin: 03/21/20 20:53 Dose: 500 mls/hr Documented by: Lactated Ringer's (Ringers, Lactated) 1,000 mls @ 100 mls/hr IV ASDIRECTED [facility] Last Admin: 03/22/20 15:13 Dose: 100 mls/hr Documented by: Ceftriaxone Sodium 1 gm/ (Sodium Chloride) 50 mls @ 100 mls/hr IV Q24H [facility] Last Admin: 03/26/20 10:30 Dose: 100 mls/hr Documented by: Diltiazem HCl 100 mg/ Sodium (Chloride) 100 mls @ 5 mls/hr IV TITRATE [facility]; Protocol Last Admin: 03/25/20 13:24 Dose: 10 mg/hr, 10 mls/hr Documented by: Sodium Chloride (Normal Saline) 1,000 mls @ 250 mls/hr IV ASDIRECTED [facility] Stop: 03/24/20 18:15 Last Admin: 03/24/20 17:01 Dose: 250 mls/hr Documented by: Sodium Chloride (Normal Saline) 1,000 mls @ 50 mls/hr IV ASDIRECTED [facility] Nitroglycerin (Nitro-Bid 2%) 1 gm TOP ONETIME ONE Stop: 03/21/20 20:41 Last Admin: 03/21/20 21:00 Dose: 1 gm Documented by: Polyethylene Glycol (Miralax) 17 gm PO ONETIME ONE Stop: 03/24/20 13:01 Last Admin: 03/24/20 13:02 Dose: 17 gm Documented by: Polyethylene Glycol (Miralax) 17 gm PO ONETIME ONE Stop: 03/26/20 13:31 Last Admin: 03/26/20 13:24 Dose: 17 gm Documented by: Trimethoprim/Sulfamethoxazole (Septra Ds) 1 tab PO BID [facility] Last Admin: 03/22/20 00:24 Dose: Not Given Documented by: Warfarin Sodium (Coumadin) 5 mg PO DAILY@1300 [facility] Last Admin: 03/24/20 13:07 Dose: Not Given Documented by: Warfarin Sodium (Coumadin) 2.5 mg PO ONETIME ONE Stop: 03/24/20 13:31 Last Admin: 03/24/20 13:39 Dose: 2.5 mg Documented by: - Exam Quality Assessment: Urine Catheter, DVT Prophylaxis General: Mild Distress, Lethargic, Other (Confused) Lungs: Clear to Auscultation, Normal Respiratory Effort Cardiovascular: Regular Rate, Irregular Rhythm, Murmurs GI/Abdominal Exam: Soft, Non-Tender, No Organomegaly, No Distention Extremities: Non-Tender, No Pedal Edema Sepsis Event Note - Evaluation Sepsis Screening Result: Severe Sepsis Risk - Focused Exam Vital Signs: Vital Signs Temp Pulse Pulse Resp BP BP Pulse Ox 03/27/20 14:30 82 03/27/20 14:00 87 19 142/67 H 93 L 03/27/20 13:40 88 125/71 03/27/20 12:00 79 16 124/57 L 92 L 03/27/20 10:36 78 03/27/20 10:00 86 22 H 122/60 90 L 03/27/20 08:00 97 F 104 H 24 H 124/64 95 03/27/20 06:00 96 126/77 03/27/20 04:00 96.5 F L 18 131/56 L 90 L - Problem List Review Problem List Initiated/Reviewed/Updated: Yes - My Orders Last 24 Hours: My Active Orders 03/26/20 16:00 cephALEXin [Keflex] 250 mg PO Q6HR 03/27/20 10:24 Chest 1V Frontal [CR] Stat Renal Comp [US] Stat 03/27/20 13:45 Sodium Chloride 0.9% [Normal Saline] 1,000 ml IV ASDIRECTED 03/27/20 15:13 Warfarin [Coumadin] 2.5 mg PO ONETIME ONE 03/28/20 05:00 BASIC METABOLIC PANEL,BMP [CHEM] Timed CBC WITH AUTO DIFF [HEME] Timed 03/28/20 05:11 INR,PT,PROTHROMBIN TIME [COAG] AM - Plan Plan:: ASSESSMENT AND PLAN CONGESTIVE HEART FAILURE-Echocardiogram shows severely decreased left ventricular function with estimated systolic ejection fraction of 25 to 30%, moderate diastolic dysfunction mild to moderate aortic stenosis and moderate mitral regurgitation -Saline lock IV -Hold Bumex because of worsening renal function URINARY TRACT INFECTION-actinobacter cultured from urine -Cephalexin 250 mg p.o. every 6 hours SEVERE WEAKNESS-likely secondary to CHF exacerbation and urinary tract infection. -Treat underlying conditions as above -Physical therapy consult CHRONIC KIDNEY DISEASE STAGE IIIb-creatinine increased again today despite low level of IV fluids given over the last 24 hours -Closely monitor urine output and renal function -Hold diuretic therapy -IV fluid replacement, reassess in a.m. TYPE 2 DIABETES MELLITUS -Hold glipizide -4 times daily glucometers -Low-dose sliding scale Humalog ATRIAL FIBRILLATION-with rapid ventricular response. INR supratherapeutic today -Warfarin 2.5 mg today, reassess in a.m. -Daily INR -Transition to long-acting oral diltiazem EPISODES OF ASPIRATION -Pured diet with nectar thickened liquids -Speech therapy consult MAINTENANCE ISSUES -DVT prophylaxis; current therapy with warfarin should provide adequate DVT prophylaxis -GI prophylaxis; not indicated -Busch catheter; chronic indwelling catheter -Nutrition; 2 g sodium diet -Nicotine dependence; not required CODE STATUS-FULL CODE ADMISSION STATUS-patient will be admitted to inpatient status, expect at least a 2 night hospital stay for evaluation and management of problems as outlined above. At the time of this admission I do not reasonably expected evaluation and management of this problem will require more than a 96 hour hospital stay. DISPOSITION-anticipate discharge to home after the hospital stay. PRIMARY CARE PROVIDER-Dr. Lynch
[2020-03-27] MEDS: Acetaminophen 325 MG Tab PO PRN (15:35)
[2020-03-27] MEDS ORDERED: Melatonin 3 MG Tab PO SCH (21:00)
[2020-03-27] MEDS: Melatonin 3 MG Tab PO SCH (21:45)
[2020-03-27] MEDS: Finasteride 5 MG Tab PO SCH (21:46)
[2020-03-28] MEDS: Cephalexin 250 MG Cap PO SCH ×2 (03:35→09:12)
[2020-03-28] MEDS: Albuterol/Ipratropium 3.0-0.5 MG/3 ML Neb Soln NEB SCH ×4 (07:06→21:00)
[2020-03-28] MEDS: Insulin Lispro 100 Unit/ML 3 ML KwikPen SUBCUT SCH ×2 (07:41→11:54)
[2020-03-28] MEDS ORDERED: Furosemide 40 MG/4 ML VIAL IVPUSH ONE (09:00)
[2020-03-28] MEDS: Allopurinol 100 MG Tab PO SCH (09:12)
[2020-03-28] MEDS: Pantoprazole 40 MG Tab.CR PO SCH (09:12)
[2020-03-28] MEDS: Metoprolol Tartrate 25 MG Tab PO SCH ×2 (09:12→21:02)
[2020-03-28] MEDS: Diltiazem 180 MG Cap.CD PO SCH (09:12)
[2020-03-28] MEDS: Lactobacillus Rhamnosus GG (Probiotic) Cap PO SCH ×2 (09:13→20:58)
--- NOTE | 2020-03-28 14:57 | PCM.PN ---
- General Info Date of Service: 03/28/20 Subjective Update: Mr. Dalal is unfortunately experienced further weakness and deterioration in renal function over the last 24 hours. He did receive a trial of IV fluids, but did become more short of breath last night and this has been discontinued. Heart rate control has improved over the last 24 hours with current management. I did have a discussion with the patient and his family this afternoon. At this time he would like to move towards comfort cares, with discharged home and hospice care. All aggressive interventions will be discontinued at this time including laboratory tests and diagnostic studies. He will receive medication as needed for comfort. Functional Status: Denies: Ambulating - Review of Systems General: Reports: Weakness, Fatigue. Denies: Fever, Chills Pulmonary: Reports: Shortness of Breath. Denies: Pleuritic Chest Pain, Cough, Sputum, Hemoptysis, Wheezing Cardiovascular: Reports: Dyspnea on Exertion. Denies: Chest Pain, Palpitations, Orthopnea, PND, Edema, Lightheadedness Gastrointestinal: Reports: No Symptoms - Patient Data Vitals - Most Recent: Last Vital Signs Temp 97.6 F 03/28/20 12:00 Pulse 66 03/28/20 10:34 Resp 24 H 03/28/20 14:00 BP 124/58 L 03/28/20 14:00 Pulse Ox 94 L 03/28/20 14:00 Weight - Most Recent: 226 lb 0.004 oz I&O - Last 24 Hours: Intake & Output 03/27/20 03/28/20 03/28/20 23:59 06:59 14:59 Intake Total Output Total Balance Lab Results Last 24 Hours: Laboratory Results - last 24 hr 03/28/20 03/28/20 03/28/20 Range/Units 04:10 04:10 04:10 WBC 15.5 H (4.5-11.0) K/uL RBC 4.36 (4.30-5.90) M/uL Hgb 12.7 (12.0-15.0) g/dL Hct 40.6 (40.0-54.0) % MCV 93 (80-98) fL MCH 29 (27-31) pg MCHC 31 L (32-36) % Plt Count 289 (150-400) K/uL Neut % (Auto) 80 H (36-66) % Lymph % (Auto) 8 L (24-44) % Cecil % (Auto) 11 H (2-6) % Eos % (Auto) 1 L (2-4) % Baso % (Auto) 0 (0-1) % PT 34.2 H (9.5-12.0) sec INR 3.21 H (0.80-1.20) Sodium 136 L (140-148) mmol/L Potassium 5.6 H (3.6-5.2) mmol/L Chloride 100 (100-108) mmol/L Carbon Dioxide 27 (21-32) mmol/L Anion Gap 14.6 H (5.0-14.0) mmol/L BUN 92 H* (7-18) mg/dL Creatinine 3.4 H (0.8-1.3) mg/dL Est Cr Clr Drug Dosing 16.82 mL/min Estimated GFR (MDRD) 17 L (>60) Glucose 184 H (74-106) mg/dL Calcium 8.7 (8.5-10.1) mg/dL Med Orders - Current: Current Medications Acetaminophen (Tylenol) 650 mg PO Q4H PRN PRN Reason: Pain (Mild 1-3)/fever Last Admin: 03/27/20 15:35 Dose: 650 mg Documented by: Albuterol (Proventil Neb Soln) 2.5 mg NEB Q4H PRN PRN Reason: Dyspnea Albuterol/Ipratropium (Duoneb 3.0-0.5 Mg/3 Ml) 3 ml NEB QIDRT [facility] Last Admin: 03/28/20 14:22 Dose: 3 ml Documented by: Allopurinol (Zyloprim) 100 mg PO DAILY [facility] Last Admin: 03/28/20 09:12 Dose: 100 mg Documented by: Dextrose (Glutose 15) 15 gm PO ONETIME PRN PRN Reason: Hypoglycemia Dextrose/Water (Dextrose 50% In Water) 50 ml IV ONETIME PRN PRN Reason: Hypoglycemia Diltiazem HCl (Cardizem Cd) 180 mg PO DAILY [facility] Last Admin: 03/28/20 09:12 Dose: 180 mg Documented by: Docusate Sodium (Colace) 100 mg PO BID PRN PRN Reason: Constipation Last Admin: 03/24/20 17:35 Dose: 100 mg Documented by: Finasteride (Proscar) 5 mg PO BEDTIME [facility] Last Admin: 03/27/20 21:46 Dose: 5 mg Documented by: Promethazine HCl 6.25 mg/ (Sodium Chloride) 50.25 mls @ 200 mls/hr IV Q6H PRN PRN Reason: Nausea/Vomiting Insulin Human Lispro (Humalog) 0 unit SUBCUT QIDACANDBED [facility]; Protocol Last Admin: 03/28/20 11:54 Dose: 1 unit Documented by: Lactobacillus Rhamnosus (Culturelle) 1 cap PO BID [facility] Last Admin: 03/28/20 09:13 Dose: 1 cap Documented by: Lorazepam (Ativan Oral Concentrate 1mg/0.5 Ml U/D) 0.5 mg PO Q2H PRN PRN Reason: Anxiety Melatonin (Melatonin) 9 mg PO BEDTIME [facility] Last Admin: 03/27/20 21:45 Dose: 9 mg Documented by: Metoprolol Tartrate (Lopressor) 12.5 mg PO Q12H [facility] Last Admin: 03/28/20 09:12 Dose: 12.5 mg Documented by: Morphine Sulfate (Morphine 10 Mg/0.5 Ml Oral Syringe) 5 mg BUCCAL Q1H PRN PRN Reason: Pain Non-Formulary Medication (Bumetanide [Bumex]) 2 mg PO DAILY [facility] Ondansetron HCl (Zofran Odt) 4 mg PO Q6H PRN PRN Reason: Nausea able to take PO Pantoprazole Sodium (Protonix) 40 mg PO ACBREAKFAST [facility] Last Admin: 03/28/20 09:12 Dose: 40 mg Documented by: Warfarin Sodium (Coumadin) 2.5 mg PO ONETIME ONE Stop: 03/28/20 14:50 Discontinued Medications Albuterol/Ipratropium (Duoneb 3.0-0.5 Mg/3 Ml) 3 ml NEB ONETIME ONE Stop: 03/22/20 17:15 Last Admin: 03/22/20 18:01 Dose: 3 ml Documented by: Bisacodyl (Dulcolax) 10 mg RECTAL ONETIME ONE Stop: 03/24/20 13:01 Last Admin: 03/24/20 13:03 Dose: 10 mg Documented by: Bumetanide (Bumex) 1 mg PO DAILY [facility] Last Admin: 03/24/20 08:28 Dose: 1 mg Documented by: Bumetanide (Bumex) 2 mg PO DAILY [facility] Last Admin: 03/26/20 08:15 Dose: 2 mg Documented by: Cephalexin (Keflex) 250 mg PO Q6HR [facility] Last Admin: 03/28/20 09:12 Dose: 250 mg Documented by: Ciprofloxacin (Ciprofloxacin Hcl) 500 mg PO BID [facility] Last Admin: 03/22/20 08:26 Dose: 500 mg Documented by: Diltiazem HCl (Diltiazem) 20 mg IVPUSH ONETIME ONE Stop: 03/24/20 15:46 Last Admin: 03/24/20 15:40 Dose: 20 mg Documented by: Diltiazem HCl (Cardizem) 30 mg PO Q6HR [facility] Last Admin: 03/26/20 03:44 Dose: 30 mg Documented by: Doxycycline Hyclate (Vibramycin) 100 mg PO Q12H [facility] Last Admin: 03/22/20 10:16 Dose: 100 mg Documented by: Furosemide (Lasix) 60 mg IVPUSH NOW ONE Stop: 03/22/20 18:35 Last Admin: 03/22/20 18:42 Dose: 60 mg Documented by: Furosemide (Lasix) 40 mg IVPUSH NOW ONE Stop: 03/24/20 17:01 Furosemide (Lasix) 40 mg IVPUSH ONETIME ONE Stop: 03/24/20 15:46 Last Admin: 03/24/20 15:49 Dose: 40 mg Documented by: Furosemide (Lasix) 80 mg IVPUSH NOW ONE Stop: 03/28/20 09:01 Last Admin: 03/28/20 09:13 Dose: 80 mg Documented by: Glipizide (Glucotrol) 5 mg PO BIDMEALS [facility] Last Admin: 03/22/20 17:03 Dose: 5 mg Documented by: Lactated Ringer's (Ringers, Lactated) 1,000 mls @ 500 mls/hr IV BOLUS ONE Stop: 03/21/20 22:27 Last Admin: 03/21/20 20:53 Dose: 500 mls/hr Documented by: Lactated Ringer's (Ringers, Lactated) 1,000 mls @ 100 mls/hr IV ASDIRECTED [facility] Last Admin: 03/22/20 15:13 Dose: 100 mls/hr Documented by: Ceftriaxone Sodium 1 gm/ (Sodium Chloride) 50 mls @ 100 mls/hr IV Q24H [facility] Last Admin: 03/26/20 10:30 Dose: 100 mls/hr Documented by: Diltiazem HCl 100 mg/ Sodium (Chloride) 100 mls @ 5 mls/hr IV TITRATE [facility]; Protocol Last Admin: 03/25/20 13:24 Dose: 10 mg/hr, 10 mls/hr Documented by: Sodium Chloride (Normal Saline) 1,000 mls @ 250 mls/hr IV ASDIRECTED [facility] Stop: 03/24/20 18:15 Last Admin: 03/24/20 17:01 Dose: 250 mls/hr Documented by: Sodium Chloride (Normal Saline) 1,000 mls @ 50 mls/hr IV ASDIRECTED [facility] Sodium Chloride (Normal Saline) 1,000 mls @ 100 mls/hr IV ASDIRECTED [facility] Last Admin: 03/27/20 23:23 Dose: 100 mls/hr Documented by: Morphine Sulfate (Morphine) 2 mg IVPUSH Q2H PRN PRN Reason: Pain (severe 7-10) Last Admin: 03/25/20 03:01 Dose: 2 mg Documented by: Nitroglycerin (Nitro-Bid 2%) 1 gm TOP ONETIME ONE Stop: 03/21/20 20:41 Last Admin: 03/21/20 21:00 Dose: 1 gm Documented by: Oxycodone HCl (Oxycodone) 5 mg PO Q4H PRN PRN Reason: Pain (moderate 4-6) Last Admin: 03/25/20 17:02 Dose: 5 mg Documented by: Polyethylene Glycol (Miralax) 17 gm PO ONETIME ONE Stop: 03/24/20 13:01 Last Admin: 03/24/20 13:02 Dose: 17 gm Documented by: Polyethylene Glycol (Miralax) 17 gm PO ONETIME ONE Stop: 03/26/20 13:31 Last Admin: 03/26/20 13:24 Dose: 17 gm Documented by: Sodium Biphosphate/Sodium Phosphate (Fleet Enema) 133 ml RECTAL ONETIME PRN PRN Reason: Constipation Trimethoprim/Sulfamethoxazole (Septra Ds) 1 tab PO BID [facility] Last Admin: 03/22/20 00:24 Dose: Not Given Documented by: Warfarin Sodium (Coumadin) 5 mg PO DAILY@1300 [facility] Last Admin: 03/24/20 13:07 Dose: Not Given Documented by: Warfarin Sodium (Coumadin) 2.5 mg PO ONETIME ONE Stop: 03/24/20 13:31 Last Admin: 03/24/20 13:39 Dose: 2.5 mg Documented by: Warfarin Sodium (Coumadin) 2.5 mg PO ONETIME ONE Stop: 03/27/20 15:14 Last Admin: 03/27/20 15:35 Dose: 2.5 mg Documented by: - Exam Quality Assessment: Supplemental Oxygen, Urine Catheter, DVT Prophylaxis General: Alert, Oriented, Cooperative, Moderate Distress Lungs: Decreased Breath Sounds. No: Rales, Rhonchi, Wheezing Cardiovascular: Regular Rate, Irregular Rhythm, Murmurs GI/Abdominal Exam: Soft, Non-Tender, No Organomegaly, No Distention Extremities: Non-Tender, Pedal Edema Sepsis Event Note - Evaluation Sepsis Screening Result: No Definite Risk - Focused Exam Vital Signs: Vital Signs Temp Pulse Pulse Resp BP BP Pulse Ox 03/28/20 14:00 24 H 124/58 L 94 L 03/28/20 12:00 97.6 F 22 H 132/65 95 03/28/20 10:34 66 03/28/20 10:00 20 122/47 L 95 03/28/20 09:12 86 113/76 03/28/20 07:53 97 F 22 H 128/71 96 03/28/20 07:06 78 03/28/20 06:00 24 H 114/52 L 94 L 03/28/20 04:00 97.6 F 25 H 101/61 94 L - Problem List Review Problem List Initiated/Reviewed/Updated: Yes - My Orders Last 24 Hours: My Active Orders 03/28/20 14:35 Resuscitation Status Routine 03/28/20 14:36 Patient Status [ADT] Routine 03/28/20 14:38 Consult to Hospice [CONS] Routine LORazepam [Ativan ORAL Concentrate 1MG/0.5 ML U/D] 0.5 mg PO Q2H PRN 03/28/20 14:38 Morphine [Morphine 10 MG/0.5 ML Oral Syringe] 5 mg BUCCAL Q1H PRN 03/28/20 14:49 Warfarin [Coumadin] 2.5 mg PO ONETIME ONE 03/29/20 05:11 INR,PT,PROTHROMBIN TIME [COAG] AM 03/29/20 09:00 Bumetanide [Bumex] 2 mg PO DAILY - Plan Plan:: ASSESSMENT AND PLAN PALLIATIVE CARE-given progressive symptoms as well as acute kidney injury he has decided not to pursue further aggressive interventions or evaluation. He would like to be kept comfortable, with discharged home in hospice care as soon as possible. -Hospice consult tomorrow -Discontinue all aggressive interventions and evaluation -Morphine sulfate and lorazepam as needed for comfort CONGESTIVE HEART FAILURE-Echocardiogram shows severely decreased left ventricular function with estimated systolic ejection fraction of 25 to 30%, moderate diastolic dysfunction mild to moderate aortic stenosis and moderate mitral regurgitation URINARY TRACT INFECTION-resolved SEVERE WEAKNESS CHRONIC KIDNEY DISEASE STAGE IIIb WITH ACUTE KIDNEY INJURY-creatinine increased again today despite low level of IV fluids given over the last 24 hours TYPE 2 DIABETES MELLITUS -Hold glipizide -4 times daily glucometers -Low-dose sliding scale Humalog ATRIAL FIBRILLATION-rate controlled with current management -Warfarin 2.5 mg today, reassess in a.m. -Daily INR -Continue metoprolol and diltiazem EPISODES OF ASPIRATION -Pured diet with nectar thickened liquids MAINTENANCE ISSUES -DVT prophylaxis; current therapy with warfarin should provide adequate DVT prophylaxis -GI prophylaxis; not indicated -Busch catheter; chronic indwelling catheter -Nutrition; 2 g sodium diet -Nicotine dependence; not required CODE STATUS-FULL CODE ADMISSION STATUS-patient will be admitted to inpatient status, expect at least a 2 night hospital stay for evaluation and management of problems as outlined above. At the time of this admission I do not reasonably expected evaluation and management of this problem will require more than a 96 hour hospital stay. DISPOSITION-anticipate discharge to home after the hospital stay. PRIMARY CARE PROVIDER-Dr. Lynch
[2020-03-28] MEDS: LORazepam ORAL Concentrate 1MG/0.5ML U/D PO PRN ×2 (15:45→19:38)
[2020-03-28] MEDS ORDERED: Warfarin 2.5 MG Tab PO ONE (16:00)
[2020-03-28] MEDS: Morphine 10 MG/0.5 ML Oral Syringe BUCCAL PRN ×3 (16:27→23:27)
[2020-03-28] MEDS: Melatonin 3 MG Tab PO SCH (20:58)
[2020-03-28] MEDS: Finasteride 5 MG Tab PO SCH (20:59)
[2020-03-29] MEDS: Morphine 10 MG/0.5 ML Oral Syringe BUCCAL PRN (01:21)
[2020-03-29] MEDS: Albuterol/Ipratropium 3.0-0.5 MG/3 ML Neb Soln NEB SCH ×4 (07:53→21:16)
[2020-03-29] MEDS: Pantoprazole 40 MG Tab.CR PO SCH (08:38)
[2020-03-29] MEDS: Bumetanide 1 MG Tab PO SCH (09:06)
[2020-03-29] MEDS: Allopurinol 100 MG Tab PO SCH (09:06)
[2020-03-29] MEDS: Lactobacillus Rhamnosus GG (Probiotic) Cap PO SCH ×2 (09:06→21:16)
[2020-03-29] MEDS: Diltiazem 180 MG Cap.CD PO SCH (09:06)
--- NOTE | 2020-03-29 09:45 | CR ---
CHEST: Portable 03/27/2020 at 10:57 AM CLINICAL HISTORY:Dyspnea COMPARISON:03/21/2020 FINDINGS: Heart is enlarged. Patient has a permanent cardiac pacer/defibrillator. There has been previous sternotomy. Vascularity is cephalized. There is some interstitial prominence bilaterally which is similar to prior study. Patient has bilateral pleural effusions. There are atherosclerotic changes in the aorta. Impression: Cardiomegaly, vascular cephalization and interstitial prominence consistent with CHF. There are bilateral pleural effusions. This appears to be increased slightly since the 03/21 study. Some of this difference may be technical
--- NOTE | 2020-03-29 09:49 | US ---
Renal Comp CLINICAL HISTORY: Acute renal insufficiency. COMPARISON: 2011. TECHNIQUE: Multiple sonographic images were obtained through the kidneys in the sagittal and transverse projections. Right kidney measures 10.8 x 5.4 x 4.5 cm. Cortical thickness is 1.6 cm. Left kidney measures 9.8 x 5.7 x 5.2 cm. Cortical thickness is 1.2 cm. There is no mass, stones or hydronephrosis Is a Busch catheter in a collapsed bladder IMPRESSION: No mass, stones or hydronephrosis
[2020-03-29] MEDS: Metoprolol Tartrate 25 MG Tab PO SCH ×2 (10:35→21:17)
--- NOTE | 2020-03-29 11:00 | PCM.PN ---
- General Info Date of Service: 03/29/20 Admission Dx/Problem (Free Text): 1. Weakness 2. ESRD 3. Transition to comfort care Subjective Update: Family present - daughter. Hospice to see today. patient on comfort care. Family did raise question of possible hemodialysis. We had a long conversation about what that might entail and discussed options for management. If the patient, family are desirous of HD, the patient would likely need transfer to a facility able to evaluate and initiate dialysis. The patient, for his part, indicated that he was not particularly interested in this. Functional Status: Reports: Pain Controlled, Tolerating Diet - Review of Systems General: Reports: No Symptoms HEENT: Reports: No Symptoms Pulmonary: Reports: No Symptoms Cardiovascular: Reports: No Symptoms Musculoskeletal: Reports: No Symptoms Skin: Reports: No Symptoms Neurological: Reports: No Symptoms Psychiatric: Reports: No Symptoms - Patient Data Vitals - Most Recent: Last Vital Signs Temp 95.1 F L 03/29/20 07:00 Pulse 72 03/29/20 07:53 Resp 16 03/29/20 07:00 BP 115/64 03/29/20 07:00 Pulse Ox 97 03/29/20 07:53 Weight - Most Recent: 226 lb 0.004 oz I&O - Last 24 Hours: Intake & Output 03/28/20 03/29/20 03/29/20 22:59 06:59 14:59 Intake Total 290 Output Total 1050 650 Balance -760 -650 Lab Results Last 24 Hours: Laboratory Results - last 24 hr 03/29/20 Range/Units 04:00 PT 33.0 H (9.5-12.0) sec INR 3.10 H (0.80-1.20) Med Orders - Current: Current Medications Acetaminophen (Tylenol) 650 mg PO Q4H PRN PRN Reason: Pain (Mild 1-3)/fever Last Admin: 03/27/20 15:35 Dose: 650 mg Documented by: Albuterol (Proventil Neb Soln) 2.5 mg NEB Q4H PRN PRN Reason: Dyspnea Albuterol/Ipratropium (Duoneb 3.0-0.5 Mg/3 Ml) 3 ml NEB QIDRT [facility] Last Admin: 03/29/20 10:52 Dose: 3 ml Documented by: Allopurinol (Zyloprim) 100 mg PO DAILY [facility] Last Admin: 03/29/20 09:06 Dose: Not Given Documented by: Bumetanide (Bumex) 2 mg PO DAILY [facility] Last Admin: 03/29/20 09:06 Dose: Not Given Documented by: Diltiazem HCl (Cardizem Cd) 180 mg PO DAILY [facility] Last Admin: 03/29/20 09:06 Dose: Not Given Documented by: Docusate Sodium (Colace) 100 mg PO BID PRN PRN Reason: Constipation Last Admin: 03/24/20 17:35 Dose: 100 mg Documented by: Finasteride (Proscar) 5 mg PO BEDTIME [facility] Last Admin: 03/28/20 20:59 Dose: 5 mg Documented by: Promethazine HCl 6.25 mg/ (Sodium Chloride) 50.25 mls @ 200 mls/hr IV Q6H PRN PRN Reason: Nausea/Vomiting Lactobacillus Rhamnosus (Culturelle) 1 cap PO BID [facility] Last Admin: 03/29/20 09:06 Dose: Not Given Documented by: Lorazepam (Ativan Oral Concentrate 1mg/0.5 Ml U/D) 0.5 mg PO Q2H PRN PRN Reason: Anxiety Last Admin: 03/28/20 19:38 Dose: 0.5 mg Documented by: Melatonin (Melatonin) 9 mg PO BEDTIME [facility] Last Admin: 03/28/20 20:58 Dose: 9 mg Documented by: Metoprolol Tartrate (Lopressor) 12.5 mg PO Q12H [facility] Last Admin: 03/29/20 10:35 Dose: Not Given Documented by: Morphine Sulfate (Morphine 10 Mg/0.5 Ml Oral Syringe) 5 mg BUCCAL Q1H PRN PRN Reason: Pain Last Admin: 03/29/20 01:21 Dose: 5 mg Documented by: Ondansetron HCl (Zofran Odt) 4 mg PO Q6H PRN PRN Reason: Nausea able to take PO Pantoprazole Sodium (Protonix) 40 mg PO ACBREAKFAST [facility] Last Admin: 03/29/20 08:38 Dose: Not Given Documented by: Discontinued Medications Albuterol/Ipratropium (Duoneb 3.0-0.5 Mg/3 Ml) 3 ml NEB ONETIME ONE Stop: 03/22/20 17:15 Last Admin: 03/22/20 18:01 Dose: 3 ml Documented by: Bisacodyl (Dulcolax) 10 mg RECTAL ONETIME ONE Stop: 03/24/20 13:01 Last Admin: 03/24/20 13:03 Dose: 10 mg Documented by: Bumetanide (Bumex) 1 mg PO DAILY [facility] Last Admin: 03/24/20 08:28 Dose: 1 mg Documented by: Bumetanide (Bumex) 2 mg PO DAILY [facility] Last Admin: 03/26/20 08:15 Dose: 2 mg Documented by: Cephalexin (Keflex) 250 mg PO Q6HR [facility] Last Admin: 03/28/20 09:12 Dose: 250 mg Documented by: Ciprofloxacin (Ciprofloxacin Hcl) 500 mg PO BID [facility] Last Admin: 03/22/20 08:26 Dose: 500 mg Documented by: Dextrose (Glutose 15) 15 gm PO ONETIME PRN PRN Reason: Hypoglycemia Dextrose/Water (Dextrose 50% In Water) 50 ml IV ONETIME PRN PRN Reason: Hypoglycemia Diltiazem HCl (Diltiazem) 20 mg IVPUSH ONETIME ONE Stop: 03/24/20 15:46 Last Admin: 03/24/20 15:40 Dose: 20 mg Documented by: Diltiazem HCl (Cardizem) 30 mg PO Q6HR [facility] Last Admin: 03/26/20 03:44 Dose: 30 mg Documented by: Doxycycline Hyclate (Vibramycin) 100 mg PO Q12H [facility] Last Admin: 03/22/20 10:16 Dose: 100 mg Documented by: Furosemide (Lasix) 60 mg IVPUSH NOW ONE Stop: 03/22/20 18:35 Last Admin: 03/22/20 18:42 Dose: 60 mg Documented by: Furosemide (Lasix) 40 mg IVPUSH NOW ONE Stop: 03/24/20 17:01 Furosemide (Lasix) 40 mg IVPUSH ONETIME ONE Stop: 03/24/20 15:46 Last Admin: 03/24/20 15:49 Dose: 40 mg Documented by: Furosemide (Lasix) 80 mg IVPUSH NOW ONE Stop: 03/28/20 09:01 Last Admin: 03/28/20 09:13 Dose: 80 mg Documented by: Glipizide (Glucotrol) 5 mg PO BIDMEALS [facility] Last Admin: 03/22/20 17:03 Dose: 5 mg Documented by: Lactated Ringer's (Ringers, Lactated) 1,000 mls @ 500 mls/hr IV BOLUS ONE Stop: 03/21/20 22:27 Last Admin: 03/21/20 20:53 Dose: 500 mls/hr Documented by: Lactated Ringer's (Ringers, Lactated) 1,000 mls @ 100 mls/hr IV ASDIRECTED [facility] Last Admin: 03/22/20 15:13 Dose: 100 mls/hr Documented by: Ceftriaxone Sodium 1 gm/ (Sodium Chloride) 50 mls @ 100 mls/hr IV Q24H [facility] Last Admin: 03/26/20 10:30 Dose: 100 mls/hr Documented by: Diltiazem HCl 100 mg/ Sodium (Chloride) 100 mls @ 5 mls/hr IV TITRATE [facility]; Protocol Last Admin: 03/25/20 13:24 Dose: 10 mg/hr, 10 mls/hr Documented by: Sodium Chloride (Normal Saline) 1,000 mls @ 250 mls/hr IV ASDIRECTED [facility] Stop: 03/24/20 18:15 Last Admin: 03/24/20 17:01 Dose: 250 mls/hr Documented by: Sodium Chloride (Normal Saline) 1,000 mls @ 50 mls/hr IV ASDIRECTED [facility] Sodium Chloride (Normal Saline) 1,000 mls @ 100 mls/hr IV ASDIRECTED [facility] Last Admin: 03/27/20 23:23 Dose: 100 mls/hr Documented by: Insulin Human Lispro (Humalog) 0 unit SUBCUT QIDACANDBED [facility]; Protocol Last Admin: 03/28/20 11:54 Dose: 1 unit Documented by: Morphine Sulfate (Morphine) 2 mg IVPUSH Q2H PRN PRN Reason: Pain (severe 7-10) Last Admin: 03/25/20 03:01 Dose: 2 mg Documented by: Nitroglycerin (Nitro-Bid 2%) 1 gm TOP ONETIME ONE Stop: 03/21/20 20:41 Last Admin: 03/21/20 21:00 Dose: 1 gm Documented by: Oxycodone HCl (Oxycodone) 5 mg PO Q4H PRN PRN Reason: Pain (moderate 4-6) Last Admin: 03/25/20 17:02 Dose: 5 mg Documented by: Polyethylene Glycol (Miralax) 17 gm PO ONETIME ONE Stop: 03/24/20 13:01 Last Admin: 03/24/20 13:02 Dose: 17 gm Documented by: Polyethylene Glycol (Miralax) 17 gm PO ONETIME ONE Stop: 03/26/20 13:31 Last Admin: 03/26/20 13:24 Dose: 17 gm Documented by: Sodium Biphosphate/Sodium Phosphate (Fleet Enema) 133 ml RECTAL ONETIME PRN PRN Reason: Constipation Trimethoprim/Sulfamethoxazole (Septra Ds) 1 tab PO BID [facility] Last Admin: 03/22/20 00:24 Dose: Not Given Documented by: Warfarin Sodium (Coumadin) 5 mg PO DAILY@1300 [facility] Last Admin: 03/24/20 13:07 Dose: Not Given Documented by: Warfarin Sodium (Coumadin) 2.5 mg PO ONETIME ONE Stop: 03/24/20 13:31 Last Admin: 03/24/20 13:39 Dose: 2.5 mg Documented by: Warfarin Sodium (Coumadin) 2.5 mg PO ONETIME ONE Stop: 03/27/20 15:14 Last Admin: 03/27/20 15:35 Dose: 2.5 mg Documented by: Warfarin Sodium (Coumadin) 2.5 mg PO ONETIME ONE Stop: 03/28/20 16:01 Last Admin: 03/28/20 16:49 Dose: 2.5 mg Documented by: - Exam Quality Assessment: Urine Catheter, DVT Prophylaxis. No: Supplemental Oxygen, Central Line/PICC, Skin Breakdown General: Alert, Cooperative, No Acute Distress Lungs: Clear to Auscultation, Normal Respiratory Effort Cardiovascular: Regular Rate, Regular Rhythm GI/Abdominal Exam: Normal Bowel Sounds, Soft, Non-Tender, No Organomegaly, No Distention, No Abnormal Bruit, No Mass Skin: Warm, Dry, Intact Neurological: No New Focal Deficit Psy/Mental Status: Alert, Normal Affect, Normal Mood Sepsis Event Note - Evaluation Sepsis Screening Result: No Definite Risk - Focused Exam Vital Signs: Vital Signs Temp Pulse Resp BP Pulse Ox Pulse Ox 03/29/20 07:53 72 97 03/29/20 07:00 95.1 F L 97 16 115/64 75 L - Problem List Review Problem List Initiated/Reviewed/Updated: Yes - Plan Plan:: ASSESSMENT AND PLAN PALLIATIVE CARE-given progressive symptoms as well as acute kidney injury he has decided not to pursue further aggressive interventions or evaluation. He would like to be kept comfortable, with discharged home in hospice care as soon as possible. -Hospice consult today -Continue comfort cares in meantime -Family is asking about possible hemodialysis -Discussed that if family were to opt for this there would need to be clear endpoint and goal to the intervention. Temporary HD could be done, but this would not likely alter his trajectory. -That said if the family and patient wanted this intervention, we could arrange for transfer, placement of a [place] catheter and initiation of temporary HD to determine if there is any improvement -Discontinue all aggressive interventions and evaluation -Morphine sulfate and lorazepam as needed for comfort CONGESTIVE HEART FAILURE-Echocardiogram shows severely decreased left ventricular function with estimated systolic ejection fraction of 25 to 30%, moderate diastolic dysfunction mild to moderate aortic stenosis and moderate mitral regurgitation URINARY TRACT INFECTION-resolved SEVERE WEAKNESS CHRONIC KIDNEY DISEASE STAGE IIIb WITH ACUTE KIDNEY INJURY-creatinine increased again today despite low level of IV fluids given over the last 24 hours TYPE 2 DIABETES MELLITUS -Hold glipizide -4 times daily glucometers -Low-dose sliding scale Humalog ATRIAL FIBRILLATION-rate controlled with current management -Warfarin 2.5 mg today, reassess in a.m. -Daily INR -Continue metoprolol and diltiazem EPISODES OF ASPIRATION -Pured diet with nectar thickened liquids MAINTENANCE ISSUES -DVT prophylaxis; current therapy with warfarin should provide adequate DVT prophylaxis -GI prophylaxis; not indicated -Busch catheter; chronic indwelling catheter -Nutrition; 2 g sodium diet -Nicotine dependence; not required CODE STATUS-FULL CODE ADMISSION STATUS-patient will be admitted to inpatient status, expect at least a 2 night hospital stay for evaluation and management of problems as outlined above. At the time of this admission I do not reasonably expected evaluation and management of this problem will require more than a 96 hour hospital stay. DISPOSITION-anticipate discharge to home after the hospital stay. PRIMARY CARE PROVIDER-Dr. Lynch
[2020-03-29] MEDS ORDERED: Bumetanide 1 MG Tab PO ONE (20:32)
[2020-03-29] MEDS: Melatonin 3 MG Tab PO SCH (21:16)
[2020-03-29] MEDS: Finasteride 5 MG Tab PO SCH (21:17)
[2020-03-30] MEDS: Albuterol/Ipratropium 3.0-0.5 MG/3 ML Neb Soln NEB SCH ×2 (07:01→10:59)
[2020-03-30 08:24] VITALS: BP 120/66; PULSE 78
[2020-03-30] MEDS: Bumetanide 1 MG Tab PO SCH ×2 (08:56→10:03)
[2020-03-30] MEDS: Diltiazem 180 MG Cap.CD PO SCH (08:56)
[2020-03-30] MEDS: Allopurinol 100 MG Tab PO SCH (08:56)
[2020-03-30] MEDS: Pantoprazole 40 MG Tab.CR PO SCH (08:56)
[2020-03-30] MEDS: Lactobacillus Rhamnosus GG (Probiotic) Cap PO SCH (08:56)
[2020-03-30] MEDS: Metoprolol Tartrate 25 MG Tab PO SCH (09:44)
[2020-03-30] MEDS: LORazepam ORAL Concentrate 1MG/0.5ML U/D PO PRN (10:03)
--- NOTE | 2020-03-30 10:51 | PCM.DCSUM1 ---
Discharge Summary - Hospital Course HPI Initial Comments: Patient is a 89yo male with PMH of indwelling catheter, CHF, gout, and DMII who presented today with acute weakness of BL lower extremities. He says he was walking around like normal earlier today and then when he tried to get up out of a chair this evening was unable to stand on his own. In the ER he was found to have a UTI. We discuss that he feels it is also possible that he's been exposed to lymes disease recently as someone in his household found a deer tick in the past week. He says he has had sepsis before from UTIs due to his indwelling catheter. He denies any FC, NVD, SOB, Cough, pedal edema. Patient's COVID-19 test was negative in ED Despite best efforts stopping short of HD, the patient continued to decline. Care conference was held and it was determined by patient and family to decline further aggressive measures and pursue a plan of comfort care. The patient was seen by Hospice on 29 March and accepted into the program. He is now discharging to home hospice today. Diagnosis: Stroke: No Modified Kerr Scale: No Symptoms at All Modified Eddy Scale Score: 0 - Discharge Data Discharge Date: 03/30/20 Discharge Disposition: DC/Tfer to Hospice - Home 50 Condition: Good - Referral to Home Health Primary Care Physician: Pedro Lynch MD - Patient Summary/Data Consults: Consultations 03/28/20 14:38 Consult to Hospice [CONS] Routine Comment: Physician Instructions: Reason for Consult: Acute kidney injury, CHF, atrial fibrillation - Discharge Plan *PRESCRIPTION DRUG MONITORING PROGRAM REVIEWED*: No *COPY OF PRESCRIPTION DRUG MONITORING REPORT IN PATIENT EDIL: No Prescriptions/Med Rec: Docusate Sodium [Colace] 100 mg PO BID PRN 30 Days #60 cap PRN Reason: Constipation Melatonin 3 mg PO BEDTIME #30 capsule Home Medications: Home Meds Multivitamin with Minerals [Multiple Vitamin] 1 tab PO DAILY 09/29/13 [History] Omeprazole [Prilosec] 40 mg PO DAILY PRN 09/29/13 [History] glipiZIDE [Glucotrol] 5 mg PO BIDAC 07/14/14 [History] Nitroglycerin [IJP: Nitroglycerin] 0.4 mg PO ASDIRECTED PRN 07/24/16 [History] Bumetanide [Bumex] 2 mg PO DAILY 10/10/16 [History] allopurinoL [Zyloprim] 100 mg PO DAILY #30 tab 12/03/18 [Rx] Carboxymethylcellulose Sodium [Refresh Tears 0.5%] 1 drop EYEBOTH BID PRN 12/15/18 [History] Lactobacillus Rhamnosus GG [Culturelle] 1 cap PO BID #60 cap 12/20/18 [Rx] Warfarin [Coumadin] 5 mg PO DAILY@1300 #30 tablet 12/20/18 [Rx] Metoprolol Tartrate 12.5 mg PO BID 03/25/19 [History] Finasteride 5 mg PO BEDTIME 10/29/19 [History] Colchicine 0.6 mg PO BEDTIME 01/15/20 [History] Albuterol [Proventil Neb Soln] 2.5 mg NEB Q4H PRN neb 03/30/20 [Rx] Albuterol/Ipratropium [DuoNeb 3.0-0.5 MG/3 ML] 3 ml NEB QIDRT neb 03/30/20 [Rx] Docusate Sodium [Colace] 100 mg PO BID PRN 30 Days #60 cap 03/30/20 [Rx] LORazepam [Ativan ORAL Concentrate 1MG/0.5 ML U/D] 0.5 mg PO Q2H PRN cont 03/30/20 [Rx] Lactobacillus Rhamnosus GG [Culturelle] 1 cap PO BID cap 03/30/20 [Rx] Melatonin 3 mg PO BEDTIME #30 capsule 03/30/20 [Rx] Metoprolol Tartrate [Lopressor] 12.5 mg PO Q12H tablet 03/30/20 [Rx] Ondansetron [Zofran ODT] 4 mg PO Q6H PRN tab.dis 03/30/20 [Rx] Pantoprazole [ProTONIX] 40 mg PO ACBREAKFAST tab.cr 03/30/20 [Rx] allopurinoL [Zyloprim] 100 mg PO DAILY tablet 03/30/20 [Rx] Oxygen Therapy Mode: Room Air Referrals: Pedro Lynch MD [Primary Care Provider] - - Discharge Summary/Plan Comment DC Time >30 min.: Yes - Patient Data Vitals - Most Recent: Last Vital Signs Temp 96.8 F L 03/30/20 08:22 Pulse 78 11/03/20 08:22 Resp 18 03/30/20 08:22 BP 120/66 03/30/20 08:22 Pulse Ox 87 L 03/30/20 08:22 Weight - Most Recent: 226 lb 0.004 oz I&O - Last 24 hours: Intake & Output 03/29/20 03/30/20 03/30/20 22:59 06:59 14:59 Intake Total 0 Output Total 450 1150 250 Balance -450 -1150 -250 Med Orders - Current: Current Medications Acetaminophen (Tylenol) 650 mg PO Q4H PRN PRN Reason: Pain (Mild 1-3)/fever Last Admin: 03/27/20 15:35 Dose: 650 mg Documented by: Albuterol (Proventil Neb Soln) 2.5 mg NEB Q4H PRN PRN Reason: Dyspnea Albuterol/Ipratropium (Duoneb 3.0-0.5 Mg/3 Ml) 3 ml NEB QIDRT [facility] Last Admin: 03/30/20 07:01 Dose: 3 ml Documented by: Allopurinol (Zyloprim) 100 mg PO DAILY [facility] Last Admin: 03/30/20 08:56 Dose: Not Given Documented by: Bumetanide (Bumex) 2 mg PO DAILY [facility] Last Admin: 03/30/20 10:03 Dose: 2 mg Documented by: Diltiazem HCl (Cardizem Cd) 180 mg PO DAILY [facility] Last Admin: 03/30/20 08:56 Dose: Not Given Documented by: Docusate Sodium (Colace) 100 mg PO BID PRN PRN Reason: Constipation Last Admin: 03/24/20 17:35 Dose: 100 mg Documented by: Finasteride (Proscar) 5 mg PO BEDTIME [facility] Last Admin: 03/29/20 21:17 Dose: Not Given Documented by: Promethazine HCl 6.25 mg/ (Sodium Chloride) 50.25 mls @ 200 mls/hr IV Q6H PRN PRN Reason: Nausea/Vomiting Lactobacillus Rhamnosus (Culturelle) 1 cap PO BID [facility] Last Admin: 03/30/20 08:56 Dose: Not Given Documented by: Lorazepam (Ativan Oral Concentrate 1mg/0.5 Ml U/D) 0.5 mg PO Q2H PRN PRN Reason: Anxiety Last Admin: 03/30/20 10:03 Dose: 0.5 mg Documented by: Melatonin (Melatonin) 9 mg PO BEDTIME [facility] Last Admin: 03/29/20 21:16 Dose: Not Given Documented by: Metoprolol Tartrate (Lopressor) 12.5 mg PO Q12H [facility] Last Admin: 03/30/20 09:44 Dose: Not Given Documented by: Morphine Sulfate (Morphine 10 Mg/0.5 Ml Oral Syringe) 5 mg BUCCAL Q1H PRN PRN Reason: Pain Last Admin: 03/29/20 01:21 Dose: 5 mg Documented by: Ondansetron HCl (Zofran Odt) 4 mg PO Q6H PRN PRN Reason: Nausea able to take PO Pantoprazole Sodium (Protonix) 40 mg PO ACBREAKFAST [facility] Last Admin: 03/30/20 08:56 Dose: Not Given Documented by: Discontinued Medications Albuterol/Ipratropium (Duoneb 3.0-0.5 Mg/3 Ml) 3 ml NEB ONETIME ONE Stop: 03/22/20 17:15 Last Admin: 03/22/20 18:01 Dose: 3 ml Documented by: Bisacodyl (Dulcolax) 10 mg RECTAL ONETIME ONE Stop: 03/24/20 13:01 Last Admin: 03/24/20 13:03 Dose: 10 mg Documented by: Bumetanide (Bumex) 1 mg PO DAILY [facility] Last Admin: 03/24/20 08:28 Dose: 1 mg Documented by: Bumetanide (Bumex) 2 mg PO DAILY [facility] Last Admin: 03/26/20 08:15 Dose: 2 mg Documented by: Bumetanide (Bumex) 2 mg PO ONETIME ONE Stop: 03/29/20 20:33 Last Admin: 03/29/20 20:44 Dose: 2 mg Documented by: Cephalexin (Keflex) 250 mg PO Q6HR [facility] Last Admin: 03/28/20 09:12 Dose: 250 mg Documented by: Ciprofloxacin (Ciprofloxacin Hcl) 500 mg PO BID [facility] Last Admin: 03/22/20 08:26 Dose: 500 mg Documented by: Dextrose (Glutose 15) 15 gm PO ONETIME PRN PRN Reason: Hypoglycemia Dextrose/Water (Dextrose 50% In Water) 50 ml IV ONETIME PRN PRN Reason: Hypoglycemia Diltiazem HCl (Diltiazem) 20 mg IVPUSH ONETIME ONE Stop: 03/24/20 15:46 Last Admin: 03/24/20 15:40 Dose: 20 mg Documented by: Diltiazem HCl (Cardizem) 30 mg PO Q6HR [facility] Last Admin: 03/26/20 03:44 Dose: 30 mg Documented by: Doxycycline Hyclate (Vibramycin) 100 mg PO Q12H [facility] Last Admin: 03/22/20 10:16 Dose: 100 mg Documented by: Furosemide (Lasix) 60 mg IVPUSH NOW ONE Stop: 03/22/20 18:35 Last Admin: 03/22/20 18:42 Dose: 60 mg Documented by: Furosemide (Lasix) 40 mg IVPUSH NOW ONE Stop: 03/24/20 17:01 Furosemide (Lasix) 40 mg IVPUSH ONETIME ONE Stop: 03/24/20 15:46 Last Admin: 03/24/20 15:49 Dose: 40 mg Documented by: Furosemide (Lasix) 80 mg IVPUSH NOW ONE Stop: 03/28/20 09:01 Last Admin: 03/28/20 09:13 Dose: 80 mg Documented by: Glipizide (Glucotrol) 5 mg PO BIDMEALS [facility] Last Admin: 03/22/20 17:03 Dose: 5 mg Documented by: Lactated Ringer's (Ringers, Lactated) 1,000 mls @ 500 mls/hr IV BOLUS ONE Stop: 03/21/20 22:27 Last Admin: 03/21/20 20:53 Dose: 500 mls/hr Documented by: Lactated Ringer's (Ringers, Lactated) 1,000 mls @ 100 mls/hr IV ASDIRECTED [facility] Last Admin: 03/22/20 15:13 Dose: 100 mls/hr Documented by: Ceftriaxone Sodium 1 gm/ (Sodium Chloride) 50 mls @ 100 mls/hr IV Q24H [facility] Last Admin: 03/26/20 10:30 Dose: 100 mls/hr Documented by: Diltiazem HCl 100 mg/ Sodium (Chloride) 100 mls @ 5 mls/hr IV TITRATE [facility]; Protocol Last Admin: 03/25/20 13:24 Dose: 10 mg/hr, 10 mls/hr Documented by: Sodium Chloride (Normal Saline) 1,000 mls @ 250 mls/hr IV ASDIRECTED [facility] Stop: 03/24/20 18:15 Last Admin: 03/24/20 17:01 Dose: 250 mls/hr Documented by: Sodium Chloride (Normal Saline) 1,000 mls @ 50 mls/hr IV ASDIRECTED [facility] Sodium Chloride (Normal Saline) 1,000 mls @ 100 mls/hr IV ASDIRECTED [facility] Last Admin: 03/27/20 23:23 Dose: 100 mls/hr Documented by: Insulin Human Lispro (Humalog) 0 unit SUBCUT QIDACANDBED [facility]; Protocol Last Admin: 03/28/20 11:54 Dose: 1 unit Documented by: Morphine Sulfate (Morphine) 2 mg IVPUSH Q2H PRN PRN Reason: Pain (severe 7-10) Last Admin: 03/25/20 03:01 Dose: 2 mg Documented by: Nitroglycerin (Nitro-Bid 2%) 1 gm TOP ONETIME ONE Stop: 03/21/20 20:41 Last Admin: 03/21/20 21:00 Dose: 1 gm Documented by: Oxycodone HCl (Oxycodone) 5 mg PO Q4H PRN PRN Reason: Pain (moderate 4-6) Last Admin: 03/25/20 17:02 Dose: 5 mg Documented by: Polyethylene Glycol (Miralax) 17 gm PO ONETIME ONE Stop: 03/24/20 13:01 Last Admin: 03/24/20 13:02 Dose: 17 gm Documented by: Polyethylene Glycol (Miralax) 17 gm PO ONETIME ONE Stop: 03/26/20 13:31 Last Admin: 03/26/20 13:24 Dose: 17 gm Documented by: Sodium Biphosphate/Sodium Phosphate (Fleet Enema) 133 ml RECTAL ONETIME PRN PRN Reason: Constipation Trimethoprim/Sulfamethoxazole (Septra Ds) 1 tab PO BID [facility] Last Admin: 03/22/20 00:24 Dose: Not Given Documented by: Warfarin Sodium (Coumadin) 5 mg PO DAILY@1300 [facility] Last Admin: 03/24/20 13:07 Dose: Not Given Documented by: Warfarin Sodium (Coumadin) 2.5 mg PO ONETIME ONE Stop: 03/24/20 13:31 Last Admin: 03/24/20 13:39 Dose: 2.5 mg Documented by: Warfarin Sodium (Coumadin) 2.5 mg PO ONETIME ONE Stop: 03/27/20 15:14 Last Admin: 03/27/20 15:35 Dose: 2.5 mg Documented by: Warfarin Sodium (Coumadin) 2.5 mg PO ONETIME ONE Stop: 03/28/20 16:01 Last Admin: 03/28/20 16:49 Dose: 2.5 mg Documented by:
== END 2020-03-30 13:35 | disposition hospice, home (50) | DRG 699 ==
LOC: JP.ED 19:27 → JP.MS 22:07 → JP.ICU 03-24 15:18 → JP.MS 03-28 15:00
PROVIDERS: ADMIT Family Medicine; ATTEND Hospitalist
DX: T83.511A Infection and inflammatory reaction due to indwelling urethral catheter, initial encounter (principal); I50.9 Heart failure, unspecified; I50.22 Chronic systolic (congestive) heart failure; I48.91 Unspecified atrial fibrillation; I48.20 Chronic atrial fibrillation, unspecified; N17.9 Acute kidney failure, unspecified; I13.0 Hypertensive heart and chronic kidney disease with heart failure and stage 1 through stage 4 chronic kidney disease, or unspecified chronic kidney disease; N18.9 Chronic kidney disease, unspecified; H46.9 Unspecified optic neuritis; H54.7 Unspecified visual loss; H26.9 Unspecified cataract; I25.10 Atherosclerotic heart disease of native coronary artery without angina pectoris; I51.7 Cardiomegaly; I49.5 Sick sinus syndrome; K21.9 Gastro-esophageal reflux disease without esophagitis; N40.0 Benign prostatic hyperplasia without lower urinary tract symptoms; M54.9 Dorsalgia, unspecified; G89.29 Other chronic pain; F41.9 Anxiety disorder, unspecified; M19.90 Unspecified osteoarthritis, unspecified site; E11.22 Type 2 diabetes mellitus with diabetic chronic kidney disease; Z96.0 Presence of urogenital implants; Z20.828 Contact with and (suspected) exposure to other viral communicable diseases; Z99.81 Dependence on supplemental oxygen; B96.89 Other specified bacterial agents as the cause of diseases classified elsewhere; N18.32 Chronic kidney disease, stage 3b; R29.898 Other symptoms and signs involving the musculoskeletal system; M10.9 Gout, unspecified; N39.0 Urinary tract infection, site not specified; Z88.8 Allergy status to other drugs, medicaments and biological substances; Z91.041 Radiographic dye allergy status; Z98.49 Cataract extraction status, unspecified eye; Z86.73 Personal history of transient ischemic attack (TIA), and cerebral infarction without residual deficits; Z86.718 Personal history of other venous thrombosis and embolism; Z79.899 Other long term (current) drug therapy; I25.2 Old myocardial infarction; Z95.0 Presence of cardiac pacemaker; Z95.5 Presence of coronary angioplasty implant and graft; Z79.01 Long term (current) use of anticoagulants; Z79.51 Long term (current) use of inhaled steroids; Z79.84 Long term (current) use of oral hypoglycemic drugs; Z86.711 Personal history of pulmonary embolism; Z79.83 Long term (current) use of bisphosphonates; Z87.448 Personal history of other diseases of urinary system
CPT/HCPCS: 36415; 71046; 80048; 81001; 84484; 85027; 85379; 85610; 86140; 87086; 87088; 99285 ×2; A9270; J7120 ×2; U0002; 70450; 71045; 71045-26; 76770; 76770-26; 80053; 82962; 85025; 93005; 93010; 93306; 94640; 94762; 97110-GP; 97162-GP; 97530-GP; 97535-GP; J0696; J1815; J1940; J2270; J3490; J7030; J7050; J7620-GY